=== PATIENT | male | born 1975 | race Caucasian/White ===

== ENCOUNTER 2023-03-08 09:47 | Outpatient (CLI) | payer OTHER, SELFPAY | END 2023-03-08 09:48 | disposition home or self-care (01) | LOC: ANHAUDIO 09:50 | PROVIDERS: PCP Family Medicine Adolescent Medicine; Visit Provider Otolaryngology | DX: H90.3 Sensorineural hearing loss, bilateral (principal); H60.92 Unspecified otitis externa, left ear; J31.0 Chronic rhinitis | CPT/HCPCS: 92552; 92556; 92567 ==

== ENCOUNTER 2023-04-05 00:07 | Day surgery (SDC) | payer OTHER, SELFPAY ==
[2023-03-22 14:25] VITALS: BMI 40.9
--- NOTE | 2023-04-04 09:58 | WPDANESEPPF ---
Anes - Initial Pre Proc Eval Procedure: Operation Date: 04/05/23 08:00 Proposed Procedures p Screening Colonoscopy - Cristi Mars MD Date/Time: 04/04/23 09:58 Surgeon: Cristi Mars MD Pre Op Diagnosis: neoplasm screening Patient Data Age: 47 Gender: M Height: 1.78 m Weight: 129.5 kg Allergies Allergy/AdvReac Type Severity Reaction Status Date / Time tolnaftate [From Lamisil AF] AdvReac Intermediate Rash Verified 04/05/23 06:37 (topical) Home Medications Medication Instructions Recorded Confirmed Type flaxseed oil 1,000 mg capsule 1,000 mg PO BID 10/27/21 03/22/23 History propranolol 80 mg tablet 80 mg PO Q12H #60 tabs 10/03/22 04/05/23 Rx sumatriptan succinate 100 mg tablet See Rx Instructions PO .COMPLEX #9 12/13/22 03/22/23 Rx tabs cyclobenzaprine 10 mg tablet 10 mg PO TID PRN muscle spasm #30 03/01/23 03/22/23 Rx tabs gabapentin 300 mg capsule 300 mg PO BID 03/22/23 03/22/23 History omeprazole 40 mg capsule,delayed 40 mg PO DAILY 03/22/23 03/22/23 History release sulindac 200 mg tablet 200 mg PO BID 03/22/23 03/22/23 History topiramate 100 mg tablet 100 mg PO BID 03/22/23 03/22/23 History levetiracetam 500 mg tablet 1,000 mg PO Q12H #120 tabs 03/29/23 Rx Patient hx anesthesia problems: none Family hx anesthesia problems: none Results Review: All pre-operative results and documents have been reviewed as part of the pre-operative evaluation. [facility] Past Medical History Medical History (Updated 04/05/23 @ 08:00 by Cristi Mars MD) Family history of colon cancer in mother Hyperlipidemia Surgical History Surgical History History of cholecystectomy 2017 History of right inguinal hernia repair 2017 Family History Family History Father Migraines Mother Carcinoma of colon Sibling Migraines Other Cerebrovascular accident Family history of malignant neoplasm Hypertension Social History Social History Smoking status: Never smoker Second hand tobacco smoke exposure: No Alcohol intake: never Substance use: never Substance use type: does not use Lack of Transportation: No Lack of Food: Never True Current Housing: I Have Housing Concerned About Future Housing: Decline to Answer Difficulty Paying Gas/Electric Bills: Decline to Answer Difficulty Paying for Meds: Decline to Answer Currently Unemployed: Decline to Answer Education: High School Diploma/GED Difficulty w/ Childcare or Family Care: YES Living arrangements: with family Occupation/Education: unemployed Gender identity (if verbalized by the patient): Male Spiritual care concerns: No Agree to blood products: Yes Anes - Eval Final PreProcedure Day of Procedure 04/04/23 09:58 Patient weight: morbidly obese Heart: regular rate and rhythm Lungs: clear to auscultation Airway: Mallampati scale class II Neurological: alert and oriented Last oral intake: >/= 8 hours ASA classification: III Emergent: no Anesthetic plan: proceed Anesthesia type and monitoring: general GIVS and standard monitoring Results Review: All pre-operative results and documents have been reviewed as part of the pre-operative evaluation. Informed Consent: The patient's anesthetic plan and its attendant risks and benefits were discussed with the patient/family/POA. Questions were solicited and answers provided to the satisfaction of the patient/family/POA.
[2023-04-05 06:39] VITALS: BP 135/92; PULSE 62; RESP 18; TEMP 36.6; O2SAT 97
[2023-04-05] MEDS: LACTATED RINGERS 1,000 ML 150 ML IV CONT (06:52)
--- NOTE | 2023-04-05 07:59 | PM.HPGS ---
History of Present Illness History of Present Illness Consent: Risks, benefits, and alternatives have been discussed and questions answered. Patient agrees to proceed with procedure. Chief complaint: neoplasm screening Narrative: Miguel A Carr Jr. is a 47 year old male here for first colonoscopy, mother had colon cancer Review of Systems Constitutional: Constitutional: Denies headache(s) and Denies weakness ENT: Reports Normal hearing present, Denies headache(s) and Denies neck pain Cardiovascular: Cardiovascular: Denies chest pain and Denies dyspnea Respiratory: Respiratory: Denies dyspnea Gastrointestinal: Gastrointestinal: Reports no additional gastrointestinal complaints Genitourinary: Genitourinary: Denies dysuria Musculoskeletal: Musculoskeletal: Denies neck pain Integumentary/Breasts: Skin/Breast: Denies dry skin Neurologic: Reports Normal hearing present, Denies headache(s) and Denies weakness Psychiatric: Psychiatric: Denies anxiety Endocrine: Endocrine: Denies change in body appearance Hematologic/Lymphatic: Hematologic/Lymphatic: Denies easy bleeding Allergic/Immunologic: Allergic/Immunologic: Denies urticaria PMF Past Medical History Medical History (Updated 04/05/23 @ 08:00 by Cristi Mars MD) Family history of colon cancer in mother Hyperlipidemia Surgical History Surgical History History of cholecystectomy 2017 History of right inguinal hernia repair 2017 Family History Family History Father Migraines Mother Carcinoma of colon Sibling Migraines Other Cerebrovascular accident Family history of malignant neoplasm Hypertension Social History Social History Smoking status: Never smoker Second hand tobacco smoke exposure: No Alcohol intake: never Substance use: never Substance use type: does not use Lack of Transportation: No Lack of Food: Never True Current Housing: I Have Housing Concerned About Future Housing: Decline to Answer Difficulty Paying Gas/Electric Bills: Decline to Answer Difficulty Paying for Meds: Decline to Answer Currently Unemployed: Decline to Answer Education: High School Diploma/GED Difficulty w/ Childcare or Family Care: YES Living arrangements: with family Occupation/Education: unemployed Gender identity (if verbalized by the patient): Male Spiritual care concerns: No Agree to blood products: Yes Meds Home Medications and Allergies Home Medications Medication Instructions Recorded Confirmed Type flaxseed oil 1,000 mg capsule 1,000 mg PO BID 10/27/21 03/22/23 History propranolol 80 mg tablet 80 mg PO Q12H #60 tabs 10/03/22 04/05/23 Rx sumatriptan succinate 100 mg tablet See Rx Instructions PO .COMPLEX #9 12/13/22 03/22/23 Rx tabs cyclobenzaprine 10 mg tablet 10 mg PO TID PRN muscle spasm #30 03/01/23 03/22/23 Rx tabs gabapentin 300 mg capsule 300 mg PO BID 03/22/23 03/22/23 History omeprazole 40 mg capsule,delayed 40 mg PO DAILY 03/22/23 03/22/23 History release sulindac 200 mg tablet 200 mg PO BID 03/22/23 03/22/23 History topiramate 100 mg tablet 100 mg PO BID 03/22/23 03/22/23 History levetiracetam 500 mg tablet 1,000 mg PO Q12H #120 tabs 03/29/23 Rx Allergies Allergy/AdvReac Type Severity Reaction Status Date / Time tolnaftate [From Lamisil AF] AdvReac Intermediate Rash Verified 04/05/23 06:37 (topical) Vital Signs Vital Signs - 24 hr 04/05/23 06:39 Temperature 97.8 F Pulse Rate 62 Respiratory Rate 18 Blood Pressure 135/92 H Pulse Oximetry 97 Oxygen Delivery Room Air Exam Const: General: comfortable and no acute distress HENMT: Face/Nose/Sinus: Normal nares present Eyes: Other: wearing sunglasses Neck: Neck: no JVD Resp: Auscultation: clear to aus
[2023-04-05 08:21] VITALS: BP 113/78; PULSE 74; RESP 20; O2SAT 100
[2023-04-05 08:31] VITALS: BP 120/79; PULSE 68; RESP 17; O2SAT 100
[2023-04-05 08:41] VITALS: BP 133/88; PULSE 62; RESP 20; O2SAT 97
== END 2023-04-05 08:46 | disposition home or self-care (01) ==
PROVIDERS: PCP Family Medicine Adolescent Medicine; Visit Provider Internal Medicine Gastroenterology
PROC: 0DJD8ZZ Inspection of Lower Intestinal Tract, Via Natural or Artificial Opening Endoscopic (ICD-10-PCS; CPT 45378; principal; 2023-04-05 08:00)
DX: Z12.11 Encounter for screening for malignant neoplasm of colon (principal); K57.30 Diverticulosis of large intestine without perforation or abscess without bleeding; K64.8 Other hemorrhoids; Z80.0 Family history of malignant neoplasm of digestive organs; E78.5 Hyperlipidemia, unspecified; E66.01 Morbid (severe) obesity due to excess calories; Z68.41 Body mass index [BMI] 40.0-44.9, adult
CPT/HCPCS: 45378; J2704; J7120

== ENCOUNTER 2023-07-01 10:07 | Outpatient (CLI) | payer OTHER, SELFPAY ==
--- NOTE | ~2023-07-01 | US_ITS ---
EXAMINATION:US venous doppler LE LT INDICATION:Left lower extremity pain TECHNIQUE: Multiple grayscale, color flow and Doppler images of the left lower extremity deep venous systems were obtained and reviewed. COMPARISON:No prior studies for comparison. FINDINGS: The common femoral, superficial femoral and popliteal veins demonstrate normal respiratory variation, augmentation and compressibility. Color flow is also seen within the posterior tibial, pe roneal, greater saphenous and profunda veins. IMPRESSION: 1: No lower extremity deep venous thrombosis. Reviewed, dictated and finalized at location B. ER OPERATOR
[2023-07-01 11:31] LABS: Basophils Absolute Auto 0.1 K/mm3 (0.0-0.1); Basophils Percent Auto 0.8 % (0.2-1.2); Eosinophils Absolute Auto 0.4 K/mm3 (0-0.3); Eosinophils Percent Auto 3.5 % (0-4.4); Hematocrit 44.4 % (42.0-52.0); Hemoglobin 14.5 g/dL (14.0-18.0); Immature Granulocyte Absolute 0.06 K/mm3 (0.00-0.031); Immature Granulocyte Percent A 0.6 % (0-0.5); Lymphocytes Absolute Auto 2.84 K/mm3 (0.9-3.2); Lymphocytes Percent Auto 28.1 % (18.3-44.2); Mean Corpuscular HGB Conc 32.7 g/dl (32-36); Mean Corpuscular Hemoglobin 29.9 pg (26-34); Mean Corpuscular Volume 91.5 fl (80-100); Mean Platelet Volume 10.3 fl (7.4-10.4); Monocytes Absolute Auto 1.1 K/mm3 (0.1-0.6); Monocytes Percent Auto 10.6 % (2.6-8.5); Neutrophils Absolute Auto 5.7 K/mm3 (1.3-6.7); Neutrophils Percent Auto 56.4 % (45.5-73.1); Platelet Count Result 196 k/mm3 (150-375); Red Blood Count 4.85 M/mm3 (4.6-6.20); Red Cell Distribution Width 13.4 % (11.5-14.5); White Blood Count 10.1 K/mm3 (4.5-10.0)
[2023-07-01 11:44] LABS: Alanine Aminotransferase 41 U/L (6-50); Albumin Level 4.5 g/dL (3.5-5.1); Alkaline Phosphatase 93 U/L (38-126); Anion Gap 8 mmol/L (8-16); Aspartate Amino Transferase 32 U/L (17-59); Bilirubin,Total 0.9 mg/dL (0.2-1.3); Blood Urea Nitrogen 13 mg/dL (9-20); Calcium 9.4 mg/dL (8.4-10.2); Carbon Dioxide 28 mmol/L (22-30); Chloride 106 mmol/L (98-107); Cholesterol 222 mg/dL (0-200); Estimated Glomerular Filt Rate > 60; Glucose 87 mg/dL (65-110); HDL Direct 31 mg/dL; Potassium 4.3 mmol/L (3.4-5.0); Sodium 142 mmol/L (137-145); Triglycerides 142 mg/dL (<150)
[2023-07-01 11:55] LABS: LDL Cholesterol Direct 147 mg/dL
== END 2023-07-01 10:08 | disposition home or self-care (01) ==
PROVIDERS: PCP Family Medicine Adolescent Medicine; Visit Provider Nurse Practitioner Family
DX: M79.662 Pain in left lower leg (principal); I10 Essential (primary) hypertension
CPT/HCPCS: 36415; 80053; 80061; 84443; 85025; 93971

== ENCOUNTER 2024-01-27 10:14 | Outpatient (CLI) | payer OTHER, SELFPAY ==
--- NOTE | ~2024-01-27 | US_ITS ---
EXAMINATION: US soft tissue groin RT DATE: 01/27/2024 10:56 INDICATION: Strain of the abductor muscles, fascia tendon TECHNIQUE: Multiple grayscale and Doppler ultrasound images of the right inguinal region of concern w ere obtained. COMPARISON: CT dated 01/18/2017 FINDINGS: There is a small fat-containing inguinal hernia at the right groin. This was present at the time of t he prior CT with large and medial to the hypogastric vessels consistent with an indirect hernia. IMPRESSION: 1. Small fat-containing indirect right inguinal hernia. Reviewed, dictated and finalized at location B.
== END 2024-01-27 10:15 | disposition home or self-care (01) ==
PROVIDERS: PCP Family Medicine Adolescent Medicine; Visit Provider Nurse Practitioner Family
DX: S76.211A Strain of adductor muscle, fascia and tendon of right thigh, initial encounter (principal); X58.XXXA Exposure to other specified factors, initial encounter; N50.89 Other specified disorders of the male genital organs; K40.90 Unilateral inguinal hernia, without obstruction or gangrene, not specified as recurrent
CPT/HCPCS: 76882

== ENCOUNTER 2024-02-09 12:22 | Outpatient (CLI) | payer OTHER, SELFPAY ==
--- NOTE | ~2024-02-09 | XR_ITS ---
Lumbosacral Spine: AP and lateral views Clinical History: Pain Findings: The normal lordotic curve is maintained. The vertebral bodies and posterior elements are i ntact. The intervertebral disc spaces are preserved. There is moderate facet arthropathy, especially from L4 through S1. The sacroiliac joints are normally outlined. Impression: Facet arthropathy, as above. Reviewed, dictated and finalized at location . Impression: Facet arthropathy, as above.
== END 2024-02-09 12:23 | disposition home or self-care (01) ==
LOC: ANHIMG 12:23
PROVIDERS: PCP Family Medicine Adolescent Medicine; Visit Provider Nurse Practitioner Family
DX: M54.9 Dorsalgia, unspecified (principal); M12.88 Other specific arthropathies, not elsewhere classified, other specified site
CPT/HCPCS: 72100

== ENCOUNTER 2024-04-10 10:00 | Outpatient (RCR) | payer OTHER, SELFPAY ==
--- NOTE | 2024-03-08 10:52 | PTOPEVAL1 ---
Assessment and note entered by Adali Montejo, PT Evaluation Information Assessment Status Evaluation Diagnosis M54.9 ICD-10 Condition Codes (PT) Pain in low back M54.50,M54.16,Pain in right hip M25.551,R26.9,Weakness R53.1 Onset February 03, 2024 Subjective Information Pt reports experiencing sudden sharp pain to the lower back pain which goes to the R side of buttocks going around to the R groin area last February 02 which gradually got worse over time. Standing longer, bending over and walking for long distances increase pain as well as driving, but sitting with lumbar support helps with pain intensity; however, a lot of times, he needs to extend R leg to relieve pressure in the groin area . Sparingly used prescribed hydrocodone and muscle relaxants, only when the pain and or spasms are really bad . Laying in bed on his side or stomach generally feels better. He has 14 steps to basement where the laundry is and another 14 steps to bedroom in the 2nd floor; increased challenge with going up/down steps, leans on the wall going down the stairs due to increased stiffness especially in the mornings, feels better as he moves around throughout the day , or when he is in the cold shower. ADLs such as dressing and putting socks on has been difficult due to feeling unstable with standing on L leg and occasionally feeling a jolt of pain to R groin area. He is staying at home and performs more household tasks and is the primary caregiver for his mom and sister. Reports that he had a fall in the living room late January, he felt that everything below the waist just buckled on him and he lost his balance. Able to get back up to his feet after resting for a period of time. Patient's personal goal for therapy is to be able to perform functional mobility without increased pain. Reported Pain Level Pain Score 6,6: Self Report Additional Pain Score Comments Pain in varying intensity goes around from low back to the R hip and R groin area and along
--- NOTE | 2024-04-12 10:07 | PTOPDC ---
Assessment and note entered by Adali Montejo, PT DISCHARGE Information Assessment Status Discharge Diagnosis M54.9 ICD-10 Condition Codes (PT) Pain in low back M54.50,M54.16,Pain in right hip M25.551,R26.9,Weakness R53.1 Onset February 03, 2024 Subjective Information Pt reports continue to feel the groin pain with movements and even when doing some of the stretching exercises. It is usually painful initially and then subsides with the next reps, modified some of the exercises as instructed. States therapy has helped relieve some of the back pain but the groin area pain persists. Assessment PT Clinical Summary Pt participated in 9 sessions of Physical Therapy and showed gains in strength and balance, reports reduction in pain to lower back area. However, he continue to c/o persisting pain to L groin area which increases with movement. No significant change in pain levels to the groin and adductor muscles from eval to this date. PT recommendation for patient to continue with HEPs for lower back and to return to MD for a referral to a pelvic casino floor walker due to h/o hernia and persisting groin pain. Plan of Care PT Services Indicated No
== END 2024-04-13 08:43 | disposition home or self-care (01) ==
LOC: ANHHIPT 10:00
PROVIDERS: PCP Family Medicine Adolescent Medicine; Visit Provider Nurse Practitioner Family
DX: M54.9 Dorsalgia, unspecified (principal)
CPT/HCPCS: 97014; 97035; 97110; 97112; 97140; 97161; 97530; 97750; G0283

== ENCOUNTER 2024-06-18 13:58 | Outpatient (CLI) | payer OTHER, SELFPAY ==
--- NOTE | ~2024-06-18 | XR_ITS ---
EXAMINATION: XR hip BI 2V w AP pelvis DATE: 06/18/2024 14:20 INDICATION: Right hip pain. TECHNIQUE: An anteroposterior view of the pelvis on 2 radiographs and 2 views of each hip were obtain ed. COMPARISON: None. FINDINGS: There is lumbar levoscoliosis. No fracture. There is moderate osteoarthritis of the hips. IMPRESSION: 1. Moderate osteoarthritis of the hips. Reviewed, dictated and finalized at location A. EL PILE HAMMER OPERATOR
== END 2024-06-18 13:59 | disposition home or self-care (01) ==
PROVIDERS: PCP Family Medicine Adolescent Medicine; Visit Provider Anesthesiology Pain Medicine
DX: M16.0 Bilateral primary osteoarthritis of hip (principal); G89.29 Other chronic pain; M25.551 Pain in right hip
CPT/HCPCS: 73521

== ENCOUNTER 2024-06-22 10:25 | Outpatient (CLI) | payer OTHER, SELFPAY ==
--- NOTE | ~2024-06-22 | XR_ITS ---
EXAMINATION: XR ankle RT min 3V, [id number] DATE: 06/22/2024 10:58 INDICATION: TECHNIQUE: 1. Anteroposterior, mortise, additional oblique and lateral view of the right ankle were obtained. 2. Standing dorsal plantar, two oblique and lateral views of the right foot were obtained. COMPARISON: None. FINDINGS: Normal alignment at the right ankle. There is mild pes planus and hindfoot valgus. No fracture. Minim al to mild polyarticular osteoarthritis at both the multiple joints throughout the right foot. Modera te-sized Achilles and plantar calcaneal spurs with small amount of dystrophic ossification at the dis cezar Achilles tendon. Bone islands at the lateral malleolus and anterior talus. No ankle joint effusio n. Diffuse soft tissue swelling about the ankle and visualized distal lower leg. IMPRESSION: 1. Mild pes planus and hindfoot valgus minimal to mild polyarticular osteoarthritis throughout the ri ght foot. 2. Moderate Achilles and plantar calcaneal spurs with additional mild enthesopathic ossification at t he distal Achilles tendon. Reviewed, dictated and finalized at location A. R DIGGER IMPRESSION: 1. Mild pes planus and hindfoot valgus minimal to mild polyarticular osteoarthr itis throughout the right foot. 2. Moderate Achilles and plantar calcaneal spurs with additional mild enthesopa thic ossification at the distal Achilles tendon.
== END 2024-06-22 10:26 | disposition home or self-care (01) ==
PROVIDERS: PCP Family Medicine Adolescent Medicine; Visit Provider Family Medicine
DX: M21.41 Flat foot [pes planus] (acquired), right foot (principal); M21.071 Valgus deformity, not elsewhere classified, right ankle; M77.31 Calcaneal spur, right foot; M19.071 Primary osteoarthritis, right ankle and foot
CPT/HCPCS: 73610; 73630

== ENCOUNTER 2024-07-03 13:13 | Outpatient (CLI) | payer OTHER, SELFPAY ==
--- NOTE | ~2024-07-03 | CT_ITS ---
CT abdomen pelvis wo con Ordering provider: Yumiko Moreau History: 48 years Male with . R10.9 - Unspecified abdominal pain . Comparison: None. Technique: CT abdomen and pelvis without IV and without oral contrast. Automated exposure control and iterative reconstruction technique were employed. The dose-length product was 1177.47 mGy-cm. Findings: VISUALIZED LOWER CHEST: Normal. UPPER ABDOMINAL ORGANS: Liver: Hepatomegaly. Gallbladder: Status post cholecystectomy. Spleen: Normal. Stomach/duodenum: Normal. Pancreas: Normal. Adrenals: Normal. Kidneys: Right kidney lower pole stones. Stone in the right upper ureter is also noted with mild hydr onephrotic changes. Multiple tiny stones are seen in the left kidney. PELVIC ORGANS: The bladder is underfilled. BOWEL AND MESENTERY: Colon: No evidence of diverticulitis. No evidence of appendicitis. Small Bowel: Normal. No obstruction. Peritoneum/mesentery: No free air or free fluid. No mesenteric lymphadenopathy. RETROPERITONEUM: Normal aorta. No retroperitoneal lymphadenopathy. MUSCULOSKELETAL: Superficial soft tissues: The superficial soft tissues are normal. Bones: Age appropriate degenerative changes of the spine. IMPRESSION: 1. Stone in the right upper ureter measuring 6 mm with mild hydronephrosis. 2. Bilateral kidney stones. 3. No evidence of appendicitis, diverticulitis or obstruction. 4. Hepatomegaly. Reviewed, dictated and finalized at location A. LE FINANCIALS DEVELOPER
== END 2024-07-03 13:14 | disposition home or self-care (01) ==
PROVIDERS: PCP Family Medicine Adolescent Medicine; Referring Provider Nurse Practitioner Family; Visit Provider Anesthesiology Pain Medicine
DX: N13.2 Hydronephrosis with renal and ureteral calculous obstruction (principal); R16.0 Hepatomegaly, not elsewhere classified
CPT/HCPCS: 74176

== ENCOUNTER 2024-09-05 13:08 | Outpatient (CLI) | payer OTHER, SELFPAY ==
--- NOTE | ~2024-09-05 | MR_ITS ---
EXAMINATION: MR lumbar spine wo con DATE: 09/05/2024 13:45 INDICATION: Radiculopathy, lumbar region. TECHNIQUE: Magnetic resonance imaging (MRI) of the lumbar spine was performed without intravenous con trast. Sequences included sagittal T2-weighted FSE, sagittal T2-weighted FS FSE, sagittal T1-weighted FSE, and axial T2-weighted FSE. COMPARISON: Lumbar spine MRI 04/11/2006 FINDINGS: There is 5 degrees levocurvature of lumbar spine. Vertebral body heights are normal. There is mildly decreased disc height at L4-L5 and L5-S1. The distal spinal cord signal intensity is normal . The conus medullaris is at T12-L1. The following disc levels are specifically discussed: L1-L2: The disc does not extend beyond the endplate margin. There is mild bilateral facet joint osteo arthritis. There is no neural foraminal stenosis. There is no central canal stenosis. L2-L3: The disc does not extend beyond the endplate margin. There is mild bilateral facet joint osteo arthritis. There is no neural foraminal stenosis. There is no central canal stenosis. L3-L4: The disc does not extend beyond the endplate margin. There is moderate bilateral facet joint o steoarthritis. There is no neural foraminal stenosis. There is no central canal stenosis. L4-L5: The disc is bulging and has an annular fissure. There is moderate bilateral facet joint osteoa rthritis. There is mild bilateral neural foraminal stenosis. There is mild central canal stenosis. L5-S1: The disc is bulging and has an annular fissure. There is moderate bilateral facet joint osteoa rthritis. There is no neural foraminal stenosis. There is mild central canal stenosis. IMPRESSION: 1. Mild lumbar spondylosis, worsened from 04/11/2006. Reviewed, dictated and finalized at location A. SCHOOL ENGLISH TEACHER
--- NOTE | ~2024-09-05 | CT_ITS ---
Non-contrast CT scan of the Abdomen and Pelvis Clinical indication: Right lower quadrant pain Technique: 2.5 mm axial scans were obtained through the abdomen and pelvis without intravenous or or al contrast. Dose reduction technique was used on this scan by utilizing automated exposure control a nd iterative reconstruction technique. The dose-length product (DLP) was 1044.76 mGy-cm. COMPARISON: 07/03/2024 Findings: Images through the lung bases reveal no abnormalities. There is a 6 mm stone at the distal right ureter, with mild to moderate right hydroureteronephrosis t o this level. Additional 3 mm nonobstructing right renal stone present at the lower pole. There sever al nonobstructing left renal stones, largest measuring 7 mm. No left ureteral stone or left hydroneph rosis. The liver, spleen, pancreas, and adrenals appear normal. Cholecystectomy clips are present. There is no aortic aneurysm. There is no evidence of bowel obstruction. Images through the pelvis were performed. There is no evidence of ascites or lymphadenopathy. Urinary bladder unremarkable. No pelvic mass seen. Impression: 6 mm distal right ureteral stone with mild to moderate right hydroureteronephrosis to this level. Additional bilateral nonobstructing renal stones, as detailed above. Reviewed, dictated and finalized at location . SFORCE SPECIALIST Impression: 6 mm distal right ureteral stone with mild to moderate right hydroureteronephro sis to this level. Additional bilateral nonobstructing renal stones, as detailed above.
--- OUTSIDE RECORDS SUMMARY | 2024-09-05 13:17 | XMS_ITS | Clinical Summary ---
Author Organization [facility] Address [address] [place] [address] Care Team Providers Care Radiation Oncology Manager Name Role Phone Dm Mcmahon MD Primary Care Provider [phone] Allergies Active Allergy Reactions Criticality Noted Date Comments Terbinafine Unknown 05/26/2017 Medications naratriptan (AMERGE) 2.5 MG tablet Active Flaxseed, Linseed, (RA FLAXSEED OIL) 1030 MG Cap Take 1 capsule by mouth 2 (two) times daily. Active gabapentin 600 MG tablet 600 mg 2 (two) times daily. 07/10/2018 Active omeprazole (PRILOSEC) 20 MG capsule Take 1 capsule by mouth daily. Active propranolol 80 MG tablet Take 1 tablet by mouth 2 (two) times daily. Active sulindac 200 MG tablet Take 1 tablet by mouth 2 (two) times daily. Active topiramate (TOPAMAX) 100 MG tablet Take 1 tablet by mouth 2 (two) times daily. Active Active Problems Problem Noted Date Diagnosed Date Low back pain 03/13/2019 Family History Medical History Relation Comments Heart Father Hypertension Father Cancer Mother Colon Hypertension Mother Diabetes Sister Pulmonary embolism Sister Seizures Sister Relation Status Comments Father Mother Sister Social History Tobacco Use Types Packs/Day Years Used Date Smoking Tobacco: Never Smokeless Tobacco: Never Tobacco Cessation:Counseling Given: Not Answered Alcohol Use Standard Drinks/Week Comments Not Currently 0 (1 standard drink = 0.6 oz pur e alcohol) Sex and Gender Information Value Date Recorded Sex Assigned at Not on file Legal Sex Male 4:27 PM CDT Gender Identity Not on file Sexual Orientation Not on file Last Filed Vital Signs Vital Sign Reading Time Taken Comments Blood Pressure 150/95 06/29/2023 5:45 PM CLEANING TEAM MEMBER Pulse 60 06/29/2023 5:45 PM CLEANING TEAM MEMBER Temperature 36 C (96.8 F) 06/29/2023 3:15 PM CLEANING TEAM MEMBER Respiratory Rate 18 06/29/2023 3:15 PM CLEANING TEAM MEMBER Oxygen Saturation 92% 06/29/2023 5:45 PM CLEANING TEAM MEMBER Inhaled Oxygen Concentration - - Weight 115.7 kg (255 lb) 06/29/2023 3:15 PM CLEANING TEAM MEMBER Height 177.8 cm (5' 10 ) 06/29/2023 3:15 PM CLEANING TEAM MEMBER Body Mass Index 36.59 06/29/2023 3:15 PM CLEANING TEAM MEMBER Plan of Treatment Health Maintenance Due Date Last Done Comments Colorectal Cancer Screening Colonoscopy (10 Years) 1977 Annual Physical 1980 Hepatitis C 11/27/1995 DTaP, Tdap and Td Vaccines (1 - Tdap) 1996 Hepatitis B Vaccines (1 of 3 - 19+ 3-dose series) 1996 COVID-19 Vaccine ( season) 2024 06/29/2021, 12/03/2020, 11/05/2020 Influenza Adult (#1) 2024 05/07/2020, 03/28/2020, 05/23/2019, Additional history exists Meningococcal B Vaccine Aged Out No l onger eligible based on patient's age to complete this topic Meningococcal Vaccine Aged Out No malka kota eligible based on patient's age to complete this topic Pneumococcal Vaccine: Pediatrics (0 to 5 Years) and At-Risk Patients (6 to 64 Years) Aged Out No longer eligible based on patient's age to complete this topic RSV Immunizations Under 20 Months Aged Out No longer eligible based on patient's age to complete this topic Insurance [employer] Care Teams Radiation Oncology Manager Relationship Specialty Start Date End Date Dm Mcmahon MD [address] [address] PCP - General FAMILY PRACTICE 07/10/18
--- OUTSIDE RECORDS SUMMARY | 2024-09-05 13:17 | XMS_ITS | Continuity of Care Document ---
Author Organization [facility] Address [address] [place] [address] [facility] [address] [place] [address] Phone Care Team Providers Care Topographical Surveyor Name Role Phone Daniel Avilez Unavailable Unavailable Procedures Procedure Date Eye Exam, New Patient Advance Directives Directive Yes / No Effective Date File Name No Information Encounters Encounter Description Practice Location Reason(s) For Visit Diagnoses Date Provider Providers Copied on Encounter [facility], [address], [place], [place], [id number], [place] tel:[phone] [facility] No Information 4-200 9 Fatmata Daniel. [address] [facility] [address], [address], [place]. tel:[phone] Family History Family Member Type Diagnosis Age At Onset No Information Payers Payer name Insurance type Covered green party ID Authoriza tion(s) No Information Social [...]
--- OUTSIDE RECORDS SUMMARY | 2024-09-05 13:17 | XMS_ITS | Encounter Summary ---
Author Organization [facility] Address [facility] [place] [address] Care Team Providers Care Field Tech Name Role Phone Dm Mcmahon MD Primary Care Provider [phone] Encounter Details Date Type Department Care Team (Late st Contact Info) Description 02/21/2018 Abstract [facility] CONVERSION [address] [place] [address] , Generic MD Nadira Social History Tobacco Use Types Packs/Day Years Used Date Smoking Tobacco: Never Assessed Sex and Gender Information Value Date Recorded Sex Assigned at Not on file Legal Sex Male 4:27 PM CDT Gender Identity Not on file Sexual Orientation Not on file documented as of this encounter Plan of Treatment Not on file documented as of this encounter Visit Diagnoses Not on filedocumented in this encounter Care Teams Field Tech Relationship Specialty Start Date End Date Dm Mcmahon MD [address] [place] [id number] PCP - General FAMILY PRACTICE 07/10/18 documented as of this encounter
== END 2024-09-05 13:09 | disposition home or self-care (01) ==
PROVIDERS: PCP Family Medicine Adolescent Medicine; Visit Provider Anesthesiology Pain Medicine
DX: N13.2 Hydronephrosis with renal and ureteral calculous obstruction (principal); M47.816 Spondylosis without myelopathy or radiculopathy, lumbar region; N50.89 Other specified disorders of the male genital organs; K40.91 Unilateral inguinal hernia, without obstruction or gangrene, recurrent
CPT/HCPCS: 72148; 74176

== ENCOUNTER 2024-11-13 09:56 | Inpatient (IN) | payer OTHER, SELFPAY ==
[2024-11-13] VITALS (7 sets, daily range): BP systolic 131–163; BP diastolic 84–97; PULSE 61–75; RESP 18–20; TEMP 36.5–36.6; O2SAT 96–100; BMI 39.2
--- NOTE | ~2024-11-13 | CT_ITS ---
CT abdomen pelvis wo con Ordering provider: Mona Thompson PA-C History: 48 years Male with . abd pain, blood in stool . Comparison: September 05, 2024 Technique: CT abdomen and pelvis without oral IV and without oral contrast. Automated exposure contro l and iterative reconstruction technique were employed. The dose-length product was 1474.47 mGy-cm. Findings: VISUALIZED LOWER CHEST: Normal. UPPER ABDOMINAL ORGANS: Liver: Hepatomegaly. Gallbladder: Status post cholecystectomy. Spleen: Normal. Stomach/duodenum: Normal. Pancreas: Normal. Adrenals: Normal. Kidneys: Multiple stones in the left kidney with the largest measures 3 mm. Left hydronephrotic changes seen with a stone seen at the left ureterovesical junction measuring 5 mm . Smaller stone also seen in the distal left ureter. In the right kidney is unremarkable PELVIC ORGANS: The bladder is underfilled with thickened wall. BOWEL AND MESENTERY: Colon: No evidence of diverticulitis.. The appendix is not demonstrated.. Small Bowel: Normal. No obstruction. Peritoneum/mesentery: No free air or free fluid. No mesenteric lymphadenopathy. RETROPERITONEUM: Normal aorta. No retroperitoneal lymphadenopathy. MUSCULOSKELETAL: Superficial soft tissues: The superficial soft tissues are normal. Bones: Age appropriate normal spine. IMPRESSION: 1. No evidence of appendicitis, diverticulitis or intestinal obstruction. 2. stone at the left ureterovesical junction with left hydronephrotic changes. Smaller stones seen i n the left distal ureter. Multiple left kidney stones. 3. Hepatomegaly. Reviewed, dictated and finalized at location A. IMPRESSION: 1. No evidence of appendicitis, diverticulitis or intestinal obstruction. 2. stone at the left ureterovesical junction with left hydronephrotic changes. Smaller stones seen in the left distal ureter. Multiple left kidney stones. 3. Hepatomegaly.
--- NOTE | ~2024-11-13 | XR_ITS ---
INTRAOPERATIVE FLUOROSCOPY: CLINICAL HISTORY: 48 years old Male; CYSTO LEFT SPECIAL PROCEDURE COMMENTS: Limited intraoperative fluoroscopy of the left flank was performed. CUMULATIVE DOSE: 11.8 mGy FLUOROSCOPY TIME: 15.6 seconds FINDINGS/IMPRESSION: Please refer to operative note for further details. Reviewed, dictated and finalized at location A.
--- NOTE | ~2024-11-13 | NM_ITS ---
EXAMINATION: NM renal flow and function DATE: 11/19/2024 13:06 INDICATION: Acute renal injury TECHNIQUE: 8.1 mCi Tc-99m MAG3 was administered IV. The patient was scanned in the supine position. A posterior abdominal radionuclide angiogram was obtained. A subsequent time course of static images of the kidneys, ureters, and bladder was obtained. COMPARISON: None FINDINGS: The posterior abdominal radionuclide angiogram and sequential static images show normal size, positio n, and morphology of the left kidney. The right kidney is in normal position but appears atrophic. Pe ak renal parenchymal uptake was 3.4 min in left kidney and 4 min in right kidney (normal peak 3-5 min utes). The relative early renal uptake was 72% on the left and 28% on the right (<40% is abnormal). No photopenic defect with delayed accumulation of activity in the region of the renal gilmar to suggest hydronephrosis. There is however increased prominence of the left ureter which could be due to hydro ureter or the presence of and reported recent placed internal ureteral stent. T1/2 for clearance of activity from the left kidney and proximal collecting system was 16 minutes. T1/2 for clearance of activity from the right kidney and proximal collecting system was 31 minutes. IMPRESSION: 1. Atrophic right kidney which contributes only 28% to total renal function. 2. Increased activity in the left ureter without definitive hydronephrosis kidney which could be due to residual hydroureter or the presence of a recently placed internal ureteral stent post extraction of an impacted ureteral stone. There is no significantly delayed activity clearance from the left ki dney to suggest a significant obstruction. Reviewed, dictated and finalized at location B. IMPRESSION: 1. Atrophic right kidney which contributes only 28% to total renal function. 2. Increased activity in the left ureter without definitive hydronephrosis kid emily which could be due to residual hydroureter or the presence of a recently pl aced internal ureteral stent post extraction of an impacted ureteral stone. The re is no significantly delayed activity clearance from the left kidney to sugge st a significant obstruction.
--- NOTE | ~2024-11-13 | XR_ITS ---
XR abdomen/kub 1V Ordering provider: Mona Thompson PA-C History: . kidney stone, pain on left side . Comparison: None. FINDINGS: BOWEL: Nonobstructive bowel gas pattern. ORGANOMEGALY: None. SIGNIFICANT PATHOLOGIC CALCIFICATIONS: Lower ureteric stone is seen in the area of the left side of t he pelvis. Another smaller one is seen in the left parasacral area most likely a stone Tiny stones se en in the left kidney lower pole. OTHER: No free air is seen under the diaphragm. IMPRESSION: Stone in the left lower ureter measuring 6.5 mm.. Left kidney stones. Reviewed, dictated and finalized at location A.
--- OUTSIDE RECORDS SUMMARY | 2024-11-13 11:12 | XMS_ITS | Encounter Summary ---
Author Organization [facility] Address [facility] [place] [address] Care Team Providers Care Speed Runner Name Role Phone Dm Mcmahon MD Primary Care Provider [phone] Encounter Details Date Type Department Care Team (Late st Contact Info) Description 02/21/2018 Abstract [facility] CONVERSION [address] [place] [address] , Generic ConversionMD Social History Tobacco Use Types Packs/Day Years [...] on filedocumented in this encounter Care Teams Speed Runner Relationship Specialty Start Date End Date Dm Mcmahon MD [address] [place] [id number] PCP - General FAMILY PRACTICE 07/10/18 documented as of this encounter
--- OUTSIDE RECORDS SUMMARY | 2024-11-13 11:12 | XMS_ITS | Continuity of Care Document ---
Author Organization [facility] Address [address] [place] [address] [facility] [address] [place] [address] Phone Care Team Providers Care Tracer Bullet Charging Machine Operator Name Role Phone Daniel Avilez Unavailable Unavailable Procedures Procedure Date Eye Exam, New Patient Advance Directives Directive Yes / No Effective Date File Name No Information Encounters Encounter Description Practice Location Reason(s) For Visit Diagnoses Date Provider Providers Copied on Encounter [facility], [address] [place], [place], [id number], [place] tel:[phone] [facility] No Information [phone] Fatmata Daniel. [address] [facility] [address], [place], [address], [place]. tel:[phone] Family History Family Member Type Diagnosis Age [...]
--- OUTSIDE RECORDS SUMMARY | 2024-11-13 11:12 | XMS_ITS | Encounter Summary ---
Author Organization [facility] Address [address] [facility] [address] [place] [address] Phone Care Team Providers Care Construction Engineering Manager Name Role Phone Dm Mcmahon MD Primary Care Prov ider Encounter Details Date Type Department Care Team (Late st Contact Info) Description 10/30/2024 Results Follow-Up [facility] Surgery [address] [facility] [address] [place] [address] Ugo Ye MD [address] [facility] [place] [address] Social History Tobacco Use Types Packs/Day Years Used Date Smoking Tobacco: Never AUDIT-C Answer Date Recorded Q1: How often do you have a drink containing alc ohol? Never 10/12/2024 Q2: How many drinks containi ng alcohol do you have on a typical day when you are drinking? 1 or 2 10/12/2024 Q3: How often do you have six or more drinks on one occasion? Never 10/12/2024 Personal Safety Answer Date Recorded Have you ever been in or are you currently in a harmful physical or emotional relationship or is someone making you feel afraid or unsafe? 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 [address] [place] [address] documented as of this encounter Visit Diagnoses Not on filedocumented in this encounter Care Teams Construction Engineering Manager Relationship Specialty Start Date End Date Dm Mcmahon MD [address] [place] [address] PCP - General Family Medicine 10/08/24 documented as of this encounter
--- OUTSIDE RECORDS SUMMARY | 2024-11-13 11:12 | XMS_ITS | Encounter Summary ---
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
--- OUTSIDE RECORDS SUMMARY | 2024-11-13 11:12 | XMS_ITS | Referral Summary ---
Author Organization [facility] [address] Address [address] [place] [address] Care Team Providers Care Tube Drawer Name Role Phone Dm Mcmahon MD Primary Care Prov ider Encounters Date Type Department Care Team Description 11/05/2024 Orders Only [facility] Surgery [address] [place] [address] Ugo Ye MD Kidney stone on left side (Primary Dx) 11/05/2024 Telephone [facility] Surgery [address] [place] [address] Estela Beaver 10/30/2024 Orders Only [facility] Surgery [address] [place] [address] Ugo Ye MD Nephrolithiasis (Primary Dx) 10/30/2024 Results Follow-Up [facility] Surgery [address] [place] [address] Ugo Ye MD 10/26/2024 Telephone [facility] Surgery [address] [place] [address] Alyx Baker 10/25/2024 Results Follow-Up [facility] Surgeon [address] [place] [address] Ugo Ye MD 10/15/2024 Telephone [facility] Surgery [address] [place] [address] Alyx Baker 10/15/2024 Orders Only [facility] Surgery [address] [place] [address] Dm Mcmahon MD Nephrolithiasis (Primary Dx) 10/15/2024 Telephone [facility] Surgery [address] [place] [address] Estela Beaver 10/15/2024 Orders Only [facility] Surgery [address] [facility] [address] [place] [address] Ugo Ye MD Kidney stone (Primary Dx) 10/15/2024 Orders Only [facility] Surgery [address] [place] [address] [address] [place] [address] Ugo Ye MD Kidney stone (Primary Dx) 10/12/2024 12:27 PM CDT - 10/12/2024 1:57 PM CDT Surgery [facility] OR [address] [place] [address] Ugo Ye MD RIGHT URETEROSCOPY WITH HOLMIUM LASER LITHOTRIPSY, STONE BASKETING, CYSTOSCOPY,BILATERAL RETROGRADE PYELOGRAM,RIGHT STENT PLACEMENT 10/12/2024 12:56 PM CDT Anesthesia Event [facility] OR [address] [place] [address] Marine Cunningham MD Scott, Tracy, MD 10/12/2024 11:44 AM CDT - 10/12/2024 5:10 PM CDT Hospital Encounter [facility] OR [address] [place] [address] Ugo Ye MD Nephrolithiasis (Primary Dx) Discharge Disposition: Discharge to home or self care 10/05/2024 Results Follow-Up [facility] [address] [facility] [address] [place] [phone] Ugo Ye MD 10/03/2024 12:30 PM CDT Lab [facility] Office Building [address] [place] [address] Urinary tract infection without hematuria, site unspecified 10/03/2024 Orders Only [facility] Surgery [address] [place] [phone] Ugo Ye MD Urinary tract infection without hematuria, site unspecified (Primary Dx) 09/25/2024 9:49 AM WARNING COORDINATION METEOROLOGIST - 09/25/2024 11:59 PM WARNING COORDINATION METEOROLOGIST Hospital Encounter [facility] Rad[facility] ([facility]) [address] [place] [address] Diagnosis unknown Discharge Disposition: Discharge to home or self care 09/14/2024 3:03 PM WARNING COORDINATION METEOROLOGIST - 09/14/2024 11:59 PM WARNING COORDINATION METEOROLOGIST Hospital Encounter [facility] Lab [address] [place] [address] Right kidney stone Discharge Disposition: Discharge to home or self care 09/14/2024 1:51 PM WARNING COORDINATION METEOROLOGIST - 09/14/2024 11:59 PM WARNING COORDINATION METEOROLOGIST Hospital Encounter [facility] MOB 1 DIAG IMG [address] [place] [address] Right kidney stone Discharge Disposition: Discharge to home or self care 09/14/2024 1:00 PM WARNING COORDINATION METEOROLOGIST Office Visit [facility] Surgery [address] [place] [phone] Edgardo Hernandez NP Right kidney stone (Primary Dx) from Last 3 Months Allergies Active Allergy Reactions Criticality Noted Date Comments Pollen Extracts Other (See comments) Reaction: OTHER REACTION, Miconazole Qsmtjch-Tnenqz-Myqq Rash Medium 10/08/2024 Venom-Wasp Swelling Medium 10/08/2024 Medications tamsulosin (FLOMAX) 0.4 mg extended release capsule Take 1 capsule (0.4 mg total) by mouth daily 90 capsule 5 12/14/19 25 Active topiramate (TOPAMAX) 100 mg tablet Take 1 tablet (100 mg total) by mouth 2 (two) times a day Active rimegepant sulfate (NURTEC ODT ORAL) Take 75 mg by mouth every other day Active propranoloL (INDERAL) 80 mg tabletIndicatio ns:Migraine Prevention Take 1 tablet (80 mg total) by mouth 2 (two) times a day Active lisinopriL (PRINIVIL,ZESTR IL) 10 mg tabletIndicatio ns:hypertension Take 1 tablet (10 mg total) by mouth daily Active DULoxetine DR (CYMBALTA) 60 mg capsule Take 1 capsule (60 mg total) by mouth every evening Active flaxseed oiL 1,000 mg capsule Take 1 capsule (1,000 mg total) by mouth 2 (two) times a day Active gabapentin (NEURONTIN) 300 mg capsuleIndicati ons:Neuropathic Pain Take 1 capsule (300 mg total) by mouth 2 (two) times a day Active acetaminophen (TYLENOL) 500 mg tabletIndicatio ns:Pain Take 2 tablets (1,000 mg total) by mouth daily before breakfast And prn Active sulindac (CLINORIL) 200 mg tabletIndicatio ns:cartilage problems Take 1 tablet (200 mg total) by mouth 2 (two) times a day Pt instructed to stop starting now Active omeprazole (PriLOSEC) 40 mg capsule Take 1 capsule (40 mg total) by mouth 2 (two) times a day Active SUMAtriptan (IMITREX) 100 mg tabletIndicatio ns:Migraine Take 1 tablet (100 mg total) by mouth once as needed for migraine Active clotrimazole 1 % cream Apply 1 Application topically 2 (two) times a day To feet Active fluoride, sodium, 1.1 % paste Apply 1 inch to teeth daily Active oxyBUTYnin (DITROPAN) 5 mg tablet Take 1 tablet (5 mg total) by mouth 3 (three) times a day for 3 days 9 tablet 5 Active HYDROcodone-vikas taminophen (NORCO) 5-325 mg per tabletIndicatio ns:Pain Take 1 tablet by mouth every 8 (eight) hours as needed for pain 10 tablet 5 Active phenazopyridine (PYRIDIUM) 200 mg tablet Take 1 tablet (200 mg total) by mouth 3 (three) times a day for 3 days 9 tablet 5 10/16/19 25 cephalexin (KEFLEX) 500 mg capsule Take 1 capsule (500 mg total) by mouth 2 (two) times a day for 3 days 6 capsule 5 10/16/19 25 Active Problems Problem Noted Date Diagnosed Date Nephrolithiasis 10/03/2024 Migraine with aura 07/20/2010 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 Social History Tobacco Use Types Packs/Day Years [...] on file Legal Sex Male 3:19 AM WARNING COORDINATION METEOROLOGIST Gender Identity Not on file Sexual Orientation Not on file Last Filed Vital Signs Vital Sign Reading Time Taken Comments Blood Pressure 133/82 10/12/2024 4:20 PM CDT Pulse 64 10/12/2024 4:20 PM CDT Temperature 36.7 C (98 F) 10/12/2024 2:45 PM CDT Respiratory Rate 18 10/12/2024 4:20 PM CDT Oxygen Saturation 97% 10/12/2024 4:20 PM CDT Inhaled Oxygen Concentration - - Weight 126.4 kg (278 lb 11.2 oz) 2024 12:18 PM CDT Height 177.8 cm (5' 10 ) 10/08/2024 10: 36 AM CDT Body Mass Index 39.99 10/08/2024 10:36 AM CDT Plan of Treatment Upcoming Encounters Date Type Department Care Team (Late st Contact Info) Description 11/14/2024 6:15 AM CDT Hospital Encounter [facility] [address] [place] [address] Medical Devices Implanted Type Area Stock Worker Device Identifier Shelf Expiration Date Model / Serial / Lot Sta-Peg Bilateral Ankle Bilateral: Ankle [employer] Stent Ureteral Set Double Pigtail Radiopaque Tip [employer] [id number] Polyurethane Hydrophilic Coated [id number] - [id number] Implanted:Qty: 1 on 10/12/2024 by Ugo Ye MD at [facility] Right: Ureter [employer] [id number] 05/25/2027 [id number] / / [id number] Procedures Procedure Name Priority Date/Time Associated Diagnosis Comments LITHOLINK 24HR URINE PANEL Routine 10/24/2024 6:51 AM CDT Kidney stone FL RETRO PYELO (IN OR) IP Routine 10/12/2024 2:03 PM CDT STONE ANALYSIS Routine 10/12/2024 1:39 PM CDT NE AN PROCEDURE PLACEHOLDER Routine 10/12/2024 1:07 PM CDT NE AN ELECTIVE SUPRAGLOTTIC AIRWAY Routine 10/12/2024 1:07 PM CDT URETEROSCOPY STONE MANIPULATION WITH ABLATION LASER 10/12/2024 12:56 PM CDT Kidney stone URINE CULTURE Routine 10/03/2024 1:48 PM CDT Urinary tract infection without hematuria, site unspecified CT BODY OUTSIDE CONSULT Routine 09/25/2024 9:49 AM WARNING COORDINATION METEOROLOGIST Diagnosis unknown XR KUB Schedule Routine, Read Routine (OP Routine) 09/14/2024 1:59 PM WARNING COORDINATION METEOROLOGIST Right kidney stone POCT URINALYSIS DIPSTICK Routine 09/14/2024 1:09 PM WARNING COORDINATION METEOROLOGIST Right kidney stone URINALYSIS, MICROSCOPIC ONLY Routine 09/14/2024 1:09 PM WARNING COORDINATION METEOROLOGIST Right kidney stone URINALYSIS AND REFLEX TO MICROSCOPIC AND CULTURE Routine 09/14/2024 1:09 PM WARNING COORDINATION METEOROLOGIST Right kidney stone from Last 3 Months Results * (ABNORMAL) Litholink 24Hr Urine Panel (10/24/2024 6:51 AM CDT) Cystine, Urine, Qualitative Neg Negative [facility] - 01 Urine Volume (Preserved) 1,830 500 - 4,000 mL/24 hr [facility] - 01 Calcium Oxalate Saturation 3.53(L) 6.00 - 10.00 [facility] - 01 Calcium, Urine 144 <250 mg/24 hr [facility] - 01 Oxalate, Urine 25 20 - 40 mg/24 hr [facility] - 01 Citrate, Urine 121(L) >450 mg/24 hr [facility] - 01 Calcium Phosphate Saturation 1.71 0.50 - 2.00 [facility] - 01 pH, 24 hr, Urine 6.921(H) 5.800 - 6.200 [facility] - 01 Uric Acid Saturation 0.11 <1.00 [facility] - 01 Uric Acid, Urine 711 <800 mg/24 hr [facility] - 01 Sodium, Urine 216(H) 50 - 150 mmol/24 hr [facility] - 01 Potassium, Urine 62 20 - 100 mmol/24 hr [facility] - 01 Magnesium, Urine 71 30 - 120 mg/24 hr [facility] - 01 Phosphorus, Urine 785 600 - 1,200 mg/24 hr [facility] - 01 Ammonium, Urine 26 15 - 60 mmol/24 hr [facility] - 01 Chloride, Urine 215 70 - 250 mmol/24 hr [facility] - 01 Sulfate, Urine 18(L) 20 - 80 meq/24 hr [facility] - 01 Urea Nitrogen, Urine 7.47 6.00 - 14.00 g/24 hr [facility] - 01 Protein Catabolic Rate 0.6(L) 0.8 - 1.4 g/kg/24 hr [facility] - 01 Creatinine, Urine 1,867 Not Applic. mg/24 hr [facility] - 01 Creatinine/Kg Body Weight 14.7 11.9 - 24.4 mg/24 hr/kg [facility] - 01 Calcium/Kg Body Weight 1.1 <4.0 mg/24 hr/kg [facility] - 01 Calcium/Creatin ine Ratio 77 34 - 196 mg/g creat [facility] - 01 Comment Note [facility] - 01 Urine 10/24/2024 6:51 AM CDT 10/29/2024 Narrative [facility] - 10/30/2024 3:07 AM CDT Performed at: - [facility] [id number] Lead Technical Writer: Jose Fontana PhD, Phone: [phone] us Pietrosef Ralf Ye MD LAB URINE ORDERABLES Final Result Performing Organization Address [facility] Co de Phone Number [facility] - 01 * FL Retro Pyelo (In Or) (10/12/2024 2:03 PM CDT) Narrative [email or web address] - 10/12/2024 2:04 PM CDT The images from this study are not interpreted by Radiology. Please refer to the physician's procedure / OR operative note. us Ugo Ye MD IMG FLUOROSCOPY PROC EDURES Final Result Performing Organization Address [facility] Co de Phone Number [email or web address] * Stone analysis (10/12/2024 1:39 PM CDT) Pathologist [facility] Stone analysis Not Reported Panacea ref Lab Source, Kid Stone Right Kidney CON Interp, Kid stone analysis See Footnote CON LANDRY Comment: 90% Calcium phosphate (apatite). 10% Calcium oxalate dihydrate. COMMENT See Footnote CON [facility] Comment: For stones containing calcium oxalate, calcium phosphate, and/or uric acid, a 24 hr urinary supersaturation test may help detect underlying risk factors for this type of stone formation and provide guidance for a stone prevention strategy. ADDITIONAL INFORMATION This test was developed and its performance characteristics determined by [facility] in a manner consistent with CLIA requirements. This test has not been cleared or approved by the U.S. Food and Drug Administration. Test Performed by: [facility] - [facility] [address] [id number] Lead Technical Writer: Joe Sky Ph.D.; CLIA# [id number] Stone (Urine, Clean Catch) 10/12/2024 1:39 PM CDT 10/12/2024 1:59 PM CDT Joanne CON - 10/25/2024 12:09 PM CDT Right Kidney Stone for chemical analysis us Ugo Ye MD LAB URINE ORDERABLES Final Result CON [address] Department [place] [address] [facility] Lab * NE AN ELECTIVE SUPRAGLOTTIC AIRWAY, NE AN PROCEDURE PLACEHOLDER (10/12/2024 1:07 PM CDT) Narrative Jas Vieira CRNA - 10/12/2024 1:07 PM CDT Jas Vieira CRNA 10/12/2024 2:01 PM Airway Patient location: OR Urgency: elective Indications for airway management: anesthesia Difficult airway: no Staff: Placed by: QUALITY ASSURANCE NURSE: Jas Vieira CRNA Emergent airway documentation: Risks and benefits discussed: yes Consent obtained: yes Consent given by: patient Airway prep: Preoxygenated: yes Patient position: sniffing Mask difficulty assessment: 0 - not attempted Spontaneous ventilation during airway: absent Sedation level during airway: deep Final airway details: Final airway type: supraglottic airway Final supraglottic airway: classic SGA size: 5 Number of attempts: 1 Marine Cunningham MD ANESTHESIA ORDERABLES Edited Result - Final * Urine culture Urine, clean voided (10/03/2024 1:48 PM CDT) Report Final Report: Less than 100,000 colonies/mL (clinically insignificant growth based on current clinical standards) Comment:Testing performed by : [facility], [address] [facility], [place]., [address] Organism (CLINICALLY INSIGNIFICANT GROWTH CON [facility]Y Urine, clean voided 10/03/2024 1:48 PM CDT 10/03/2024 8:08 PM CDT Narrative CON [facility]Y - 10/05/2024 3:08 AM CDT Testing performed by [facility] Microbiology Laboratory ([phone]) us Yousef Ralf Ye MD LAB MICROBIOLOGY - G ENERAL ORDERABLES Final Result CON [facility] [address] [facility] Department [place] [address] * CT Body Outside Consult (09/25/2024 9:49 AM WARNING COORDINATION METEOROLOGIST) Anatomical Region Laterality Modality Body N/A Computed Tomogra phy 09/25/2024 10:0 3 AM WARNING COORDINATION METEOROLOGIST Impressions 09/25/2024 10:03 AM WARNING COORDINATION METEOROLOGIST 1. A 6 mm obstructive calculus in the distal right ureter causing mild right hydroureteronephrosis and mild perinephric inflammatory changes. 2. Additional bilateral nonobstructive renal calculi are seen. The findings, conclusions and recommendations within this report do not replace the initial findings, conclusions and recommendations made at the facility where the study was performed based upon the imaging and clinical condition at that time. Comparison with the prior report and clinical history is necessary. The provided images may or may not represent the eagle source data set and thus may contain changes that may lower the accuracy of this second-opinion interpretation. Electronically signed by: Dana Dasilva M.D. Narrative 09/25/2024 10:03 AM WARNING COORDINATION METEOROLOGIST EXAMINATION: RADIOLOGY CONSULTATION ON OUTSIDE IMAGING STUDY STUDY INITIALLY PERFORMED: 09/05/2024 at [facility]. TYPE OF STUDY: Multiple CT images of the abdomen and pelvis without contrast are provided at the time of this interpretation. CONTRAST ROUTE: No contrast was administered. The protocol was adequate to address the clinical question. The outside final report was not available at the time of this second opinion interpretation. TYPE OF CONSULTATION: Consult on outside imaging study with images submitted through Outside Image Sharing Service DATE OF CONSULTATION: 09/25/2024 9:56 AM HISTORY: Concern for kidney stone COMPARISON: None available. FINDINGS: Lung bases are clear. A small area of left peripheral nodularities likely represent atelectatic changes. Heart size is normal without pericardial effusion. The liver is normal within limitation of noncontrast CT. The gallbladder is absent. There is no intra or extrahepatic bile dilatation. Pancreas, spleen and both adrenal glands are normal. There is a 6 mm calculus in the distal ureter causing mild right hydroureteronephrosis. There is mild inflammatory changes surrounding the right kidney. Additional renal calculus is seen in the lower pole of the right kidney measuring up to 5 mm. Multiple nonobstructive renal calculi are also seen in the left kidney measuring up to 8 mm. The bladder is normal. No calculus is seen in the bladder. The prostate is unremarkable. The stomach is normal. There is no evidence of bowel obstruction. There is no abdominal or pelvis enlarged lymph nodes. No free fluid or free air is seen. There is a small fat-containing left inguinal hernia. Abdominal aorta is normal in caliber. There is no suspicious osseous lesion. Procedure Note Dana Puckett MD - 09/25/2024 EXAMINATION: RADIOLOGY CONSULTATION ON OUTSIDE IMAGING STUDY STUDY INITIALLY PERFORMED: 09/05/2024 at [facility]. TYPE OF STUDY: Multiple CT images of the abdomen and pelvis without contrast are provided at the time of this interpretation. CONTRAST ROUTE: No contrast was administered. The protocol was adequate to address the clinical question. The outside final report was not available at the time of this second opinion interpretation. TYPE OF CONSULTATION: Consult on outside imaging study with images submitted through Outside Image Sharing Service DATE OF CONSULTATION: 09/25/2024 9:56 AM HISTORY: Concern for kidney stone COMPARISON: None available. FINDINGS: Lung bases are clear. A small area of left peripheral nodularities likely represent atelectatic changes. Heart size is normal without pericardial effusion. The liver is normal within limitation of noncontrast CT. The gallbladder is absent. There is no intra or extrahepatic bile dilatation. Pancreas, spleen and both adrenal glands are normal. There is a 6 mm calculus in the distal ureter causing mild right hydroureteronephrosis. There is mild inflammatory changes surrounding the right kidney. Additional renal calculus is seen in the lower pole of the right kidney measuring up to 5 mm. Multiple nonobstructive renal calculi are also seen in the left kidney measuring up to 8 mm. The bladder is normal. No calculus is seen in the bladder. The prostate is unremarkable. The stomach is normal. There is no evidence of bowel obstruction. There is no abdominal or pelvis enlarged lymph nodes. No free fluid or free air is seen. There is a small fat-containing left inguinal hernia. Abdominal aorta is normal in caliber. There is no suspicious osseous lesion. IMPRESSION: 1. A 6 mm obstructive calculus in the distal right ureter causing mild right hydroureteronephrosis and mild perinephric inflammatory changes. 2. Additional bilateral nonobstructive renal calculi are seen. The findings, conclusions and recommendations within this report do not replace the initial findings, conclusions and recommendations made at the facility where the study was performed based upon the imaging and clinical condition at that time. Comparison with the prior report and clinical history is necessary. The provided images may or may not represent the eagle source data set and thus may contain changes that may lower the accuracy of this second-opinion interpretation. Electronically signed by: Dana Dasilva M.D. Edgardo Hernandez NP IMG CT PROCEDURES Final Resul t * XR KUB (09/14/2024 1:59 PM WARNING COORDINATION METEOROLOGIST) Anatomical Region Laterality Modality Body, Abdomen N/A Computed Radiogr aphy 09/19/2024 2:39 PM WARNING COORDINATION METEOROLOGIST Narrative 09/19/2024 2:41 PM WARNING COORDINATION METEOROLOGIST EXAM DESCRIPTION: XR KUB REASON FOR STUDY: kidney stone Abdominal pain when walking. Kidney stone f/u from June TECHNIQUE: A total of 2 frontal radiographic view of the abdomen. COMPARISON: None available. FINDINGS: Please note the extreme lateral margin of the right and left hemiabdomen is not imaged on this study due to patient's body habitus. Elsewhere there are gas-filled loops of large and small bowel. A gas containing loop of bowel overlies the pelvis. Moderate amount of stool projects over the imaged abdomen and pelvis. Radiopaque foci projecting over the left renal silhouette measuring up 2 3-4 mm could be renal calculi, bowel debris or other summation artifact. Surgical clips project over the right upper abdomen. There are pelvic phleboliths. Levoconvex lumbar curvature. IMPRESSION: 1. Radiopaque foci projecting over the left renal silhouette could be renal calculi, bowel debris and/or other summation artifact. A CT can be obtained to further evaluate as clinically indicated. 2. Previous imaging studies are not available for comparison. THIS IS AN ELECTRONICALLY VERIFIED FINAL REPORT 09/19/2024 2:41 PM - Electronically signed by Kilo Cervantes D.O. AP: AP Report ID: [id number] Reading Location: [place] [address] Procedure Note Kilo Cervantes, DO - 09/19/2024 EXAM DESCRIPTION: XR KUB REASON FOR STUDY: kidney stone Abdominal pain when walking. Kidney stone f/u from June TECHNIQUE: A total of 2 frontal radiographic view of the abdomen. COMPARISON: None available. FINDINGS: Please note the extreme lateral margin of the right and left hemiabdomen is not imaged on this study due to patient's body habitus. Elsewhere there are gas-filled loops of large and small bowel. A gas containing loop of bowel overlies the pelvis. Moderate amount of stool projects over the imaged abdomen and pelvis. Radiopaque foci projectingover the left renal silhouette measuring up 2 3-4 mm could be renal calculi,bowel debris or other summation artifact. Surgical clips project over the right upper abdomen. There are pelvic phleboliths. Levoconvex lumbarcurvature. IMPRESSION: 1. Radiopaque foci projecting over the left renal silhouette could berenal calculi, bowel debris and/or other summation artifact. A CT can beobtained to further evaluate as clinically indicated. 2. Previous imaging studies are not available for comparison. THIS IS AN ELECTRONICALLY VERIFIED FINAL REPORT 09/19/2024 2:41 PM - Electronically signed by Kilo Cervantes D.O. AP: AP Report ID: [id number] Reading Location: [place] [address] us Edgardo Hernandez NOTE TELLER IMG XR PROCEDURES Final Resul t * (ABNORMAL) Urinalysis reflex to microscopic and culture Urine (09/14/2024 1:09 PM WARNING COORDINATION METEOROLOGIST) Color, ur Yellow Yellow Comment:Testing performed by : [address] [address] Clarity, ur Clear Clear CON Comment:Testing performed by : [address] [address] Specific gravity, ur 1.018 1.003 - 1.030 CON Comment:Testing performed by : [address] [address] pH, urine 6.0 OCN Comment: Interpretive Data U rine pH is affected by diet, medications, systemic acid-base disturbances, and renal tubular function. pH may affect urinary stone formation. For example, urine pH below 6.0 may help reduce the tendency for calcium phosphate stones and pH greater than 6.0 may reduce the tendency for uric acid stone formation. Source: [employer] Current Interpretive Data was last revised on 2017 Testing performed by: [address] [address] Protein, ur ql Negative Negative CON Comment:Testing performed by : [address] [address] Glucose, ur ql Negative Negative CON Comment:Testing performed by : [address] [address] Ketones, ur Negative Negative CON Comment:Testing performed by : [address] [address] Bilirubin, ur Negative Negative CON Comment:Testing performed by : [address] [address] Blood, ur 2+(A) Negative CON Comment:Testing performed by : [address] [address] Urobilinogen, ur 2.0(A) <2.0 mg/dL CON LANDRY Comment:Testing performed by : [facility] [address] [place] [address]., [address] Nitrite, ur Negative Negative CON LANDRY Comment:Testing performed by : [address], [place]., [address] Leukocyte esterase, ur Negative Negative CON LANDRY Comment:Testing performed by : [address], [place]., [address] UA reflex comment Reflex to microscopic UA will be performed. CON Comment:Testing performed by : [address], [place]., [address] Urine 09/14/2024 1:09 PM WARNING COORDINATION METEOROLOGIST 09/14/2024 5:02 PM WARNING COORDINATION METEOROLOGIST us Edgardo Hernandez NOTE TELLER LAB MICROBIOLOGY - GENERAL OR DERABLES Final Result CON [facility] Department [place] [address] * (ABNORMAL) Urinalysis, microscopic only (09/14/2024 1:09 PM WARNING COORDINATION METEOROLOGIST) WBC, ur 0-5 0 - 5 /HPF Comment:Testing performed by : [address] [address] RBC, ur >50(A) 0 - 2 /HPF CON LANDRY Comment:Testing performed by : [address] [address] Epithelial cells, squamous, ur 11-20(A) 0 - 5 /HPF CON Comment:Testing performed by : [address], [place]., [address] Mucous, ur Present(A) CON Comment:Testing performed by : [address] [address] Culture Reflex Comment Reflex conditions for urine culture (WBC >10) not met. CON LANDRY Comment:Testing performed by : [address], [place]., [address] Urine 09/14/2024 1:09 PM WARNING COORDINATION METEOROLOGIST 09/14/2024 5:02 PM WARNING COORDINATION METEOROLOGIST Edgardo Hernandez NOTE TELLER LAB URINE ORDERABLES Final Re sult CON [address] [facility] Department [place] [address] * (ABNORMAL) POCT urinalysis dipstick (09/14/2024 1:09 PM WARNING COORDINATION METEOROLOGIST) Color, Urine, POC Yellow Clarity, ur, POC Clear Clear Glucose, ur, POC Negative Negative MG/DL Bilirubin, ur, POC 1+(A) Negative, Small, Moderate, Large Ketones, ur, POC Negative Negative Specific Jonancy, POC 1.020 1.003 - 1.030 Blood, ur, POC 3+(A) Negative pH, ur, POC 6.0 5.0 - 8.0 Protein, ur, POC Negative Negative Urobilinogen, urine, POC 0.2 0.2 - 1.0 mg/dL Nitrite, ur, POC Negative Negative Leukocytes, ur, POC Negative Negative Lot Number 0 Urine 09/14/2024 1:09 PM WARNING COORDINATION METEOROLOGIST Edgardo Hernandez NOTE TELLER POINT OF CARE TEST ORDERABLES Final Result from Last 3 Months Insurance [facility] Care Teams Tube Drawer Relationship Specialty Start Date End Date Dm Mcmahon MD [address] [place] [address] PCP - General Family Medicine 10/08/24
--- OUTSIDE RECORDS SUMMARY | 2024-11-13 11:12 | XMS_ITS | Clinical Summary ---
Author Organization [facility] Address [address] [place] [address] Care Team Providers Care Glass Pulverizer Equipment Operator Name Role Phone Dm Mcmahon MD Primary Care Provider [phone] Allergies Active Allergy Reactions Criticality Noted Date [...] Comments Blood Pressure 150/95 06/29/2023 5:45 PM HEAD BOOKKEEPER Pulse 60 06/29/2023 5:45 PM HEAD BOOKKEEPER Temperature 36 C (96.8 F) 06/29/2023 3:15 PM HEAD BOOKKEEPER Respiratory Rate 18 06/29/2023 3:15 PM HEAD BOOKKEEPER Oxygen Saturation 92% 06/29/2023 5:45 PM HEAD BOOKKEEPER Inhaled Oxygen Concentration - - Weight 115.7 kg (255 lb) 06/29/2023 3:15 PM HEAD BOOKKEEPER Height 177.8 cm (5' 10 ) 06/29/2023 3:15 PM HEAD BOOKKEEPER Body Mass Index 36.59 06/29/2023 3:15 PM HEAD BOOKKEEPER Plan of Treatment Health Maintenance Due Date Last Done Comments Colorectal Cancer Screening Colonoscopy (10 Years) 1977 Annual Physical 1980 Hepatitis C 11/27/1995 DTaP, Tdap and Td Vaccines ( 1 - Tdap) 1996 Hepatitis B Vaccines (1 of 3 - 19+ 3-dose series) 1996 COVID-19 Vaccine (4 - 2023-2 5 season) 2024 06/29/2021, 12/03/2020, 11/05/2020 Meningococcal B Vaccine Aged Out No l onger eligible based on patient's age to complete this topic Meningococcal Vaccine Aged Out No malka kota eligible based on patient's age to complete this topic Pneumococcal Vaccine: Pediatrics (0 to 5 Years) and At-Risk Patients (6 to 49 Years) Aged Out No longer eligible b ased on patient's age to complete this topic RSV Immunizations Under 20 Months Aged Out No longer eligible b ased on patient's age to complete this topic Insurance [facility] [phone] Care Teams Glass Pulverizer Equipment Operator Relationship Specialty Start Date End Date Dm Mcmahon MD [address] [address] PCP - General FAMILY PRACTICE 07/10/18
--- OUTSIDE RECORDS SUMMARY | 2024-11-13 11:12 | XMS_ITS | Encounter Summary ---
Author Organization [facility] Healthcare Address [address] [place] [address] Care Team Providers Care Material Handling Technician Name Role Phone No, Physician Primary Care Provider [phone] Dm Mcmahon MD Primary Care Prov ider Encounter Details Date Type Department Care Team (Late st Contact Info) Description 10/05/2024 Results Follow-Up [facility] Medical Group Neurology Hospitalists [facility] [address] [place] [phone] Ugo Ye MD [address] [facility] [place] [address] Social History Tobacco Use Types Packs/Day Years Used Date Smoking Tobacco: Never AUDIT-C Answer Date Recorded Q1: How often do you have a drink containing alc ohol? Never 10/08/2024 Q2: How many drinks containi ng alcohol do you have on a typical day when you are drinking? 1 or 2 10/08/2024 Q3: How often do you have six or more drinks on one occasion? Never 10/08/2024 Personal Safety Answer Date Recorded Have you ever been in or are you currently in a harmful physical or emotional relationship or is someone making you feel afraid or unsafe? Denies 10/08/2024 Sex and Gender Information Value Date Recorded Sex Assigned at Not on file Legal Sex Male 3:19 AM WELD ENGINEER Gender Identity Not on file Sexual Orientation Not on file documented as of this encounter Functional Status * Audit-C Score Answer Date of Assessment Author 0 10/08/2024 9:49 AM CDT Sp Noriega RN * Question Answer Date of Assessment Author Q1: How often do you have a drink containing alcohol? Never 10/08/2024 9:49 AM CDT Chrissy Noriega RN Q2: How many drinks containi ng alcohol do you have on a typical day when you are drinking? 1 or 2 10/08/2024 9:49 AM CDT Do prisca Noriega RN Q3: How often do you have si x or more drinks on one occasion? Never 10/08/2024 9:49 AM LARRYT Chrissy Noriega RN documented as of this encounter Plan of Treatment Upcoming Encounters Date Type Department Care Team (Late st Contact Info) Description 11/14/2024 6:15 AM CDT Hospital Encounter [address] [address] documented as of this encounter Visit Diagnoses Not on filedocumented in this encounter Care Teams Material Handling Technician Relationship Specialty Start Date End Date No, Physician PCP - General 09/11/24 10/07/24 Dm Mcmahon MD [address] [place] [address] PCP - General Family Medicine 10/08/24 documented as of this encounter
--- OUTSIDE RECORDS SUMMARY | 2024-11-13 11:12 | XMS_ITS | Clinical Summary ---
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 Encounters Date Type Department Care Team Description 11/05/2024 Orders Only [facility] Surgery [address] [place] [phone] Ugo Ye MD Kidney stone on left side (Primary Dx) 11/05/2024 Telephone [facility] Surgery [address] [place] [address] Estela Beaver 10/30/2024 Orders Only [facility] Surgery [address] [place] [phone] Ugo Ye MD Nephrolithiasis (Primary Dx) 10/30/2024 Results Follow-Up [facility] Surgery [address] [place] [address] Ugo Ye MD 10/26/2024 Telephone [facility] Surgery [address] [place] [phone] Alyx Baker 10/25/2024 Results Follow-Up [facility] Surgeon [address] [place] [address] Ugo Ye MD 10/15/2024 Telephone [facility] Surgery [address] [place] [phone] Alyx Baker 10/15/2024 Orders Only [facility] Surgery [address] [place] [address] Dm Mcmahon MD Nephrolithiasis (Primary Dx) 10/15/2024 Telephone [facility] Surgery [address] [place] [address] Estela Beaver 10/15/2024 Orders Only [facility] Surgery [address] [place] [phone] Ugo Ye MD Kidney stone (Primary Dx) 10/15/2024 Orders Only [facility] Surgery [address] [place] [phone] Ugo Ye MD Kidney stone (Primary Dx) 10/12/2024 12:56 PM CDT Anesthesia Event [facility] OR [address] [place] [address] Marine Cunningham MD Scott, Tracy, MD 10/12/2024 12:27 PM CDT - 10/12/2024 1:57 PM CDT Surgery [facility] OR [address] [place] [address] Ugo Ye MD RIGHT URETEROSCOPY WITH HOLMIUM LASER LITHOTRIPSY, STONE BASKETING, CYSTOSCOPY,BILATERAL RETROGRADE PYELOGRAM,RIGHT STENT PLACEMENT 10/12/2024 11:44 AM CDT - 10/12/2024 5:10 PM CDT Hospital Encounter [facility] OR [address] [place] [address] Ugo Ye MD Nephrolithiasis (Primary Dx) Discharge Disposition: Discharge to home or self care 10/05/2024 Results Follow-Up [facility] Medical Group Neurology Hospitalists [address] [facility] [address] [place] [address] Ugo Ye MD 10/03/2024 12:30 PM CDT Lab [facility] Office Building 1 Lab [facility] [place] [address] Urinary tract infection without hematuria, site unspecified 10/03/2024 Orders Only [facility] Surgery [address] [facility] [address] [place] [address] Ugo Ye MD Urinary tract infection without hematuria, site unspecified (Primary Dx) 09/25/2024 9:49 AM SIX SIGMA BLACK BELT ENGINEER - 09/25/2024 11:59 PM SIX SIGMA BLACK BELT ENGINEER Hospital Encounter [facility] ([facility] [address] [place] [address] Diagnosis unknown Discharge Disposition: Discharge to home or self care 09/14/2024 3:03 PM SIX SIGMA BLACK BELT ENGINEER - 09/14/2024 11:59 PM SIX SIGMA BLACK BELT ENGINEER Hospital Encounter [facility] Lab [address] [place] [address] Right kidney stone Discharge Disposition: Discharge to home or self care 09/14/2024 1:51 PM SIX SIGMA BLACK BELT ENGINEER - 09/14/2024 11:59 PM SIX SIGMA BLACK BELT ENGINEER Hospital Encounter [facility] MOB 1 DIAG IMG [address] [place] [address] Right kidney stone Discharge Disposition: Discharge to home or self care 09/14/2024 1:00 PM SIX SIGMA BLACK BELT ENGINEER Office Visit [facility] Surgery [address] [facility] [address] [place] [phone] Edgardo Hernandez NP Right kidney stone (Primary Dx) from Last 3 Months Surgical History Surgery Date Site/Laterality Comments CHOLECYSTECTOMY 07/25/2016 - 07/24/2017 after herb developed pancreatitis, in hospital 9 days after surgery HERNIA REPAIR 2012 and 2015, laparoscopic and open FOOT SURGERY 07/25/1988 - 07/24/1989 pegs in ankles for flat foot COLONOSCOPY 07/25/2022 - 07/24/2023 Medical History Medical History Date Comments Motion sickness reading in car Hypertension GERD (gastroesophageal reflux disease) Chronic kidney disease stones Headache chronic migranes Chronic pain disorder cartilage disorder Obesity Family History Medical History Relation Name Comments Migraines Other Classic Migrain e (With Aura) - (Added by TW Conv) Relation Name Status Comments Other Social History Tobacco Use Types Packs/Day Years [...] on file Legal Sex Male 3:19 AM SIX SIGMA BLACK BELT ENGINEER Gender Identity Not on file Sexual Orientation Not on file Obstetrics History Last Filed Vital Signs Vital Sign Reading [...] Description 11/14/2024 6:15 AM CDT Hospital Encounter [address] [address] Health Maintenance Due Date Last Done Comments Colon Cancer Screening-Colonoscopy 1977 Depression Screening 1977 Hepatitis C Screening 1977 Hepatitis B Screening 11/27/1995 Regular Well Visit/Exam 18-64 11/27/1995 DTaP/Tdap/Td Vaccine (2 - Td or Tdap) 04/03/2034 04/03/2024 Covid-19 Vaccine Completed 04/03/2024, 12/2020, 12/03/2020, Additional history exists Influenza Vaccine Completed 04/03/2024, , 03/28/2020, Additional history exists HPV Vaccines Aged Out No longer eligi ble based on patient's age to complete this topic Pneumococcal vaccine <65 Aged Out No longer eligible based on patient's age to complete this topic Medical Devices Implanted Type Area Blueberry Grower Device Identifier Shelf Expiration Date Model / Serial / Lot Sta-Peg Bilateral Ankle Bilateral: Ankle [employer] Stent Ureteral Set Double Pigtail Radiopaque Tip Universa [id number] Polyurethane Hydrophilic Coated [id number] - [id number] Implanted:Qty: 1 on 10/12/2024 by Ugo Ye MD at [facility] Right: Ureter [employer] [id number] 05/25/2027 [id number] / / [id number] Procedures Procedure Name Priority Date/Time Associated Diagnosis Comments LITHOLINK 24HR URINE PANEL Routine 10/24/2024 6:51 AM CDT Kidney stone FL RETRO PYELO (IN OR) IP Routine 10/12/2024 2:03 PM CDT STONE ANALYSIS Routine 10/12/2024 1:39 PM CDT [place] AN PROCEDURE PLACEHOLDER Routine 10/12/2024 1:07 PM CDT [place] AN ELECTIVE SUPRAGLOTTIC AIRWAY Routine 10/12/2024 1:07 PM CDT URETEROSCOPY STONE MANIPULATION WITH ABLATION LASER 10/12/2024 12:56 PM CDT Kidney stone URINE CULTURE Routine 10/03/2024 1:48 PM CDT Urinary tract infection without hematuria, site unspecified CT BODY OUTSIDE CONSULT Routine 09/25/2024 9:49 AM SIX SIGMA BLACK BELT ENGINEER Diagnosis unknown XR KUB Schedule Routine, Read Routine (OP Routine) 09/14/2024 1:59 PM SIX SIGMA BLACK BELT ENGINEER Right kidney stone POCT URINALYSIS DIPSTICK Routine 09/14/2024 1:09 PM SIX SIGMA BLACK BELT ENGINEER Right kidney stone URINALYSIS, MICROSCOPIC ONLY Routine 09/14/2024 1:09 PM SIX SIGMA BLACK BELT ENGINEER Right kidney stone URINALYSIS AND REFLEX TO MICROSCOPIC AND CULTURE Routine 09/14/2024 1:09 PM SIX SIGMA BLACK BELT ENGINEER Right kidney stone from Last 3 Months [...] 10/30/2024 3:07 AM CDT Performed at: - [facility] [address] [id number] Wire Bender Hand: Jose Fontana PhD, Phone: [phone] us Yousef Ralf Ye MD LAB URINE ORDERABLES Final Result [facility] 01 * FL Retro Pyelo (In Or) (10/12/2024 2:03 PM CDT) Narrative [id number] - 10/12/2024 2:04 PM CDT The images from this study are not interpreted by Radiology. Please refer to the physician's procedure / OR operative note. us Yousef Ralf Ye MD IMG FLUOROSCOPY PROC EDURES Final Result Performing Organization Address [facility]/ZIP Co de Phone Number [email or web address] * Stone analysis (10/12/2024 1:39 PM CDT) Pathologist [facility] Stone analysis Not Reported [facility] Source, Kid Stone Right Kidney CON [...] developed and its performance characteristics determined by [facility] in a manner consistent with CLIA requirements. This test has not been cleared or approved by the U.S. Food and Drug Administration. Test Performed by: [facility] [place] [address] Wire Bender Hand: Joe Sky Ph.D.; CLIA# [id number] Stone (Urine, Clean Catch) 10/12/2024 1:39 PM CDT 10/12/2024 1:59 PM CDT Narrative CON LANDRY - 10/25/2024 12:09 PM CDT Right Kidney Stone for chemical analysis us Ugo Ye MD LAB URINE ORDERABLES Final Result Performing Organization Address City/[facility]/ZIP Co de Phone Number SEANMICHEAL [address] [employer] [place] [address] [facility] [facility] * [place] AN ELECTIVE SUPRAGLOTTIC AIRWAY, [place] AN PROCEDURE PLACEHOLDER (10/12/2024 1:07 PM CDT) Narrative Jas Vieira CRNA - 10/12/2024 1:07 PM CDT Jas Vieira CRNA 10/12/2024 2:01 PM Airway Patient location: OR Urgency: elective Indications for airway management: anesthesia Difficult airway: no Staff: Placed by: MEMORIAL ADVISER: Jas Vieira CRNA Emergent airway documentation: Risks and benefits discussed: yes Consent obtained: yes Consent given by: patient Airway prep: Preoxygenated: yes Patient position: sniffing Mask difficulty assessment: 0 - not attempted Spontaneous ventilation during airway: absent Sedation level during airway: deep Final airway details: Final airway type: supraglottic airway Final supraglottic airway: classic SGA size: 5 Number of attempts: 1 us Marine Cunningham MD ANESTHESIA ORDERABLES Edited Result - Final * Urine culture Urine, clean voided (10/03/2024 1:48 PM CDT) Report Final Report: Less than 100,000 colonies/mL (clinically insignificant growth based on current clinical standards) Comment:Testing performed by : [facility], [address] [place] [address] Organism (CLINICALLY INSIGNIFICANT GROWTH CON LANDRY Urine, clean voided 10/03/2024 1:48 PM CDT 10/03/2024 8:08 PM CDT Narrative CON LANDRY - 10/05/2024 3:08 AM CDT Testing performed by [facility] Microbiology Laboratory ([phone]) Ugo Ye MD LAB MICROBIOLOGY - G ENERAL ORDERABLES Final Result Performing Organization Address City/[facility]/ZIP Co de Phone Number SEANMICHEAL [address] [place] [address] [place] [address] * CT Body Outside Consult (09/25/2024 9:49 AM SIX SIGMA BLACK BELT ENGINEER) Anatomical Region Laterality Modality Body N/A Computed Tomogra phy 09/25/2024 10:0 3 AM SIX SIGMA BLACK BELT ENGINEER Impressions 09/25/2024 10:03 AM SIX SIGMA BLACK BELT ENGINEER 1. A 6 mm obstructive calculus in [...] images may or may not represent the wainwright source data set and thus may contain changes that may lower the accuracy of this second-opinion interpretation. Electronically signed by: Dana Dasilva M.D. Narrative 09/25/2024 10:03 AM SIX SIGMA BLACK BELT ENGINEER EXAMINATION: RADIOLOGY CONSULTATION ON OUTSIDE IMAGING STUDY STUDY INITIALLY PERFORMED: 09/05/2024 at [facility]. TYPE OF STUDY: Multiple CT images [...] IMAGING STUDY STUDY INITIALLY PERFORMED: 09/05/2024 at [facility]. TYPE OF STUDY: Multiple CT images [...] images may or may not represent the wainwright source data set and thus may contain changes that may lower the accuracy of this second-opinion interpretation. Electronically signed by: Dana Dasilva M.D. us Edgardo Hernandez NP IMG CT PROCEDURES Final Resul t * XR KUB (09/14/2024 1:59 PM SIX SIGMA BLACK BELT ENGINEER) Anatomical Region Laterality Modality Body, Abdomen N/A Computed Radiogr aphy 09/19/2024 2:39 PM SIX SIGMA BLACK BELT ENGINEER Narrative 09/19/2024 2:41 PM SIX SIGMA BLACK BELT ENGINEER EXAM DESCRIPTION: XR KUB REASON FOR STUDY: [...] Kilo Cervantes D.O. AP: AP Report ID: [id number] Reading Location: [id number] Procedure Note CervantesAyo yenpitDO - 09/19/2024 EXAM DESCRIPTION: XR KUB REASON [...] Kilo Cervantes D.O. AP: AP Report ID: [id number] Reading Location: [place] [address] us Edgardo Hernandez FIELD AUTOMOBILE ADJUSTER IMG XR PROCEDURES Final Resul t * (ABNORMAL) Urinalysis reflex to microscopic and culture Urine (09/14/2024 1:09 PM SIX SIGMA BLACK BELT ENGINEER) Color, ur Yellow Yellow Comment:Testing performed by : [address] [address] Clarity, ur Clear Clear CON LANDRY Comment:Testing performed by : [address] [address] Specific gravity, ur 1.018 1.003 - 1.030 CON Comment:Testing performed by : [address] [address] pH, urine 6.0 CON Comment: Interpretive Data U rine pH is affected by diet, medications, systemic acid-base disturbances, and renal tubular function. pH may affect urinary stone formation. For example, urine pH below 6.0 may help reduce the tendency for calcium phosphate stones and pH greater than 6.0 may reduce the tendency for uric acid stone formation. Source: [facility] [employer] Current Interpretive Data was last revised on 2017 Testing performed by: [facility], [address] [place] [address], [place]., [address] Protein, ur ql Negative Negative CON Comment:Testing performed by : [address] [address] Glucose, ur ql Negative Negative CON Comment:Testing performed by : [address], [place]., [address] Ketones, ur Negative Negative CON Comment:Testing performed by : [address], [place]., [address] Bilirubin, ur Negative Negative CON Comment:Testing performed by : [address], [place]., [address] Blood, ur 2+(A) Negative CON Comment:Testing performed by : [address] [address] Urobilinogen, ur 2.0(A) <2.0 mg/dL CON Comment:Testing performed by : [address] [address] Nitrite, ur Negative Negative CON Comment:Testing performed by : [address] [address] Leukocyte esterase, ur Negative Negative CON Comment:Testing performed by : [address] [address] UA reflex comment Reflex to microscopic UA will be performed. CON Comment:Testing performed by : [address], [place]., [address] Urine 09/14/2024 1:09 PM SIX SIGMA BLACK BELT ENGINEER 09/14/2024 5:02 PM SIX SIGMA BLACK BELT ENGINEER Edgardo Hernandez FIELD AUTOMOBILE ADJUSTER LAB MICROBIOLOGY - GENERAL OR DERABLES Final Result Performing Organization Address [facility] de Phone Number SE[address] [address] * (ABNORMAL) Urinalysis, microscopic only (09/14/2024 1:09 PM SIX SIGMA BLACK BELT ENGINEER) WBC, ur 0-5 0 - 5 /HPF Comment:Testing performed by : [address] [address] RBC, ur >50(A) 0 - 2 /HPF CON Comment:Testing performed by : [address] [address] Epithelial cells, squamous, ur 11-20(A) 0 - 5 /HPF CON Comment:Testing performed by : [address] [address] Mucous, ur Present(A) CON Comment:Testing performed by : [address], [address] Culture Reflex Comment Reflex conditions for urine culture (WBC >10) not met. CON Comment:Testing performed by : [address] [address] Urine 09/14/2024 1:09 PM SIX SIGMA BLACK BELT ENGINEER 09/14/2024 5:02 PM SIX SIGMA BLACK BELT ENGINEER Edgardo Hernandez FIELD AUTOMOBILE ADJUSTER LAB URINE ORDERABLES Final Re sult Performing Organization Address [facility] Co de Phone Number SEAN[address] [place] [address] * (ABNORMAL) POCT urinalysis dipstick (09/14/2024 1:09 PM SIX SIGMA BLACK BELT ENGINEER) Color, Urine, POC Yellow Clarity, ur, POC Clear Clear Glucose, ur, POC Negative Negative MG/DL Bilirubin, ur, POC 1+(A) Negative, Small, Moderate, Large Ketones, ur, POC Negative Negative Specific [place], POC 1.020 1.003 - 1.030 Blood, ur, POC 3+(A) Negative pH, ur, POC 6.0 5.0 - 8.0 Protein, ur, POC Negative Negative Urobilinogen, urine, POC 0.2 0.2 - 1.0 mg/dL Nitrite, ur, POC Negative Negative Leukocytes, ur, POC Negative Negative Lot Number 0 Urine 09/14/2024 1:09 PM SIX SIGMA BLACK BELT ENGINEER Edgardo Hernandez FIELD AUTOMOBILE ADJUSTER POINT OF CARE TEST ORDERABLES Final Result from Last 3 Months Insurance [facility] Care Teams Wilderness Guide Relationship Specialty Start Date End Date Dm Mcmahon MD [address] [place] [address] PCP - General Family Medicine 10/08/24
[2024-11-13 11:16] LABS: Basophils Absolute Auto 0.1 K/mm3 (0.0-0.1); Basophils Percent Auto 1.3 % (0.2-1.2); Eosinophils Absolute Auto 0.6 K/mm3 (0-0.3); Eosinophils Percent Auto 5.4 % (0-4.4); Hematocrit 38.9 % (42.0-52.0); Hemoglobin 12.2 g/dL (14.0-18.0); Immature Granulocyte Absolute 0.07 K/mm3 (0.00-0.031); Immature Granulocyte Percent A 0.7 % (0-0.5); Lymphocytes Absolute Auto 2.92 K/mm3 (0.9-3.2); Lymphocytes Percent Auto 28.6 % (18.3-44.2); Mean Corpuscular HGB Conc 31.4 g/dl (32-36); Mean Corpuscular Hemoglobin 29.5 pg (26-34); Mean Platelet Volume 9.5 fl (7.4-10.4); Monocytes Percent Auto 9.7 % (2.6-8.5); Neutrophils Absolute Auto 5.6 K/mm3 (1.3-6.7); Neutrophils Percent Auto 54.3 % (45.5-73.1); Platelet Count Result 245 k/mm3 (150-375); Red Blood Count 4.14 M/mm3 (4.6-6.20); Red Cell Distribution Width 13.5 % (11.5-14.5); White Blood Count 10.2 K/mm3 (4.5-10.0)
[2024-11-13 11:29] LABS: Prothrombin Time 14.1 Seconds (11.1-14.7)
[2024-11-13 11:30] LABS: Partial Thromboplastin Time 27.4 Seconds (22.3-36.8)
[2024-11-13 11:50] LABS: Alanine Aminotransferase 17 U/L (6-50); Albumin Level 4.3 g/dL (3.5-5.1); Alkaline Phosphatase 103 U/L (38-126); Anion Gap 12 mmol/L (4-12); Aspartate Amino Transferase 21 U/L (17-59); Bilirubin,Total 0.9 mg/dL (0.2-1.3); Blood Urea Nitrogen 42 mg/dL (9-20); Carbon Dioxide 18 mmol/L (22-30); Chloride 112 mmol/L (98-107); Estimated CRCL calculation 23 ml/min; Estimated Glomerular Filt Rate 13; Glucose 57 mg/dL (65-110); Potassium 4.8 mmol/L (3.4-5.0); Sodium 142 mmol/L (137-145)
[2024-11-13] MEDS: SODIUM CHLORIDE 0.9% IV 1,000 ML 999 ML IV CONT (12:26)
[2024-11-13 12:29] LABS: Glucose Point of Care 94 mg/dl (65-105)
--- NOTE | 2024-11-13 12:32 | ED.ABDPAIN ---
HPI - Abdominal Pain General Chief Complaint: GI Bleed Stated Complaint: blood in stool Time Seen by Provider: 11/13/24 11:50 Source: patient Mode of arrival: ambulatory Limitations: no limitations History of Present Illness HPI narrative: This is a 48 year old male that presents to the ER for bright red blood per rectum. Reports he sat down to have a bowel movement today and had bright red blood per rectum. Reports he is also passing a kidney stone. His urologist is at [facility]. Reports left flank pain with radiation into the left lower quadrant. Denies fever, vomiting. Related Data Home Medications ?Medication ?Instructions ?Recorded ?Confirmed ?Last Taken ?Type flaxseed oil 1,000 mg capsule 1,000 mg PO BID 10/27/21 10/01/24 Unknown History acetaminophen 325 mg capsule 325 mg PO BID PRN 11/14/23 10/01/24 Unknown History duloxetine 60 mg capsule,delayed 60 mg PO QHS 10/01/24 10/01/24 Unknown History release tamsulosin 0.4 mg capsule 0.4 mg PO DAILY 10/01/24 10/01/24 Unknown History Allergies Allergy/AdvReac Type Severity Reaction Status Date / Time clotrimazole (From Lotrimin) Allergy Rash Verified 11/13/24 10:05 baclofen AdvReac Severe Unknown Verified 11/13/24 10:05 tolnaftate (From Lamisil AF) AdvReac Intermediate Rash Verified 11/13/24 10:05 (topical) Review of Systems Review of Systems: CONSTITUTIONAL: Denies fever GASTROINTESTINAL: Reports abdominal pain. Denies nausea, vomiting, or diarrhea. GENITOURINARY: Reports dysuria. Denies hematuria. All systems reviewed & are unremarkable except as noted in HPI and below PMFSH Past Medical History Medical History Hypertension Family history of colon cancer in mother Hyperlipidemia Gastro-esophageal reflux disease without esophagitis Surgical History Surgical History History of eye surgery History of foot surgery History of cholecystectomy 2017 History of right inguinal hernia repair 2013, 2016 Family History Family History Father Migraines Myocardial infarction x3 with stents placed Mother Carcinoma of colon Sibling Migraines Pulmonary embolism age 29 Other Cerebrovascular accident Family history of malignant neoplasm Hypertension Social History Social History Smoking status: Never smoker Second hand tobacco smoke exposure: No Alcohol intake: never Substance use: never Substance use type: does not use Do You Feel Safe in your Home?: Yes Lack of Transportation: No Lack of Food: Never True Current Housing: I Have Housing Concerned About Future Housing: Decline to Answer Difficulty Paying Gas/Electric Bills: Decline to Answer Difficulty Paying for Meds: Decline to Answer Currently Unemployed: Decline to Answer Education: Decline to Answer Difficulty w/ Childcare or Family Care: Decline to Answer Living arrangements: with family Occupation/Education: unemployed Gender identity (if verbalized by the patient): Male Spiritual care concerns: No Agree to blood products: Yes Exam Narrative: GENERAL: Well-appearing, well-nourished, and in no acute distress. HEAD: Normocephalic, atraumatic. EYES: EOMI. CHEST: Clear to auscultation. No respiratory distress. No wheezes rales or rhonchi HEART: Regular rate and rhythm. No murmur heard. Normal peripheral pulses. ABDOMEN: Soft, nontender, nondistended, normal active bowel sounds. EXTREMITIES: Normal range of motion. No edema. SKIN: Warm, dry, no rash. NEURO: No focal deficits. Alert and oriented x3. PSYCH: Normal mood and affect RECTAL: Hemoccult negative Course Course Emergency Course: Patient updated on his workup and need for admission Consultations Consultation #1: Spoke with Urology who will consult. Will strain patient's urine, start patient on Flomax, NPO midnight Date: 11/13/24 Consultation #2: Spoke with hospitalist about patient and workup accepts admission. Will put in consult for Nephrology Date: 11/13/24 Vital Signs Vital signs: Vital Signs Temperature 97.9 F 11/13/24 10:02 Pulse Rate 68 11/13/24 10:02 Respiratory Rate 20 11/13/24 10:02 Blood Pressure 163/97 H 11/13/24 10:02 Pulse Oximetry 100 11/13/24 10:02 Oxygen Delivery Room Air 11/13/24 10:02 Temperature 97.9 F 11/13/24 10:02 Pulse Rate 62 11/13/24 13:00 Respiratory Rate 18 11/13/24 13:00 Blood Pressure 138/94 H 11/13/24 13:00 Pulse Oximetry 97 11/13/24 13:00 Oxygen Delivery Room Air 11/13/24 10:02 MDM - Abdominal Pain MDM Narrative Medical decision making narrative: Patient presents the emergency department for bright red blood per rectum. He is afebrile and nontoxic appearing. His vitals are stable. No active bleeding at this time. He is Hemoccult negative. He is not on any anticoagulation. Patient is mildly anemic with hemoglobin of 12.2. Metabolic panel significant for acute kidney failure. Urine with 21-50 white blood cells, 1+ leuk esterase. Patient started on IV antibiotics. CT abdomen and pelvis shows a left UVJ stone. KUB positively identifies this stone. Patient updated on his workup and need for admission. Spoke with Urology who will consult. Will strain patient's urine, start patient on Flomax, NPO midnight. Spoke with hospitalist about patient and workup accepts admission. Will put in consult for Nephrology Differential Diagnosis Differential diagnosis: Likely calculus of kidney, constipation and diverticulitis Lab Data Attestation: I reviewed the patient's lab results. 11/13/24 11:09 11/13/24 13:14 Labs: Lab Results 11/13/24 11/13/24 11/13/24 Range/Units 11:09 12:26 12:52 WBC 10.2 H (4.5-10.0) K/mm3 RBC 4.14 L (4.6-6.20) M/mm3 Hgb 12.2 L (14.0-18.0) g/dL Hct 38.9 L (42.0-52.0) % MCV 94.0 (80-100) fl MCH 29.5 (26-34) pg MCHC 31.4 L (32-36) g/dl RDW 13.5 (11.5-14.5) % Plt Count 245 (150-375) k/mm3 MPV 9.5 (7.4-10.4) fl Immature Gran % (Auto) 0.7 H (0-0.5) % Neut % (Auto) 54.3 (45.5-73.1) % Lymph % (Auto) 28.6 (18.3-44.2) % [place] % (Auto) 9.7 H (2.6-8.5) % Eos % (Auto) 5.4 H (0-4.4) % Baso % (Auto) 1.3 H (0.2-1.2) % Lymph # (Auto) 2.92 (0.9-3.2) K/mm3 [place] # (Auto) 1.0 H (0.1-0.6) K/mm3 Eos # (Auto) 0.6 H (0-0.3) K/mm3 Baso # (Auto) 0.1 (0.0-0.1) K/mm3 Abs Immat Gran (auto) 0.07 H (0.00-0.031) K/mm3 Absolute Neuts (auto) 5.6 (1.3-6.7) K/mm3 Absolute Nucleated RBC 0.000 (0.0-0.012) K/mm3 Nucleated RBC % 0.0 (0.0-0.2) % PT 14.1 (11.1-14.7) Seconds INR 1.0 APTT 27.4 (22.3-36.8) Seconds Sodium 142 (137-145) mmol/L Potassium 4.8 (3.4-5.0) mmol/L Chloride 112 H (98-107) mmol/L Carbon Dioxide 18 L (22-30) mmol/L Anion Gap 12 (4-12) mmol/L BUN 42 H D (9-20) mg/dL Creatinine 4.96 H (0.7-1.3) mg/dL Estim Creat Clear Calc 23 ml/min Estimated GFR 13 L (59 - ) Glucose 57 L* (65-110) mg/dL POC Capillary Glucose 94 (65-105) mg/dl Calcium 9.0 (8.4-10.2) mg/dL Total Bilirubin 0.9 (0.2-1.3) mg/dL AST 21 (17-59) U/L ALT 17 (6-50) U/L Alkaline Phosphatase 103 (38-126) U/L Total Protein 7.0 (6.3-8.2) g/dL Albumin 4.3 (3.5-5.1) g/dL Urine Color Yellow (Yellow) Urine Appearance Clear (Clear) Urine pH 6.5 (5.0-9.0) Ur Specific [place] 1.014 (1.001-1.035) Urine Protein Trace (Negative) mg/dL Urine Glucose (UA) Negative (Negative) mg/dL Urine Ketones Negative (Negative) mg/dL Ur Blood (Man) Negative (Negative) Urine Nitrate Negative (Negative) Urine Bilirubin Negative (Negative) Urine Urobilinogen 0.2 (<2.0) mg/dL Leukocyte Esterase Rfl 1+ H (Negative) MIMI/UL Urine RBC 0-2 (0-2) /hpf Urine WBC 21-50 H (0-3) /hpf Ur Squamous Epith Cells None seen (Few) /hpf Urine Bacteria None seen /hpf Urine Casts 0-2 Blood Type O Positive Antibody Screen Negative 11/13/24 Range/Units 13:14 WBC (4.5-10.0) K/mm3 RBC (4.6-6.20) M/mm3 Hgb (14.0-18.0) g/dL Hct (42.0-52.0) % MCV (80-100) fl MCH (26-34) pg MCHC (32-36) g/dl RDW (11.5-14.5) % Plt Count (150-375) k/mm3 MPV (7.4-10.4) fl Immature Gran % (Auto) (0-0.5) % Neut % (Auto) (45.5-73.1) % Lymph % (Auto) (18.3-44.2) % [place] % (Auto) (2.6-8.5) % Eos % (Auto) (0-4.4) % Baso % (Auto) (0.2-1.2) % Lymph # (Auto) (0.9-3.2) K/mm3 [place] # (Auto) (0.1-0.6) K/mm3 Eos # (Auto) (0-0.3) K/mm3 Baso # (Auto) (0.0-0.1) K/mm3 Abs Immat Gran (auto) (0.00-0.031) K/mm3 Absolute Neuts (auto) (1.3-6.7) K/mm3 Absolute Nucleated RBC (0.0-0.012) K/mm3 Nucleated RBC % (0.0-0.2) % PT (11.1-14.7) Seconds INR APTT (22.3-36.8) Seconds Sodium 141 (137-145) mmol/L Potassium 5.0 (3.4-5.0) mmol/L Chloride 113 H (98-107) mmol/L Carbon Dioxide 16 L (22-30) mmol/L Anion Gap 12 (4-12) mmol/L BUN 42 H (9-20) mg/dL Creatinine 4.59 H (0.7-1.3) mg/dL Estim Creat Clear Calc 25 ml/min Estimated GFR 14 L (59 - ) Glucose 80 (65-110) mg/dL POC Capillary Glucose (65-105) mg/dl Calcium 8.7 (8.4-10.2) mg/dL Total Bilirubin (0.2-1.3) mg/dL AST (17-59) U/L ALT (6-50) U/L Alkaline Phosphatase (38-126) U/L Total Protein (6.3-8.2) g/dL Albumin (3.5-5.1) g/dL Urine Color (Yellow) Urine Appearance (Clear) Urine pH (5.0-9.0) Ur Specific [place] (1.001-1.035) Urine Protein (Negative) mg/dL Urine Glucose (UA) (Negative) mg/dL Urine Ketones (Negative) mg/dL Ur Blood (Man) (Negative) Urine Nitrate (Negative) Urine Bilirubin (Negative) Urine Urobilinogen (<2.0) mg/dL Leukocyte Esterase Rfl (Negative) MIMI/UL Urine RBC (0-2) /hpf Urine WBC (0-3) /hpf Ur Squamous Epith Cells (Few) /hpf Urine Bacteria /hpf Urine Casts Blood Type Antibody Screen Imaging Data Radiologist's impression: ITS Impressions Abdomen/Pelvis CT 11/13/24 12:32 IMPRESSION: 1. No evidence of appendicitis, diverticulitis or intestinal obstruction. 2. stone at the left ureterovesical junction with left hydronephrotic changes. Smaller stones seen in the left distal ureter. Multiple left kidney stones. 3. Hepatomegaly. Abdomen X-Ray 11/13/24 13:27 IMPRESSION: Stone in the left lower ureter measuring 6.5 mm.. Left kidney stones. Critical Care Time Critical Care Time Critical Care Time: Yes Total Critical Care Time: 35 Discharge Plan Discharge Clinical Impression: Pyuria, Ureterolithiasis Acute kidney failure Qualifiers: Acute renal failure type: unspecified Qualified Code(s): N17.9 - Acute kidney failure, unspecified Patient Disposition: Still a Patient Condition: Stable
[2024-11-13 13:17] LABS: Add Urine Microscopic? YES; Appearance Urine Clear (Clear); Bacteria Urine None Seen /hpf; Bilirubin Urine Negative (Negative); Blood Urine Negative (Negative); Color Urine Yellow (Yellow); Glucose Urine UA Negative (Negative); Ketones Urine Negative (Negative); Leukocyte Esterase Ur 1+ LEU/UL (Negative); Nitrate Urine Negative (Negative); Non Pathogenic Casts 0-2; Protein Urine Trace mg/dL (Negative); RBC Urine 0-2 /hpf (0-2); Specific Grav Ur 1.014 (1.001-1.035); Squamous Epithelial Cell Urine None Seen /hpf (Few); Urobilinogen Urine 0.2 mg/dL (<2.0); WBC Urine 21-50 /hpf (0-3); pH Urine 6.5 (5.0-9.0)
[2024-11-13 13:29] LABS: Anion Gap 12 mmol/L (4-12); Blood Urea Nitrogen 42 mg/dL (9-20); Calcium 8.7 mg/dL (8.4-10.2); Carbon Dioxide 16 mmol/L (22-30); Chloride 113 mmol/L (98-107); Estimated CRCL calculation 25 ml/min; Estimated Glomerular Filt Rate 14; Glucose 80 mg/dL (65-110); Sodium 141 mmol/L (137-145)
--- OUTSIDE RECORDS SUMMARY | 2024-11-13 13:54 | XMS_ITS | Encounter Summary ---
Author Organization [facility] Address [address] [facility] [address] [place] [address] Phone Care Team Providers Care Line Mover Name Role Phone Dm Mcmahon MD Primary Care Prov ider Encounter Details Date Type Department Care Team (Late st Contact Info) Description 10/30/2024 Results Follow-Up [facility] Surgery [address] [facility] [facility] [address] [place] [address] Ugo Ye MD [address] [facility] [place] [address] Social History Tobacco Use Types Packs/Day Years [...] on file 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
--- OUTSIDE RECORDS SUMMARY | 2024-11-13 13:54 | XMS_ITS | Clinical Summary ---
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 Pulse 60 06/29/2023 5:45 PM GAS GOLF CART REPAIRER Temperature 36 C (96.8 F) 06/29/2023 3:15 PM GAS GOLF CART REPAIRER Respiratory Rate 18 06/29/2023 3:15 PM GAS GOLF CART REPAIRER Oxygen Saturation 92% 06/29/2023 5:45 PM GAS GOLF CART REPAIRER Inhaled Oxygen Concentration - - Weight 115.7 kg (255 lb) 06/29/2023 3:15 PM GAS GOLF CART REPAIRER Height 177.8 cm (5' 10 ) 06/29/2023 3:15 PM GAS GOLF CART REPAIRER Body Mass Index 36.59 06/29/2023 3:15 PM GAS GOLF CART REPAIRER Plan of Treatment Health Maintenance Due Date [...] patient's age to complete this topic Insurance [facility] [phone] Care Teams Residential Treatment Counselor Relationship Specialty Start Date End Date Dm Mcmahon MD [address] [address] PCP - General FAMILY PRACTICE 07/10/18
--- OUTSIDE RECORDS SUMMARY | 2024-11-13 13:54 | XMS_ITS | Encounter Summary ---
Author Organization [facility] Healthcare Address [address] [place] [address] Care Team Providers Care Sewer Digger Name Role Phone No, Physician Primary Care Provider [phone] Dm Mcmahon MD Primary Care Prov ider Encounter Details Date Type Department Care Team (Late st Contact Info) Description 10/05/2024 Results Follow-Up [facility] Medical Group Neurology Hospitalists [facility] [address] [place] [id number] Ugo Ye MD [address] [facility] [place] [address] Social History Tobacco Use Types Packs/Day Years [...] on file 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
--- OUTSIDE RECORDS SUMMARY | 2024-11-13 13:54 | XMS_ITS | Encounter Summary ---
Author Organization [facility] Address [facility] [place] [address] Care Team Providers Care Mine Shifter Name Role Phone Dm Mcmahon MD Primary Care Provider [phone] Encounter Details Date Type Department Care Team (Late st Contact Info) Description 02/21/2018 Abstract [facility] CONVERSION [address] [place] [address] , Generic ConversionMD Social History Tobacco Use [...] on filedocumented in this encounter Care Teams Mine Shifter Relationship Specialty Start Date End Date Dm Mcmahon MD [address] [place] [address] PCP - General FAMILY PRACTICE 07/10/18 documented as of this encounter
--- OUTSIDE RECORDS SUMMARY | 2024-11-13 13:54 | XMS_ITS | Encounter Summary ---
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
--- OUTSIDE RECORDS SUMMARY | 2024-11-13 13:54 | XMS_ITS | Referral Summary ---
Author Organization [facility] [address] Address [address] [place] [address] Care Team Providers Care Podiatric Technician Name Role Phone Dm Mcmahon MD Primary Care Prov ider Encounters Date Type Department Care Team Description 11/05/2024 Orders Only [facility] [address] [place] [address] Ugo Ye MD Kidney stone on left side (Primary Dx) 11/05/2024 Telephone [facility] Surgery [address] [place] [address] Estela Beaver 10/30/2024 Orders Only [facility] [address] [place] [address] Ugo Ye MD Nephrolithiasis (Primary Dx) 10/30/2024 Results Follow-Up [facility] [address] [place] [address] Ugo Ye MD 10/26/2024 Telephone [facility] [address] [place] [address] Alyx Baker 10/25/2024 Results Follow-Up [facility] Surgeon [address] [place] [address] Ugo Ye MD 10/15/2024 Telephone [facility] [address] [place] [address] Alyx Baker 10/15/2024 Orders Only [facility] [address] [place] [address] Dm Mcmahon MD Nephrolithiasis (Primary Dx) 10/15/2024 Telephone [facility] Surgery [address] [place] [address] Estela Beaver 10/15/2024 Orders Only [facility] [address] [facility] [address] [place] [address] Ugo Ye MD Kidney stone (Primary Dx) 10/15/2024 Orders Only [facility] [address] [place] [address] [address] [place] [address] Ugo Ye MD Kidney stone (Primary Dx) 10/12/2024 12:27 PM CDT - 10/12/2024 1:57 PM CDT Surgery [facility] OR [address] [place] [address] Ugo Ye MD RIGHT URETEROSCOPY WITH HOLMIUM LASER LITHOTRIPSY, STONE BASKETING, CYSTOSCOPY,BILATERAL RETROGRADE PYELOGRAM,RIGHT STENT PLACEMENT 10/12/2024 12:56 PM CDT Anesthesia Event [facility] OR [address] [place] [address] Marine Cunningham MD Scott, Tracy, MD 10/12/2024 11:44 AM CDT - 10/12/2024 5:10 PM CDT Hospital Encounter [facility] OR [address] [place] [address] Ugo Ye MD Nephrolithiasis (Primary Dx) Discharge Disposition: Discharge to home or self care 10/05/2024 Results Follow-Up [facility] [address] [place] [address] Ugo Ye MD 10/03/2024 12:30 PM CDT Lab [facility] Office Building [address] [place] [address] Urinary tract infection without hematuria, site unspecified 10/03/2024 Orders Only [facility] [address] [place] [phone] Ugo Ye MD Urinary tract infection without hematuria, site unspecified (Primary Dx) 09/25/2024 9:49 AM SHOE TURNER - 09/25/2024 11:59 PM SHOE TURNER Hospital Encounter [facility] ([facility]) [address] [place] [address] Diagnosis unknown Discharge Disposition: Discharge to home or self care 09/14/2024 3:03 PM SHOE TURNER - 09/14/2024 11:59 PM SHOE TURNER Hospital Encounter [facility] [address] [place] [address] Right kidney stone Discharge Disposition: Discharge to home or self care 09/14/2024 1:51 PM SHOE TURNER - 09/14/2024 11:59 PM SHOE TURNER Hospital Encounter [facility] 1 DIAG IMG [address] [place] [address] Right kidney stone Discharge Disposition: Discharge to home or self care 09/14/2024 1:00 PM SHOE TURNER Office Visit [facility] [address] [place] [phone] Edgardo Hernandez NP Right kidney stone (Primary Dx) from Last 3 Months Allergies Active Allergy Reactions Criticality Noted Date Comments Pollen Extracts Other (See comments) Reaction: OTHER REACTION, Miconazole Fqmuags-Ifwuyf-Zwhx Rash Medium 10/08/2024 Venom-Wasp Swelling Medium 10/08/2024 [...] on file Legal Sex Male 3:19 AM SHOE TURNER Gender Identity Not on file Sexual Orientation [...] Description 11/14/2024 6:15 AM CDT Hospital Encounter [facility] [address] [place] [address] Medical Devices Implanted Type Area Agricultural Research Director Device Identifier Shelf Expiration Date Model / Serial / Lot Sta-Peg Bilateral Ankle Bilateral: Ankle [employer] Stent Ureteral Set Double Pigtail Radiopaque Tip [employer] [id number] Polyurethane Hydrophilic Coated [id number] - [id number] Implanted:Qty: 1 on 10/12/2024 by Ugo Ye MD at [facility] Right: Ureter [employer] [id number] 05/25/2027 [id number] / / [id number] Procedures Procedure Name Priority Date/Time Associated Diagnosis Comments LITHOLINK 24HR URINE PANEL Routine 10/24/2024 6:51 AM CDT Kidney stone FL RETRO PYELO (IN OR) IP Routine 10/12/2024 2:03 PM CDT STONE ANALYSIS Routine 10/12/2024 1:39 PM CDT RI AN PROCEDURE PLACEHOLDER Routine 10/12/2024 1:07 PM CDT RI AN ELECTIVE SUPRAGLOTTIC AIRWAY Routine 10/12/2024 1:07 PM CDT URETEROSCOPY STONE MANIPULATION WITH ABLATION LASER 10/12/2024 12:56 PM CDT Kidney stone URINE CULTURE Routine 10/03/2024 1:48 PM CDT Urinary tract infection without hematuria, site unspecified CT BODY OUTSIDE CONSULT Routine 09/25/2024 9:49 AM SHOE TURNER Diagnosis unknown XR KUB Schedule Routine, Read Routine (OP Routine) 09/14/2024 1:59 PM SHOE TURNER Right kidney stone POCT URINALYSIS DIPSTICK Routine 09/14/2024 1:09 PM SHOE TURNER Right kidney stone URINALYSIS, MICROSCOPIC ONLY Routine 09/14/2024 1:09 PM SHOE TURNER Right kidney stone URINALYSIS AND REFLEX TO MICROSCOPIC AND CULTURE Routine 09/14/2024 1:09 PM SHOE TURNER Right kidney stone from Last 3 Months [...] 10/30/2024 3:07 AM CDT Performed at: - [facility] [id number] County Extension Agent: Jose Fontana PhD, Phone: [phone] us Pietrosef Ralf Ye MD LAB URINE ORDERABLES Final Result Performing Organization Address [facility] Co de Phone Number [facility] - 01 * FL Retro Pyelo (In Or) (10/12/2024 2:03 PM CDT) Narrative [id number] - 10/12/2024 2:04 PM CDT The images from this study are not interpreted by Radiology. Please refer to the physician's procedure / OR operative note. us Ugo Ye MD IMG FLUOROSCOPY PROC EDURES Final Result Performing Organization Address [facility] Co de Phone Number [id number] * Stone analysis (10/12/2024 1:39 PM CDT) Pathologist [facility] Stone analysis Not Reported Lewis ref Lab Source, Kid Stone Right Kidney [...] developed and its performance characteristics determined by [facility] in a manner consistent with CLIA requirements. This test has not been cleared or approved by the U.S. Food and Drug Administration. Test Performed by: [facility] [address] [id number] County Extension Agent: Joe Sky Ph.D.; CLIA# [id number] Stone (Urine, Clean Catch) 10/12/2024 1:39 PM CDT 10/12/2024 1:59 PM CDT Joanne CON - 10/25/2024 12:09 PM CDT Right Kidney Stone for chemical analysis us Ugo Ye MD LAB URINE ORDERABLES Final Result CON [address] Department [place] [address] [facility] Lab * RI AN ELECTIVE SUPRAGLOTTIC AIRWAY, RI AN PROCEDURE PLACEHOLDER (10/12/2024 1:07 PM CDT) Narrative Jas Vieira CRNA - 10/12/2024 1:07 PM CDT Jas Vieira CRNA 10/12/2024 2:01 PM Airway Patient location: OR Urgency: elective Indications for airway management: anesthesia Difficult airway: no Staff: Placed by: RETAIL COVERAGE MERCHANDISER LEAD: Jas Vieira CRNA Emergent airway documentation: Risks [...] current clinical standards) Comment:Testing performed by : [facility], [address] [facility], [place]., [address] Organism (CLINICALLY INSIGNIFICANT GROWTH CON [facility] Urine, clean voided 10/03/2024 1:48 PM CDT 10/03/2024 8:08 PM CDT Narrative CON [facility] - 10/05/2024 3:08 AM CDT Testing performed by [facility] ([phone]) us Yousef Ralf Ye MD LAB MICROBIOLOGY - G ENERAL ORDERABLES Final Result CON [facility] [address] Department [place] [address] * CT Body Outside Consult (09/25/2024 9:49 AM SHOE TURNER) Anatomical Region Laterality Modality Body N/A Computed Tomogra phy 09/25/2024 10:0 3 AM SHOE TURNER Impressions 09/25/2024 10:03 AM SHOE TURNER 1. A 6 mm obstructive calculus in [...] images may or may not represent the [place] source data set and thus may contain changes that may lower the accuracy of this second-opinion interpretation. Electronically signed by: Dana Dasilva M.D. Narrative 09/25/2024 10:03 AM SHOE TURNER EXAMINATION: RADIOLOGY CONSULTATION ON OUTSIDE IMAGING STUDY STUDY INITIALLY PERFORMED: 09/05/2024 at [facility]. TYPE OF STUDY: Multiple CT images of [...] 09/05/2024 at [facility]. TYPE OF STUDY: Multiple CT images of [...] images may or may not represent the [place] source data set and thus may contain changes that may lower the accuracy of this second-opinion interpretation. Electronically signed by: Dana Dasilva M.D. Edgardo Hernandez NP IMG CT PROCEDURES Final Resul t * XR KUB (09/14/2024 1:59 PM SHOE TURNER) Anatomical Region Laterality Modality Body, Abdomen N/A Computed Radiogr aphy 09/19/2024 2:39 PM SHOE TURNER Narrative 09/19/2024 2:41 PM SHOE TURNER EXAM DESCRIPTION: XR KUB REASON FOR STUDY: [...] Kilo Cervantes D.O. AP: AP Report ID: [id number] Reading Location: [place] [address] Procedure Note Kilo Cervantes, DO - 09/19/2024 [...] Kilo Cervantes D.O. AP: AP Report ID: [id number] Reading Location: [place] [address] us Edgardo Hernandez PATTERNMAKER APPRENTICE METAL IMG XR PROCEDURES Final Resul t * (ABNORMAL) Urinalysis reflex to microscopic and culture Urine (09/14/2024 1:09 PM SHOE TURNER) Color, ur Yellow Yellow Comment:Testing performed by : [address] [address] Clarity, ur Clear Clear CON Comment:Testing performed by : [address] [address] Specific gravity, ur 1.018 1.003 - 1.030 CON Comment:Testing performed by : [address] [address] pH, urine 6.0 CON Comment: Interpretive Data U rine pH is affected by diet, medications, systemic acid-base disturbances, and renal tubular function. pH may affect urinary stone formation. For example, urine pH below 6.0 may help reduce the tendency for calcium phosphate stones and pH greater than 6.0 may reduce the tendency for uric acid stone formation. Source: [employer] Current Interpretive Data was last revised on 2017 Testing performed by: [address] [address] Protein, ur ql Negative Negative CON Comment:Testing performed by : [address] [address] Glucose, ur ql Negative Negative CON Comment:Testing performed by : [address] [address] Ketones, ur Negative Negative CON Comment:Testing performed by : [address] [address] Bilirubin, ur Negative Negative CON Comment:Testing performed by : [address] [address] Blood, ur 2+(A) Negative CON Comment:Testing performed by : [address] [address] Urobilinogen, ur 2.0(A) <2.0 mg/dL CON LANDRY Comment:Testing performed by : [facility] [address] [place] [address]., [address] Nitrite, ur Negative Negative CON LANDRY Comment:Testing performed by : [address], [place]., [address] Leukocyte esterase, ur Negative Negative CON LANDRY Comment:Testing performed by : [address], [place]., [address] UA reflex comment Reflex to microscopic UA will be performed. CON Comment:Testing performed by : [address], [place]., [address] Urine 09/14/2024 1:09 PM SHOE TURNER 09/14/2024 5:02 PM SHOE TURNER us Edgardo Hernandez PATTERNMAKER APPRENTICE METAL LAB MICROBIOLOGY - GENERAL OR DERABLES Final Result CON [facility] Department [place] [address] * (ABNORMAL) Urinalysis, microscopic only (09/14/2024 1:09 PM SHOE TURNER) WBC, ur 0-5 0 - 5 /HPF Comment:Testing performed by : [address] [address] RBC, ur >50(A) 0 - 2 /HPF CON LANDRY Comment:Testing performed by : [address] [address] Epithelial cells, squamous, ur 11-20(A) 0 - 5 /HPF CON Comment:Testing performed by : [address], [place]., [address] Mucous, ur Present(A) CON Comment:Testing performed by : [address] [address] Culture Reflex Comment Reflex conditions for urine culture (WBC >10) not met. CON LANDRY Comment:Testing performed by : [address], [place]., [address] Urine 09/14/2024 1:09 PM SHOE TURNER 09/14/2024 5:02 PM SHOE TURNER Edgardo Hernandez PATTERNMAKER APPRENTICE METAL LAB URINE ORDERABLES Final Re sult CON [address] Department [place] [address] * (ABNORMAL) POCT urinalysis dipstick (09/14/2024 1:09 PM SHOE TURNER) Color, Urine, POC Yellow Clarity, ur, POC Clear Clear Glucose, ur, POC Negative Negative MG/DL Bilirubin, ur, POC 1+(A) Negative, Small, Moderate, Large Ketones, ur, POC Negative Negative Specific [place], POC 1.020 1.003 - 1.030 Blood, ur, POC 3+(A) Negative pH, ur, POC 6.0 5.0 - 8.0 Protein, ur, POC Negative Negative Urobilinogen, urine, POC 0.2 0.2 - 1.0 mg/dL Nitrite, ur, POC Negative Negative Leukocytes, ur, POC Negative Negative Lot Number 0 Urine 09/14/2024 1:09 PM SHOE TURNER Edgardo Hernandez PATTERNMAKER APPRENTICE METAL POINT OF CARE TEST ORDERABLES Final Result from Last 3 Months Insurance [facility] Care Teams Podiatric Technician Relationship Specialty Start Date End Date Dm Mcmahon MD [address] [place] [address] PCP - General Family Medicine 10/08/24
--- OUTSIDE RECORDS SUMMARY | 2024-11-13 13:54 | XMS_ITS | Continuity of Care Document ---
Author Organization [facility] Address [address] [place] [address] [facility] [address] [place] [address] Phone Care Team Providers Care Mail Carriers Supervisor Name Role Phone Daniel Avilez Unavailable Unavailable Procedures Procedure Date Eye Exam, New Patient Advance Directives Directive Yes / No Effective Date File Name No Information Encounters Encounter Description Practice Location Reason(s) For Visit Diagnoses Date Provider Providers Copied on Encounter [facility], [address], [place], [place], [id number], [place] tel:[phone] [facility] No Information 4-200 9 Fatmata Daniel. [address] [facility] [address], [place], [address], [place]. tel:[phone] Family History Family Member Type Diagnosis Age At Onset No Information Payers Payer name Insurance type Covered democrat ID Authoriza tion(s) No Information Social History [...]
--- OUTSIDE RECORDS SUMMARY | 2024-11-13 13:54 | XMS_ITS | Clinical Summary ---
Author Organization [facility] [address] Address [address] [place] [address] Care Team Providers Care Toll Service Observer Name Role Phone Dm Mcmahon MD Primary Care Prov ider Allergies Active Allergy Reactions Criticality Noted Date Comments Pollen Extracts Other (See comments) Reaction: OTHER REACTION, Miconazole Erujurx-Hsepkm-Hhna Rash Medium 10/08/2024 Venom-Wasp Swelling Medium 10/08/2024 [...] Department Care Team Description 11/05/2024 Orders Only [facility] Surgery [address] [place] [phone] Ugo Ye MD Kidney stone on left side (Primary Dx) 11/05/2024 Telephone [facility] Surgery [address] [place] [address] Estela Beaver 10/30/2024 Orders Only [facility] Surgery [address] [place] [phone] Ugo Ye MD Nephrolithiasis (Primary Dx) 10/30/2024 Results Follow-Up [facility] Surgery [address] [place] [phone] Ugo Ye MD 10/26/2024 Telephone [facility] Surgery [address] [place] [phone] Alyx Baker 10/25/2024 Results Follow-Up [facility] Surgeon [address] [place] [address] Ugo Ye MD 10/15/2024 Telephone [facility] Surgery [address] [place] [phone] Alyx Baker 10/15/2024 Orders Only [facility] Surgery [address] [place] [address] Dm Mcmahon MD Nephrolithiasis (Primary Dx) 10/15/2024 Telephone [facility] Surgery [address] [place] [address] Estela Beaver 10/15/2024 Orders Only [facility] Surgery [address] [place] [phone] Ugo Ye MD Kidney stone (Primary Dx) 10/15/2024 Orders Only [facility] Surgery [address] [place] [phone] Ugo Ye MD Kidney stone (Primary Dx) 10/12/2024 12:56 PM CDT Anesthesia Event [facility] OR [address] [place] [address] Marine Cunningham MD Scott, Tracy, MD 10/12/2024 12:27 PM CDT - 10/12/2024 1:57 PM CDT Surgery [facility] OR [address] [place] [address] Ugo Ye MD RIGHT URETEROSCOPY WITH HOLMIUM LASER LITHOTRIPSY, STONE BASKETING, CYSTOSCOPY,BILATERAL RETROGRADE PYELOGRAM,RIGHT STENT PLACEMENT 10/12/2024 11:44 AM CDT - 10/12/2024 5:10 PM CDT Hospital Encounter [facility] OR [address] [place] [address] Ugo Ye MD Nephrolithiasis (Primary Dx) Discharge Disposition: Discharge to home or self care 10/05/2024 Results Follow-Up [facility] [address] [place] [address] Ugo Ye MD 10/03/2024 12:30 PM CDT Lab [facility] Office Building 1 Lab [facility] [place] [address] Urinary tract infection without hematuria, site unspecified 10/03/2024 Orders Only [facility] Physicians [facility] Surgery [address] [facility] [address] [place] [address] Ugo Ye MD Urinary tract infection without hematuria, site unspecified (Primary Dx) 09/25/2024 9:49 AM TONGUE CARRIER - 09/25/2024 11:59 PM TONGUE CARRIER Hospital Encounter [facility] ([facility]) [address] [place] [address] Diagnosis unknown Discharge Disposition: Discharge to home or self care 09/14/2024 3:03 PM TONGUE CARRIER - 09/14/2024 11:59 PM TONGUE CARRIER Hospital Encounter [facility] Lab [address] [place] [address] Right kidney stone Discharge Disposition: Discharge to home or self care 09/14/2024 1:51 PM TONGUE CARRIER - 09/14/2024 11:59 PM TONGUE CARRIER Hospital Encounter [facility] MOB 1 DIAG IMG [address] [place] [address] Right kidney stone Discharge Disposition: Discharge to home or self care 09/14/2024 1:00 PM TONGUE CARRIER Office Visit [facility] Surgery [address] [facility] [address] [place] [phone] Edgardo Hernandez NP Right kidney stone (Primary [...] on file Legal Sex Male 3:19 AM TONGUE CARRIER Gender Identity Not on file Sexual Orientation [...] Description 11/14/2024 6:15 AM CDT Hospital Encounter [address] [address] Health Maintenance Due Date Last Done Comments [...] this topic Medical Devices Implanted Type Area Eligibility Specialist Device Identifier Shelf Expiration Date Model / Serial / Lot Sta-Peg Bilateral Ankle Bilateral: Ankle [employer] Stent Ureteral Set Double Pigtail Radiopaque Tip [employer] [id number] Polyurethane Hydrophilic Coated [id number] - [id number] Implanted:Qty: 1 on 10/12/2024 by Ugo Ye MD at [facility] Right: Ureter [employer] [id number] 05/25/2027 [id number] / / [id number] Procedures Procedure Name Priority Date/Time Associated Diagnosis [...] BODY OUTSIDE CONSULT Routine 09/25/2024 9:49 AM TONGUE CARRIER Diagnosis unknown XR KUB Schedule Routine, Read Routine (OP Routine) 09/14/2024 1:59 PM TONGUE CARRIER Right kidney stone POCT URINALYSIS DIPSTICK Routine 09/14/2024 1:09 PM TONGUE CARRIER Right kidney stone URINALYSIS, MICROSCOPIC ONLY Routine 09/14/2024 1:09 PM TONGUE CARRIER Right kidney stone URINALYSIS AND REFLEX TO MICROSCOPIC AND CULTURE Routine 09/14/2024 1:09 PM TONGUE CARRIER Right kidney stone from Last 3 Months [...] 3:07 AM CDT Performed at: - [facility] [address] [id number] Hvac Field Service Technician: Jose Fontana PhD, Phone: [phone] us Yousef Ralf Ye MD LAB URINE [...] PROC EDURES Final Result Performing Organization Address [facility]/ZIP Co de Phone Number [id number] * Stone analysis (10/12/2024 1:39 PM CDT) Pathologist [facility] Stone analysis Not Reported [facility] Lab Source, Kid Stone Right Kidney CON [...] developed and its performance characteristics determined by [facility] in a manner consistent with CLIA requirements. This test has not been cleared or approved by the U.S. Food and Drug Administration. Test Performed by: [facility] [place] [address] Hvac Field Service Technician: Joe Sky Ph.D.; CLIA# [id number] Stone (Urine, Clean Catch) 10/12/2024 1:39 PM CDT 10/12/2024 1:59 PM CDT Narrative CON LANDRY - 10/25/2024 12:09 PM CDT Right Kidney Stone for chemical analysis us Ugo Ye MD LAB URINE ORDERABLES Final Result Performing Organization Address City/[facility]/ZIP Co de Phone Number SEANMICHEAL [address] [employer] [place] [address] [facility] * NE AN ELECTIVE SUPRAGLOTTIC AIRWAY, NE AN PROCEDURE PLACEHOLDER (10/12/2024 1:07 PM CDT) Narrative Jas Vieira CRNA - 10/12/2024 1:07 PM CDT Jas Vieira CRNA 10/12/2024 2:01 PM Airway Patient location: OR Urgency: elective Indications for airway management: anesthesia Difficult airway: no Staff: Placed by: DRAIN TECHNICIAN: Jas Vieira CRNA Emergent airway documentation: Risks [...] current clinical standards) Comment:Testing performed by : [facility], [address] [place]., [address] Organism (CLINICALLY INSIGNIFICANT GROWTH CON LANDRY Urine, clean voided 10/03/2024 1:48 PM CDT 10/03/2024 8:08 PM CDT Narrative CON LANDRY - 10/05/2024 3:08 AM CDT Testing performed by [facility] Microbiology Laboratory ([phone]) Ugo Ye MD LAB MICROBIOLOGY - G ENERAL ORDERABLES Final Result Performing Organization Address City/[facility]/ZIP Co de Phone Number SEANMICHEAL [address] [place] [address] [place] [address] * CT Body Outside Consult (09/25/2024 9:49 AM TONGUE CARRIER) Anatomical Region Laterality Modality Body N/A Computed Tomogra phy 09/25/2024 10:0 3 AM TONGUE CARRIER Impressions 09/25/2024 10:03 AM TONGUE CARRIER 1. A 6 mm obstructive calculus in [...] images may or may not represent the havasupai source data set and thus may contain changes that may lower the accuracy of this second-opinion interpretation. Electronically signed by: Dana Dasilva M.D. Narrative 09/25/2024 10:03 AM TONGUE CARRIER EXAMINATION: RADIOLOGY CONSULTATION ON OUTSIDE IMAGING STUDY STUDY INITIALLY PERFORMED: 09/05/[address] [facility]. TYPE OF STUDY: Multiple CT images of [...] IMAGING STUDY STUDY INITIALLY PERFORMED: 09/05/[address] [facility]. TYPE OF STUDY: Multiple CT images of [...] images may or may not represent the havasupai source data set and thus may contain changes that may lower the accuracy of this second-opinion interpretation. Electronically signed by: Dana Dasilva M.D. us Edgardo Hernandez NP IMG CT PROCEDURES Final Resul t * XR KUB (09/14/2024 1:59 PM TONGUE CARRIER) Anatomical Region Laterality Modality Body, Abdomen N/A Computed Radiogr aphy 09/19/2024 2:39 PM TONGUE CARRIER Narrative 09/19/2024 2:41 PM TONGUE CARRIER EXAM DESCRIPTION: XR KUB REASON FOR STUDY: [...] Kilo Cervantes D.O. AP: AP Report ID: [id number] Reading Location: [id number] Procedure Note CervantesAyo yenpitDO - 09/19/2024 EXAM [...] Kilo Cervantes D.O. AP: AP Report ID: [id number] Reading Location: [place] [address] us Edgardo Hernandez SUBSURFACE AUGMENTEE ELINT OPERATOR IMG XR PROCEDURES Final Resul t * (ABNORMAL) Urinalysis reflex to microscopic and culture Urine (09/14/2024 1:09 PM TONGUE CARRIER) Color, ur Yellow Yellow Comment:Testing performed by : [address] [address] Clarity, ur Clear Clear CON LANDRY Comment:Testing performed by : [address] [address] Specific gravity, ur 1.018 1.003 - 1.030 CON Comment:Testing performed by : [address] [address] pH, urine 6.0 CON Comment: Interpretive Data U rine pH is affected by diet, medications, systemic acid-base disturbances, and renal tubular function. pH may affect urinary stone formation. For example, urine pH below 6.0 may help reduce the tendency for calcium phosphate stones and pH greater than 6.0 may reduce the tendency for uric acid stone formation. Source: [facility] [employer] Current Interpretive Data was last revised on 2017 Testing performed by: [facility], [address] [place] [address], [place]., [address] Protein, ur ql Negative Negative CON Comment:Testing performed by : [address] [address] Glucose, ur ql Negative Negative CON Comment:Testing performed by : [address], [place]., [address] Ketones, ur Negative Negative CON Comment:Testing performed by : [address], [place]., [address] Bilirubin, ur Negative Negative CON Comment:Testing performed by : [address], [place]., [address] Blood, ur 2+(A) Negative CON Comment:Testing performed by : [address] [address] Urobilinogen, ur 2.0(A) <2.0 mg/dL CON Comment:Testing performed by : [address] [address] Nitrite, ur Negative Negative CON Comment:Testing performed by : [address] [address] Leukocyte esterase, ur Negative Negative CON Comment:Testing performed by : [address] [address] UA reflex comment Reflex to microscopic UA will be performed. CON Comment:Testing performed by : [address], [place]., [address] Urine 09/14/2024 1:09 PM TONGUE CARRIER 09/14/2024 5:02 PM TONGUE CARRIER Edgardo Hernandez SUBSURFACE AUGMENTEE ELINT OPERATOR LAB MICROBIOLOGY - GENERAL OR DERABLES Final Result Performing Organization Address [facility] de Phone Number SEAN[address] [address] * (ABNORMAL) Urinalysis, microscopic only (09/14/2024 1:09 PM TONGUE CARRIER) WBC, ur 0-5 0 - 5 /HPF Comment:Testing performed by : [address] [address] RBC, ur >50(A) 0 - 2 /HPF CON Comment:Testing performed by : [address] [address] Epithelial cells, squamous, ur 11-20(A) 0 - 5 /HPF CON Comment:Testing performed by : [address] [address] Mucous, ur Present(A) CON Comment:Testing performed by : [address], [address] Culture Reflex Comment Reflex conditions for urine culture (WBC >10) not met. CON Comment:Testing performed by : [address] [address] Urine 09/14/2024 1:09 PM TONGUE CARRIER 09/14/2024 5:02 PM TONGUE CARRIER Edgardo Hernandez SUBSURFACE AUGMENTEE ELINT OPERATOR LAB URINE ORDERABLES Final Re sult Performing Organization Address [facility] Co de Phone Number SEAN[address] [place] [employer] [address] * (ABNORMAL) POCT urinalysis dipstick (09/14/2024 1:09 PM TONGUE CARRIER) Color, Urine, POC Yellow Clarity, ur, POC Clear Clear Glucose, ur, POC Negative Negative MG/DL Bilirubin, ur, POC 1+(A) Negative, Small, Moderate, Large Ketones, ur, POC Negative Negative Specific [place], POC 1.020 1.003 - 1.030 Blood, ur, POC 3+(A) Negative pH, ur, POC 6.0 5.0 - 8.0 Protein, ur, POC Negative Negative Urobilinogen, urine, POC 0.2 0.2 - 1.0 mg/dL Nitrite, ur, POC Negative Negative Leukocytes, ur, POC Negative Negative Lot Number 0 Urine 09/14/2024 1:09 PM TONGUE CARRIER Edgardo Hernandez SUBSURFACE AUGMENTEE ELINT OPERATOR POINT OF CARE TEST ORDERABLES Final Result from Last [address] [facility] Care Teams Toll Service Observer Relationship Specialty Start Date End Date Dm Mcmahon MD [address] [place] [address] PCP - General Family Medicine 10/08/24
--- NOTE | 2024-11-13 14:46 | PM.IMHP ---
H&P: HPI History of Present Illness Date/Time: 11/13/24 14:46 Chief Complaint: BRB per Rectum, Flank Pain Narrative: 48 y/o M with PMH of hypertension, hyperlipidemia, kidney stones, and GERD presents here with bright red blood per rectum and flank pain. The patient presents here from home for further evaluation of bright red blood per rectum and flank pain. He reports he passed a bowel movement this morning, he reports he did not pass much stool and the water was turned red. Moderate amount of BRB on tissue post-wiping. Accompanied by mild dizziness, abdominal pain, and fatigue. Denies syncope or dark/tarry stools. He is not currently on anticoagulation. Last colonoscopy in 2022 which showed diverticula and internal hemorrhoids. He has a family history of colon cancer -> mother. The patient additionally reports that he is passing a kidney stone since 10/24. He reports this is accompanied by left flank pain with radiation into the left lower quadrant abdominal pain. Pain has been intermittent, alleviated if the patient rests/holds still, and aggravating by certain movements. He currently follows with Urology at [facility]. Flank/abdominal pain is not accompanied by chills, nausea, or vomiting. Reports fever of 100F overnight approximately 1 week ago, resovled without intervention. Of note, the patient had a complicated right kidney stone from Jun - September. Per recent PCP visit on 10/01/2024, patient has known right kidney stone measuring 6 mm that he is awaiting surgical management as he has not been able to pass this on his own. He reports this resolved on October 12 via lithotripsy/stent placement. Stent has since been removed. He denies any history of CKD or renal insufficiency, no recent renal function lab work at another facility. Patient is on Sulindac daily, has been on this medication since 2013. No other NSAID use. Started on Flomax and duloxetine within the last year, no other new medications. Initial VS at presentation: 97.9? F, HR 60, R 20, 163/97, and 100% on RA. ED workup showed: WBC 10.2, hemoglobin 12.2 (14.5 on 07/01/2023), normal coags, creatinine 4.96 and GFR 13 (previously 0.8 and GFR >60 in 2022), initial glucose 57 on BMP (repeat post interventions 94), and UA showed 1+ leuks and 21-50 WBC with no epithelial cells or bacteria. CT abdomen/pelvis showed no evidence of appendicitis/diverticulitis/intestinal obstruction, stone at the left ureterovesical junction with left hydronephrotic changes, smaller stones seen in the left distal ureter, multiple left kidney stones, and hepatomegaly. Review of Systems Review of Systems: All systems reviewed & are unremarkable except as noted in HPI and below PMFSH Past Medical History Medical History Family history of colon cancer in mother Migraine, unspecified, not intractable, without status migrainosus Hypertension Hyperlipidemia Gastro-esophageal reflux disease without esophagitis Surgical History Surgical History History of bilateral inguinal hernia repair History of eye surgery Left cornea History of foot surgery Bilateral History of cholecystectomy 2017 Family History Family History Father Migraines Myocardial infarction x3 with stents placed Mother Carcinoma of colon Sibling Migraines Pulmonary embolism age 29 Other Cerebrovascular accident Family history of malignant neoplasm Hypertension Social History Social History Smoking status: Never smoker Second hand tobacco smoke exposure: No Alcohol intake: never Substance use: never Substance use type: does not use Do You Feel Safe in your Home?: Yes Lack of Transportation: No Lack of Food: Never True Current Housing: I Have Housing Concerned About Future Housing: No Difficulty Paying Gas/Electric Bills: No Difficulty Paying for Meds: No Currently Unemployed: No Education: Decline to Answer Difficulty w/ Childcare or Family Care: No Living arrangements: with family Occupation/Education: unemployed Gender identity (if verbalized by the patient): Male Spiritual care concerns: No Agree to blood products: Yes Meds Home Medications and Allergies Home Medications ?Medication ?Instructions ?Recorded ?Confirmed ?Type flaxseed oil 1,000 mg capsule 1,000 mg PO BID 10/27/21 11/13/24 History acetaminophen 325 mg capsule 1,000 mg PO BID PRN pain 11/14/23 11/13/24 History propranolol 80 mg tablet 80 mg PO Q12H #60 tabs 02/27/24 11/13/24 Rx omeprazole 40 mg capsule,delayed 40 mg PO BID #60 caps 05/07/24 11/13/24 Rx release sumatriptan succinate 100 mg tablet See Rx Instructions PO .COMPLEX #9 06/19/24 11/13/24 Rx tabs gabapentin 300 mg capsule See Rx Instructions .Route 07/18/24 11/13/24 Rx .COMPLEX #60 caps lisinopril 10 mg tablet See Rx Instructions .Route 08/21/24 11/13/24 Rx .COMPLEX #90 tabs rimegepant 75 mg disintegrating 75 mg PO .every other day migraine 09/29/24 11/13/24 Rx tablet (Nurtec ODT) headache #15 tabs azelastine 205.5 mcg (0.15 %) 2 spray intranasal DAILY #30 mL 10/01/24 11/13/24 Rx nasal spray (Astepro Allergy) duloxetine 60 mg capsule,delayed 60 mg PO QHS 10/01/24 11/13/24 History release tamsulosin 0.4 mg capsule 0.4 mg PO DAILY 10/01/24 11/13/24 History sulindac 200 mg tablet 200 mg PO BID #60 tabs 10/15/24 11/13/24 Rx topiramate 100 mg tablet 100 mg PO BID #60 tabs 10/15/24 11/13/24 Rx hydrocodone 10 mg-acetaminophen 2 tablet PO Q6H PRN pain #20 tabs 10/26/24 11/13/24 Rx 325 mg tablet Allergies Allergy/AdvReac Type Severity Reaction Status Date / Time clotrimazole (From Lotrimin) Allergy Rash Verified 11/13/24 10:05 baclofen AdvReac Severe Unknown Verified 11/13/24 10:05 tolnaftate (From Lamisil AF) AdvReac Intermediate Rash Verified 11/13/24 10:05 (topical) Vital Signs Vital Signs - 24 hr 11/13/24 10:02 11/13/24 11:26 11/13/24 11:29 Temperature 97.9 F Pulse Rate 68 66 70 Respiratory Rate 20 Blood Pressure 163/97 H 131/94 H 138/95 H Pulse Oximetry 100 Oxygen Delivery Room Air 11/13/24 11:30 Temperature Pulse Rate 61 Respiratory Rate Blood Pressure 138/84 Pulse Oximetry Oxygen Delivery Exam Const: General: comfortable and no acute distress Other: , male, nontoxic appearance HENMT: Face/Nose/Sinus: Normal nares present Mouth: Yes moist mucous membranes Eyes: General: appearance normal, both eyes and all related structures Sclera: sclerae normal Pupils: Equal, round and reactive pupils present EOM: EOMs intact bilaterally Resp: Effort & Inspection: normal respiratory effort Auscultation: clear to auscultation bilaterally Cardio: Rate: regular rate Rhythm: regular rhythm Other: S1-S2 present without murmur, rub, ectopy GI: Other: Abdomen soft, nondistended, nontender. Normoactive bowel sounds in all quadrants. : Other: Mild suprapubic tenderness. Bilateral low back pain, right flank worse than left. Skin: General skin exam: normal color and no rashes or lesions noted Wounds: no wounds Neuro: Speech: normal speech Motor exam (neuro): 5/5 motor strength present throughout Sensory Exam: normal sensation Other: A&O x4 Extrem: General: normal to inspection Psych: Mental Status: mental status grossly normal Affect: normal affect Other: Good insight and judgment, pleasant H&P: Results Labs Labs: Short CBC 11/13/24 Range/Units 11:09 WBC 10.2 H (4.5-10.0) K/mm3 Hgb 12.2 L (14.0-18.0) g/dL Hct 38.9 L (42.0-52.0) % Plt Count 245 (150-375) k/mm3 BMP 11/13/24 11/13/24 11:09 13:14 Sodium 142 141 Potassium 4.8 5.0 Chloride 112 H 113 H Carbon Dioxide 18 L 16 L BUN 42 H D 42 H Creatinine 4.96 H 4.59 H Glucose 57 L* 80 Calcium 9.0 8.7 Liver Function 11/13/24 Range/Units 11:09 Total Bilirubin 0.9 (0.2-1.3) mg/dL AST 21 (17-59) U/L ALT 17 (6-50) U/L Alkaline Phosphatase 103 (38-126) U/L Albumin 4.3 (3.5-5.1) g/dL Urine 11/13/24 Range/Units 12:52 Urine Color Yellow (Yellow) Urine Appearance Clear (Clear) Urine pH 6.5 (5.0-9.0) Ur Specific [place] 1.014 (1.001-1.035) Urine Protein Trace (Negative) mg/dL Urine Glucose (UA) Negative (Negative) mg/dL Assessment and Plan Assessment and plan (1) Acute kidney failure: Qualifiers: Acute renal failure type: unspecified Qualified Code(s): N17.9 - Acute kidney failure, unspecified Code(s): N17.9 - Acute kidney failure, unspecified Status: Acute Assessment and Plan: Labs: 07/01/23: 0.8, BUN 13, GFR >60 11/13/24: 4.96, BUN 42, GFR 13 CT abdomen/pelvis: 1. No evidence of appendicitis, diverticulitis or intestinal obstruction. 2. stone at the left ureterovesical junction with left hydronephrotic changes. Smaller stones seen in the left distal ureter. Multiple left kidney stones. 3. Hepatomegaly. Denied nausea, vomiting, diarrhea. Low suspicion for hypovolemia. BP 163/97 on arrival, reviewed most recent PCP visit on 10/01/2024 and BP was 150/110 (repeat once rested 132/98) check CK, urine sodium, total protein/creatinine, urea Monitor I&Os. bladder scan for postvoid residual Reviewed home medications. Hold Sulindac and sumatriptan. IV fluids: 1L bolus -> 125 mL/hour nephrology consultation, awaiting recs (2) Ureterolithiasis: Code(s): N20.1 - Calculus of ureter Status: Acute Assessment and Plan: CT showed a stone at the left ureterovesical junction with left hydronephrotic changes. Smaller stones seen in the left distal ureter. Multiple left kidney stones. XR abd showed a 6.5 mm left lower ureteral stone. Requesting records from most recent urology appointment at [facility]. Urology consulted. Continue Flomax. NPO at midnight in case of need for procedure. (3) UTI (urinary tract infection): Qualifiers: Hematuria presence: without hematuria Urinary tract infection type: acute cystitis Qualified Code(s): N30.00 - Acute cystitis without hematuria Code(s): N39.0 - Urinary tract infection, site not specified Status: Suspected Assessment and Plan: Did not meet SIRS criteria. However, blood cultures obtained on 11/13 during initial workup. Follow. UA showed 1+ leuks and 21-50 WBC with no epithelial cells or bacteria. Urine culture obtained on 11/13, follow. Started on ceftriaxone on 11/13. IV fluids. (4) Hypertension: Qualifiers: Hypertension type: primary hypertension Qualified Code(s): I10 - Essential (primary) hypertension Code(s): I10 - Essential (primary) hypertension Status: Chronic Assessment and Plan: Chronic, currently 138/94. Continue home medication: Lisinopril 10 mg daily Monitor. Plan Diet: Regular, NPO midnight GI Prophylaxis: Not currently indicated DVT Prophylaxis: SCDs IV fluids: NS at 125 mL/hour Lines/Tubes: Peripheral IV Code Status: Full code Quality VTE Prophylaxis VTE prophylaxis: mechanical ordered Hospitalist MIPS Advance Care Plan I have confirmed that the patient's Advanced Care Plan is present, code status is documented, or surrogate decision maker is listed in patient medical record.: Yes Medication Reconciliation I have utilized all available resources to obtain, update and review the patients current medications (includes all prescriptions, OTC, herbals, cannabis, and nutritional supplements).: Yes
--- NOTE | 2024-11-13 15:05 | ADMGEN ---
This patient, Miguel A Carr Jr., was admitted to [facility] Surg Room 314-01. Patient/family oriented to hospital policies and general routines including ID bracelet, bed and alarms, visiting hours, pain management, procedures, bathroom and other care routines, personal items, smoking policy, room service/diet, and visiting hours. Information on how to activate the Rapid Response Team has been discussed. Patient/Family are encouraged to report perceived risks to care and to ask questions if they do not understand what they are told or what they should do.
[2024-11-13] MEDS: SODIUM CHLORIDE 0.9% IV 1,000 ML 125 ML IV CONT ×2 (15:36→23:44)
[2024-11-13 16:17] LABS: Creatine Kinase 53 U/L (55-170)
[2024-11-13 16:47] LABS: Creatinine Urine 70.9 mg/dL; Total Protein Urine Random 19 mg/dL; Ur Ttl Prot Creatinine Ratio 0.27 mg/mg (0-0.20)
--- NOTE | 2024-11-13 16:49 | P.CONUR_ITS ---
Assessment and Plan Assessment and plan (1) Ureterolithiasis: Code(s): N20.1 - Calculus of ureter Status: Acute (2) Acute kidney failure: Qualifiers: Acute renal failure type: unspecified Qualified Code(s): N17.9 - Acute kidney failure, unspecified Code(s): N17.9 - Acute kidney failure, unspecified Status: Acute (3) UTI (urinary tract infection): Qualifiers: Hematuria presence: without hematuria Urinary tract infection type: a cute cystitis Qualified Code(s): N30.00 - Acute cystitis without hematuria Code(s): N39.0 - Urinary tract infection, site not specified Status: Suspected Plan - Left ureteral stones with obstruction causing WALLACE and suspected UTI - Bladder wall thickening - History of recurrent nephrolithiasis Plan: - Strain all urine - Continue home tamsulosin, IV fluids, PRN analgesics for trial of passage - NPO at midnight for possible cystoscopy with left ureteral stent placement tomorrow if no stone passage or renal function improvement - Empiric antibiotics for suspected infection - Monitor daily labs and cultures - Agree with nephrology consultation - Patient to follow-up with Dr. Ye at [facility] on discharge Urology Consult Note HPI Date Seen: 11/13/24 Requesting Physician: Be Rand MD Primary Care Provider: Dm Mcmahon MD Consult Narrative Reason for consult: Left ureteral stones, bladder wall thickening, renal failure Narrative: Mr. Carr is a 48-year-old male with a history of recurrent kidney stones, admitted on 11/13/2024 for left flank pain radiating to the left lower abdomen. He reports the pain started on 10/24/2024, with a severe episode on 10/26/2024 described as the worst day of my life. He is established with [facility] (Dr. Ye), where he underwent a right ureteroscopy with laser lithotripsy and stent placement for a 6 mm stone on 10/12/2024. A known 7 mm stone in the left kidney was previously observed. He currently denies nausea, vomiting, and fever. He has a history of hypertension, hernia repair, and obesity (BMI 39). He is a nonsmoker and does not take blood thinners or aspirin. Mr. Carr reports a family history of kidney stones. -PERTINENT LABS: 11/13/2024 - WBC 10.2, HGB 12.2, Cr 4.59, GFR 14; UA: 1+ LE, 21-50 WBC; Blood/urine cultures pending 06/2023 - Cr 0.8 -PERTINENT IMAGIN11/13/2024 CT AP WO CON - Left hydronephrotic changes with 5 mm stone at left ureterovesical junction. Smaller stone in distal left ureter. Multiple stones in left kidney (largest 3 mm). Underfilled bladder with thickened wall. 11/13/2024 KUB - 6.5 mm stone in left lower ureter. Left kidney stones. Review of Systems 2 Review of Systems: All systems reviewed & are unremarkable except as noted in HPI and below PMFSH Past Medical History Medical History Family history of colon cancer in mother Migraine, unspecified, not intractable, without status migrainosus Hypertension Hyperlipidemia Gastro-esophageal reflux disease without esophagitis Surgical History Surgical History History of bilateral inguinal hernia repair History of eye surgery Left cornea History of foot surgery Bilateral History of cholecystectomy 2017 Family History Family History Father Migraines Myocardial infarction x3 with stents placed Mother Carcinoma of colon Sibling Migraines Pulmonary embolism age 29 Other Cerebrovascular accident Family history of malignant neoplasm Hypertension Social History Social History Smoking status: Never smoker Second hand tobacco smoke exposure: No Alcohol intake: never Substance use: never Substance use type: does not use Do You Feel Safe in your Home?: Yes Lack of Transportation: No Lack of Food: Never True Current Housing: I Have Housing Concerned About Future Housing: No Difficulty Paying Gas/Electric Bills: No Difficulty Paying for Meds: No Currently Unemployed: No Education: Decline to Answer Difficulty w/ Childcare or Family Care: No Living arrangements: with family Occupation/Education: unemployed Gender identity (if verbalized by the patient): Male Spiritual care concerns: No Agree to blood products: Yes Comments Father - history renal stones Meds Home Medications and Allergies Home Medications ?Medication ?Instructions ?Recorded ?Confirmed ?Type flaxseed oil 1,000 mg capsule 1,000 mg PO BID 10/27/21 11/13/24 History acetaminophen 325 mg capsule 1,000 mg PO BID PRN pain 11/14/23 11/13/24 History propranolol 80 mg tablet 80 mg PO Q12H #60 tabs 02/27/24 11/13/24 Rx omeprazole 40 mg capsule,delayed 40 mg PO BID #60 caps 05/07/24 11/13/24 Rx release sumatriptan succinate 100 mg tablet See Rx Instructions PO .COMPLEX #9 06/19/24 11/13/24 Rx tabs gabapentin 300 mg capsule See Rx Instructions .Route 07/18/24 11/13/24 Rx .COMPLEX #60 caps lisinopril 10 mg tablet See Rx Instructions .Route 08/21/24 11/13/24 Rx .COMPLEX #90 tabs rimegepant 75 mg disintegrating 75 mg PO .every other day migraine 09/29/24 11/13/24 Rx tablet (Nurtec ODT) headache #15 tabs azelastine 205.5 mcg (0.15 %) 2 spray intranasal DAILY #30 mL 10/01/24 11/13/24 Rx nasal spray (Astepro Allergy) duloxetine 60 mg capsule,delayed 60 mg PO QHS 10/01/24 11/13/24 History release tamsulosin 0.4 mg capsule 0.4 mg PO DAILY 10/01/24 11/13/24 History sulindac 200 mg tablet 200 mg PO BID #60 tabs 10/15/24 11/13/24 Rx topiramate 100 mg tablet 100 mg PO BID #60 tabs 10/15/24 11/13/24 Rx hydrocodone 10 mg-acetaminophen 2 tablet PO Q6H PRN pain #20 tabs 10/26/24 11/13/24 Rx 325 mg tablet Allergies Allergy/AdvReac Type Severity Reaction Status Date / Time clotrimazole (From Lotrimin) Allergy Rash Verified 11/13/24 10:05 baclofen AdvReac Severe Unknown Verified 11/13/24 10:05 tolnaftate (From Lamisil AF) AdvReac Intermediate Rash Verified 11/13/24 10:05 (topical) Vital Signs Vital Signs - 24 hr 11/13/24 10:02 11/13/24 11:26 11/13/24 11:29 Temperature 97.9 F Pulse Rate 68 66 70 Respiratory Rate 20 Blood Pressure 163/97 H 131/94 H 138/95 H Pulse Oximetry 100 Oxygen Delivery Room Air 11/13/24 11:30 11/13/24 13:00 11/13/24 16:05 Temperature Pulse Rate 61 62 Respiratory Rate 18 Blood Pressure 138/84 138/94 H Pulse Oximetry 97 Oxygen Delivery Room Air Exam 2 Const: General: comfortable and no acute distress GI: Other: LLQ tender : Other: Left CVA tenderness Results Labs 11/13/24 11:09 11/13/24 13:14 Labs: Short CBC 11/13/24 Range/Units 11:09 WBC 10.2 H (4.5-10.0) K/mm3 Hgb 12.2 L (14.0-18.0) g/dL Hct 38.9 L (42.0-52.0) % Plt Count 245 (150-375) k/mm3 BMP 11/13/24 11/13/24 11:09 13:14 Sodium 142 141 Potassium 4.8 5.0 Chloride 112 H 113 H Carbon Dioxide 18 L 16 L BUN 42 H D 42 H Creatinine 4.96 H 4.59 H Glucose 57 L* 80 Calcium 9.0 8.7 Cardiac Enzymes 11/13/24 Range/Units 13:14 Total Creatine Kinase 53 L (55-170) U/L Liver Function 11/13/24 Range/Units 11:09 Total Bilirubin 0.9 (0.2-1.3) mg/dL AST 21 (17-59) U/L ALT 17 (6-50) U/L Alkaline Phosphatase 103 (38-126) U/L Albumin 4.3 (3.5-5.1) g/dL Urine 11/13/24 Range/Units 12:52 Urine Color Yellow (Yellow) Urine Appearance Clear (Clear) Urine pH 6.5 (5.0-9.0) Ur Specific [place] 1.014 (1.001-1.035) Urine Protein Trace (Negative) mg/dL Urine Glucose (UA) Negative (Negative) mg/dL
[2024-11-13 16:50] LABS: Creatinine Urine 70.5 mg/dL; Urea Random Urine 353 MG/DL
[2024-11-13 16:52] LABS: Sodium Urine Random 88 meq/L
[2024-11-13 17:04] LABS: Glucose Point of Care 98 mg/dl (65-105)
[2024-11-13] MEDS: GABAPENTIN 300 MG CAPSULE PO (17:08)
[2024-11-13] MEDS: ACETAMINOPHEN 500 MG TABLET 1000 MG PO (17:08)
[2024-11-13] MEDS: DULoxetine HCL 60 MG CAPSULE.DR PO (20:49)
[2024-11-13] MEDS: PANTOPRAZOLE 40 MG TABLET PO (20:49)
[2024-11-13] MEDS: PROPRANOLOL HCL 40 MG TABLET 80 MG PO (20:49)
[2024-11-13 21:15] LABS: Glucose Point of Care 127 mg/dl (65-105)
[2024-11-14] VITALS (15 sets, daily range): BP systolic 100–159; BP diastolic 72–101; PULSE 57–82; RESP 14–25; TEMP 36.3–36.9; O2SAT 92–99; BMI 39.2
[2024-11-14 00:21] LABS: Glucose Point of Care 102 mg/dl (65-105)
[2024-11-14] MEDS: ACETAMINOPHEN 500 MG TABLET 1000 MG PO ×2 (04:45→20:59)
[2024-11-14 06:13] LABS: Glucose Point of Care 75 mg/dl (65-105)
[2024-11-14 06:38] LABS: Basophils Absolute Auto 0.1 K/mm3 (0.0-0.1); Eosinophils Absolute Auto 0.4 K/mm3 (0-0.3); Eosinophils Percent Auto 3.6 % (0-4.4); Hematocrit 38.4 % (42.0-52.0); Immature Granulocyte Absolute 0.04 K/mm3 (0.00-0.031); Immature Granulocyte Percent A 0.4 % (0-0.5); Lymphocytes Absolute Auto 2.31 K/mm3 (0.9-3.2); Lymphocytes Percent Auto 21.4 % (18.3-44.2); Mean Corpuscular HGB Conc 31.3 g/dl (32-36); Mean Corpuscular Hemoglobin 29.2 pg (26-34); Mean Corpuscular Volume 93.4 fl (80-100); Mean Platelet Volume 9.6 fl (7.4-10.4); Monocytes Absolute Auto 0.8 K/mm3 (0.1-0.6); Monocytes Percent Auto 7.4 % (2.6-8.5); Neutrophils Absolute Auto 7.2 K/mm3 (1.3-6.7); Neutrophils Percent Auto 66.2 % (45.5-73.1); Platelet Count Result 242 k/mm3 (150-375); Red Blood Count 4.11 M/mm3 (4.6-6.20); Red Cell Distribution Width 13.4 % (11.5-14.5); White Blood Count 10.8 K/mm3 (4.5-10.0)
[2024-11-14 06:49] LABS: Alanine Aminotransferase 16 U/L (6-50); Albumin Level 4.1 g/dL (3.5-5.1); Alkaline Phosphatase 107 U/L (38-126); Anion Gap 12 mmol/L (4-12); Aspartate Amino Transferase 18 U/L (17-59); Bilirubin,Total 0.5 mg/dL (0.2-1.3); Blood Urea Nitrogen 35 mg/dL (9-20); Calcium 8.9 mg/dL (8.4-10.2); Carbon Dioxide 15 mmol/L (22-30); Chloride 117 mmol/L (98-107); Estimated CRCL calculation 28 ml/min; Estimated Glomerular Filt Rate 16; Glucose 88 mg/dL (65-110); Potassium 5.7 mmol/L (3.4-5.0); Sodium 144 mmol/L (137-145)
--- NOTE | 2024-11-14 07:47 | WPDUROPN2 ---
Progress Note: A&P Assessment and Plan (1) Acute kidney failure: Qualifiers: Acute renal failure type: unspecified Qualified Code(s): N17.9 - Acute kidney failure, unspecified Code(s): N17.9 - Acute kidney failure, unspecified Status: Acute Assessment and Plan: Etiology is unclear. Unusual that his creatinine is that elevated with this stone which is causing mild hydronephrosis and no pain. On the last will see how he responds once he has a stent in and the stone is removed (2) Left ureteral calculus: Code(s): N20.1 - Calculus of ureter Status: Acute Assessment and Plan: Plan for cystoscopy, left retrograde, left ureteroscopy with possible laser, stent placement this afternoon. Discussed in detail with Miguel A today Subjective Subjective Date/Time Seen: 11/14/24 07:47 Principal diagnosis: 6 mm left UVJ calculus with renal insufficiency Interval history: Miguel A continues to do well overall clinically. Denies any significant left flank pain. His renal function however has not improved adequately and his creatinine level is 4. Review of Systems Review of Systems: All systems reviewed & are unremarkable except as noted in HPI and below Exam Const: General: cooperative and comfortable Resp: Effort & Inspection: normal respiratory effort Cardio: Rate: regular rate Rhythm: regular rhythm Objective Data Vital Signs Vital Signs: Vital Signs - 24 hr 11/13/24 10:02 11/13/24 11:26 11/13/24 11:29 Temperature 36.6 C Pulse Rate 68 66 70 Respiratory Rate 20 Blood Pressure 163/97 H 131/94 H 138/95 H Pulse Oximetry 100 Oxygen Delivery Room Air 11/13/24 11:30 11/13/24 13:00 11/13/24 16:05 Temperature Pulse Rate 61 62 Respiratory Rate 18 Blood Pressure 138/84 138/94 H Pulse Oximetry 97 Oxygen Delivery Room Air 11/13/24 20:49 11/13/24 20:49 11/13/24 22:00 Temperature 36.5 C Pulse Rate 75 74 Respiratory Rate 18 Blood Pressure 159/96 H Pulse Oximetry 96 Oxygen Delivery Room Air 11/14/24 06:00 Temperature 36.8 C Pulse Rate 76 Respiratory Rate 18 Blood Pressure 158/85 H Pulse Oximetry 97 Oxygen Delivery Intake/Output Intake/Output: Intake & Output 11/11/24 11/12/24 11/13/24 11/14/24 23:59 23:59 23:59 23:59 Intake Total 3337 550 Output Total 9492 800 Balance 1986 - Meds/Results Medications: Active Medications Generic Name Dose Route Start Last Admin Trade Name Freq PRN Reason Stop Dose Admin Acetaminophen 1,000 mg 11/13/24 16:20 11/14/24 04:45 Acetaminophen 500 Mg Tablet PO 1,000 mg BID PRN Administration pain 1-3 Hydrocodone Bitart/Acetaminophen 2 tab 11/13/24 16:20 Hydrocodone/Acetaminophen (*Crx) 10-325 Mg Tablet PO Q6H PRN pain 4-6 Dextrose 12.5 gm 11/13/24 11:55 Dextrose 50% 25 Gm/50 Ml Syringe IV PUSH PRN PRN Hypoglycemia Protocol Duloxetine HCl 60 mg 11/13/24 21:00 11/13/24 20:49 Duloxetine Hcl 60 Mg Capsule.Dr PO 60 mg QHS BERNA Administration Gabapentin 300 mg 11/13/24 17:00 11/13/24 17:08 Gabapentin 300 Mg Capsule PO 300 mg BID BERNA Administration Glucagon 1 mg 11/13/24 11:55 Glucagon For Inj 1 Mg Vial IM PRN PRN Hypoglycemia Protocol Glucose 15 gm 11/13/24 11:55 Glucose Oral Gel 15 Gm Of Glucse In 37.5 Gm Tube PO PRN PRN Hypoglycemia Protocol Dextrose 1,000 mls @ 100 mls/hr 11/13/24 11:55 Dextrose 5% 1,000 Ml IVPB PRN PRN Hypoglycemia Protocol Sodium Chloride 1,000 mls @ 125 mls/hr 11/13/24 13:35 11/13/24 23:44 Normal Saline Iv IV CONT 125 mls/hr .Q8H BERNA Administration Ceftriaxone Sodium 1 gm in 50 mls @ 100 mls/hr 11/14/24 14:00 Rocephin 1 Gm/Ns 50 Ml IVPB Q24H BERNA Lisinopril 10 mg 11/14/24 09:00 Lisinopril 10 Mg Tablet PO DAILY BERNA Miscellaneous Information 0 each 11/13/24 00:01 Rimegepant Nonform Can Pt Bring From Home? XX 12/13/24 00:00 CLARIFY BERNA Non-Formulary Medication 75 mg 11/13/24 16:30 Rimegepant [Nurtec Odt] PO 12/13/24 16:29 .every other day BERNA Nonformulary Drug ( 1 each 11/13/24 16:38 Flaxseed Oil 1,000 XX 11/14/24 16:37 Mg Capsule) PRN PRN PROTOCOL Pantoprazole Sodium 40 mg 11/13/24 21:00 11/13/24 20:49 Pantoprazole 40 Mg Tablet PO 40 mg Q12HR BERNA Administration Propranolol HCl 80 mg 11/13/24 21:00 11/13/24 20:49 Propranolol Hcl 40 Mg Tablet PO 80 mg Q12HR BERNA Administration Tamsulosin HCl 0.4 mg 11/14/24 09:00 Tamsulosin Hcl 0.4 Mg Capsule PO DAILY [facility] Topiramate 100 mg 11/14/24 09:00 Topiramate 100 Mg Tablet PO Q12HR [facility] Radiology Results: ITS Impressions Abdomen/Pelvis CT 11/13/24 12:32 IMPRESSION: 1. No evidence of appendicitis, diverticulitis or intestinal obstruction. 2. stone at the left ureterovesical junction with left hydronephrotic changes. Smaller stones seen in the left distal ureter. Multiple left kidney stones. 3. Hepatomegaly. Abdomen X-Ray 11/13/24 13:27 IMPRESSION: Stone in the left lower ureter measuring 6.5 mm.. Left kidney stones. Labs Labs: Laboratory Results - last 24 hr 11/13/24 11/13/24 11/13/24 11:09 12:26 12:52 WBC 10.2 H RBC 4.14 L Hgb 12.2 L Hct 38.9 L MCV 94.0 MCH 29.5 MCHC 31.4 L RDW 13.5 Plt Count 245 MPV 9.5 Immature Gran % (Auto) 0.7 H Neut % (Auto) 54.3 Lymph % (Auto) 28.6 [place] % (Auto) 9.7 H Eos % (Auto) 5.4 H Baso % (Auto) 1.3 H Lymph # (Auto) 2.92 [place] # (Auto) 1.0 H Eos # (Auto) 0.6 H Baso # (Auto) 0.1 Abs Immat Gran (auto) 0.07 H Absolute Neuts (auto) 5.6 Absolute Nucleated RBC 0.000 Nucleated RBC % 0.0 PT 14.1 INR 1.0 APTT 27.4 Sodium 142 Potassium 4.8 Chloride 112 H Carbon Dioxide 18 L Anion Gap 12 BUN 42 H D Creatinine 4.96 H Estim Creat Clear Calc 23 Estimated GFR 13 L Glucose 57 L* POC Capillary Glucose 94 Calcium 9.0 Total Bilirubin 0.9 AST 21 ALT 17 Alkaline Phosphatase 103 Total Creatine Kinase Total Protein 7.0 Albumin 4.3 Urine Color Yellow Urine Appearance Clear Urine pH 6.5 Ur Specific [place] 1.014 Urine Protein Trace Urine Glucose (UA) Negative Urine Ketones Negative Ur Blood (Man) Negative Urine Nitrate Negative Urine Bilirubin Negative Urine Urobilinogen 0.2 Leukocyte Esterase Rfl 1+ H Urine RBC 0-2 Urine WBC 21-50 H Ur Squamous Epith Cells None seen Urine Bacteria None seen Urine Casts 0-2 U Random Total Protein Ur Random Sodium Ur Random Urea Urine Creatinine Protein/Creat Ratio 2 Blood Type O Positive Antibody Screen Negative 11/13/24 11/13/24 11/13/24 13:14 16:27 16:27 WBC RBC Hgb Hct MCV MCH MCHC RDW Plt Count MPV Immature Gran % (Auto) Neut % (Auto) Lymph % (Auto) [place] % (Auto) Eos % (Auto) Baso % (Auto) Lymph # (Auto) [place] # (Auto) Eos # (Auto) Baso # (Auto) Abs Immat Gran (auto) Absolute Neuts (auto) Absolute Nucleated RBC Nucleated RBC % PT INR APTT Sodium 141 Potassium 5.0 Chloride 113 H Carbon Dioxide 16 L Anion Gap 12 BUN 42 H Creatinine 4.59 H Estim Creat Clear Calc 25 Estimated GFR 14 L Glucose 80 POC Capillary Glucose Calcium 8.7 Total Bilirubin AST ALT Alkaline Phosphatase Total Creatine Kinase 53 L Total Protein Albumin Urine Color Urine Appearance Urine pH Ur Specific [place] Urine Protein Urine Glucose (UA) Urine Ketones Ur Blood (Man) Urine Nitrate Urine Bilirubin Urine Urobilinogen Leukocyte Esterase Rfl Urine RBC Urine WBC Ur Squamous Epith Cells Urine Bacteria Urine Casts U Random Total Protein 19 Ur Random Sodium 88 Ur Random Urea 353 Urine Creatinine 70.9 70.5 Protein/Creat Ratio 2 0.27 H Blood Type Antibody Screen 11/13/24 11/13/24 11/14/24 16:50 20:57 00:18 WBC RBC Hgb Hct MCV MCH MCHC RDW Plt Count MPV Immature Gran % (Auto) Neut % (Auto) Lymph % (Auto) [place] % (Auto) Eos % (Auto) Baso % (Auto) Lymph # (Auto) [place] # (Auto) Eos # (Auto) Baso # (Auto) Abs Immat Gran (auto) Absolute Neuts (auto) Absolute Nucleated RBC Nucleated RBC % PT INR APTT Sodium Potassium Chloride Carbon Dioxide Anion Gap BUN Creatinine Estim Creat Clear Calc Estimated GFR Glucose POC Capillary Glucose 98 127 H 102 Calcium Total Bilirubin AST ALT Alkaline Phosphatase Total Creatine Kinase Total Protein Albumin Urine Color Urine Appearance Urine pH Ur Specific [place] Urine Protein Urine Glucose (UA) Urine Ketones Ur Blood (Man) Urine Nitrate Urine Bilirubin Urine Urobilinogen Leukocyte Esterase Rfl Urine RBC Urine WBC Ur Squamous Epith Cells Urine Bacteria Urine Casts U Random Total Protein Ur Random Sodium Ur Random Urea Urine Creatinine Protein/Creat Ratio 2 Blood Type Antibody Screen 11/14/24 11/14/24 04:33 06:22 WBC 10.8 H RBC 4.11 L Hgb 12.0 L Hct 38.4 L MCV 93.4 MCH 29.2 MCHC 31.3 L RDW 13.4 Plt Count 242 MPV 9.6 Immature Gran % (Auto) 0.4 Neut % (Auto) 66.2 Lymph % (Auto) 21.4 [place] % (Auto) 7.4 Eos % (Auto) 3.6 Baso % (Auto) 1.0 Lymph # (Auto) 2.31 [place] # (Auto) 0.8 H Eos # (Auto) 0.4 H Baso # (Auto) 0.1 Abs Immat Gran (auto) 0.04 H Absolute Neuts (auto) 7.2 H Absolute Nucleated RBC 0.000 Nucleated RBC % 0.0 PT INR APTT Sodium 144 Potassium 5.7 H Chloride 117 H Carbon Dioxide 15 L Anion Gap 12 BUN 35 H Creatinine 4.02 H Estim Creat Clear Calc 28 Estimated GFR 16 L Glucose 88 POC Capillary Glucose 75 Calcium 8.9 Total Bilirubin 0.5 AST 18 ALT 16 Alkaline Phosphatase 107 Total Creatine Kinase Total Protein 7.0 Albumin 4.1 Urine Color Urine Appearance Urine pH Ur Specific [place] Urine Protein Urine Glucose (UA) Urine Ketones Ur Blood (Man) Urine Nitrate Urine Bilirubin Urine Urobilinogen Leukocyte Esterase Rfl Urine RBC Urine WBC Ur Squamous Epith Cells Urine Bacteria Urine Casts U Random Total Protein Ur Random Sodium Ur Random Urea Urine Creatinine Protein/Creat Ratio 2 Blood Type Antibody Screen
[2024-11-14 07:56] LABS: Glucose Point of Care 77 mg/dl (65-105)
[2024-11-14] MEDS: SODIUM CHLORIDE 0.9% IV 1,000 ML 125 ML IV CONT ×2 (08:14→21:55)
[2024-11-14] MEDS: GABAPENTIN 300 MG CAPSULE PO ×2 (08:37→16:29)
[2024-11-14] MEDS: TOPIRAMATE 100 MG TABLET PO ×2 (08:37→20:54)
[2024-11-14] MEDS: PROPRANOLOL HCL 40 MG TABLET 80 MG PO ×2 (08:37→20:53)
[2024-11-14] MEDS: MORPHINE SULFATE (*CRX) 2 MG/ML INJ 1 MG IV PUSH (11:20)
--- NOTE | 2024-11-14 11:51 | P.PNIM_ITS ---
Progress Note: A&P Assessment and Plan (1) Acute kidney failure: Qualifiers: Acute renal failure type: unspecified Qualified Code(s): N17.9 - Acute kidney failure, unspecified Code(s): N17.9 - Acute kidney failure, unspecified Status: Acute Assessment and Plan: * Labs: 07/01/23: 0.8, BUN 13, GFR >60 11/13/24: Creatinine 4.96, BUN 42, GFR 13 11/14/24: Creatinine 4.02, BUN 35, GFR 16 * CT abdomen/pelvis: 1. No evidence of appendicitis, diverticulitis or intestinal obstruction. 2. stone at the left ureterovesical junction with left hydronephrotic changes. Smaller stones seen in the left distal ureter. Multiple left kidney stones. 3. Hepatomegaly. * Denied nausea, vomiting, diarrhea. Low suspicion for hypovolemia. * check CK 53, urine sodium 88, total protein/creatinine 0.27, urea 353 * Monitor I&Os. * bladder scan for postvoid residual * Reviewed home medications. Hold Sulindac. * IV fluids: 1L bolus -> 125 mL/hour * Nephrology consultation, awaiting recs (2) Ureterolithiasis: Code(s): N20.1 - Calculus of ureter Status: Acute Assessment and Plan: * CT showed a stone at the left ureterovesical junction with left hydronephrotic changes. Smaller stones seen in the left distal ureter. Multiple left kidney stones. * XR abd showed a 6.5 mm left lower ureteral stone. * Requesting records from most recent urology appointment at [facility]. * Urology consulted, appreciate recommendations. * Continue Flomax. * NPO for Cystoscopy, left retrograde, left ureteroscopy with holmium laser, stone extraction, left ureteral stent placement 4.8 [place] contour. (3) UTI (urinary tract infection): Qualifiers: Hematuria presence: without hematuria Urinary tract infection type: acute cystitis Qualified Code(s): N30.00 - Acute cystitis without hematuria Code(s): N39.0 - Urinary tract infection, site not specified Status: Suspected Assessment and Plan: * Did not meet SIRS criteria. However, blood cultures obtained on 11/13 during initial workup. Follow. * UA showed 1+ leuks and 21-50 WBC with no epithelial cells or bacteria. * Urine culture obtained on 11/13, follow. * Started on ceftriaxone on 11/13. * IV fluids. (4) Hyperkalemia: Code(s): E87.5 - Hyperkalemia Status: Acute Assessment and Plan: * Potassium 5.9. * Lokelma 10 mg PO x1. * Follow potassium level. * Nephrology consult. (5) Hypertension: Qualifiers: Hypertension type: primary hypertension Qualified Code(s): I10 - Essential (primary) hypertension Code(s): I10 - Essential (primary) hypertension Status: Chronic Assessment and Plan: * Chronic, currently 138/89. * Continue home medication: Lisinopril 10 mg daily * Monitor. Plan Code Status: Full code Subjective Date/time seen: 11/14/24 11:51 Interval history: Patient report pain in left side is a 5 , frequent, aching, and cramping. Patient reports headache is a 2 , frequent, and aching. Patient denies chest pain, palpitations, shortness of breath, dizziness, nausea, or vomiting. Review of Systems Review of Systems: All systems reviewed & are unremarkable except as noted in HPI and below Exam Const: General: no acute distress and uncomfortable Resp: Effort & Inspection: normal respiratory effort Auscultation: clear to auscultation bilaterally Cardio: Rate: regular rate Rhythm: regular rhythm GI: GI Palp: Yes Soft to palpation Auscultation: normal bowel sounds Neuro: General: gait normal Speech: normal speech Extrem: General: no pedal edema Psych: Mental Status: mental status grossly normal Affect: normal affect Objective Data Vital Signs Vital Signs: Vital Signs - 24 hr 11/13/24 13:00 11/13/24 16:05 11/13/24 20:49 Temperature Pulse Rate 62 75 Respiratory Rate 18 Blood Pressure 138/94 H Pulse Oximetry 97 Oxygen Delivery Room Air 11/13/24 20:49 11/13/24 22:00 11/14/24 06:00 Temperature 97.7 F 98.3 F Pulse Rate 74 76 Respiratory Rate 18 18 Blood Pressure 159/96 H 158/85 H Pulse Oximetry 96 97 Oxygen Delivery Room Air 11/14/24 08:35 11/14/24 08:37 Temperature Pulse Rate 70 Respiratory Rate Blood Pressure Pulse Oximetry Oxygen Delivery Room Air Intake/Output Intake/Output: Intake & Output 04/20/25 04/21/25 04/22/25 04/23/25 23:59 23:59 23:59 23:59 Intake Total 3337 1550 Output Total 1350 1200 Balance 1987 350 Meds/Results Medications: Active Medications Generic Name Dose Route Start Last Admin Trade Name Freq PRN Reason Stop Dose Admin Acetaminophen 1,000 mg 11/13/24 16:20 11/14/24 04:45 Acetaminophen 500 Mg Tablet PO 1,000 mg BID PRN Administration pain 1-3 Hydrocodone Bitart/Acetaminophen 2 tab 11/13/24 16:20 Hydrocodone/Acetaminophen (*Crx) 10-325 Mg Tablet PO Q6H PRN pain 4-6 Dextrose 12.5 gm 11/13/24 11:55 Dextrose 50% 25 Gm/50 Ml Syringe IV PUSH PRN PRN Hypoglycemia Protocol Duloxetine HCl 60 mg 11/13/24 21:00 11/13/24 20:49 Duloxetine Hcl 60 Mg Capsule.Dr PO 60 mg QHS BERNA Administration Gabapentin 300 mg 11/13/24 17:00 11/14/24 08:37 Gabapentin 300 Mg Capsule PO 300 mg BID BERNA Administration Glucagon 1 mg 11/13/24 11:55 Glucagon For Inj 1 Mg Vial IM PRN PRN Hypoglycemia Protocol Glucose 15 gm 11/13/24 11:55 Glucose Oral Gel 15 Gm Of Glucse In 37.5 Gm Tube PO PRN PRN Hypoglycemia Protocol Dextrose 1,000 mls @ 100 mls/hr 11/13/24 11:55 Dextrose 5% 1,000 Ml IVPB PRN PRN Hypoglycemia Protocol Sodium Chloride 1,000 mls @ 125 mls/hr 11/13/24 13:35 11/14/24 08:14 Normal Saline Iv IV CONT 125 mls/hr .Q8H BERNA Administration Ceftriaxone Sodium 1 gm in 50 mls @ 100 mls/hr 11/14/24 14:00 Rocephin 1 Gm/Ns 50 Ml IVPB Q24H BERNA Lisinopril 10 mg 11/14/24 09:00 11/14/24 08:38 Lisinopril 10 Mg Tablet PO Not Given DAILY BERNA Miscellaneous Information 0 each 11/13/24 00:01 Rimegepant Nonform Can Pt Bring From Home? XX 12/13/24 00:00 CLARIFY BERNA Non-Formulary Medication 75 mg 11/13/24 16:30 Rimegepant [Nurtec Odt] PO 12/13/24 16:29 .every other day BERNA Nonformulary Drug ( 1 each 11/13/24 16:38 Flaxseed Oil 1,000 XX 11/14/24 16:37 Mg Capsule) PRN PRN PROTOCOL Pantoprazole Sodium 40 mg 11/13/24 21:00 11/14/24 08:38 Pantoprazole 40 Mg Tablet PO Not Given Q12HR BERNA Propranolol HCl 80 mg 11/13/24 21:00 11/14/24 08:37 Propranolol Hcl 40 Mg Tablet PO 80 mg Q12HR BERNA Administration Tamsulosin HCl 0.4 mg 11/14/24 09:00 11/14/24 08:38 Tamsulosin Hcl 0.4 Mg Capsule PO Not Given DAILY BERNA Topiramate 100 mg 11/14/24 09:00 11/14/24 08:37 Topiramate 100 Mg Tablet PO 100 mg Q12HR BERNA Administration Radiology Results: ITS Impressions Abdomen/Pelvis CT 11/13/24 12:32 IMPRESSION: 1. No evidence of appendicitis, diverticulitis or intestinal obstruction. 2. stone at the left ureterovesical junction with left hydronephrotic changes. Smaller stones seen in the left distal ureter. Multiple left kidney stones. 3. Hepatomegaly. Abdomen X-Ray 11/13/24 13:27 IMPRESSION: Stone in the left lower ureter measuring 6.5 mm.. Left kidney stones. Labs Labs: Laboratory Results - last 24 hr 11/13/24 11/13/24 11/13/24 11:09 12:26 12:52 WBC RBC Hgb Hct MCV MCH MCHC RDW Plt Count MPV Immature Gran % (Auto) Neut % (Auto) Lymph % (Auto) [place] % (Auto) Eos % (Auto) Baso % (Auto) Lymph # (Auto) [place] # (Auto) Eos # (Auto) Baso # (Auto) Abs Immat Gran (auto) Absolute Neuts (auto) Absolute Nucleated RBC Nucleated RBC % Sodium Potassium Chloride Carbon Dioxide Anion Gap BUN Creatinine Estim Creat Clear Calc Estimated GFR Glucose POC Capillary Glucose 94 Calcium Total Bilirubin AST ALT Alkaline Phosphatase Total Creatine Kinase Total Protein Albumin Urine Color Yellow Urine Appearance Clear Urine pH 6.5 Ur Specific [place] 1.014 Urine Protein Trace Urine Glucose (UA) Negative Urine Ketones Negative Ur Blood (Man) Negative Urine Nitrate Negative Urine Bilirubin Negative Urine Urobilinogen 0.2 Leukocyte Esterase Rfl 1+ H Urine RBC 0-2 Urine WBC 21-50 H Ur Squamous Epith Cells None seen Urine Bacteria None seen Urine Casts 0-2 U Random Total Protein Ur Random Sodium Ur Random Urea Urine Creatinine Protein/Creat Ratio 2 Blood Type O Positive Antibody Screen Negative 11/13/24 11/13/24 11/13/24 13:14 16:27 16:27 WBC RBC Hgb Hct MCV MCH MCHC RDW Plt Count MPV Immature Gran % (Auto) Neut % (Auto) Lymph % (Auto) [place] % (Auto) Eos % (Auto) Baso % (Auto) Lymph # (Auto) [place] # (Auto) Eos # (Auto) Baso # (Auto) Abs Immat Gran (auto) Absolute Neuts (auto) Absolute Nucleated RBC Nucleated RBC % Sodium 141 Potassium 5.0 Chloride 113 H Carbon Dioxide 16 L Anion Gap 12 BUN 42 H Creatinine 4.59 H Estim Creat Clear Calc 25 Estimated GFR 14 L Glucose 80 POC Capillary Glucose Calcium 8.7 Total Bilirubin AST ALT Alkaline Phosphatase Total Creatine Kinase 53 L Total Protein Albumin Urine Color Urine Appearance Urine pH Ur Specific [place] Urine Protein Urine Glucose (UA) Urine Ketones Ur Blood (Man) Urine Nitrate Urine Bilirubin Urine Urobilinogen Leukocyte Esterase Rfl Urine RBC Urine WBC Ur Squamous Epith Cells Urine Bacteria Urine Casts U Random Total Protein 19 Ur Random Sodium 88 Ur Random Urea 353 Urine Creatinine 70.9 70.5 Protein/Creat Ratio 2 0.27 H Blood Type Antibody Screen 11/13/24 11/13/24 11/14/24 16:50 20:57 00:18 WBC RBC Hgb Hct MCV MCH MCHC RDW Plt Count MPV Immature Gran % (Auto) Neut % (Auto) Lymph % (Auto) [place] % (Auto) Eos % (Auto) Baso % (Auto) Lymph # (Auto) [place] # (Auto) Eos # (Auto) Baso # (Auto) Abs Immat Gran (auto) Absolute Neuts (auto) Absolute Nucleated RBC Nucleated RBC % Sodium Potassium Chloride Carbon Dioxide Anion Gap BUN Creatinine Estim Creat Clear Calc Estimated GFR Glucose POC Capillary Glucose 98 127 H 102 Calcium Total Bilirubin AST ALT Alkaline Phosphatase Total Creatine Kinase Total Protein Albumin Urine Color Urine Appearance Urine pH Ur Specific [place] Urine Protein Urine Glucose (UA) Urine Ketones Ur Blood (Man) Urine Nitrate Urine Bilirubin Urine Urobilinogen Leukocyte Esterase Rfl Urine RBC Urine WBC Ur Squamous Epith Cells Urine Bacteria Urine Casts U Random Total Protein Ur Random Sodium Ur Random Urea Urine Creatinine Protein/Creat Ratio 2 Blood Type Antibody Screen 11/14/24 11/14/24 11/14/24 04:33 06:22 07:48 WBC 10.8 H RBC 4.11 L Hgb 12.0 L Hct 38.4 L MCV 93.4 MCH 29.2 MCHC 31.3 L RDW 13.4 Plt Count 242 MPV 9.6 Immature Gran % (Auto) 0.4 Neut % (Auto) 66.2 Lymph % (Auto) 21.4 [place] % (Auto) 7.4 Eos % (Auto) 3.6 Baso % (Auto) 1.0 Lymph # (Auto) 2.31 [place] # (Auto) 0.8 H Eos # (Auto) 0.4 H Baso # (Auto) 0.1 Abs Immat Gran (auto) 0.04 H Absolute Neuts (auto) 7.2 H Absolute Nucleated RBC 0.000 Nucleated RBC % 0.0 Sodium 144 Potassium 5.7 H Chloride 117 H Carbon Dioxide 15 L Anion Gap 12 BUN 35 H Creatinine 4.02 H Estim Creat Clear Calc 28 Estimated GFR 16 L Glucose 88 POC Capillary Glucose 75 77 Calcium 8.9 Total Bilirubin 0.5 AST 18 ALT 16 Alkaline Phosphatase 107 Total Creatine Kinase Total Protein 7.0 Albumin 4.1 Urine Color Urine Appearance Urine pH Ur Specific [place] Urine Protein Urine Glucose (UA) Urine Ketones Ur Blood (Man) Urine Nitrate Urine Bilirubin Urine Urobilinogen Leukocyte Esterase Rfl Urine RBC Urine WBC Ur Squamous Epith Cells Urine Bacteria Urine Casts U Random Total Protein Ur Random Sodium Ur Random Urea Urine Creatinine Protein/Creat Ratio 2 Blood Type Antibody Screen Quality VTE Prophylaxis VTE prophylaxis: mechanical ordered
--- NOTE | 2024-11-14 12:04 | PHAR ---
Home med verified: Nurtec 75mg ODT dissolve 1 tablet PO every other day for migraine #15. Intact, sealed medication box
[2024-11-14] MEDS: LACTATED RINGERS 1,000 ML 30 ML IV CONT (12:10)
--- NOTE | 2024-11-14 12:10 | PC.NURSE ---
Patietn off floor to OR via wheelchair. Report given to Cat RN.
[2024-11-14 12:39] LABS: Glucose Point of Care 90 mg/dl (65-105)
--- NOTE | 2024-11-14 12:43 | WPDANESEPPF ---
Anes - Initial Pre Proc Eval Procedure: Operation Date: 11/14/24 13:30 Proposed Procedures p Cystoscopy, Left Ureteroscopy, Possible Left Retrograde Pyelogram, Possible Left Stone Extraction, Possible Left Stent Placement, Possible Holmium Laser Procedure - Navneet Mishra MD Date/Time: 11/14/24 12:43 Surgeon: Be Rand MD Pre Op Diagnosis: Acute Kidney Failure/Kidney Stone Patient Data Age: 48 Gender: M Height: 1.78 m Weight: 124.2 kg Last Vital Signs Temp 36.8 C 11/14/24 06:00 Pulse 70 11/14/24 08:37 Resp 18 11/14/24 06:00 BP 158/85 H 11/14/24 06:00 Pulse Ox 97 11/14/24 06:00 O2 Del Method Room Air 11/14/24 08:35 Allergies Allergy/AdvReac Type Severity Reaction Status Date / Time clotrimazole (From Lotrimin) Allergy Rash Verified 11/13/24 10:05 baclofen AdvReac Severe Unknown Verified 11/13/24 10:05 tolnaftate (From Lamisil AF) AdvReac Intermediate Rash Verified 11/13/24 10:05 (topical) Home Medications ?Medication ?Instructions ?Recorded ?Confirmed ?Type flaxseed oil 1,000 mg capsule 1,000 mg PO BID 10/27/21 11/13/24 History acetaminophen 325 mg capsule 1,000 mg PO BID PRN pain 11/14/23 11/13/24 History propranolol 80 mg tablet 80 mg PO Q12H #60 tabs 02/27/24 11/13/24 Rx omeprazole 40 mg capsule,delayed 40 mg PO BID #60 caps 05/07/24 11/13/24 Rx release sumatriptan succinate 100 mg tablet See Rx Instructions PO .COMPLEX #9 06/19/24 11/13/24 Rx tabs gabapentin 300 mg capsule See Rx Instructions .Route 07/18/24 11/13/24 Rx .COMPLEX #60 caps lisinopril 10 mg tablet See Rx Instructions .Route 08/21/24 11/13/24 Rx .COMPLEX #90 tabs rimegepant 75 mg disintegrating 75 mg PO .every other day migraine 09/29/24 11/13/24 Rx tablet (Nurtec ODT) headache #15 tabs azelastine 205.5 mcg (0.15 %) 2 spray intranasal DAILY #30 mL 10/01/24 11/13/24 Rx nasal spray (Astepro Allergy) duloxetine 60 mg capsule,delayed 60 mg PO QHS 10/01/24 11/13/24 History release tamsulosin 0.4 mg capsule 0.4 mg PO DAILY 10/01/24 11/13/24 History sulindac 200 mg tablet 200 mg PO BID #60 tabs 10/15/24 11/13/24 Rx topiramate 100 mg tablet 100 mg PO BID #60 tabs 10/15/24 11/13/24 Rx hydrocodone 10 mg-acetaminophen 2 tablet PO Q6H PRN pain #20 tabs 10/26/24 11/13/24 Rx 325 mg tablet Laboratory Tests 11/13/24 11/13/24 11/13/24 12:52 13:14 16:27 WBC RBC Hgb Hct MCV MCH MCHC RDW Plt Count MPV Immature Gran % (Auto) Neut % (Auto) Lymph % (Auto) [place] % (Auto) Eos % (Auto) Baso % (Auto) Lymph # (Auto) [place] # (Auto) Eos # (Auto) Baso # (Auto) Abs Immat Gran (auto) Absolute Neuts (auto) Absolute Nucleated RBC Nucleated RBC % Sodium 141 mmol/L (137-145) Potassium 5.0 mmol/L (3.4-5.0) Chloride 113 H mmol/L (98-107) Carbon Dioxide 16 L mmol/L (22-30) Anion Gap 12 mmol/L (4-12) BUN 42 H mg/dL (9-20) Creatinine 4.59 H mg/dL (0.7-1.3) Estim Creat Clear Calc 25 ml/min Estimated GFR 14 L (59 - ) Glucose 80 mg/dL (65-110) POC Capillary Glucose Calcium 8.7 mg/dL (8.4-10.2) Magnesium Total Bilirubin AST ALT Alkaline Phosphatase Total Creatine Kinase 53 L U/L (55-170) Total Protein Albumin Urine Color Yellow (Yellow) Urine Appearance Clear (Clear) Urine pH 6.5 (5.0-9.0) Ur Specific [place] 1.014 (1.001-1.035) Urine Protein Trace mg/dL (Negative) Urine Glucose (UA) Negative mg/dL (Negative) Urine Ketones Negative mg/dL (Negative) Ur Blood (Man) Negative (Negative) Urine Nitrate Negative (Negative) Urine Bilirubin Negative (Negative) Urine Urobilinogen 0.2 mg/dL (<2.0) Leukocyte Esterase Rfl 1+ H MIMI/UL (Negative) Urine RBC 0-2 /hpf (0-2) Urine WBC 21-50 H /hpf (0-3) Ur Squamous Epith Cells None seen /hpf (Few) Urine Bacteria None seen /hpf Urine Casts 0-2 U Random Total Protein 19 mg/dL Ur Random Sodium 88 meq/L Ur Random Urea 353 MG/DL Urine Creatinine 70.9 mg/dL Protein/Creat Ratio 2 11/13/24 11/13/24 11/13/24 16:27 16:50 20:57 WBC RBC Hgb Hct MCV MCH MCHC RDW Plt Count MPV Immature Gran % (Auto) Neut % (Auto) Lymph % (Auto) [place] % (Auto) Eos % (Auto) Baso % (Auto) Lymph # (Auto) [place] # (Auto) Eos # (Auto) Baso # (Auto) Abs Immat Gran (auto) Absolute Neuts (auto) Absolute Nucleated RBC Nucleated RBC % Sodium Potassium Chloride Carbon Dioxide Anion Gap BUN Creatinine Estim Creat Clear Calc Estimated GFR Glucose POC Capillary Glucose 98 mg/dl 127 H mg/dl (65-105) (65-105) Calcium Magnesium Total Bilirubin AST ALT Alkaline Phosphatase Total Creatine Kinase Total Protein Albumin Urine Color Urine Appearance Urine pH Ur Specific [place] Urine Protein Urine Glucose (UA) Urine Ketones Ur Blood (Man) Urine Nitrate Urine Bilirubin Urine Urobilinogen Leukocyte Esterase Rfl Urine RBC Urine WBC Ur Squamous Epith Cells Urine Bacteria Urine Casts U Random Total Protein Ur Random Sodium Ur Random Urea Urine Creatinine 70.5 mg/dL Protein/Creat Ratio 2 0.27 H mg/mg (0-0.20) 11/14/24 11/14/24 11/14/24 00:18 04:33 06:22 WBC 10.8 H K/mm3 (4.5-10.0) RBC 4.11 L M/mm3 (4.6-6.20) Hgb 12.0 L g/dL (14.0-18.0) Hct 38.4 L % (42.0-52.0) MCV 93.4 fl (80-100) MCH 29.2 pg (26-34) MCHC 31.3 L g/dl (32-36) RDW 13.4 % (11.5-14.5) Plt Count 242 k/mm3 (150-375) MPV 9.6 fl (7.4-10.4) Immature Gran % (Auto) 0.4 % (0-0.5) Neut % (Auto) 66.2 % (45.5-73.1) Lymph % (Auto) 21.4 % (18.3-44.2) [place] % (Auto) 7.4 % (2.6-8.5) Eos % (Auto) 3.6 % (0-4.4) Baso % (Auto) 1.0 % (0.2-1.2) Lymph # (Auto) 2.31 K/mm3 (0.9-3.2) [place] # (Auto) 0.8 H K/mm3 (0.1-0.6) Eos # (Auto) 0.4 H K/mm3 (0-0.3) Baso # (Auto) 0.1 K/mm3 (0.0-0.1) Abs Immat Gran (auto) 0.04 H K/mm3 (0.00-0.031) Absolute Neuts (auto) 7.2 H K/mm3 (1.3-6.7) Absolute Nucleated RBC 0.000 K/mm3 (0.0-0.012) Nucleated RBC % 0.0 % (0.0-0.2) Sodium 144 mmol/L (137-145) Potassium 5.7 H mmol/L (3.4-5.0) Chloride 117 H mmol/L (98-107) Carbon Dioxide 15 L mmol/L (22-30) Anion Gap 12 mmol/L (4-12) BUN 35 H mg/dL (9-20) Creatinine 4.02 H mg/dL (0.7-1.3) Estim Creat Clear Calc 28 ml/min Estimated GFR 16 L (59 - ) Glucose 88 mg/dL (65-110) POC Capillary Glucose 102 mg/dl 75 mg/dl (65-105) (65-105) Calcium 8.9 mg/dL (8.4-10.2) Magnesium Pending Total Bilirubin 0.5 mg/dL (0.2-1.3) AST 18 U/L (17-59) ALT 16 U/L (6-50) Alkaline Phosphatase 107 U/L (38-126) Total Creatine Kinase Total Protein 7.0 g/dL (6.3-8.2) Albumin 4.1 g/dL (3.5-5.1) Urine Color Urine Appearance Urine pH Ur Specific [place] Urine Protein Urine Glucose (UA) Urine Ketones Ur Blood (Man) Urine Nitrate Urine Bilirubin Urine Urobilinogen Leukocyte Esterase Rfl Urine RBC Urine WBC Ur Squamous Epith Cells Urine Bacteria Urine Casts U Random Total Protein Ur Random Sodium Ur Random Urea Urine Creatinine Protein/Creat Ratio 2 11/14/24 11/14/24 07:48 12:35 WBC RBC Hgb Hct MCV MCH MCHC RDW Plt Count MPV Immature Gran % (Auto) Neut % (Auto) Lymph % (Auto) [place] % (Auto) Eos % (Auto) Baso % (Auto) Lymph # (Auto) [place] # (Auto) Eos # (Auto) Baso # (Auto) Abs Immat Gran (auto) Absolute Neuts (auto) Absolute Nucleated RBC Nucleated RBC % Sodium Potassium Chloride Carbon Dioxide Anion Gap BUN Creatinine Estim Creat Clear Calc Estimated GFR Glucose POC Capillary Glucose 77 mg/dl 90 mg/dl (65-105) (65-105) Calcium Magnesium Total Bilirubin AST ALT Alkaline Phosphatase Total Creatine Kinase Total Protein Albumin Urine Color Urine Appearance Urine pH Ur Specific [place] Urine Protein Urine Glucose (UA) Urine Ketones Ur Blood (Man) Urine Nitrate Urine Bilirubin Urine Urobilinogen Leukocyte Esterase Rfl Urine RBC Urine WBC Ur Squamous Epith Cells Urine Bacteria Urine Casts U Random Total Protein Ur Random Sodium Ur Random Urea Urine Creatinine Protein/Creat Ratio 2 Patient hx anesthesia problems: none Family hx anesthesia problems: none Results Review: All pre-operative results and documents have been reviewed as part of the pre-operative evaluation. [facility] Past Medical History Medical History Family history of colon cancer in mother Migraine, unspecified, not intractable, without status migrainosus Hypertension Hyperlipidemia Gastro-esophageal reflux disease without esophagitis Surgical History Surgical History History of bilateral inguinal hernia repair History of eye surgery Left cornea History of foot surgery Bilateral History of cholecystectomy 2017 Family History Family History Father Migraines Myocardial infarction x3 with stents placed Mother Carcinoma of colon Sibling Migraines Pulmonary embolism age 29 Other Cerebrovascular accident Family history of malignant neoplasm Hypertension Social History Social History Smoking status: Never smoker Second hand tobacco smoke exposure: No Alcohol intake: never Substance use: never Substance use type: does not use Do You Feel Safe in your Home?: Yes Lack of Transportation: No Lack of Food: Never True Current Housing: I Have Housing Concerned About Future Housing: No Difficulty Paying Gas/Electric Bills: No Difficulty Paying for Meds: No Currently Unemployed: No Education: Decline to Answer Difficulty w/ Childcare or Family Care: No Living arrangements: with family Occupation/Education: unemployed Gender identity (if verbalized by the patient): Male Spiritual care concerns: No Agree to blood products: Yes Anes - Eval Final PreProcedure Day of Procedure 11/14/24 12:43 Patient weight: obese Heart: regular rate and rhythm Lungs: clear to auscultation Airway: Mallampati scale class II Neurological: alert and oriented Last oral intake: >/= 8 hours ASA classification: III Emergent: no Anesthetic plan: proceed Anesthesia type and monitoring: general LMA and standard monitoring Results Review: All pre-operative results and documents have been reviewed as part of the pre-operative evaluation. Informed Consent: The patient's anesthetic plan and its attendant risks and benefits were discussed with the patient/family/POA. Questions were solicited and answers provided to the satisfaction of the patient/family/POA.
--- NOTE | 2024-11-14 12:46 | WPDHPUPDATE1 ---
History and Physical Update Update Date/Time: 11/14/24 12:46 History and Physical has been reviewed, including an updated exam of the patient. There are NO changes in the patient's condition. Risks, benefits, and alternatives have been discussed and questions answered. Patient agrees to proceed with procedure.
[2024-11-14] MEDS: LIDOCAINE 2% GEL UROJET 10 ML PKG MUCOUS MEM (13:40)
--- NOTE | 2024-11-14 14:01 | P.OP_ITS ---
Procedure Note - Detailed Date of Procedure 11/14/24 Pre-op Diagnosis LEFT URETERAL CALCULUS Post-op Diagnosis Same Procedure Performed Cystoscopy, left retrograde, left ureteroscopy with holmium laser, stone extraction, left ureteral stent placement 4.8 [place] contour Surgeon Navneet Mishra MD Anesthesia General Description of Procedure Patient was taken to the operative suite correctly identified. Once anesthesia was obtained was placed in dorsal lithotomy position and prepped and draped usual sterile fashion. Twenty-two [place] scope was inserted in the bladder. There were no tumors. The stone was visualized impacted at the left ureteral orifice. I could not grasp it with a 3 prong grasper nor could I get a wire past it. Using a 200 micron fiber I lasered the stone. The pieces were then retrieved and sent for analysis. Reinspection revealed no residual stones in the ureter. Pyelogram was then performed to confirm placement of the stent. 4.8 [place] contour stent was then placed with the proximal end coiled in the renal pelvis and the distal end in the bladder. Bladder was drained. 2% viscous lidocaine was inserted. He has taken recovery stable condition. From my standpoint stent continue removed in about a week's time. He can call for that appointment or have his other urologist remove it to if he wishes. This completes dictation. Please send a copy of op note to my office Estimated Blood Loss 0 Urine Output 400 Drains Yes Packing No Pathology Yes Complications No immediate complications Condition Stable Disposition PACU
[2024-11-14 15:06] LABS: Glucose Point of Care 80 mg/dl (65-105)
--- NOTE | 2024-11-14 16:09 | PC.NURSE ---
Patient returned to floor from PACU via stretcher. No complaints at this time.
[2024-11-14] MEDS: [UNRECOGNIZED DRUG - OTHER] PO (16:30)
[2024-11-14] MEDS: RIMEGEPANT 75 MG PO (16:30)
[2024-11-14 16:59] LABS: Glucose Point of Care 103 mg/dl (65-105)
--- NOTE | 2024-11-14 17:02 | P.CONNP_ITS ---
Assessment and Plan Assessment and plan (1) Acute kidney injury: Code(s): N17.9 - Acute kidney failure, unspecified Status: Acute Assessment and Plan: * as noted on admission * labs available labs on June 2023 -- creatinine 0.8mg/dl * slow improvement noted... * presumably secondary to obstructive uropathy from nephrolithiasis * follow-up on urine studies and CPK * hold CLARITZA-I and NSAIDs * follow trend of repeat labs and UOP (2) Left ureteral calculus: Code(s): N20.1 - Calculus of ureter Status: Acute Assessment and Plan: * as noted by admission imaging: * CT of A/P with a stone at the left ureterovesical junction with left hydronephrotic changes; smaller stones seen in the left distal ureter.; multiple left kidney stones * KUB showed a 6.5 mm left lower ureteral stone * Urology following: * s/p cystoscopy, left retrograde pyelography, left ureteroscopy with holmium laser, stone extraction, left ureteral stent placement * remains on flomax. * normally follows with [facility] * continue supportive therapy (3) Hyperkalemia: Code(s): E87.5 - Hyperkalemia Status: Acute Assessment and Plan: * due to #1 and #2 along with CLARITZA-I use * slow improvement with interventions to date * follow repeat K+ levels (4) Metabolic acidosis: Code(s): E87.20 - Acidosis, unspecified Status: Acute Assessment and Plan: * due to #1 and #2 * improvement noted * should continue to improve as WALLACE does * compensating with a few doses of oral sodium bicarbonate * follow CO2 levels (5) UTI (urinary tract infection): Qualifiers: Urinary tract infection type: acute cystitis Hematuria presence: w ithout hematuria Qualified Code(s): N30.00 - Acute cystitis without hematuria Code(s): N39.0 - Urinary tract infection, site not specified Status: Suspected Assessment and Plan: * admission UA highly suggestive * 1+ leukocyte esterase and 21-50 WBC with no epithelial cells or bacteria * follow blood and urine cultures * on antibiotics (6) Hypertension: Qualifiers: Hypertension type: primary hypertension Qualified Code(s): I10 - Essential (primary) hypertension Code(s): I10 - Essential (primary) hypertension Status: Chronic Assessment and Plan: * reasonable control * holding CLARITZA-I due to #1 and #3 * may need to use another agent (amlodipine or hydralazine) if BP starts to rise * follow trend of hemodynamis Will continue to follow. L History of Present Illness Reason for Consult Consult date: 11/14/24 Reason for consult: acute renal failure Chief Complaint Chief complaint: Acute Kidney Failure/Kidney Stone History of Present Illness Narrative: The patient is a 48-year-old male with a past medical history as outlined below who presented to [facility] Emergency Room with complaints of bright red blood per rectum and flank pain. The patient states that on the day of admission, he had a bowel movement in the morning but did not actually passed much stool but he noted the water in the toilet bowl was bright red and when he wiped his rectum he noticed bright red blood as well. He does not recall of this had occurred previously but when it did happen, he was accompanied by mild dizziness, abdominal pain, and generalized weakness. He denies any issues with syncope or hematochezia or melena previously. He also states that he passed a kidney stone a few weeks ago with symptoms of left flank pain with radiation into his left lower quadrant of his abdomen. He has a known history of kidney stones and follows with [facility] for management of this issue. He denies any overt fevers, chills, nausea, vomiting but does report a low-grade temperature of a 100? about a week ago which resolved without a specific intervention. In any case, given the constellation of symptoms as mentioned, he presented to the ER for further assessment. Workup and evaluation emergency room demonstrated the patient to be hemodynamically stable and afebrile. Routine blood work demonstrated white blood cell count of 10.2, hemoglobin 12.2 normal platelet count, normal coagulation studies, but his chemistry was significant for a creatinine of 4.96 mg/dL. His urinalysis showed 1+ leukocyte esterase and 21-50 white blood cells without any epithelial cells or bacteria. A subsequent CT scan of his abdomen pelvis demonstrated no evidence of appendicitis, diverticulitis, or intestinal obstruction but did mention a stone at the left ureteral vesicular junction with left hydronephrotic changes with smaller stone seen in the left distal ureter and multiple left kidney stones in association with hepatomegaly. Given these findings, Urology was consulted and after appropriate cultures were obtained, was initiated on IV antibiotics. He was subsequently admitted to the hospital for further evaluation therapy. Since his admission, he has been seen by Urology and given the fact that his renal function has not significantly improved since admission, he was taken to the OR earlier today for cystoscopy, left retrograde pyelography, left ureteroscopy and stone extraction, and left ureteral stent placement. He tolerated this procedure reasonably well. Renal consultation was requested due to his acute kidney injury/ acute renal failure. I have no previous labs to compare to other than from June of 2023 did demonstrate his creatinine be well within normal limits at a value of 0.8 mg/dL. From for further discussion with the patient, he does not recall ever being told that he had any issues or problems with renal insufficiency aside from when he has issues and problems with nephrolithiasis as demonstrated on this hospitalization. As already mentioned above, he is status post urological intervention in the OR earlier today so hopefully there will be further improvement in his renal function/creatinine in the next 24-48 hours. He appears to making reasonable urine output at this time although now he is having issues and problems with mild hyperkalemia requiring medical management. Currently, at the time my evaluation, he appears to be in no acute distress. Review of Systems 2 Review of Systems: As per HPI. [facility] Past Medical History Medical History Family history of colon cancer in mother Migraine, unspecified, not intractable, without status migrainosus Hypertension Hyperlipidemia Gastro-esophageal reflux disease without esophagitis Surgical History Surgical History History of bilateral inguinal hernia repair History of eye surgery Left cornea History of foot surgery Bilateral History of cholecystectomy 2016 Family History Family History Father Migraines Myocardial infarction x3 with stents placed Mother Carcinoma of colon Sibling Migraines Pulmonary embolism age 29 Other Cerebrovascular accident Family history of malignant neoplasm Hypertension Social History Social History Smoking status: Never smoker Second hand tobacco smoke exposure: No Alcohol intake: never Substance use: never Substance use type: does not use Do You Feel Safe in your Home?: Yes Lack of Transportation: No Lack of Food: Never True Current Housing: I Have Housing Concerned About Future Housing: No Difficulty Paying Gas/Electric Bills: No Difficulty Paying for Meds: No Currently Unemployed: No Education: Decline to Answer Difficulty w/ Childcare or Family Care: No Living arrangements: with family Occupation/Education: unemployed Gender identity (if verbalized by the patient): Male Spiritual care concerns: No Agree to blood products: Yes Meds Home Medications and Allergies Home Medications ?Medication ?Instructions ?Recorded ?Confirmed ?Type flaxseed oil 1,000 mg capsule 1,000 mg PO BID 10/27/21 11/13/24 History acetaminophen 325 mg capsule 1,000 mg PO BID PRN pain 11/14/23 11/13/24 History propranolol 80 mg tablet 80 mg PO Q12H #60 tabs 02/27/24 11/13/24 Rx omeprazole 40 mg capsule,delayed 40 mg PO BID #60 caps 05/07/24 11/13/24 Rx release sumatriptan succinate 100 mg tablet See Rx Instructions PO .COMPLEX #9 06/19/24 11/13/24 Rx tabs gabapentin 300 mg capsule See Rx Instructions .Route 07/18/24 11/13/24 Rx .COMPLEX #60 caps lisinopril 10 mg tablet See Rx Instructions .Route 08/21/24 11/13/24 Rx .COMPLEX #90 tabs rimegepant 75 mg disintegrating 75 mg PO .every other day migraine 09/29/24 11/13/24 Rx tablet (Nurtec ODT) headache #15 tabs azelastine 205.5 mcg (0.15 %) 2 spray intranasal DAILY #30 mL 10/01/24 11/13/24 Rx nasal spray (Astepro Allergy) duloxetine 60 mg capsule,delayed 60 mg PO QHS 10/01/24 11/13/24 History release tamsulosin 0.4 mg capsule 0.4 mg PO DAILY 10/01/24 11/13/24 History sulindac 200 mg tablet 200 mg PO BID #60 tabs 10/15/24 11/13/24 Rx topiramate 100 mg tablet 100 mg PO BID #60 tabs 10/15/24 11/13/24 Rx hydrocodone 10 mg-acetaminophen 2 tablet PO Q6H PRN pain #20 tabs 10/26/24 11/13/24 Rx 325 mg tablet Allergies Allergy/AdvReac Type Severity Reaction Status Date / Time clotrimazole (From Lotrimin) Allergy Rash Verified 11/13/24 10:05 baclofen AdvReac Severe Unknown Verified 11/13/24 10:05 tolnaftate (From Lamisil AF) AdvReac Intermediate Rash Verified 11/13/24 10:05 (topical) Vital Signs Vital Signs Temp Pulse Resp BP Pulse Ox O2 Del Method O2 Flow Rate 11/14/24 15:43 70 21 H 138/89 93 Room Air 11/14/24 15:30 65 24 H 137/88 92 Room Air 11/14/24 15:15 65 20 134/89 93 Room Air 11/14/24 15:00 74 24 H 130/85 99 Room Air 11/14/24 14:45 69 18 130/85 99 Simple Face Mask 8 11/14/24 14:36 71 25 H 116/80 97 Simple Face Mask 8 11/14/24 14:21 73 24 H 119/75 95 Simple Face Mask 8 11/14/24 14:06 97.5 F L 71 18 100/72 92 Simple Face Mask 8 11/14/24 12:10 98.4 F 66 18 159/99 H 95 Room Air 11/14/24 08:37 70 11/14/24 08:35 Room Air 11/14/24 06:00 98.3 F 76 18 158/85 H 97 11/13/24 22:00 97.7 F 74 18 159/96 H 96 11/13/24 20:49 Room Air 11/13/24 20:49 75 Exam 2 Narrative: GENERAL APPEARANCE: well developed well nourished male in no acute distress HEENT: normocephalic, atraumatic, normal conjunctiva and sclera, nares patient NECK: no lymphadenopathy, thyromegaly, or JVD MOUTH: normal lips, teeth, and gums CARDIOVASCULAR: RRR, normal S1 and S2, no rub RESPIRATORY: clear to auscultation bilaterally ABDOMEN: soft, nontender, nondistended, positive bowel sounds present EXTREMITIES: no evidence of cyanosis, clubbing, or edema NEUROLOGICAL: alert and oriented x 3; CN II - XII intact bilaterally; no focal deficits noted Results Lab Results 11/16/24 05:36 11/16/24 05:36 Lab results: Most recent lab results Calcium 9.0 mg/dL (8.4-10.2) 11/14/24 16:50 Magnesium 2.0 mg/dL (1.6-2.3) 11/14/24 06:22 Urine Creatinine 70.5 mg/dL 11/13/24 16:27 Urine Creatinine 70.9 mg/dL 11/13/24 16:27
[2024-11-14 17:17] LABS: Anion Gap 10 mmol/L (4-12); Blood Urea Nitrogen 33 mg/dL (9-20); Carbon Dioxide 17 mmol/L (22-30); Chloride 118 mmol/L (98-107); Estimated CRCL calculation 32 ml/min; Estimated Glomerular Filt Rate 19; Glucose 98 mg/dL (65-110); Sodium 145 mmol/L (137-145)
[2024-11-14 17:19] LABS: Potassium 5.9 mmol/L (3.4-5.0)
[2024-11-14] MEDS: SODIUM ZIRCONIUM CYCLOSILICATE 10 GM POWD.PACK PO (17:50)
[2024-11-14 20:31] LABS: Eosinophil Urine None Seen % (None Seen); Urine Eos QC 2nd Tech Confirmed
[2024-11-14] MEDS: PANTOPRAZOLE 40 MG TABLET PO (20:53)
[2024-11-14] MEDS: DULoxetine HCL 60 MG CAPSULE.DR PO (20:53)
[2024-11-14 21:59] LABS: Glucose Point of Care 119 mg/dl (65-105)
[2024-11-15 02:40] LABS: Glucose Point of Care 99 mg/dl (65-105)
[2024-11-15 05:55] LABS: Glucose Point of Care 100 mg/dl (65-105)
[2024-11-15] MEDS: SODIUM CHLORIDE 0.9% IV 1,000 ML 125 ML IV CONT ×2 (06:04→13:48)
[2024-11-15 06:32] VITALS: BP 146/102; PULSE 71; RESP 16; TEMP 37.2; O2SAT 100
[2024-11-15 06:45] LABS: Basophils Absolute Auto 0.1 K/mm3 (0.0-0.1); Basophils Percent Auto 0.6 % (0.2-1.2); Eosinophils Percent Auto 0.4 % (0-4.4); Hematocrit 38.2 % (42.0-52.0); Hemoglobin 12.1 g/dL (14.0-18.0); Immature Granulocyte Absolute 0.03 K/mm3 (0.00-0.031); Immature Granulocyte Percent A 0.3 % (0-0.5); Lymphocytes Absolute Auto 2.05 K/mm3 (0.9-3.2); Lymphocytes Percent Auto 18.7 % (18.3-44.2); Mean Corpuscular HGB Conc 31.7 g/dl (32-36); Mean Corpuscular Hemoglobin 29.2 pg (26-34); Mean Corpuscular Volume 92.3 fl (80-100); Mean Platelet Volume 9.5 fl (7.4-10.4); Monocytes Absolute Auto 0.7 K/mm3 (0.1-0.6); Neutrophils Absolute Auto 8.1 K/mm3 (1.3-6.7); Platelet Count Result 268 k/mm3 (150-375); Red Blood Count 4.14 M/mm3 (4.6-6.20); Red Cell Distribution Width 13.4 % (11.5-14.5)
[2024-11-15 06:53] LABS: Alanine Aminotransferase 16 U/L (6-50); Albumin Level 4.3 g/dL (3.5-5.1); Alkaline Phosphatase 100 U/L (38-126); Anion Gap 11 mmol/L (4-12); Aspartate Amino Transferase 17 U/L (17-59); Bilirubin,Total 0.5 mg/dL (0.2-1.3); Blood Urea Nitrogen 27 mg/dL (9-20); Calcium 8.9 mg/dL (8.4-10.2); Carbon Dioxide 16 mmol/L (22-30); Chloride 116 mmol/L (98-107); Estimated CRCL calculation 37 ml/min; Estimated Glomerular Filt Rate 22; Glucose 96 mg/dL (65-110); Magnesium 1.7 mg/dL (1.6-2.3); Potassium 5.1 mmol/L (3.4-5.0); Sodium 143 mmol/L (137-145)
[2024-11-15 07:51] LABS: Glucose Point of Care 83 mg/dl (65-105)
[2024-11-15] MEDS: TAMSULOSIN HCL 0.4 MG CAPSULE PO (08:42)
[2024-11-15] MEDS: GABAPENTIN 300 MG CAPSULE PO ×2 (08:42→16:37)
[2024-11-15 08:43] VITALS: PULSE 78
[2024-11-15] MEDS: lisinopriL 10 MG TABLET PO (08:43)
[2024-11-15] MEDS: TOPIRAMATE 100 MG TABLET PO ×2 (08:43→20:35)
[2024-11-15] MEDS: PROPRANOLOL HCL 40 MG TABLET 80 MG PO ×2 (08:43→20:35)
[2024-11-15] MEDS: PANTOPRAZOLE 40 MG TABLET PO ×2 (08:43→20:35)
[2024-11-15] MEDS: SUMAtriptan SUCCINATE 25 MG TABLET PO ×2 (09:01→20:40)
--- NOTE | 2024-11-15 11:20 | P.PNIM_ITS ---
Progress Note: A&P Assessment and Plan (1) Acute kidney failure: Qualifiers: Acute renal failure type: unspecified Qualified Code(s): N17.9 - Acute kidney failure, unspecified Code(s): N17.9 - Acute kidney failure, unspecified Status: Acute Assessment and Plan: * Labs: 07/01/23: 0.8, BUN 13, GFR >60 11/13/24: Creatinine 4.96, BUN 42, GFR 13 11/14/24: Creatinine 4.02, BUN 35, GFR 16 11/15/24: Creatinine 3.07, BUN 27, GFR 22. * CT abdomen/pelvis: 1. No evidence of appendicitis, diverticulitis or intestinal obstruction. 2. stone at the left ureterovesical junction with left hydronephrotic changes. Smaller stones seen in the left distal ureter. Multiple left kidney stones. 3. Hepatomegaly. * Denied nausea, vomiting, diarrhea. Low suspicion for hypovolemia. * check CK 53, urine sodium 88, total protein/creatinine 0.27, urea 353 * Monitor I&Os. * bladder scan for postvoid residual * Reviewed home medications. Hold Sulindac. * IV fluids: 1L bolus -> 125 mL/hour * Nephrology consultation, awaiting recs. (2) Ureterolithiasis: Code(s): N20.1 - Calculus of ureter Status: Acute Assessment and Plan: * CT showed a stone at the left ureterovesical junction with left hydronephrotic changes. Smaller stones seen in the left distal ureter. Multiple left kidney stones. * XR abd showed a 6.5 mm left lower ureteral stone. * Requesting records from most recent urology appointment at [facility]. * Urology consulted, appreciate recommendations. * Continue Flomax. * 11/14 Cystoscopy, left retrograde, left ureteroscopy with holmium laser, stone extraction, left ureteral stent placement 4.8 [place] contour. (3) UTI (urinary tract infection): Qualifiers: Urinary tract infection type: acute cystitis Hematuria presence: without hematuria Qualified Code(s): N30.00 - Acute cystitis without hematuria Code(s): N39.0 - Urinary tract infection, site not specified Status: Suspected Assessment and Plan: * Did not meet SIRS criteria. However, blood cultures obtained on 11/13 during initial workup. Follow. * UA showed 1+ leuks and 21-50 WBC with no epithelial cells or bacteria. * Urine culture obtained on 11/13, follow. * Started on ceftriaxone on 11/13. * NS@ 125 ml/hr. (4) Hyperkalemia: Code(s): E87.5 - Hyperkalemia Status: Acute Assessment and Plan: * Potassium 5.1. * Follow potassium level. * Nephrology consult. (5) Hypertension: Qualifiers: Hypertension type: primary hypertension Qualified Code(s): I10 - Essential (primary) hypertension Code(s): I10 - Essential (primary) hypertension Status: Chronic Assessment and Plan: * Chronic, currently 125/91. * Continue home medication: Lisinopril 10 mg daily * Monitor. Plan Code Status: Full code Subjective Date/time seen: 11/15/24 11:20 Interval history: Patient reports headache is a 4 , frequent, and aching. Patient denies chest pain, palpitations, shortness of breath, nausea, or vomiting. Patient reports left flank hurts when touched. Review of Systems Review of Systems: All systems reviewed & are unremarkable except as noted in HPI and below Exam Const: General: no acute distress and uncomfortable Resp: Effort & Inspection: normal respiratory effort Auscultation: clear to auscultation bilaterally Cardio: Rate: regular rate Rhythm: regular rhythm GI: GI Palp: Yes Soft to palpation Auscultation: normal bowel sounds : Male General Exam: Yes tenderness (left flank CVA tenderness) Neuro: General: gait normal Speech: normal speech Extrem: General: no pedal edema Psych: Mental Status: mental status grossly normal Affect: normal affect Objective Data Vital Signs Vital Signs: Vital Signs - 24 hr 11/14/24 12:10 11/14/24 14:06 11/14/24 14:21 Temperature 98.4 F 97.5 F L Pulse Rate 66 71 73 Respiratory Rate 18 18 24 H Blood Pressure 159/99 H 100/72 119/75 Pulse Oximetry 95 92 95 Oxygen Delivery Room Air Simple Face Mask Simple Face Mask Oxygen Flow Rate 8 8 11/14/24 14:36 11/14/24 14:45 11/14/24 15:00 Temperature Pulse Rate 71 69 74 Respiratory Rate 25 H 18 24 H Blood Pressure 116/80 130/85 130/85 Pulse Oximetry 97 99 99 Oxygen Delivery Simple Face Mask Simple Face Mask Room Air Oxygen Flow Rate 8 8 11/14/24 15:15 11/14/24 15:30 11/14/24 15:43 Temperature Pulse Rate 65 65 70 Respiratory Rate 20 24 H 21 H Blood Pressure 134/89 137/88 138/89 Pulse Oximetry 93 92 93 Oxygen Delivery Room Air Room Air Room Air Oxygen Flow Rate 11/14/24 16:55 11/14/24 17:10 11/14/24 17:40 Temperature 97.5 F L 97.4 F L 97.7 F Pulse Rate 57 L 58 L 69 Respiratory Rate 14 16 16 Blood Pressure 146/101 H 143/98 H 145/96 H Pulse Oximetry 92 97 97 Oxygen Delivery Oxygen Flow Rate 11/14/24 18:40 11/14/24 20:00 11/15/24 06:32 Temperature 97.7 F 98.9 F Pulse Rate 82 71 Respiratory Rate 16 16 Blood Pressure 127/81 146/102 H Pulse Oximetry 97 100 Oxygen Delivery Room Air Oxygen Flow Rate 11/15/24 08:43 11/15/24 08:45 Temperature Pulse Rate 78 Respiratory Rate Blood Pressure Pulse Oximetry Oxygen Delivery Room Air Oxygen Flow Rate Intake/Output Intake/Output: Intake & Output 11/12/24 11/13/24 11/14/24 11/15/24 23:59 23:59 23:59 23:59 Intake Total 3337 4240.0 1887 Output Total 1350 2750 3100 Balance 1987 1490.0 -1213 Meds/Results Medications: Active Medications Generic Name Dose Route Start Last Admin Trade Name Freq PRN Reason Stop Dose Admin Acetaminophen 1,000 mg 11/13/24 16:20 11/14/24 20:59 Acetaminophen 500 Mg Tablet PO 1,000 mg BID PRN Administration pain 1-3 Hydrocodone Bitart/Acetaminophen 2 tab 11/13/24 16:20 Hydrocodone/Acetaminophen (*Crx) 10-325 Mg Tablet PO Q6H PRN pain 4-6 Dextrose 12.5 gm 11/13/24 11:55 Dextrose 50% 25 Gm/50 Ml Syringe IV PUSH PRN PRN Hypoglycemia Protocol Duloxetine HCl 60 mg 11/13/24 21:00 11/14/24 20:53 Duloxetine Hcl 60 Mg Capsule.Dr PO 60 mg QHS BERNA Administration Fentanyl Citrate 25 mcg 11/14/24 13:03 Fentanyl Citrate Inj (*Crx) 100 Mcg/2 Ml Vial IV PUSH Q2M PRN Pain Gabapentin 300 mg 11/13/24 17:00 11/15/24 08:42 Gabapentin 300 Mg Capsule PO 300 mg BID BERNA Administration Glucagon 1 mg 11/13/24 11:55 Glucagon For Inj 1 Mg Vial IM PRN PRN Hypoglycemia Protocol Glucose 15 gm 11/13/24 11:55 Glucose Oral Gel 15 Gm Of Glucse In 37.5 Gm Tube PO PRN PRN Hypoglycemia Protocol Dextrose 1,000 mls @ 100 mls/hr 11/13/24 11:55 Dextrose 5% 1,000 Ml IVPB PRN PRN Hypoglycemia Protocol Sodium Chloride 1,000 mls @ 125 mls/hr 11/13/24 13:35 11/15/24 06:04 Normal Saline Iv IV CONT 125 mls/hr .Q8H BERNA Administration Ceftriaxone Sodium 1 gm in 50 mls @ 100 mls/hr 11/14/24 14:00 11/14/24 13:53 Rocephin 1 Gm/Ns 50 Ml IVPB Infused Q24H BERNA Infusion Lisinopril 10 mg 11/14/24 09:00 11/15/24 08:43 Lisinopril 10 Mg Tablet PO 10 mg DAILY BERNA Administration Rimegepant [Nurtec 75 mg 11/14/24 09:00 11/14/24 16:30 Odt] 75 Mg Tablet, PO 12/14/24 08:59 75 mg Disintegrating Q48H BERNA Administration Dissolve 1 Tablet Po Every Other Day Ondansetron HCl 4 mg 11/14/24 13:03 Ondansetron Inj 4 Mg/2 Ml Vial IV PUSH ONCE PRN Nausea Oxycodone HCl 5 mg 11/14/24 13:03 Oxycodone Hcl (*Crx) 5 Mg Tab Ir PO ONCE PRN Pain Pantoprazole Sodium 40 mg 11/13/24 21:00 11/15/24 08:43 Pantoprazole 40 Mg Tablet PO 40 mg Q12HR BERNA Administration Propranolol HCl 80 mg 11/13/24 21:00 11/15/24 08:43 Propranolol Hcl 40 Mg Tablet PO 80 mg Q12HR BERNA Administration Sumatriptan Succinate 25 mg 11/14/24 17:10 11/15/24 09:01 Sumatriptan Succinate 25 Mg Tablet PO 25 mg Q2H PRN Administration migraine Tamsulosin HCl 0.4 mg 11/14/24 09:00 11/15/24 08:42 Tamsulosin Hcl 0.4 Mg Capsule PO 0.4 mg DAILY BERNA Administration Topiramate 100 mg 11/14/24 09:00 11/15/24 08:43 Topiramate 100 Mg Tablet PO 100 mg Q12HR BERNA Administration Radiology Results: ITS Impressions Abdomen/Pelvis CT 11/13/24 12:32 IMPRESSION: 1. No evidence of appendicitis, diverticulitis or intestinal obstruction. 2. stone at the left ureterovesical junction with left hydronephrotic changes. Smaller stones seen in the left distal ureter. Multiple left kidney stones. 3. Hepatomegaly. Abdomen X-Ray 11/13/24 13:27 IMPRESSION: Stone in the left lower ureter measuring 6.5 mm.. Left kidney stones. Labs Labs: Laboratory Results - last 24 hr 11/14/24 11/14/24 11/14/24 06:22 12:35 15:04 WBC RBC Hgb Hct MCV MCH MCHC RDW Plt Count MPV Immature Gran % (Auto) Neut % (Auto) Lymph % (Auto) [place] % (Auto) Eos % (Auto) Baso % (Auto) Lymph # (Auto) [place] # (Auto) Eos # (Auto) Baso # (Auto) Abs Immat Gran (auto) Absolute Neuts (auto) Absolute Nucleated RBC Nucleated RBC % Sodium Potassium Chloride Carbon Dioxide Anion Gap BUN Creatinine Estim Creat Clear Calc Estimated GFR Glucose POC Capillary Glucose 90 80 Calcium Magnesium 2.0 Total Bilirubin AST ALT Alkaline Phosphatase Total Protein Albumin Urine Eosinophils 11/14/24 11/14/24 11/14/24 16:50 16:51 20:09 WBC RBC Hgb Hct MCV MCH MCHC RDW Plt Count MPV Immature Gran % (Auto) Neut % (Auto) Lymph % (Auto) [place] % (Auto) Eos % (Auto) Baso % (Auto) Lymph # (Auto) [place] # (Auto) Eos # (Auto) Baso # (Auto) Abs Immat Gran (auto) Absolute Neuts (auto) Absolute Nucleated RBC Nucleated RBC % Sodium 145 Potassium 5.9 H Chloride 118 H Carbon Dioxide 17 L Anion Gap 10 BUN 33 H Creatinine 3.53 H Estim Creat Clear Calc 32 Estimated GFR 19 L Glucose 98 POC Capillary Glucose 103 Calcium 9.0 Magnesium Total Bilirubin AST ALT Alkaline Phosphatase Total Protein Albumin Urine Eosinophils None seen 11/14/24 11/15/24 11/15/24 21:57 02:36 05:51 WBC RBC Hgb Hct MCV MCH MCHC RDW Plt Count MPV Immature Gran % (Auto) Neut % (Auto) Lymph % (Auto) [place] % (Auto) Eos % (Auto) Baso % (Auto) Lymph # (Auto) [place] # (Auto) Eos # (Auto) Baso # (Auto) Abs Immat Gran (auto) Absolute Neuts (auto) Absolute Nucleated RBC Nucleated RBC % Sodium Potassium Chloride Carbon Dioxide Anion Gap BUN Creatinine Estim Creat Clear Calc Estimated GFR Glucose POC Capillary Glucose 119 H 99 100 Calcium Magnesium Total Bilirubin AST ALT Alkaline Phosphatase Total Protein Albumin Urine Eosinophils 11/15/24 11/15/24 06:24 07:41 WBC 11.0 H RBC 4.14 L Hgb 12.1 L Hct 38.2 L MCV 92.3 MCH 29.2 MCHC 31.7 L RDW 13.4 Plt Count 268 MPV 9.5 Immature Gran % (Auto) 0.3 Neut % (Auto) 74.0 H Lymph % (Auto) 18.7 [place] % (Auto) 6.0 Eos % (Auto) 0.4 Baso % (Auto) 0.6 Lymph # (Auto) 2.05 [place] # (Auto) 0.7 H Eos # (Auto) 0.0 Baso # (Auto) 0.1 Abs Immat Gran (auto) 0.03 Absolute Neuts (auto) 8.1 H Absolute Nucleated RBC 0.000 Nucleated RBC % 0.0 Sodium 143 Potassium 5.1 H Chloride 116 H Carbon Dioxide 16 L Anion Gap 11 BUN 27 H Creatinine 3.07 H Estim Creat Clear Calc 37 Estimated GFR 22 L Glucose 96 POC Capillary Glucose 83 Calcium 8.9 Magnesium 1.7 Total Bilirubin 0.5 AST 17 ALT 16 Alkaline Phosphatase 100 Total Protein 8.0 Albumin 4.3 Urine Eosinophils Quality VTE Prophylaxis VTE prophylaxis: mechanical ordered
--- NOTE | 2024-11-15 13:18 | P.PNNP_ITS ---
Progress Note: A&P Assessment and Plan (1) Acute kidney injury: Code(s): N17.9 - Acute kidney failure, unspecified Status: Acute Assessment and Plan: * as noted on admission * labs available labs on June 2023 -- creatinine 0.8mg/dl * slow improvement noted... * presumably secondary to obstructive uropathy from nephrolithiasis * evaluation to date noted: * CT of A/P noted * CPK normal * urine eosinophils negative * mild proteinuria * UA suggest infection * hold CLARITZA-I and NSAIDs * follow trend of repeat labs and UOP (2) Left ureteral calculus: Code(s): N20.1 - Calculus of ureter Status: Acute Assessment and Plan: * as noted by admission imaging: * CT of A/P with a stone at the left ureterovesical junction with left hydronephrotic changes; smaller stones seen in the left distal ureter.; multiple left kidney stones * KUB showed a 6.5 mm left lower ureteral stone * Urology following: * s/p cystoscopy, left retrograde pyelography, left ureteroscopy with holmium laser, stone extraction, left ureteral stent placement * remains on flomax. * normally follows with [facility] * continue supportive therapy (3) Hyperkalemia: Code(s): E87.5 - Hyperkalemia Status: Acute Assessment and Plan: * due to #1 and #2 * slow improvement with interventions to date * follow repeat K+ levels (4) Metabolic acidosis: Code(s): E87.20 - Acidosis, unspecified Status: Acute Assessment and Plan: * due to #1 and #2 * improvement noted * should continue to improve as WALLACE does * compensating with a few doses of oral sodium bicarbonate * follow CO2 levels (5) UTI (urinary tract infection): Qualifiers: Hematuria presence: without hematuria Urinary tract infection type: a cute cystitis Qualified Code(s): N30.00 - Acute cystitis without hematuria Code(s): N39.0 - Urinary tract infection, site not specified Status: Suspected Assessment and Plan: * admission UA highly suggestive * 1+ leukocyte esterase and 21-50 WBC with no epithelial cells or bacteria * follow blood and urine cultures * all cultures negative so far * on antibiotics (6) Hypertension: Qualifiers: Hypertension type: primary hypertension Qualified Code(s): I10 - Essential (primary) hypertension Code(s): I10 - Essential (primary) hypertension Status: Chronic Assessment and Plan: * reasonable control * holding CLARITZA-I due to #1 and #3 * may need to use another agent (amlodipine or hydralazine) if BP starts to rise * follow trend of hemodynamis Will continue to follow. L Subjective Date/time seen: 11/15/24 13:18 Interval history: Follow-up for acute kidney injury/acute renal failure. Good urine output noted in the last 24 hours in association with slow improvement in creatinine; no apparent distress noted at th time of my visit; s/p cystoscopy, left ureteroscopy with holmium laser, stone extraction, and left ureteral stent placement by Urology and tolerated procedure reasonably well; no acute events overnight or earlier this morning. Exam 2 Narrative: General: WD/WN male in NAD Heart: normal S1 and S2; no rub Lungs: clear to auscultation Abdomen: soft, nontender, nondistended, positive bowel sounds Extremities: no cyanosis or clubbing; no edema Skin: warm and dry Objective Data Vital Signs Vital Signs: Vital Signs Temp Pulse Resp BP Pulse Ox O2 Del Method 11/15/24 08:45 Room Air 11/15/24 08:43 78 11/15/24 06:32 98.9 F 71 16 146/102 H 100 11/14/24 20:00 Room Air 11/14/24 18:40 97.7 F 82 16 127/81 97 11/14/24 17:40 97.7 F 69 16 145/96 H 97 11/14/24 17:10 97.4 F L 58 L 16 143/98 H 97 11/14/24 16:55 97.5 F L 57 L 14 146/101 H 92 Intake/Output Intake/Output: Intake & Output 11/12/24 11/13/24 11/14/24 11/15/24 23:59 23:59 23:59 23:59 Intake Total 3337 4240.0 3127 Output Total 1350 2750 3900 Balance 1987 1490.0 -773 Meds/Results Medications: Active Medications Generic Name Dose Route Start Last Admin Trade Name Freq PRN Reason Stop Dose Admin Acetaminophen 1,000 mg 11/13/24 16:20 11/14/24 20:59 Acetaminophen 500 Mg Tablet PO 1,000 mg BID PRN Administration pain 1-3 Hydrocodone Bitart/Acetaminophen 2 tab 11/13/24 16:20 Hydrocodone/Acetaminophen (*Crx) 10-325 Mg Tablet PO Q6H PRN pain 4-6 Dextrose 12.5 gm 11/13/24 11:55 Dextrose 50% 25 Gm/50 Ml Syringe IV PUSH PRN PRN Hypoglycemia Protocol Duloxetine HCl 60 mg 11/13/24 21:00 11/14/24 20:53 Duloxetine Hcl 60 Mg Capsule. PO 60 mg QHS BERNA Administration Fentanyl Citrate 25 mcg 11/14/24 13:03 Fentanyl Citrate Inj (*Crx) 100 Mcg/2 Ml Vial IV PUSH Q2M PRN Pain Gabapentin 300 mg 11/13/24 17:00 11/15/24 08:42 Gabapentin 300 Mg Capsule PO 300 mg BID BERNA Administration Glucagon 1 mg 11/13/24 11:55 Glucagon For Inj 1 Mg Vial IM PRN PRN Hypoglycemia Protocol Glucose 15 gm 11/13/24 11:55 Glucose Oral Gel 15 Gm Of Glucse In 37.5 Gm Tube PO PRN PRN Hypoglycemia Protocol Dextrose 1,000 mls @ 100 mls/hr 11/13/24 11:55 Dextrose 5% 1,000 Ml IVPB PRN PRN Hypoglycemia Protocol Sodium Chloride 1,000 mls @ 125 mls/hr 11/13/24 13:35 11/15/24 13:48 Normal Saline Iv IV CONT 125 mls/hr .Q8H BERNA Administration Ceftriaxone Sodium 1 gm in 50 mls @ 100 mls/hr 11/14/24 14:00 11/15/24 13:48 Rocephin 1 Gm/Ns 50 Ml IVPB 100 mls/hr Q24H BERNA Administration Lisinopril 10 mg 11/14/24 09:00 11/15/24 08:43 Lisinopril 10 Mg Tablet PO 10 mg DAILY BERNA Administration Rimegepant [Nurtec 75 mg 11/14/24 09:00 11/14/24 16:30 Odt] 75 Mg Tablet, PO 12/14/24 08:59 75 mg Disintegrating Q48H BERNA Administration Dissolve 1 Tablet Po Every Other Day Ondansetron HCl 4 mg 11/14/24 13:03 Ondansetron Inj 4 Mg/2 Ml Vial IV PUSH ONCE PRN Nausea Oxycodone HCl 5 mg 11/14/24 13:03 Oxycodone Hcl (*Crx) 5 Mg Tab Ir PO ONCE PRN Pain Pantoprazole Sodium 40 mg 11/13/24 21:00 11/15/24 08:43 Pantoprazole 40 Mg Tablet PO 40 mg Q12HR BERNA Administration Propranolol HCl 80 mg 11/13/24 21:00 11/15/24 08:43 Propranolol Hcl 40 Mg Tablet PO 80 mg Q12HR BERNA Administration Sumatriptan Succinate 25 mg 11/14/24 17:10 11/15/24 09:01 Sumatriptan Succinate 25 Mg Tablet PO 25 mg Q2H PRN Administration migraine Tamsulosin HCl 0.4 mg 11/14/24 09:00 11/15/24 08:42 Tamsulosin Hcl 0.4 Mg Capsule PO 0.4 mg DAILY BERNA Administration Topiramate 100 mg 11/14/24 09:00 11/15/24 08:43 Topiramate 100 Mg Tablet PO 100 mg Q12HR BERNA Administration Radiology Results: ITS Impressions Abdomen/Pelvis CT 11/13/24 12:32 IMPRESSION: 1. No evidence of appendicitis, diverticulitis or intestinal obstruction. 2. stone at the left ureterovesical junction with left hydronephrotic changes. Smaller stones seen in the left distal ureter. Multiple left kidney stones. 3. Hepatomegaly. Abdomen X-Ray 11/13/24 13:27 IMPRESSION: Stone in the left lower ureter measuring 6.5 mm.. Left kidney stones. Labs Labs: Laboratory Tests 11/15/24 06:24 11/15/24 06:24 Calcium 8.9 Magnesium 1.7 Total Bilirubin 0.5 AST 17 ALT 16 Alkaline Phosphatase 100 Total Protein 8.0 Albumin 4.3 Microbiology 11/13/24 12:52 Urine Clean Catch Urine Culture - Final 11/13/24 14:07 Blood Blood Culture - Preliminary 11/13/24 14:09 Blood Blood Culture - Preliminary
[2024-11-15 15:33] VITALS: BP 125/91; PULSE 71; RESP 16; TEMP 36.9; O2SAT 98
[2024-11-15] MEDS: SODIUM BICARBONATE TAB 650 MG TABLET 1300 MG PO (16:38)
[2024-11-15 20:35] VITALS: PULSE 82
[2024-11-15] MEDS: DULoxetine HCL 60 MG CAPSULE.DR PO (20:35)
[2024-11-15 22:20] VITALS: BP 157/99; PULSE 70; RESP 20; TEMP 36.8; O2SAT 99
[2024-11-16] VITALS (7 sets, daily range): BP systolic 126–180; BP diastolic 70–110; PULSE 59–70; RESP 14–20; TEMP 36.4–36.8; O2SAT 99–100
[2024-11-16] MEDS: SODIUM CHLORIDE 0.9% IV 1,000 ML 75 ML IV CONT ×2 (00:17→13:32)
[2024-11-16 06:23] LABS: Basophils Absolute Auto 0.1 K/mm3 (0.0-0.1); Basophils Percent Auto 1.4 % (0.2-1.2); Eosinophils Absolute Auto 0.3 K/mm3 (0-0.3); Eosinophils Percent Auto 3.1 % (0-4.4); Hematocrit 37.7 % (42.0-52.0); Immature Granulocyte Absolute 0.03 K/mm3 (0.00-0.031); Immature Granulocyte Percent A 0.3 % (0-0.5); Lymphocytes Absolute Auto 2.76 K/mm3 (0.9-3.2); Lymphocytes Percent Auto 26.8 % (18.3-44.2); Mean Corpuscular HGB Conc 31.8 g/dl (32-36); Mean Corpuscular Hemoglobin 29.3 pg (26-34); Mean Platelet Volume 9.7 fl (7.4-10.4); Monocytes Absolute Auto 0.7 K/mm3 (0.1-0.6); Monocytes Percent Auto 6.5 % (2.6-8.5); Neutrophils Absolute Auto 6.4 K/mm3 (1.3-6.7); Neutrophils Percent Auto 61.9 % (45.5-73.1); Platelet Count Result 274 k/mm3 (150-375); Red Cell Distribution Width 13.5 % (11.5-14.5); White Blood Count 10.3 K/mm3 (4.5-10.0)
[2024-11-16 06:37] LABS: Alanine Aminotransferase 18 U/L (6-50); Albumin Level 4.4 g/dL (3.5-5.1); Alkaline Phosphatase 92 U/L (38-126); Anion Gap 13 mmol/L (4-12); Aspartate Amino Transferase 21 U/L (17-59); Bilirubin,Total 0.4 mg/dL (0.2-1.3); Blood Urea Nitrogen 25 mg/dL (9-20); Calcium 9.1 mg/dL (8.4-10.2); Carbon Dioxide 18 mmol/L (22-30); Chloride 113 mmol/L (98-107); Estimated CRCL calculation 44 ml/min; Estimated Glomerular Filt Rate 27; Glucose 85 mg/dL (65-110); Magnesium 1.4 mg/dL (1.6-2.3); Sodium 144 mmol/L (137-145)
[2024-11-16] MEDS: PROPRANOLOL HCL 40 MG TABLET 80 MG PO ×2 (09:18→21:11)
[2024-11-16] MEDS: MAGNESIUM SULFATE 3GM/D5W100ML 3 GM/100 ML BAG IVPB (09:18)
[2024-11-16] MEDS: TAMSULOSIN HCL 0.4 MG CAPSULE PO (09:18)
[2024-11-16] MEDS: TOPIRAMATE 100 MG TABLET PO ×2 (09:19→21:10)
[2024-11-16] MEDS: SODIUM BICARBONATE TAB 650 MG TABLET 1300 MG PO ×2 (09:19→17:16)
[2024-11-16] MEDS: PANTOPRAZOLE 40 MG TABLET PO ×2 (09:19→21:10)
[2024-11-16] MEDS: GABAPENTIN 300 MG CAPSULE PO ×2 (09:20→17:16)
[2024-11-16] MEDS: RIMEGEPANT 75 MG PO (09:21)
[2024-11-16] MEDS: [UNRECOGNIZED DRUG - OTHER] PO (09:21)
[2024-11-16] MEDS: ACETAMINOPHEN 500 MG TABLET 1000 MG PO ×2 (09:37→23:43)
--- NOTE | 2024-11-16 09:46 | P.PNNP_ITS ---
Progress Note: A&P Assessment and Plan (1) Acute kidney injury: Code(s): N17.9 - Acute kidney failure, unspecified Status: Acute Assessment and Plan: * as noted on admission * labs available labs on June 2023 -- creatinine 0.8mg/dl * slow improvement noted... * presumably secondary to obstructive uropathy from nephrolithiasis * evaluation to date noted: * CT of A/P noted * CPK normal * urine eosinophils negative * mild proteinuria * UA suggest infection (but culture negative) * holding CLARITZA-I and NSAIDs (sulindac) * follow trend of repeat labs and UOP (2) Left ureteral calculus: Code(s): N20.1 - Calculus of ureter Status: Acute Assessment and Plan: * as noted by admission imaging: * CT of A/P with a stone at the left ureterovesical junction with left hydronephrotic changes; smaller stones seen in the left distal ureter.; multiple left kidney stones * KUB showed a 6.5 mm left lower ureteral stone * Urology following: * s/p cystoscopy, left retrograde pyelography, left ureteroscopy with holmium laser, stone extraction, left ureteral stent placement * remains on flomax * normally follows with [facility] * continue supportive therapy (3) Hyperkalemia: Code(s): E87.5 - Hyperkalemia Status: Acute Assessment and Plan: * due to #1 and #2 * slow improvement with interventions to date * follow repeat K+ levels (4) Metabolic acidosis: Code(s): E87.20 - Acidosis, unspecified Status: Acute Assessment and Plan: * due to #1 and #2 * improvement noted * should continue to improve as WALLACE does * compensating with a few doses of oral sodium bicarbonate * follow CO2 levels (5) UTI (urinary tract infection): Qualifiers: Urinary tract infection type: acute cystitis Hematuria presence: w ithout hematuria Qualified Code(s): N30.00 - Acute cystitis without hematuria Code(s): N39.0 - Urinary tract infection, site not specified Status: Suspected Assessment and Plan: * admission UA highly suggestive * 1+ leukocyte esterase and 21-50 WBC with no epithelial cells or bacteria * follow blood and urine cultures * all cultures negative so far * on antibiotics (6) Hypertension: Qualifiers: Hypertension type: primary hypertension Qualified Code(s): I10 - Essential (primary) hypertension Code(s): I10 - Essential (primary) hypertension Status: Chronic Assessment and Plan: * reasonable control * holding CLARITZA-I due to #1 and #3 * may need to use another agent (amlodipine or hydralazine) if BP starts to rise * follow trend of hemodynamis Will continue to follow. L Subjective Date/time seen: 11/16/24 09:46 Interval history: Follow-up for acute kidney injury/acute renal failure. Creatinine continues to slowly improve with good urine output noted (suspect post-obstructive diuresis); otherwise, feels reasonably well at the time of my visit; no apparent distress noted; no issues/events overnight or earlier this morning. Exam 2 Narrative: General: WD/WN male in NAD Heart: normal S1 and S2; no rub Lungs: clear to auscultation Abdomen: soft, nontender, nondistended, positive bowel sounds Extremities: no cyanosis or clubbing; no edema Skin: warm and intact Objective Data Vital Signs Vital Signs: Vital Signs Temp Pulse Resp BP Pulse Ox O2 Del Method 11/16/24 09:18 70 11/16/24 06:00 98.3 F 70 20 126/70 100 11/15/24 22:20 98.2 F 70 20 157/99 H 99 11/15/24 20:35 82 11/15/24 20:00 Room Air 11/15/24 15:33 98.4 F 71 16 125/91 H 98 Intake/Output Intake/Output: Intake & Output 11/13/24 11/14/24 11/15/24 11/16/24 23:59 23:59 23:59 23:59 Intake Total 3337 4240.0 4893.7 1266.3 Output Total 1350 2750 5900 900 Balance 1987 1490.0 -1006.3 366.3 Meds/Results Medications: Active Medications Generic Name Dose Route Start Last Admin Trade Name Freq PRN Reason Stop Dose Admin Acetaminophen 1,000 mg 11/13/24 16:20 11/16/24 09:37 Acetaminophen 500 Mg Tablet PO 1,000 mg BID PRN Administration pain 1-3 Hydrocodone Bitart/Acetaminophen 2 tab 11/13/24 16:20 Hydrocodone/Acetaminophen (*Crx) 10-325 Mg Tablet PO Q6H PRN pain 4-6 Dextrose 12.5 gm 11/13/24 11:55 Dextrose 50% 25 Gm/50 Ml Syringe IV PUSH PRN PRN Hypoglycemia Protocol Duloxetine HCl 60 mg 11/13/24 21:00 11/15/24 20:35 Duloxetine Hcl 60 Mg Capsule.Dr PO 60 mg QHS BERNA Administration Fentanyl Citrate 25 mcg 11/14/24 13:03 Fentanyl Citrate Inj (*Crx) 100 Mcg/2 Ml Vial IV PUSH Q2M PRN Pain Gabapentin 300 mg 11/13/24 17:00 11/16/24 09:20 Gabapentin 300 Mg Capsule PO 300 mg BID BERNA Administration Glucagon 1 mg 11/13/24 11:55 Glucagon For Inj 1 Mg Vial IM PRN PRN Hypoglycemia Protocol Glucose 15 gm 11/13/24 11:55 Glucose Oral Gel 15 Gm Of Glucse In 37.5 Gm Tube PO PRN PRN Hypoglycemia Protocol Dextrose 1,000 mls @ 100 mls/hr 11/13/24 11:55 Dextrose 5% 1,000 Ml IVPB PRN PRN Hypoglycemia Protocol Sodium Chloride 1,000 mls @ 75 mls/hr 11/13/24 13:35 11/16/24 00:17 Normal Saline Iv IV CONT 75 mls/hr .[id number] BERNA Administration Ceftriaxone Sodium 1 gm in 50 mls @ 100 mls/hr 11/14/24 14:00 11/15/24 14:18 Rocephin 1 Gm/Ns 50 Ml IVPB Infused Q24H BERNA Infusion Lisinopril 10 mg 11/14/24 09:00 11/15/24 08:43 Lisinopril 10 Mg Tablet PO 10 mg DAILY BERNA Administration Rimegepant [Nurtec 75 mg 11/14/24 09:00 11/16/24 09:21 Odt] 75 Mg Tablet, PO 12/14/24 08:59 75 mg Disintegrating Q48H BERNA Administration Dissolve 1 Tablet Po Every Other Day Ondansetron HCl 4 mg 11/14/24 13:03 Ondansetron Inj 4 Mg/2 Ml Vial IV PUSH ONCE PRN Nausea Oxycodone HCl 5 mg 11/14/24 13:03 Oxycodone Hcl (*Crx) 5 Mg Tab Ir PO ONCE PRN Pain Pantoprazole Sodium 40 mg 11/13/24 21:00 11/16/24 09:19 Pantoprazole 40 Mg Tablet PO 40 mg Q12HR BERNA Administration Propranolol HCl 80 mg 11/13/24 21:00 11/16/24 09:18 Propranolol Hcl 40 Mg Tablet PO 80 mg Q12HR BERNA Administration Sodium Bicarbonate 1,300 mg 11/15/24 17:00 11/16/24 09:19 Sodium Bicarbonate Tab 650 Mg Tablet PO 11/17/24 09:01 1,300 mg BID BERNA Administration Sumatriptan Succinate 25 mg 11/14/24 17:10 11/15/24 20:40 Sumatriptan Succinate 25 Mg Tablet PO 25 mg Q2H PRN Administration migraine Tamsulosin HCl 0.4 mg 11/14/24 09:00 11/16/24 09:18 Tamsulosin Hcl 0.4 Mg Capsule PO 0.4 mg DAILY BERNA Administration Topiramate 100 mg 11/14/24 09:00 11/16/24 09:19 Topiramate 100 Mg Tablet PO 100 mg Q12HR BERNA Administration Radiology Results: ITS Impressions Abdomen/Pelvis CT 11/13/24 12:32 IMPRESSION: 1. No evidence of appendicitis, diverticulitis or intestinal obstruction. 2. stone at the left ureterovesical junction with left hydronephrotic changes. Smaller stones seen in the left distal ureter. Multiple left kidney stones. 3. Hepatomegaly. Abdomen X-Ray 11/13/24 13:27 IMPRESSION: Stone in the left lower ureter measuring 6.5 mm.. Left kidney stones. Labs Labs: Laboratory Tests 11/16/24 05:36 11/16/24 05:36 Calcium 9.1 Magnesium 1.4 L Total Bilirubin 0.4 AST 21 ALT 18 Alkaline Phosphatase 92 Total Protein 8.0 Albumin 4.4
--- NOTE | 2024-11-16 10:26 | PCNFU ---
Nutrition Follow-Up Complete: 1. Inadequate oral intake related to NPO status as evidenced by diet orde - resolved 2. Unintentional weight loss related to chronic kidney stone, loss of appetite as evidenced 6% weight loss/4 months Diet orders - Goal is met Improve PO intake >50% when diet is advanced - Goal is being met with intakes 80-100% Goal: Pt current nutrition is Regular diet . Nutrition recommendation: No new recommendations, continue current nutrition care plan and orders. Agree with orders Last recorded weight is 124.2 kg. Bowel Motility: +1 BM 11/15/24 Labs Reviewed: Hgb 12, Hct 37.7, BUN 25, Cre 2.56 Meds Noted: Protonix Skin: No skin issues Additional Notes: Diet advanced, eating 80-100%. No nutrition needs. Continue current orders
--- NOTE | 2024-11-16 12:04 | P.PNIM_ITS ---
Progress Note: A&P Assessment and Plan (1) Acute kidney failure: Qualifiers: Acute renal failure type: unspecified Qualified Code(s): N17.9 - Acute kidney failure, unspecified Code(s): N17.9 - Acute kidney failure, unspecified Status: Acute Assessment and Plan: * Labs: 07/01/23: 0.8, BUN 13, GFR >60 11/13/24: Creatinine 4.96, BUN 42, GFR 13. 11/14/24: Creatinine 4.02, BUN 35, GFR 16. 11/15/24: Creatinine 3.07, BUN 27, GFR 22. 11/16/24: Creatinine 2.56, BUN 25, GFR 27. * CT abdomen/pelvis: 1. No evidence of appendicitis, diverticulitis or intestinal obstruction. 2. stone at the left ureterovesical junction with left hydronephrotic changes. Smaller stones seen in the left distal ureter. Multiple left kidney stones. 3. Hepatomegaly. * Denied nausea, vomiting, diarrhea. Low suspicion for hypovolemia. * check CK 53, urine sodium 88, total protein/creatinine 0.27, urea 353 * Monitor I&Os. * bladder scan for postvoid residual * Reviewed home medications. Hold Sulindac. * IV fluids: NS @ 75 mL/hour * Nephrology consultation, awaiting recs. (2) Ureterolithiasis: Code(s): N20.1 - Calculus of ureter Status: Acute Assessment and Plan: * CT showed a stone at the left ureterovesical junction with left hydronephrotic changes. Smaller stones seen in the left distal ureter. Multiple left kidney stones. * XR abd showed a 6.5 mm left lower ureteral stone. * Requesting records from most recent urology appointment at [facility]. * Urology consulted, appreciate recommendations. * Continue Flomax. * 11/14 Cystoscopy, left retrograde, left ureteroscopy with holmium laser, stone extraction, left ureteral stent placement 4.8 Sami contour. (3) UTI (urinary tract infection): Qualifiers: Hematuria presence: without hematuria Urinary tract infection type: acute cystitis Qualified Code(s): N30.00 - Acute cystitis without hematuria Code(s): N39.0 - Urinary tract infection, site not specified Status: Suspected Assessment and Plan: * Did not meet SIRS criteria. However, blood cultures obtained on 11/13 during initial workup, no growth to date. Follow. * UA showed 1+ leuks and 21-50 WBC with no epithelial cells or bacteria. * Urine culture obtained on 11/13 negative. * Started on ceftriaxone on 11/13. * NS@ 75 ml/hr. (4) Hyperkalemia: Code(s): E87.5 - Hyperkalemia Status: Acute Assessment and Plan: * Potassium 5.0, improved. * Follow potassium level. * Nephrology consult. (5) Hypertension: Qualifiers: Hypertension type: primary hypertension Qualified Code(s): I10 - Essential (primary) hypertension Code(s): I10 - Essential (primary) hypertension Status: Chronic Assessment and Plan: * Chronic, currently 126/70. * Continue home medication: Lisinopril 10 mg daily * Monitor. (6) Neck pain on right side: Code(s): M54.2 - Cervicalgia Status: Acute Assessment and Plan: * Reports pulled neck in shower this morning. * Acetaminophen 1,000 mg PO BID PRN. * May apply ice for 15 minutes an hour. (7) Hypomagnesemia: Code(s): E83.42 - Hypomagnesemia Status: Acute Assessment and Plan: * Magnesium 1.4. * Magnesium Sulfate 3 gram IVPB x1. * Trend level. Plan Code Status: Full code Subjective Date/time seen: 11/16/24 12:04 Interval history: Patient reports pulling the right side of his neck when in the shower this morning. Pain in right neck is a 4 , frequent, and sharp. Patient denies chest pain, palpitations, headache, dizziness, nausea, or vomiting. Review of Systems Review of Systems: All systems reviewed & are unremarkable except as noted in HPI and below Exam Const: General: no acute distress and uncomfortable Resp: Effort & Inspection: normal respiratory effort Auscultation: clear to auscultation bilaterally Cardio: Rate: regular rate Rhythm: regular rhythm GI: GI Palp: Yes Soft to palpation Auscultation: normal bowel sounds Neuro: Speech: normal speech Extrem: General: no pedal edema Psych: Mental Status: mental status grossly normal Affect: normal affect Objective Data Vital Signs Vital Signs: Vital Signs - 24 hr 11/15/24 15:33 11/15/24 20:00 11/15/24 20:35 Temperature 98.4 F Pulse Rate 71 82 Respiratory Rate 16 Blood Pressure 125/91 H Pulse Oximetry 98 Oxygen Delivery Room Air 11/15/24 22:20 11/16/24 06:00 11/16/24 09:18 Temperature 98.2 F 98.3 F Pulse Rate 70 70 70 Respiratory Rate 20 20 Blood Pressure 157/99 H 126/70 Pulse Oximetry 99 100 Oxygen Delivery Intake/Output Intake/Output: Intake & Output 11/13/24 11/14/24 11/15/24 11/16/24 23:59 23:59 23:59 23:59 Intake Total 3337 4240.0 4893.7 1266.3 Output Total 1350 2750 5900 900 Balance 1987 1490.0 -1006.3 366.3 Meds/Results Medications: Active Medications Generic Name Dose Route Start Last Admin Trade Name Freq PRN Reason Stop Dose Admin Acetaminophen 1,000 mg 11/13/24 16:20 11/16/24 09:37 Acetaminophen 500 Mg Tablet PO 1,000 mg BID PRN Administration pain 1-3 Hydrocodone Bitart/Acetaminophen 2 tab 11/13/24 16:20 Hydrocodone/Acetaminophen (*Crx) 10-325 Mg Tablet PO Q6H PRN pain 4-6 Dextrose 12.5 gm 11/13/24 11:55 Dextrose 50% 25 Gm/50 Ml Syringe IV PUSH PRN PRN Hypoglycemia Protocol Duloxetine HCl 60 mg 11/13/24 21:00 11/15/24 20:35 Duloxetine Hcl 60 Mg Capsule.Dr PO 60 mg QHS BERNA Administration Fentanyl Citrate 25 mcg 11/14/24 13:03 Fentanyl Citrate Inj (*Crx) 100 Mcg/2 Ml Vial IV PUSH Q2M PRN Pain Gabapentin 300 mg 11/13/24 17:00 11/16/24 09:20 Gabapentin 300 Mg Capsule PO 300 mg BID BERNA Administration Glucagon 1 mg 11/13/24 11:55 Glucagon For Inj 1 Mg Vial IM PRN PRN Hypoglycemia Protocol Glucose 15 gm 11/13/24 11:55 Glucose Oral Gel 15 Gm Of Glucse In 37.5 Gm Tube PO PRN PRN Hypoglycemia Protocol Dextrose 1,000 mls @ 100 mls/hr 11/13/24 11:55 Dextrose 5% 1,000 Ml IVPB PRN PRN Hypoglycemia Protocol Sodium Chloride 1,000 mls @ 75 mls/hr 11/13/24 13:35 11/16/24 00:17 Normal Saline Iv IV CONT 75 mls/hr .[id number] BERNA Administration Ceftriaxone Sodium 1 gm in 50 mls @ 100 mls/hr 11/14/24 14:00 11/15/24 14:18 Rocephin 1 Gm/Ns 50 Ml IVPB Infused Q24H BERNA Infusion Lisinopril 10 mg 11/14/24 09:00 11/15/24 08:43 Lisinopril 10 Mg Tablet PO 10 mg DAILY BERNA Administration Rimegepant [Nurtec 75 mg 11/14/24 09:00 11/16/24 09:21 Odt] 75 Mg Tablet, PO 12/14/24 08:59 75 mg Disintegrating Q48H BERNA Administration Dissolve 1 Tablet Po Every Other Day Ondansetron HCl 4 mg 11/14/24 13:03 Ondansetron Inj 4 Mg/2 Ml Vial IV PUSH ONCE PRN Nausea Oxycodone HCl 5 mg 11/14/24 13:03 Oxycodone Hcl (*Crx) 5 Mg Tab Ir PO ONCE PRN Pain Pantoprazole Sodium 40 mg 11/13/24 21:00 11/16/24 09:19 Pantoprazole 40 Mg Tablet PO 40 mg Q12HR BERNA Administration Propranolol HCl 80 mg 11/13/24 21:00 11/16/24 09:18 Propranolol Hcl 40 Mg Tablet PO 80 mg Q12HR BERNA Administration Sodium Bicarbonate 1,300 mg 11/15/24 17:00 11/16/24 09:19 Sodium Bicarbonate Tab 650 Mg Tablet PO 11/17/24 09:01 1,300 mg BID BERNA Administration Sumatriptan Succinate 25 mg 11/14/24 17:10 11/15/24 20:40 Sumatriptan Succinate 25 Mg Tablet PO 25 mg Q2H PRN Administration migraine Tamsulosin HCl 0.4 mg 11/14/24 09:00 11/16/24 09:18 Tamsulosin Hcl 0.4 Mg Capsule PO 0.4 mg DAILY BERNA Administration Topiramate 100 mg 11/14/24 09:00 11/16/24 09:19 Topiramate 100 Mg Tablet PO 100 mg Q12HR BERNA Administration Radiology Results: ITS Impressions Abdomen/Pelvis CT 11/13/24 12:32 IMPRESSION: 1. No evidence of appendicitis, diverticulitis or intestinal obstruction. 2. stone at the left ureterovesical junction with left hydronephrotic changes. Smaller stones seen in the left distal ureter. Multiple left kidney stones. 3. Hepatomegaly. Abdomen X-Ray 11/13/24 13:27 IMPRESSION: Stone in the left lower ureter measuring 6.5 mm.. Left kidney stones. Labs Labs: Laboratory Results - last 24 hr 11/16/24 05:36 WBC 10.3 H RBC 4.10 L Hgb 12.0 L Hct 37.7 L MCV 92.0 MCH 29.3 MCHC 31.8 L RDW 13.5 Plt Count 274 MPV 9.7 Immature Gran % (Auto) 0.3 Neut % (Auto) 61.9 Lymph % (Auto) 26.8 [place] % (Auto) 6.5 Eos % (Auto) 3.1 Baso % (Auto) 1.4 H Lymph # (Auto) 2.76 [place] # (Auto) 0.7 H Eos # (Auto) 0.3 Baso # (Auto) 0.1 Abs Immat Gran (auto) 0.03 Absolute Neuts (auto) 6.4 Absolute Nucleated RBC 0.000 Nucleated RBC % 0.0 Sodium 144 Potassium 5.0 Chloride 113 H Carbon Dioxide 18 L Anion Gap 13 H BUN 25 H Creatinine 2.56 H Estim Creat Clear Calc 44 Estimated GFR 27 L Glucose 85 Calcium 9.1 Magnesium 1.4 L Total Bilirubin 0.4 AST 21 ALT 18 Alkaline Phosphatase 92 Total Protein 8.0 Albumin 4.4 Quality VTE Prophylaxis VTE prophylaxis: mechanical ordered
[2024-11-16] MEDS: DULoxetine HCL 60 MG CAPSULE.DR PO (21:10)
[2024-11-16] MEDS: hydrALAZINE HCL 20 MG/ML VIAL 10 MG IV PUSH (21:28)
[2024-11-17] MEDS: HYDROcodone/acetaminophen (*CRX) 10-325 MG TABLET 2 TAB PO (03:14)
[2024-11-17] MEDS: SODIUM CHLORIDE 0.9% IV 1,000 ML 75 ML IV CONT ×2 (03:17→17:33)
[2024-11-17] MEDS: ONDANSETRON INJ 4 MG/2 ML VIAL IV PUSH ×2 (04:55→08:15)
[2024-11-17] MEDS: SUMAtriptan SUCCINATE 25 MG TABLET PO ×2 (04:58→14:37)
[2024-11-17 05:03] LABS: Basophils Absolute Auto 0.1 K/mm3 (0.0-0.1); Basophils Percent Auto 0.8 % (0.2-1.2); Eosinophils Absolute Auto 0.3 K/mm3 (0-0.3); Eosinophils Percent Auto 3.2 % (0-4.4); Hematocrit 40.1 % (42.0-52.0); Hemoglobin 13.3 g/dL (14.0-18.0); Immature Granulocyte Absolute 0.04 K/mm3 (0.00-0.031); Immature Granulocyte Percent A 0.4 % (0-0.5); Lymphocytes Absolute Auto 1.72 K/mm3 (0.9-3.2); Lymphocytes Percent Auto 17.5 % (18.3-44.2); Mean Corpuscular HGB Conc 33.2 g/dl (32-36); Mean Corpuscular Hemoglobin 29.8 pg (26-34); Mean Corpuscular Volume 89.7 fl (80-100); Mean Platelet Volume 9.4 fl (7.4-10.4); Monocytes Absolute Auto 0.6 K/mm3 (0.1-0.6); Monocytes Percent Auto 6.2 % (2.6-8.5); Neutrophils Absolute Auto 7.1 K/mm3 (1.3-6.7); Neutrophils Percent Auto 71.9 % (45.5-73.1); Platelet Count Result 291 k/mm3 (150-375); Red Blood Count 4.47 M/mm3 (4.6-6.20); Red Cell Distribution Width 13.2 % (11.5-14.5); White Blood Count 9.9 K/mm3 (4.5-10.0)
[2024-11-17 05:14] LABS: Alanine Aminotransferase 23 U/L (6-50); Albumin Level 4.8 g/dL (3.5-5.1); Alkaline Phosphatase 106 U/L (38-126); Anion Gap 13 mmol/L (4-12); Aspartate Amino Transferase 23 U/L (17-59); Bilirubin,Total 0.8 mg/dL (0.2-1.3); Blood Urea Nitrogen 22 mg/dL (9-20); Calcium 9.6 mg/dL (8.4-10.2); Carbon Dioxide 18 mmol/L (22-30); Chloride 112 mmol/L (98-107); Estimated CRCL calculation 56 ml/min; Estimated Glomerular Filt Rate 36; Glucose 111 mg/dL (65-110); Magnesium 1.7 mg/dL (1.6-2.3); Potassium 4.7 mmol/L (3.4-5.0); Sodium 143 mmol/L (137-145)
[2024-11-17 05:31] VITALS: BP 142/98; PULSE 72; RESP 16; TEMP 36.4; O2SAT 97
[2024-11-17 08:00] VITALS: PULSE 72; RESP 16; O2SAT 97
[2024-11-17] MEDS: GABAPENTIN 300 MG CAPSULE PO ×2 (08:15→17:33)
[2024-11-17] MEDS: TAMSULOSIN HCL 0.4 MG CAPSULE PO (08:15)
[2024-11-17] MEDS: PANTOPRAZOLE 40 MG TABLET PO ×2 (08:15→21:05)
[2024-11-17] MEDS: SODIUM BICARBONATE TAB 650 MG TABLET 1300 MG PO (08:15)
[2024-11-17] MEDS: TOPIRAMATE 100 MG TABLET PO ×2 (08:16→21:05)
[2024-11-17] MEDS: PROPRANOLOL HCL 40 MG TABLET 80 MG PO ×2 (08:16→21:05)
--- NOTE | 2024-11-17 11:10 | P.PNNP_ITS ---
Progress Note: A&P Assessment and Plan (1) Acute kidney injury: Code(s): N17.9 - Acute kidney failure, unspecified Status: Acute Assessment and Plan: * as noted on admission * labs available labs on June 2023 -- creatinine 0.8mg/dl * evaluation to date noted: * CT of A/P noted with presence of stone and hydronephrosis * CPK normal * urine eosinophils negative * mild proteinuria * UA suggest infection (but culture negative) * presumably secondary to obstructive uropathy from nephrolithiasis as well as sulindac and possibly dehydration and infection? * holding CLARITZA-I and NSAIDs (sulindac) * stone removed and stent placed on 11/14 * creatinine has been dropping slowly. Slower improvement likely due to length of obstruction, presence of NSAIDs, and possible infection? (2) Left ureteral calculus: Code(s): N20.1 - Calculus of ureter Status: Acute Assessment and Plan: * as noted by admission imaging: * CT of A/P with a stone at the left ureterovesical junction with left hydronephrotic changes; smaller stones seen in the left distal ureter.; multiple left kidney stones * KUB showed a 6.5 mm left lower ureteral stone * Urology following: * s/p cystoscopy, left retrograde pyelography, left ureteroscopy with holmium laser, stone extraction, left ureteral stent placement * remains on flomax * normally follows with [facility] * continue supportive therapy (3) Hyperkalemia: Code(s): E87.5 - Hyperkalemia Status: Acute Assessment and Plan: * due to #1 and #2 * Now normal * check a potassium in the morning (4) Metabolic acidosis: Code(s): E87.20 - Acidosis, unspecified Status: Acute Assessment and Plan: * due to #1 and #2 * improvement noted * should continue to improve as WALLACE does * compensating with a few doses of oral sodium bicarbonate * follow CO2 levels. If this persists after renal function improves, consider are RTA as a cause of his stone * the patient is on topiramate for his migraines. This can of course cause an RTA as well. * check a PTH as well (5) UTI (urinary tract infection): Qualifiers: Urinary tract infection type: acute cystitis Hematuria presence: without hematuria Qualified Code(s): N30.00 - Acute cystitis without hematuria Code(s): N39.0 - Urinary tract infection, site not specified Status: Suspected Assessment and Plan: * admission UA highly suggestive * 1+ leukocyte esterase and 21-50 WBC with no epithelial cells or bacteria * follow blood and urine cultures * all cultures negative so far * on ceftriaxone (6) Hypertension: Qualifiers: Hypertension type: primary hypertension Qualified Code(s): I10 - Essential (primary) hypertension Code(s): I10 - Essential (primary) hypertension Status: Chronic Assessment and Plan: * reasonable control * holding CLARITZA-I due to #1 and #3 * may need to use another agent (amlodipine or hydralazine) if BP starts to rise * The severity of his sudden hypertensive spell last night brings to mind pheochromocytoma. He is at about the right age. Will check metanephrines. Notably, the CT did not show an adrenal adenoma. Subjective Date/time seen: 11/17/24 11:10 Interval history: patient feels better this morning. Last night he had a spell of very high blood pressure and a severe headache. He said this happened 1 time before a few years ago when he had extremely high blood pressure out of the blue .at that time he went to the ER and his blood pressure improved a little and he was sent home on lisinopril which he has been on to this day. Last night, with the high blood pressure he got a dose of hydralazine and his blood pressure has come down some he denies pallor with either episode of high blood pressure. No family history of hypertension that he knows. Exam Narrative: General: WD/WN male in NAD Heart: normal S1 and S2; no rub or gallop Lungs: clear to auscultation Abdomen: soft, nontender, nondistended, positive bowel sounds Extremities: no edema Skin: No rash Objective Data Vital Signs Vital Signs: Vital Signs - 24 hr 11/16/24 13:56 11/16/24 19:55 11/16/24 21:10 Temperature 97.5 F L 97.7 F Pulse Rate 62 59 L Respiratory Rate 17 14 Blood Pressure 148/76 H 180/110 H Pulse Oximetry 99 99 Oxygen Delivery Room Air 11/16/24 21:11 11/16/24 21:51 11/16/24 23:34 Temperature Pulse Rate 59 L Respiratory Rate Blood Pressure 150/100 H 142/100 H Pulse Oximetry Oxygen Delivery 11/17/24 05:31 11/17/24 08:00 Temperature 97.6 F Pulse Rate 72 72 Respiratory Rate 16 16 Blood Pressure 142/98 H Pulse Oximetry 97 97 Oxygen Delivery Room Air Intake/Output Intake/Output: Intake & Output 11/14/24 11/15/24 11/16/24 11/17/24 23:59 23:59 23:59 23:59 Intake Total 4240.0 4893.7 3290.1 1500 Output Total 2750 5900 3710 600 Balance 1490.0 -1006.3 -419.9 900 Meds/Results Medications: Active Medications Generic Name Dose Route Start Last Admin Trade Name Freq PRN Reason Stop Dose Admin Acetaminophen 1,000 mg 11/13/24 16:20 11/16/24 23:43 Acetaminophen 500 Mg Tablet PO 1,000 mg BID PRN Administration pain 1-3 Hydrocodone Bitart/Acetaminophen 2 tab 11/13/24 16:20 11/17/24 03:14 Hydrocodone/Acetaminophen (*Crx) 10-325 Mg Tablet PO 2 tab Q6H PRN Administration pain 4-6 Dextrose 12.5 gm 11/13/24 11:55 Dextrose 50% 25 Gm/50 Ml Syringe IV PUSH PRN PRN Hypoglycemia Protocol Duloxetine HCl 60 mg 11/13/24 21:00 11/16/24 21:10 Duloxetine Hcl 60 Mg Capsule.Dr PO 60 mg QHS BERNA Administration Fentanyl Citrate 25 mcg 11/14/24 13:03 Fentanyl Citrate Inj (*Crx) 100 Mcg/2 Ml Vial IV PUSH Q2M PRN Pain Gabapentin 300 mg 11/13/24 17:00 11/17/24 08:15 Gabapentin 300 Mg Capsule PO 300 mg BID BERNA Administration Glucagon 1 mg 11/13/24 11:55 Glucagon For Inj 1 Mg Vial IM PRN PRN Hypoglycemia Protocol Glucose 15 gm 11/13/24 11:55 Glucose Oral Gel 15 Gm Of Glucse In 37.5 Gm Tube PO PRN PRN Hypoglycemia Protocol Dextrose 1,000 mls @ 100 mls/hr 11/13/24 11:55 Dextrose 5% 1,000 Ml IVPB PRN PRN Hypoglycemia Protocol Sodium Chloride 1,000 mls @ 75 mls/hr 11/13/24 13:35 11/17/24 03:17 Normal Saline Iv IV CONT 75 mls/hr .[id number] BERNA Administration Ceftriaxone Sodium 1 gm in 50 mls @ 100 mls/hr 11/14/24 14:00 11/16/24 13:31 Rocephin 1 Gm/Ns 50 Ml IVPB 100 mls/hr Q24H BERNA Administration Lisinopril 10 mg 11/14/24 09:00 11/15/24 08:43 Lisinopril 10 Mg Tablet PO 10 mg DAILY BERNA Administration Rimegepant [Nurtec 75 mg 11/14/24 09:00 11/16/24 09:21 Odt] 75 Mg Tablet, PO 12/14/24 08:59 75 mg Disintegrating Q48H BERNA Administration Dissolve 1 Tablet Po Every Other Day Ondansetron HCl 4 mg 11/14/24 13:03 11/17/24 04:55 Ondansetron Inj 4 Mg/2 Ml Vial IV PUSH 4 mg ONCE PRN Administration Nausea Ondansetron HCl 4 mg 11/17/24 07:45 11/17/24 08:15 Ondansetron Inj 4 Mg/2 Ml Vial IV PUSH 4 mg Q6H PRN Administration Nausea And Vomiting Oxycodone HCl 5 mg 11/14/24 13:03 Oxycodone Hcl (*Crx) 5 Mg Tab Ir PO ONCE PRN Pain Pantoprazole Sodium 40 mg 11/13/24 21:00 11/17/24 08:15 Pantoprazole 40 Mg Tablet PO 40 mg Q12HR BERNA Administration Propranolol HCl 80 mg 11/13/24 21:00 11/17/24 08:16 Propranolol Hcl 40 Mg Tablet PO 80 mg Q12HR BERNA Administration Sumatriptan Succinate 25 mg 11/14/24 17:10 11/17/24 04:58 Sumatriptan Succinate 25 Mg Tablet PO 25 mg Q2H PRN Administration migraine Tamsulosin HCl 0.4 mg 11/14/24 09:00 11/17/24 08:15 Tamsulosin Hcl 0.4 Mg Capsule PO 0.4 mg DAILY BERNA Administration Topiramate 100 mg 11/14/24 09:00 11/17/24 08:16 Topiramate 100 Mg Tablet PO 100 mg Q12HR BERNA Administration Radiology Results: ITS Impressions Abdomen/Pelvis CT 11/13/24 12:32 IMPRESSION: 1. No evidence of appendicitis, diverticulitis or intestinal obstruction. 2. stone at the left ureterovesical junction with left hydronephrotic changes. Smaller stones seen in the left distal ureter. Multiple left kidney stones. 3. Hepatomegaly. Abdomen X-Ray 11/13/24 13:27 IMPRESSION: Stone in the left lower ureter measuring 6.5 mm.. Left kidney stones. Labs Labs: Laboratory Results - last 24 hr 11/17/24 04:58 WBC 9.9 RBC 4.47 L Hgb 13.3 L Hct 40.1 L MCV 89.7 MCH 29.8 MCHC 33.2 RDW 13.2 Plt Count 291 MPV 9.4 Immature Gran % (Auto) 0.4 Neut % (Auto) 71.9 Lymph % (Auto) 17.5 L Dawes % (Auto) 6.2 Eos % (Auto) 3.2 Baso % (Auto) 0.8 Lymph # (Auto) 1.72 Dawes # (Auto) 0.6 Eos # (Auto) 0.3 Baso # (Auto) 0.1 Abs Immat Gran (auto) 0.04 H Absolute Neuts (auto) 7.1 H Absolute Nucleated RBC 0.000 Nucleated RBC % 0.0 Sodium 143 Potassium 4.7 Chloride 112 H Carbon Dioxide 18 L Anion Gap 13 H BUN 22 H Creatinine 1.99 H Estim Creat Clear Calc 56 Estimated GFR 36 L Glucose 111 H Calcium 9.6 Magnesium 1.7 Total Bilirubin 0.8 AST 23 ALT 23 Alkaline Phosphatase 106 Total Protein 8.0 Albumin 4.8
--- NOTE | 2024-11-17 11:36 | P.PNIM_ITS ---
Progress Note: A&P Assessment and Plan (1) Acute kidney failure: Qualifiers: Acute renal failure type: unspecified Qualified Code(s): N17.9 - Acute kidney failure, unspecified Code(s): N17.9 - Acute kidney failure, unspecified Status: Acute Assessment and Plan: * Labs: 07/01/23: 0.8, BUN 13, GFR >60 11/13/24: Creatinine 4.96, BUN 42, GFR 13. 11/14/24: Creatinine 4.02, BUN 35, GFR 16. 11/15/24: Creatinine 3.07, BUN 27, GFR 22. 11/16/24: Creatinine 2.56, BUN 25, GFR 27. 11/17/24: Creatinine 1.99, BUN 22, GFR 36. * CT abdomen/pelvis: 1. No evidence of appendicitis, diverticulitis or intestinal obstruction. 2. stone at the left ureterovesical junction with left hydronephrotic changes. Smaller stones seen in the left distal ureter. Multiple left kidney stones. 3. Hepatomegaly. * Denied nausea, vomiting, diarrhea. Low suspicion for hypovolemia. * check CK 53, urine sodium 88, total protein/creatinine 0.27, urea 353 * Monitor I&Os. * bladder scan for postvoid residual * Reviewed home medications. Hold Sulindac. * IV fluids: NS @ 75 mL/hour * Nephrology consultation, appreciate recs. (2) Ureterolithiasis: Code(s): N20.1 - Calculus of ureter Status: Acute Assessment and Plan: * CT showed a stone at the left ureterovesical junction with left hydronephrotic changes. Smaller stones seen in the left distal ureter. Multiple left kidney stones. * XR abd showed a 6.5 mm left lower ureteral stone. * Requesting records from most recent urology appointment at [facility]. * Urology consulted, appreciate recommendations. * Continue Flomax. * 11/14 Cystoscopy, left retrograde, left ureteroscopy with holmium laser, stone extraction, left ureteral stent placement 4.8 [place] contour. (3) UTI (urinary tract infection): Qualifiers: Hematuria presence: without hematuria Urinary tract infection type: acute cystitis Qualified Code(s): N30.00 - Acute cystitis without hematuria Code(s): N39.0 - Urinary tract infection, site not specified Status: Suspected Assessment and Plan: * Did not meet SIRS criteria. However, blood cultures obtained on 11/13 during initial workup, no growth to date. Follow. * UA showed 1+ leuks and 21-50 WBC with no epithelial cells or bacteria. * Urine culture obtained on 11/13 negative. * Started on ceftriaxone on 11/13. * NS@ 75 ml/hr. (4) Hyperkalemia: Code(s): E87.5 - Hyperkalemia Status: Acute Assessment and Plan: * Potassium 4.7, improved. * Follow potassium level. * Nephrology consult. (5) Hypertension: Qualifiers: Hypertension type: primary hypertension Qualified Code(s): I10 - Essential (primary) hypertension Code(s): I10 - Essential (primary) hypertension Status: Chronic Assessment and Plan: * Chronic, currently 142/98. * Continue home medication: Lisinopril 10 mg daily on hold. * Monitor. (6) Neck pain on right side: Code(s): M54.2 - Cervicalgia Status: Acute Assessment and Plan: * Reports pulled neck in shower this morning. * Acetaminophen 1,000 mg PO BID PRN. * May apply ice for 15 minutes an hour. (7) Hypomagnesemia: Code(s): E83.42 - Hypomagnesemia Status: Acute Assessment and Plan: * Magnesium 1.7, improved. * Trend level. Plan Code Status: Full code Subjective Date/time seen: 11/17/24 11:36 Interval history: Patient reports having a rough evening with nausea, vomiting, headache, and neck pain from pulling neck in shower. Patient did have a little nausea this morning that improved with ondansetron. Patient reports a left confucianist headache that is a 2 , frequent, and aching. Patient reports that he is having less pressure when urinating now. Patient denies chest pain, palpitations, or vomiting. Review of Systems Review of Systems: All systems reviewed & are unremarkable except as noted in HPI and below Exam Const: General: no acute distress and uncomfortable Resp: Effort & Inspection: normal respiratory effort Auscultation: clear to auscultation bilaterally Cardio: Rate: regular rate Rhythm: regular rhythm GI: GI Palp: Yes Soft to palpation Auscultation: normal bowel sounds Urinary Catheter: Urinary Catheter: other (jose colored urine) Neuro: Speech: normal speech Extrem: General: no pedal edema Psych: Mental Status: mental status grossly normal Affect: normal affect Objective Data Vital Signs Vital Signs: Vital Signs - 24 hr 11/16/24 13:56 11/16/24 19:55 11/16/24 21:10 Temperature 97.5 F L 97.7 F Pulse Rate 62 59 L Respiratory Rate 17 14 Blood Pressure 148/76 H 180/110 H Pulse Oximetry 99 99 Oxygen Delivery Room Air 11/16/24 21:11 11/16/24 21:51 11/16/24 23:34 Temperature Pulse Rate 59 L Respiratory Rate Blood Pressure 150/100 H 142/100 H Pulse Oximetry Oxygen Delivery 11/17/24 05:31 11/17/24 08:00 Temperature 97.6 F Pulse Rate 72 72 Respiratory Rate 16 16 Blood Pressure 142/98 H Pulse Oximetry 97 97 Oxygen Delivery Room Air Intake/Output Intake/Output: Intake & Output 11/14/24 11/15/24 11/16/24 11/17/24 23:59 23:59 23:59 23:59 Intake Total 4240.0 4893.7 3290.1 1500 Output Total 2750 5900 3710 600 Balance 1490.0 -1006.3 -419.9 900 Meds/Results Medications: Active Medications Generic Name Dose Route Start Last Admin Trade Name Freq PRN Reason Stop Dose Admin Acetaminophen 1,000 mg 11/13/24 16:20 11/16/24 23:43 Acetaminophen 500 Mg Tablet PO 1,000 mg BID PRN Administration pain 1-3 Hydrocodone Bitart/Acetaminophen 2 tab 11/13/24 16:20 11/17/24 03:14 Hydrocodone/Acetaminophen (*Crx) 10-325 Mg Tablet PO 2 tab Q6H PRN Administration pain 4-6 Dextrose 12.5 gm 11/13/24 11:55 Dextrose 50% 25 Gm/50 Ml Syringe IV PUSH PRN PRN Hypoglycemia Protocol Duloxetine HCl 60 mg 11/13/24 21:00 11/16/24 21:10 Duloxetine Hcl 60 Mg Capsule.Dr PO 60 mg QHS BERNA Administration Fentanyl Citrate 25 mcg 11/14/24 13:03 Fentanyl Citrate Inj (*Crx) 100 Mcg/2 Ml Vial IV PUSH Q2M PRN Pain Gabapentin 300 mg 11/13/24 17:00 11/17/24 08:15 Gabapentin 300 Mg Capsule PO 300 mg BID BERNA Administration Glucagon 1 mg 11/13/24 11:55 Glucagon For Inj 1 Mg Vial IM PRN PRN Hypoglycemia Protocol Glucose 15 gm 11/13/24 11:55 Glucose Oral Gel 15 Gm Of Glucse In 37.5 Gm Tube PO PRN PRN Hypoglycemia Protocol Dextrose 1,000 mls @ 100 mls/hr 11/13/24 11:55 Dextrose 5% 1,000 Ml IVPB PRN PRN Hypoglycemia Protocol Sodium Chloride 1,000 mls @ 75 mls/hr 11/13/24 13:35 11/17/24 03:17 Normal Saline Iv IV CONT 75 mls/hr .[id number] BERNA Administration Ceftriaxone Sodium 1 gm in 50 mls @ 100 mls/hr 11/14/24 14:00 11/16/24 13:31 Rocephin 1 Gm/Ns 50 Ml IVPB 100 mls/hr Q24H BERNA Administration Lisinopril 10 mg 11/14/24 09:00 11/15/24 08:43 Lisinopril 10 Mg Tablet PO 10 mg DAILY BERNA Administration Rimegepant [Nurtec 75 mg 11/14/24 09:00 11/16/24 09:21 Odt] 75 Mg Tablet, PO 12/14/24 08:59 75 mg Disintegrating Q48H BERNA Administration Dissolve 1 Tablet Po Every Other Day Ondansetron HCl 4 mg 11/14/24 13:03 11/17/24 04:55 Ondansetron Inj 4 Mg/2 Ml Vial IV PUSH 4 mg ONCE PRN Administration Nausea Ondansetron HCl 4 mg 11/17/24 07:45 11/17/24 08:15 Ondansetron Inj 4 Mg/2 Ml Vial IV PUSH 4 mg Q6H PRN Administration Nausea And Vomiting Oxycodone HCl 5 mg 11/14/24 13:03 Oxycodone Hcl (*Crx) 5 Mg Tab Ir PO ONCE PRN Pain Pantoprazole Sodium 40 mg 11/13/24 21:00 11/17/24 08:15 Pantoprazole 40 Mg Tablet PO 40 mg Q12HR BERNA Administration Propranolol HCl 80 mg 11/13/24 21:00 11/17/24 08:16 Propranolol Hcl 40 Mg Tablet PO 80 mg Q12HR BERNA Administration Sumatriptan Succinate 25 mg 11/14/24 17:10 11/17/24 04:58 Sumatriptan Succinate 25 Mg Tablet PO 25 mg Q2H PRN Administration migraine Tamsulosin HCl 0.4 mg 11/14/24 09:00 11/17/24 08:15 Tamsulosin Hcl 0.4 Mg Capsule PO 0.4 mg DAILY BERNA Administration Topiramate 100 mg 11/14/24 09:00 11/17/24 08:16 Topiramate 100 Mg Tablet PO 100 mg Q12HR BERNA Administration Radiology Results: ITS Impressions Abdomen/Pelvis CT 11/13/24 12:32 IMPRESSION: 1. No evidence of appendicitis, diverticulitis or intestinal obstruction. 2. stone at the left ureterovesical junction with left hydronephrotic changes. Smaller stones seen in the left distal ureter. Multiple left kidney stones. 3. Hepatomegaly. Abdomen X-Ray 11/13/24 13:27 IMPRESSION: Stone in the left lower ureter measuring 6.5 mm.. Left kidney stones. Labs Labs: Laboratory Results - last 24 hr 11/17/24 04:58 WBC 9.9 RBC 4.47 L Hgb 13.3 L Hct 40.1 L MCV 89.7 MCH 29.8 MCHC 33.2 RDW 13.2 Plt Count 291 MPV 9.4 Immature Gran % (Auto) 0.4 Neut % (Auto) 71.9 Lymph % (Auto) 17.5 L Wilkinson % (Auto) 6.2 Eos % (Auto) 3.2 Baso % (Auto) 0.8 Lymph # (Auto) 1.72 Wilkinson # (Auto) 0.6 Eos # (Auto) 0.3 Baso # (Auto) 0.1 Abs Immat Gran (auto) 0.04 H Absolute Neuts (auto) 7.1 H Absolute Nucleated RBC 0.000 Nucleated RBC % 0.0 Sodium 143 Potassium 4.7 Chloride 112 H Carbon Dioxide 18 L Anion Gap 13 H BUN 22 H Creatinine 1.99 H Estim Creat Clear Calc 56 Estimated GFR 36 L Glucose 111 H Calcium 9.6 Magnesium 1.7 Total Bilirubin 0.8 AST 23 ALT 23 Alkaline Phosphatase 106 Total Protein 8.0 Albumin 4.8
[2024-11-17 12:54] LABS: Uric Acid 5.8 mg/dL (3.5-8.5)
[2024-11-17 14:00] VITALS: BP 138/102; PULSE 76; RESP 14; TEMP 36.2; O2SAT 99
--- NOTE | 2024-11-17 14:42 | PC.NURSE ---
24 hour urine collection started 11/17/24 at 1430.
[2024-11-17 21:05] VITALS: PULSE 76
[2024-11-17] MEDS: DULoxetine HCL 60 MG CAPSULE.DR PO (21:05)
[2024-11-17 21:08] VITALS: BP 149/94; PULSE 71; RESP 14; TEMP 36.2; O2SAT 97
[2024-11-18] MEDS: SODIUM CHLORIDE 0.9% IV 1,000 ML 75 ML IV CONT (01:18)
[2024-11-18 05:00] LABS: Glucose Point of Care 95 mg/dl (65-105)
[2024-11-18] MEDS: SUMAtriptan SUCCINATE 25 MG TABLET PO (05:01)
[2024-11-18 05:30] VITALS: BP 160/96; PULSE 63; RESP 19; TEMP 36.1; O2SAT 100
[2024-11-18 05:36] LABS: Basophils Absolute Auto 0.1 K/mm3 (0.0-0.1); Basophils Percent Auto 1.2 % (0.2-1.2); Eosinophils Absolute Auto 0.4 K/mm3 (0-0.3); Eosinophils Percent Auto 3.7 % (0-4.4); Hematocrit 38.8 % (42.0-52.0); Hemoglobin 12.4 g/dL (14.0-18.0); Immature Granulocyte Absolute 0.03 K/mm3 (0.00-0.031); Immature Granulocyte Percent A 0.3 % (0-0.5); Lymphocytes Absolute Auto 2.72 K/mm3 (0.9-3.2); Lymphocytes Percent Auto 29.1 % (18.3-44.2); Mean Corpuscular Hemoglobin 29.2 pg (26-34); Mean Corpuscular Volume 91.3 fl (80-100); Mean Platelet Volume 9.5 fl (7.4-10.4); Monocytes Absolute Auto 0.9 K/mm3 (0.1-0.6); Monocytes Percent Auto 9.3 % (2.6-8.5); Neutrophils Absolute Auto 5.3 K/mm3 (1.3-6.7); Neutrophils Percent Auto 56.4 % (45.5-73.1); Platelet Count Result 259 k/mm3 (150-375); Red Blood Count 4.25 M/mm3 (4.6-6.20); Red Cell Distribution Width 13.3 % (11.5-14.5); White Blood Count 9.3 K/mm3 (4.5-10.0)
[2024-11-18 05:48] LABS: Alanine Aminotransferase 27 U/L (6-50); Albumin Level 4.4 g/dL (3.5-5.1); Alkaline Phosphatase 91 U/L (38-126); Anion Gap 11 mmol/L (4-12); Aspartate Amino Transferase 23 U/L (17-59); Bilirubin,Total 0.5 mg/dL (0.2-1.3); Blood Urea Nitrogen 21 mg/dL (9-20); Calcium 9.1 mg/dL (8.4-10.2); Carbon Dioxide 21 mmol/L (22-30); Chloride 111 mmol/L (98-107); Estimated CRCL calculation 58 ml/min; Estimated Glomerular Filt Rate 38; Glucose 86 mg/dL (65-110); Magnesium 1.6 mg/dL (1.6-2.3); Sodium 143 mmol/L (137-145)
[2024-11-18] MEDS: ACETAMINOPHEN 500 MG TABLET 1000 MG PO (06:51)
--- NOTE | 2024-11-18 08:21 | P.PNNP_ITS ---
Progress Note: A&P Assessment and Plan (1) Acute kidney injury: Code(s): N17.9 - Acute kidney failure, unspecified Status: Acute Assessment and Plan: * as noted on admission * labs available labs on June 2023 -- creatinine 0.8mg/dl * evaluation to date noted: * CT of A/P noted with presence of stone and hydronephrosis * CPK normal * urine eosinophils negative * mild proteinuria * UA suggest infection (but culture negative) * presumably secondary to obstructive uropathy from nephrolithiasis as well as sulindac and possibly dehydration and infection? * it is strange that blocking only one kidney would cause a creatinine of 5 unless he had significant bilateral issues (e.g. dehydration, sulindac, infection) * will check a renal scan. * holding CLARITZA-I and NSAIDs (sulindac) * stone removed and stent placed on 11/14 * creatinine has been dropping slowly. Slower improvement likely due to length of obstruction, presence of NSAIDs, and possible infection? (2) Left ureteral calculus: Code(s): N20.1 - Calculus of ureter Status: Acute Assessment and Plan: * as noted by admission imaging: * CT of A/P with a stone at the left ureterovesical junction with left hydronephrotic changes; smaller stones seen in the left distal ureter.; multiple left kidney stones * KUB showed a 6.5 mm left lower ureteral stone * Urology following: * s/p cystoscopy, left retrograde pyelography, left ureteroscopy with holmium laser, stone extraction, left ureteral stent placement * remains on flomax * normally follows with [facility] * he had a right kidney stone in june removed in september. imaging not available. * the patient had a 24 h urine showing low vol (1.75L), low citrate, high urine pH but otherwise good values. * topiramate could cause high urine pH in the face of acidosis. this may have to be stopped but best to have it done by his neurologist so he can replace it with something for his headaches. * Mg was low but is okay now. consider long term acute care registered nurse low dose mg to help with stones. * continue supportive therapy (3) Hyperkalemia: Code(s): E87.5 - Hyperkalemia Status: Acute Assessment and Plan: * due to #1 and #2 * Now normal * check a potassium in the morning (4) Metabolic acidosis: Code(s): E87.20 - Acidosis, unspecified Status: Acute Assessment and Plan: * due to #1 and #2 * improvement noted * should continue to improve as WALLACE does * compensating with a few doses of oral sodium bicarbonate * follow CO2 levels. If this persists after renal function improves, consider are RTA as a cause of his stone * the patient is on topiramate for his migraines. This can of course cause an RTA as well. * PTH is high. check a vit d level. notably the Ca level is 9.1 and 24h urine Ca on the sample from [facility] was only in the mid 100s. * if vit d is okay will need to reevaluate as an outpatient with FeCa. (5) UTI (urinary tract infection): Qualifiers: Urinary tract infection type: acute cystitis Hematuria presence: without hematuria Qualified Code(s): N30.00 - Acute cystitis without hematuria Code(s): N39.0 - Urinary tract infection, site not specified Status: Suspected Assessment and Plan: * admission UA highly suggestive * 1+ leukocyte esterase and 21-50 WBC with no epithelial cells or bacteria * follow blood and urine cultures * all cultures negative so far * on ceftriaxone (6) Hypertension: Qualifiers: Hypertension type: primary hypertension Qualified Code(s): I10 - Essential (primary) hypertension Code(s): I10 - Essential (primary) hypertension Status: Chronic Assessment and Plan: * reasonable control * holding CLARITZA-I due to #1 and #3 * may need to use another agent (amlodipine or hydralazine) if BP starts to rise * The severity of his sudden hypertensive spell last night brings to mind pheochromocytoma. He is at about the right age. Will check metanephrines. Notably, the CT did not show an adrenal adenoma. Subjective Date/time seen: 11/18/24 08:21 Interval history: pt feels okay. no pain, no sob. sad that his creatinine didn't come down more. Exam Narrative: General: WD/WN male in NAD Heart: normal S1 and S2; no rub or gallop Lungs: clear bilaterally Abdomen: soft, nontender, nondistended, positive bowel sounds Extremities: no edema Skin: No rash or sq nodules Objective Data Vital Signs Vital Signs: Vital Signs - 24 hr 11/17/24 14:00 11/17/24 21:05 11/17/24 21:05 Temperature 97.2 F L Pulse Rate 76 76 Respiratory Rate 14 Blood Pressure 138/102 H Pulse Oximetry 99 Oxygen Delivery Room Air 11/17/24 21:08 11/18/24 05:30 Temperature 97.1 F L 97.0 F L Pulse Rate 71 63 Respiratory Rate 14 19 Blood Pressure 149/94 H 160/96 H Pulse Oximetry 97 100 Oxygen Delivery Intake/Output Intake/Output: Intake & Output 11/15/24 11/16/24 11/17/24 11/18/24 23:59 23:59 23:59 23:59 Intake Total 4893.7 3290.1 3150 1377.5 Output Total 5900 3710 2900 1800 Balance -1006.3 -419.9 250 -422.5 Meds/Results Medications: Active Medications Generic Name Dose Route Start Last Admin Trade Name Freq PRN Reason Stop Dose Admin Acetaminophen 1,000 mg 11/13/24 16:20 11/18/24 06:51 Acetaminophen 500 Mg Tablet PO 1,000 mg BID PRN Administration pain 1-3 Hydrocodone Bitart/Acetaminophen 2 tab 11/13/24 16:20 11/17/24 03:14 Hydrocodone/Acetaminophen (*Crx) 10-325 Mg Tablet PO 2 tab Q6H PRN Administration pain 4-6 Dextrose 12.5 gm 11/13/24 11:55 Dextrose 50% 25 Gm/50 Ml Syringe IV PUSH PRN PRN Hypoglycemia Protocol Duloxetine HCl 60 mg 11/13/24 21:00 11/17/24 21:05 Duloxetine Hcl 60 Mg Capsule. PO 60 mg QHS BERNA Administration Fentanyl Citrate 25 mcg 11/14/24 13:03 Fentanyl Citrate Inj (*Crx) 100 Mcg/2 Ml Vial IV PUSH Q2M PRN Pain Gabapentin 300 mg 11/13/24 17:00 11/17/24 17:33 Gabapentin 300 Mg Capsule PO 300 mg BID BERNA Administration Glucagon 1 mg 11/13/24 11:55 Glucagon For Inj 1 Mg Vial IM PRN PRN Hypoglycemia Protocol Glucose 15 gm 11/13/24 11:55 Glucose Oral Gel 15 Gm Of Glucse In 37.5 Gm Tube PO PRN PRN Hypoglycemia Protocol Dextrose 1,000 mls @ 100 mls/hr 11/13/24 11:55 Dextrose 5% 1,000 Ml IVPB PRN PRN Hypoglycemia Protocol Sodium Chloride 1,000 mls @ 75 mls/hr 11/13/24 13:35 11/18/24 01:18 Normal Saline Iv IV CONT 75 mls/hr .[id number] BERNA Administration Ceftriaxone Sodium 1 gm in 50 mls @ 100 mls/hr 11/14/24 14:00 11/17/24 14:36 Rocephin 1 Gm/Ns 50 Ml IVPB 100 mls/hr Q24H BERNA Administration Lisinopril 10 mg 11/14/24 09:00 11/15/24 08:43 Lisinopril 10 Mg Tablet PO 10 mg DAILY BERNA Administration Rimegepant [Nurtec 75 mg 11/14/24 09:00 11/16/24 09:21 Odt] 75 Mg Tablet, PO 12/14/24 08:59 75 mg Disintegrating Q48H BERNA Administration Dissolve 1 Tablet Po Every Other Day Ondansetron HCl 4 mg 11/14/24 13:03 11/17/24 04:55 Ondansetron Inj 4 Mg/2 Ml Vial IV PUSH 4 mg ONCE PRN Administration Nausea Ondansetron HCl 4 mg 11/17/24 07:45 11/17/24 08:15 Ondansetron Inj 4 Mg/2 Ml Vial IV PUSH 4 mg Q6H PRN Administration Nausea And Vomiting Oxycodone HCl 5 mg 11/14/24 13:03 Oxycodone Hcl (*Crx) 5 Mg Tab Ir PO ONCE PRN Pain Pantoprazole Sodium 40 mg 11/13/24 21:00 11/17/24 21:05 Pantoprazole 40 Mg Tablet PO 40 mg Q12HR BERNA Administration Propranolol HCl 80 mg 11/13/24 21:00 11/17/24 21:05 Propranolol Hcl 40 Mg Tablet PO 80 mg Q12HR BERNA Administration Sumatriptan Succinate 25 mg 11/14/24 17:10 11/18/24 05:01 Sumatriptan Succinate 25 Mg Tablet PO 25 mg Q2H PRN Administration migraine Tamsulosin HCl 0.4 mg 11/14/24 09:00 11/17/24 08:15 Tamsulosin Hcl 0.4 Mg Capsule PO 0.4 mg DAILY BERNA Administration Topiramate 100 mg 11/14/24 09:00 11/17/24 21:05 Topiramate 100 Mg Tablet PO 100 mg Q12HR BERNA Administration Radiology Results: ITS Impressions Abdomen/Pelvis CT 11/13/24 12:32 IMPRESSION: 1. No evidence of appendicitis, diverticulitis or intestinal obstruction. 2. stone at the left ureterovesical junction with left hydronephrotic changes. Smaller stones seen in the left distal ureter. Multiple left kidney stones. 3. Hepatomegaly. Abdomen X-Ray 11/13/24 13:27 IMPRESSION: Stone in the left lower ureter measuring 6.5 mm.. Left kidney stones. Labs Labs: Laboratory Results - last 24 hr 11/17/24 11/18/24 11/18/24 04:55 04:56 05:16 WBC 9.3 RBC 4.25 L Hgb 12.4 L Hct 38.8 L MCV 91.3 MCH 29.2 MCHC 32.0 RDW 13.3 Plt Count 259 MPV 9.5 Immature Gran % (Auto) 0.3 Neut % (Auto) 56.4 Lymph % (Auto) 29.1 [place] % (Auto) 9.3 H Eos % (Auto) 3.7 Baso % (Auto) 1.2 Lymph # (Auto) 2.72 [place] # (Auto) 0.9 H Eos # (Auto) 0.4 H Baso # (Auto) 0.1 Abs Immat Gran (auto) 0.03 Absolute Neuts (auto) 5.3 Absolute Nucleated RBC 0.000 Nucleated RBC % 0.0 Sodium 143 Potassium 5.0 Chloride 111 H Carbon Dioxide 21 L Anion Gap 11 BUN 21 H Creatinine 1.91 H Estim Creat Clear Calc 58 Estimated GFR 38 L Glucose 86 POC Capillary Glucose 95 Uric Acid 5.8 Calcium 9.1 Phosphorus 3.0 Magnesium 1.6 Total Bilirubin 0.5 AST 23 ALT 27 Alkaline Phosphatase 91 Total Protein 7.0 Albumin 4.4 PTH Intact 94.0 H
[2024-11-18 08:57] VITALS: PULSE 68
[2024-11-18] MEDS: PROPRANOLOL HCL 40 MG TABLET 80 MG PO ×2 (08:57→21:18)
[2024-11-18] MEDS: MAGNESIUM SULF 2 GM/WATER 50ML 2 GM/50 ML BAG IVPB (08:57)
[2024-11-18] MEDS: TAMSULOSIN HCL 0.4 MG CAPSULE PO (08:57)
[2024-11-18] MEDS: amLODIPine BESYLATE 5 MG TABLET PO (08:57)
[2024-11-18] MEDS: GABAPENTIN 300 MG CAPSULE PO ×2 (08:58→17:41)
[2024-11-18] MEDS: PANTOPRAZOLE 40 MG TABLET PO ×2 (08:58→21:18)
[2024-11-18] MEDS: TOPIRAMATE 100 MG TABLET PO ×2 (08:58→21:18)
[2024-11-18] MEDS: [UNRECOGNIZED DRUG - OTHER] PO (08:58)
[2024-11-18] MEDS: RIMEGEPANT 75 MG PO (08:58)
--- NOTE | 2024-11-18 10:53 | P.PNIM_ITS ---
Progress Note: A&P Assessment and Plan (1) Acute kidney failure: Qualifiers: Acute renal failure type: unspecified Qualified Code(s): N17.9 - Acute kidney failure, unspecified Code(s): N17.9 - Acute kidney failure, unspecified Status: Acute Assessment and Plan: * Labs: 07/01/23: 0.8, BUN 13, GFR >60 11/13/24: Creatinine 4.96, BUN 42, GFR 13. 11/14/24: Creatinine 4.02, BUN 35, GFR 16. /: Creatinine 3.07, BUN 27, GFR 22. 11/16/24: Creatinine 2.56, BUN 25, GFR 27. /: Creatinine 1.99, BUN 22, GFR 36. 11/18/24: Creatinine 1.91, BUN 21, GFR 38. * CT abdomen/pelvis: 1. No evidence of appendicitis, diverticulitis or intestinal obstruction. 2. stone at the left ureterovesical junction with left hydronephrotic changes. Smaller stones seen in the left distal ureter. Multiple left kidney stones. 3. Hepatomegaly. * Denied nausea, vomiting, diarrhea. Low suspicion for hypovolemia. * check CK 53, urine sodium 88, total protein/creatinine 0.27, urea 353 * Monitor I&Os. * bladder scan for postvoid residual * Reviewed home medications. Hold Sulindac. * IV fluids: NS @ 50 mL/hour * Nephrology consultation, appreciate recs. (2) Ureterolithiasis: Code(s): N20.1 - Calculus of ureter Status: Acute Assessment and Plan: * CT showed a stone at the left ureterovesical junction with left hydronephrotic changes. Smaller stones seen in the left distal ureter. Multiple left kidney stones. * XR abd showed a 6.5 mm left lower ureteral stone. * Requesting records from most recent urology appointment at [facility]. * Urology consulted, appreciate recommendations. * Continue Flomax. * 11/14 Cystoscopy, left retrograde, left ureteroscopy with holmium laser, stone extraction, left ureteral stent placement 4.8 [place] contour. * Renal scan. (3) UTI (urinary tract infection): Qualifiers: Hematuria presence: without hematuria Urinary tract infection type: acute cystitis Qualified Code(s): N30.00 - Acute cystitis without hematuria Code(s): N39.0 - Urinary tract infection, site not specified Status: Suspected Assessment and Plan: * Did not meet SIRS criteria. However, blood cultures obtained on 11/13 during initial workup, no growth to date. Follow. * UA showed 1+ leuks and 21-50 WBC with no epithelial cells or bacteria. * Urine culture obtained on 11/13 negative. * Started on ceftriaxone on 11/13. * NS@ 50 ml/hr. (4) Hyperkalemia: Code(s): E87.5 - Hyperkalemia Status: Acute Assessment and Plan: * Potassium 5.0. * Follow potassium level. * Nephrology consult. (5) Hypertension: Qualifiers: Hypertension type: primary hypertension Qualified Code(s): I10 - Essential (primary) hypertension Code(s): I10 - Essential (primary) hypertension Status: Chronic Assessment and Plan: * Chronic, currently 131/98. * Continue home medication: Lisinopril 10 mg daily on hold. * Started Amlodipine 5 mg PO daily, blood pressure this morning was 160/96. * Monitor. (6) Neck pain on right side: Code(s): M54.2 - Cervicalgia Status: Acute Assessment and Plan: * Reports pulled neck in shower on 11/16. * Acetaminophen 1,000 mg PO BID PRN. * May apply ice for 15 minutes an hour. (7) Hypomagnesemia: Code(s): E83.42 - Hypomagnesemia Status: Acute Assessment and Plan: * Magnesium 1.6. * Magnesium Sulfate 2 gram ivpb x1 given. * Trend level. Plan Code Status: Full code Subjective Date/time seen: 11/18/24 10:53 Interval history: Patient reports feeling better this morning. Denies chest pain, palpitations, headache, dizziness, nausea, or vomiting. Review of Systems Review of Systems: All systems reviewed & are unremarkable except as noted in HPI and below Exam Const: General: comfortable and no acute distress Resp: Effort & Inspection: normal respiratory effort Auscultation: clear to auscultation bilaterally Cardio: Rate: regular rate Rhythm: regular rhythm GI: GI Palp: Yes Soft to palpation Auscultation: normal bowel sounds Neuro: Speech: normal speech Extrem: General: no pedal edema Psych: Mental Status: mental status grossly normal Affect: normal affect Objective Data Vital Signs Vital Signs: Vital Signs - 24 hr 11/17/24 14:00 11/17/24 21:05 11/17/24 21:05 Temperature 97.2 F L Pulse Rate 76 76 Respiratory Rate 14 Blood Pressure 138/102 H Pulse Oximetry 99 Oxygen Delivery Room Air 11/17/24 21:08 11/18/24 05:30 11/18/24 08:57 Temperature 97.1 F L 97.0 F L Pulse Rate 71 63 68 Respiratory Rate 14 19 Blood Pressure 149/94 H 160/96 H Pulse Oximetry 97 100 Oxygen Delivery Intake/Output Intake/Output: Intake & Output 11/15/24 11/16/24 11/17/24 11/18/24 23:59 23:59 23:59 23:59 Intake Total 4893.7 3390.1 3150 1617.5 Output Total 5900 3710 2900 1800 Balance -1006.3 -319.9 250 -182.5 Meds/Results Medications: Active Medications Generic Name Dose Route Start Last Admin Trade Name Freq PRN Reason Stop Dose Admin Acetaminophen 1,000 mg 11/13/24 16:20 11/18/24 06:51 Acetaminophen 500 Mg Tablet PO 1,000 mg BID PRN Administration pain 1-3 Hydrocodone Bitart/Acetaminophen 2 tab 11/13/24 16:20 11/17/24 03:14 Hydrocodone/Acetaminophen (*Crx) 10-325 Mg Tablet PO 2 tab Q6H PRN Administration pain 4-6 Amlodipine Besylate 5 mg 11/18/24 09:00 11/18/24 08:57 Amlodipine Besylate 5 Mg Tablet PO 5 mg DAILY BERNA Administration Dextrose 12.5 gm 11/13/24 11:55 Dextrose 50% 25 Gm/50 Ml Syringe IV PUSH PRN PRN Hypoglycemia Protocol Duloxetine HCl 60 mg 11/13/24 21:00 11/17/24 21:05 Duloxetine Hcl 60 Mg Capsule.Dr PO 60 mg QHS BERNA Administration Fentanyl Citrate 25 mcg 11/14/24 13:03 Fentanyl Citrate Inj (*Crx) 100 Mcg/2 Ml Vial IV PUSH Q2M PRN Pain Gabapentin 300 mg 11/13/24 17:00 11/18/24 08:58 Gabapentin 300 Mg Capsule PO 300 mg BID BERNA Administration Glucagon 1 mg 11/13/24 11:55 Glucagon For Inj 1 Mg Vial IM PRN PRN Hypoglycemia Protocol Glucose 15 gm 11/13/24 11:55 Glucose Oral Gel 15 Gm Of Glucse In 37.5 Gm Tube PO PRN PRN Hypoglycemia Protocol Dextrose 1,000 mls @ 100 mls/hr 11/13/24 11:55 Dextrose 5% 1,000 Ml IVPB PRN PRN Hypoglycemia Protocol Sodium Chloride 1,000 mls @ 50 mls/hr 11/13/24 13:35 11/18/24 01:18 Normal Saline Iv IV CONT 75 mls/hr .Q20H BERNA Administration Ceftriaxone Sodium 1 gm in 50 mls @ 100 mls/hr 11/14/24 14:00 11/17/24 14:36 Rocephin 1 Gm/Ns 50 Ml IVPB 100 mls/hr Q24H BERNA Administration Lisinopril 10 mg 11/14/24 09:00 11/15/24 08:43 Lisinopril 10 Mg Tablet PO 10 mg DAILY BERNA Administration Rimegepant [Nurtec 75 mg 11/14/24 09:00 11/18/24 08:58 Odt] 75 Mg Tablet, PO 12/14/24 08:59 75 mg Disintegrating Q48H BERNA Administration Dissolve 1 Tablet Po Every Other Day Ondansetron HCl 4 mg 11/14/24 13:03 11/17/24 04:55 Ondansetron Inj 4 Mg/2 Ml Vial IV PUSH 4 mg ONCE PRN Administration Nausea Ondansetron HCl 4 mg 11/17/24 07:45 11/17/24 08:15 Ondansetron Inj 4 Mg/2 Ml Vial IV PUSH 4 mg Q6H PRN Administration Nausea And Vomiting Oxycodone HCl 5 mg 11/14/24 13:03 Oxycodone Hcl (*Crx) 5 Mg Tab Ir PO ONCE PRN Pain Pantoprazole Sodium 40 mg 11/13/24 21:00 11/18/24 08:58 Pantoprazole 40 Mg Tablet PO 40 mg Q12HR BERNA Administration Propranolol HCl 80 mg 11/13/24 21:00 11/18/24 08:57 Propranolol Hcl 40 Mg Tablet PO 80 mg Q12HR BERNA Administration Sumatriptan Succinate 25 mg 11/14/24 17:10 11/18/24 05:01 Sumatriptan Succinate 25 Mg Tablet PO 25 mg Q2H PRN Administration migraine Tamsulosin HCl 0.4 mg 11/14/24 09:00 11/18/24 08:57 Tamsulosin Hcl 0.4 Mg Capsule PO 0.4 mg DAILY BERNA Administration Topiramate 100 mg 11/14/24 09:00 11/18/24 08:58 Topiramate 100 Mg Tablet PO 100 mg Q12HR BERNA Administration Radiology Results: ITS Impressions Abdomen/Pelvis CT 11/13/24 12:32 IMPRESSION: 1. No evidence of appendicitis, diverticulitis or intestinal obstruction. 2. stone at the left ureterovesical junction with left hydronephrotic changes. Smaller stones seen in the left distal ureter. Multiple left kidney stones. 3. Hepatomegaly. Abdomen X-Ray 11/13/24 13:27 IMPRESSION: Stone in the left lower ureter measuring 6.5 mm.. Left kidney stones. Labs Labs: Laboratory Results - last 24 hr 11/17/24 11/18/24 11/18/24 04:55 04:56 05:16 WBC 9.3 RBC 4.25 L Hgb 12.4 L Hct 38.8 L MCV 91.3 MCH 29.2 MCHC 32.0 RDW 13.3 Plt Count 259 MPV 9.5 Immature Gran % (Auto) 0.3 Neut % (Auto) 56.4 Lymph % (Auto) 29.1 [place] % (Auto) 9.3 H Eos % (Auto) 3.7 Baso % (Auto) 1.2 Lymph # (Auto) 2.72 [place] # (Auto) 0.9 H Eos # (Auto) 0.4 H Baso # (Auto) 0.1 Abs Immat Gran (auto) 0.03 Absolute Neuts (auto) 5.3 Absolute Nucleated RBC 0.000 Nucleated RBC % 0.0 Sodium 143 Potassium 5.0 Chloride 111 H Carbon Dioxide 21 L Anion Gap 11 BUN 21 H Creatinine 1.91 H Estim Creat Clear Calc 58 Estimated GFR 38 L Glucose 86 POC Capillary Glucose 95 Uric Acid 5.8 Calcium 9.1 Phosphorus 3.0 Magnesium 1.6 Total Bilirubin 0.5 AST 23 ALT 27 Alkaline Phosphatase 91 Total Protein 7.0 Albumin 4.4 PTH Intact 94.0 H Quality VTE Prophylaxis VTE prophylaxis: mechanical ordered
[2024-11-18 14:00] VITALS: BP 131/98; PULSE 66; RESP 20; TEMP 36.1; O2SAT 99
[2024-11-18] MEDS: SODIUM CHLORIDE 0.9% IV 1,000 ML 50 ML IV CONT (17:44)
[2024-11-18 21:17] VITALS: BP 122/77; PULSE 70; RESP 14; TEMP 36.2; O2SAT 96
[2024-11-18 21:18] VITALS: PULSE 75
[2024-11-18] MEDS: DULoxetine HCL 60 MG CAPSULE.DR PO (21:19)
[2024-11-19 05:33] VITALS: BP 132/90; PULSE 58; RESP 12; TEMP 36.1; O2SAT 100
[2024-11-19 06:26] LABS: Basophils Absolute Auto 0.1 K/mm3 (0.0-0.1); Basophils Percent Auto 1.4 % (0.2-1.2); Eosinophils Absolute Auto 0.4 K/mm3 (0-0.3); Eosinophils Percent Auto 4.8 % (0-4.4); Hematocrit 41.3 % (42.0-52.0); Hemoglobin 13.1 g/dL (14.0-18.0); Immature Granulocyte Absolute 0.02 K/mm3 (0.00-0.031); Immature Granulocyte Percent A 0.2 % (0-0.5); Lymphocytes Absolute Auto 2.28 K/mm3 (0.9-3.2); Lymphocytes Percent Auto 26.6 % (18.3-44.2); Mean Corpuscular HGB Conc 31.7 g/dl (32-36); Mean Corpuscular Hemoglobin 29.4 pg (26-34); Mean Corpuscular Volume 92.6 fl (80-100); Mean Platelet Volume 9.9 fl (7.4-10.4); Monocytes Absolute Auto 0.7 K/mm3 (0.1-0.6); Monocytes Percent Auto 8.6 % (2.6-8.5); Neutrophils Percent Auto 58.4 % (45.5-73.1); Platelet Count Result 282 k/mm3 (150-375); Red Blood Count 4.46 M/mm3 (4.6-6.20); Red Cell Distribution Width 13.3 % (11.5-14.5); White Blood Count 8.6 K/mm3 (4.5-10.0)
[2024-11-19 06:46] LABS: Alanine Aminotransferase 30 U/L (6-50); Albumin Level 4.6 g/dL (3.5-5.1); Alkaline Phosphatase 103 U/L (38-126); Anion Gap 9 mmol/L (4-12); Aspartate Amino Transferase 23 U/L (17-59); Bilirubin,Total 0.5 mg/dL (0.2-1.3); Blood Urea Nitrogen 19 mg/dL (9-20); Calcium 9.4 mg/dL (8.4-10.2); Carbon Dioxide 23 mmol/L (22-30); Chloride 110 mmol/L (98-107); Estimated CRCL calculation 60 ml/min; Estimated Glomerular Filt Rate 39; Glucose 94 mg/dL (65-110); Magnesium 1.9 mg/dL (1.6-2.3); Phosphorus 3.4 mg/dL (2.5-4.5); Sodium 142 mmol/L (137-145)
[2024-11-19 06:55] LABS: Vitamin D 25 Hydroxy 19.5 ng/mL
[2024-11-19] MEDS: TOPIRAMATE 100 MG TABLET PO ×2 (08:09→21:10)
[2024-11-19] MEDS: PANTOPRAZOLE 40 MG TABLET PO ×2 (08:09→21:10)
[2024-11-19] MEDS: PROPRANOLOL HCL 40 MG TABLET 80 MG PO ×2 (08:09→21:09)
[2024-11-19] MEDS: amLODIPine BESYLATE 5 MG TABLET PO (08:09)
[2024-11-19] MEDS: GABAPENTIN 300 MG CAPSULE PO ×2 (08:09→17:10)
[2024-11-19] MEDS: TAMSULOSIN HCL 0.4 MG CAPSULE PO (08:09)
--- NOTE | 2024-11-19 11:10 | P.PNNP_ITS ---
Progress Note: A&P Assessment and Plan (1) Acute kidney injury: Code(s): N17.9 - Acute kidney failure, unspecified Status: Acute Assessment and Plan: * improvement noted but has slowed down in the last few days... * as noted on admission * labs available labs on June 2023 -- creatinine 0.8mg/dl * evaluation to date noted: * CT of A/P noted with presence of stone and hydronephrosis * CPK normal * urine eosinophils negative * mild proteinuria * UA suggest infection (but culture negative) * presumably secondary to obstructive uropathy from nephrolithiasis as well as sulindac and possibly dehydration and infection? * strange the obstruction of just one kidney would cause such a rise in creatinine... * checking renal scan today for better assessment of kidney functionality * holding CLARITZA-I and NSAIDs (sulindac) * follow repeat labs and UOP (2) Left ureteral calculus: Code(s): N20.1 - Calculus of ureter Status: Acute Assessment and Plan: * as noted by admission imaging: * CT of A/P with a stone at the left ureterovesical junction with left hydronephrotic changes; smaller stones seen in the left distal ureter.; multiple left kidney stones * KUB showed a 6.5 mm left lower ureteral stone * Urology following: * s/p cystoscopy, left retrograde pyelography, left ureteroscopy with holmium laser, stone extraction, left ureteral stent placement * remains on flomax * normally follows with [facility] * outpatient 24 hr urine collection with low volume (1.75L), low citrate, and high urine pH but otherwise good values. * topiramate could cause high urine pH in the face of acidosis -- this may have to be stopped but best to have it done by his neurologist so he can replace it with something for his headaches... * continue supportive therapy (3) Hyperkalemia: Code(s): E87.5 - Hyperkalemia Status: Acute Assessment and Plan: * resolved * due to #1 and #2 * follow potassium levels (4) Metabolic acidosis: Code(s): E87.20 - Acidosis, unspecified Status: Acute Assessment and Plan: * due to #1 and #2 * improvement noted * should continue to improve as WALLACE does * compensated s/p a few doses of oral sodium bicarbonate * follow CO2 levels * use of topamax could be contributing as well (known to cause RTA) (5) UTI (urinary tract infection): Qualifiers: Hematuria presence: without hematuria Urinary tract infection type: a cute cystitis Qualified Code(s): N30.00 - Acute cystitis without hematuria Code(s): N39.0 - Urinary tract infection, site not specified Status: Suspected Assessment and Plan: * admission UA highly suggestive * 1+ leukocyte esterase and 21-50 WBC with no epithelial cells or bacteria * follow blood and urine cultures * all cultures negative so far * on ceftriaxone (6) Hypertension: Qualifiers: Hypertension type: primary hypertension Qualified Code(s): I10 - Essential (primary) hypertension Code(s): I10 - Essential (primary) hypertension Status: Chronic Assessment and Plan: * reasonable control * holding CLARITZA-I due to #1 and #3 * may need to use another agent (amlodipine or hydralazine) if BP starts to rise * follow-up on 24hr urine (to evaluation for pheochromocytoma) Will continue to follow. L Subjective Date/time seen: 11/19/24 11:10 Interval history: Follow-up for acute kidney injury/acute renal failure. Chart reviewed since last seen -- creatinine continues to mprove albeit extremely slowly with good urine output noted; no apparent distress noted at the time of my visit; no other issues/events overnight or earlier this morning; just about to leave for radiology for renal scan. Exam 2 Narrative: General: WD/WN male in NAD Heart: normal S1 and S2; no rub or gallop Lungs: clear bilaterally Abdomen: soft, nontender, nondistended, positive bowel sounds Extremities: no edema Skin: No rash or sq nodules Objective Data Vital Signs Vital Signs: Vital Signs Temp Pulse Resp BP Pulse Ox O2 Del Method 11/19/24 08:00 Room Air 11/19/24 05:33 97.0 F L 58 L 12 132/90 100 11/18/24 21:18 Room Air 11/18/24 21:18 75 11/18/24 21:17 97.1 F L 70 14 122/77 96 11/18/24 14:00 96.9 F L 66 20 131/98 H 99 Intake/Output Intake/Output: Intake & Output 11/16/24 11/17/24 11/18/24 11/19/24 23:59 23:59 23:59 23:59 Intake Total 3390.1 3200 3217.5 1054 Output Total 3710 2900 1800 3900 Balance -319.9 300 1417.5 -2846 Meds/Results Medications: Active Medications Generic Name Dose Route Start Last Admin Trade Name Freq PRN Reason Stop Dose Admin Acetaminophen 1,000 mg 11/13/24 16:20 11/18/24 06:51 Acetaminophen 500 Mg Tablet PO 1,000 mg BID PRN Administration pain 1-3 Hydrocodone Bitart/Acetaminophen 2 tab 11/13/24 16:20 11/17/24 03:14 Hydrocodone/Acetaminophen (*Crx) 10-325 Mg Tablet PO 2 tab Q6H PRN Administration pain 4-6 Amlodipine Besylate 5 mg 11/18/24 09:00 11/19/24 08:09 Amlodipine Besylate 5 Mg Tablet PO 5 mg DAILY BERNA Administration Dextrose 12.5 gm 11/13/24 11:55 Dextrose 50% 25 Gm/50 Ml Syringe IV PUSH PRN PRN Hypoglycemia Protocol Duloxetine HCl 60 mg 11/13/24 21:00 11/18/24 21:19 Duloxetine Hcl 60 Mg Capsule. PO 60 mg QHS BERNA Administration Fentanyl Citrate 25 mcg 11/14/24 13:03 Fentanyl Citrate Inj (*Crx) 100 Mcg/2 Ml Vial IV PUSH Q2M PRN Pain Gabapentin 300 mg 11/13/24 17:00 11/19/24 08:09 Gabapentin 300 Mg Capsule PO 300 mg BID BERNA Administration Glucagon 1 mg 11/13/24 11:55 Glucagon For Inj 1 Mg Vial IM PRN PRN Hypoglycemia Protocol Glucose 15 gm 11/13/24 11:55 Glucose Oral Gel 15 Gm Of Glucse In 37.5 Gm Tube PO PRN PRN Hypoglycemia Protocol Dextrose 1,000 mls @ 100 mls/hr 11/13/24 11:55 Dextrose 5% 1,000 Ml IVPB PRN PRN Hypoglycemia Protocol Sodium Chloride 1,000 mls @ 50 mls/hr 11/13/24 13:35 11/18/24 17:44 Normal Saline Iv IV CONT 50 mls/hr .Q20H BERNA Administration Levofloxacin 750 mg 11/19/24 14:00 Levofloxacin 750 Mg Tablet PO 11/22/24 14:01 DAILY@1400 BERNA Lisinopril 10 mg 11/14/24 09:00 11/15/24 08:43 Lisinopril 10 Mg Tablet PO 10 mg DAILY BERNA Administration Rimegepant [Nurtec 75 mg 11/14/24 09:00 11/18/24 08:58 Odt] 75 Mg Tablet, PO 12/14/24 08:59 75 mg Disintegrating Q48H BERNA Administration Dissolve 1 Tablet Po Every Other Day Ondansetron HCl 4 mg 11/14/24 13:03 11/17/24 04:55 Ondansetron Inj 4 Mg/2 Ml Vial IV PUSH 4 mg ONCE PRN Administration Nausea Ondansetron HCl 4 mg 11/17/24 07:45 11/17/24 08:15 Ondansetron Inj 4 Mg/2 Ml Vial IV PUSH 4 mg Q6H PRN Administration Nausea And Vomiting Oxycodone HCl 5 mg 11/14/24 13:03 Oxycodone Hcl (*Crx) 5 Mg Tab Ir PO ONCE PRN Pain Pantoprazole Sodium 40 mg 11/13/24 21:00 11/19/24 08:09 Pantoprazole 40 Mg Tablet PO 40 mg Q12HR BERNA Administration Propranolol HCl 80 mg 11/13/24 21:00 11/19/24 08:09 Propranolol Hcl 40 Mg Tablet PO 80 mg Q12HR BERNA Administration Sumatriptan Succinate 25 mg 11/14/24 17:10 11/18/24 05:01 Sumatriptan Succinate 25 Mg Tablet PO 25 mg Q2H PRN Administration migraine Tamsulosin HCl 0.4 mg 11/14/24 09:00 11/19/24 08:09 Tamsulosin Hcl 0.4 Mg Capsule PO 0.4 mg DAILY BERNA Administration Topiramate 100 mg 11/14/24 09:00 11/19/24 08:09 Topiramate 100 Mg Tablet PO 100 mg Q12HR BERNA Administration Radiology Results: ITS Impressions Abdomen/Pelvis CT 11/13/24 12:32 IMPRESSION: 1. No evidence of appendicitis, diverticulitis or intestinal obstruction. 2. stone at the left ureterovesical junction with left hydronephrotic changes. Smaller stones seen in the left distal ureter. Multiple left kidney stones. 3. Hepatomegaly. Abdomen X-Ray 11/13/24 13:27 IMPRESSION: Stone in the left lower ureter measuring 6.5 mm.. Left kidney stones. Labs Labs: Laboratory Tests 11/19/24 05:54 11/19/24 05:54 Calcium 9.4 Phosphorus 3.4 Magnesium 1.9 Total Bilirubin 0.5 AST 23 ALT 30 Alkaline Phosphatase 103 Total Protein 8.0 Albumin 4.6 Vitamin D 25-Hydroxy 19.5 Microbiology 11/13/24 14:09 Blood Blood Culture - Final 11/13/24 14:07 Blood Blood Culture - Final
--- NOTE | 2024-11-19 11:31 | P.PNIM_ITS ---
Progress Note: A&P Assessment and Plan (1) Acute kidney failure: Qualifiers: Acute renal failure type: unspecified Qualified Code(s): N17.9 - Acute kidney failure, unspecified Code(s): N17.9 - Acute kidney failure, unspecified Status: Acute Assessment and Plan: * Labs: 07/01/23: 0.8, BUN 13, GFR >60 11/13/24: Creatinine 4.96, BUN 42, GFR 13. /: Creatinine 4.02, BUN 35, GFR 16. /: Creatinine 3.07, BUN 27, GFR 22. 11/16/24: Creatinine 2.56, BUN 25, GFR 27. /: Creatinine 1.99, BUN 22, GFR 36. 11/18/24: Creatinine 1.91, BUN 21, GFR 38. /: Creatinine 1.86, BUN 19, GFR 39. * CT abdomen/pelvis: 1. No evidence of appendicitis, diverticulitis or intestinal obstruction. 2. stone at the left ureterovesical junction with left hydronephrotic changes. Smaller stones seen in the left distal ureter. Multiple left kidney stones. 3. Hepatomegaly. * Denied nausea, vomiting, diarrhea. Low suspicion for hypovolemia. * check CK 53, urine sodium 88, total protein/creatinine 0.27, urea 353 * Monitor I&Os. * bladder scan for postvoid residual * Reviewed home medications. Hold Sulindac. * IV fluids: NS @ 50 mL/hour * Nephrology consultation, appreciate recs. * Renal scan today showed: IMPRESSION: 1. Atrophic right kidney which contributes only 28% to total renal function. 2. Increased activity in the left ureter without definitive hydronephrosis kidney which could be due to residual hydroureter or the presence of a recently placed internal ureteral stent post extraction of an impacted ureteral stone. There is no significantly delayed activity clearance from the left kidney to suggest a significant obstruction. (2) Ureterolithiasis: Code(s): N20.1 - Calculus of ureter Status: Acute Assessment and Plan: * CT showed a stone at the left ureterovesical junction with left hydronephrotic changes. Smaller stones seen in the left distal ureter. Multiple left kidney stones. * XR abd showed a 6.5 mm left lower ureteral stone. * Requesting records from most recent urology appointment at [facility]. * Urology consulted, appreciate recommendations. * Continue Flomax. * 11/14 Cystoscopy, left retrograde, left ureteroscopy with holmium laser, stone extraction, left ureteral stent placement 4.8 Maltese contour. * Renal scan today showed: IMPRESSION: 1. Atrophic right kidney which contributes only 28% to total renal function. 2. Increased activity in the left ureter without definitive hydronephrosis kidney which could be due to residual hydroureter or the presence of a recently placed internal ureteral stent post extraction of an impacted ureteral stone. There is no significantly delayed activity clearance from the left kidney to suggest a significant obstruction. (3) UTI (urinary tract infection): Qualifiers: Urinary tract infection type: acute cystitis Hematuria presence: without hematuria Qualified Code(s): N30.00 - Acute cystitis without hematuria Code(s): N39.0 - Urinary tract infection, site not specified Status: Suspected Assessment and Plan: * Did not meet SIRS criteria. However, blood cultures obtained on 11/13 during initial workup, no growth to date. Follow. * UA showed 1+ leuks and 21-50 WBC with no epithelial cells or bacteria. * Urine culture obtained on 11/13 negative. * Started on ceftriaxone on 11/13. * NS@ 50 ml/hr. (4) Hyperkalemia: Code(s): E87.5 - Hyperkalemia Status: Acute Assessment and Plan: * Potassium 5.0. * Follow potassium level. * Nephrology consult. (5) Hypertension: Qualifiers: Hypertension type: primary hypertension Qualified Code(s): I10 - Essential (primary) hypertension Code(s): I10 - Essential (primary) hypertension Status: Chronic Assessment and Plan: * Chronic, currently 119/75 * Continue home medication: Lisinopril 10 mg daily on hold. * Amlodipine 5 mg PO daily. * Monitor. (6) Neck pain on right side: Code(s): M54.2 - Cervicalgia Status: Acute Assessment and Plan: * Reports pulled neck in shower on 11/16. No pain today. * Acetaminophen 1,000 mg PO BID PRN. * May apply ice for 15 minutes an hour. (7) Hypomagnesemia: Code(s): E83.42 - Hypomagnesemia Status: Acute Assessment and Plan: * Magnesium 1.9. * Trend level. (8) Vitamin D deficiency: Code(s): E55.9 - Vitamin D deficiency, unspecified Status: Acute Assessment and Plan: * Vitamin D level 19.5. * Start Ergocalciferol 50,000 units weekly. Plan Code Status: Full code Subjective Date/time seen: 11/19/24 11:31 Interval history: Patient denies chest pain, palpitations, headache, dizziness, nausea, or vomiting. Patient denies difficulty urinating. Patient to have renal scan today. Review of Systems Review of Systems: All systems reviewed & are unremarkable except as noted in HPI and below Exam Const: General: comfortable and no acute distress Resp: Effort & Inspection: normal respiratory effort Auscultation: clear to auscultation bilaterally Cardio: Rate: regular rate Rhythm: regular rhythm GI: GI Palp: Yes Soft to palpation Auscultation: normal bowel sounds Neuro: Speech: normal speech Extrem: General: no pedal edema Psych: Mental Status: mental status grossly normal Affect: normal affect Objective Data Vital Signs Vital Signs: Vital Signs - 24 hr 11/18/24 14:00 11/18/24 21:17 11/18/24 21:18 Temperature 96.9 F L 97.1 F L Pulse Rate 66 70 75 Respiratory Rate 20 14 Blood Pressure 131/98 H 122/77 Pulse Oximetry 99 96 Oxygen Delivery 11/18/24 21:18 11/19/24 05:33 11/19/24 08:00 Temperature 97.0 F L Pulse Rate 58 L Respiratory Rate 12 Blood Pressure 132/90 Pulse Oximetry 100 Oxygen Delivery Room Air Room Air Intake/Output Intake/Output: Intake & Output 11/16/24 11/17/24 11/18/24 11/19/24 23:59 23:59 23:59 23:59 Intake Total 3390.1 3200 3217.5 1054 Output Total 3710 2900 1800 3100 Balance -319.9 300 1417.5 -2046 Meds/Results Medications: Active Medications Generic Name Dose Route Start Last Admin Trade Name Freq PRN Reason Stop Dose Admin Acetaminophen 1,000 mg 11/13/24 16:20 11/18/24 06:51 Acetaminophen 500 Mg Tablet PO 1,000 mg BID PRN Administration pain 1-3 Hydrocodone Bitart/Acetaminophen 2 tab 11/13/24 16:20 11/17/24 03:14 Hydrocodone/Acetaminophen (*Crx) 10-325 Mg Tablet PO 2 tab Q6H PRN Administration pain 4-6 Amlodipine Besylate 5 mg 11/18/24 09:00 11/19/24 08:09 Amlodipine Besylate 5 Mg Tablet PO 5 mg DAILY BERNA Administration Dextrose 12.5 gm 11/13/24 11:55 Dextrose 50% 25 Gm/50 Ml Syringe IV PUSH PRN PRN Hypoglycemia Protocol Duloxetine HCl 60 mg 11/13/24 21:00 11/18/24 21:19 Duloxetine Hcl 60 Mg Capsule.Dr PO 60 mg QHS BERNA Administration Fentanyl Citrate 25 mcg 11/14/24 13:03 Fentanyl Citrate Inj (*Crx) 100 Mcg/2 Ml Vial IV PUSH Q2M PRN Pain Gabapentin 300 mg 11/13/24 17:00 11/19/24 08:09 Gabapentin 300 Mg Capsule PO 300 mg BID BERNA Administration Glucagon 1 mg 11/13/24 11:55 Glucagon For Inj 1 Mg Vial IM PRN PRN Hypoglycemia Protocol Glucose 15 gm 11/13/24 11:55 Glucose Oral Gel 15 Gm Of Glucse In 37.5 Gm Tube PO PRN PRN Hypoglycemia Protocol Dextrose 1,000 mls @ 100 mls/hr 11/13/24 11:55 Dextrose 5% 1,000 Ml IVPB PRN PRN Hypoglycemia Protocol Sodium Chloride 1,000 mls @ 50 mls/hr 11/13/24 13:35 11/18/24 17:44 Normal Saline Iv IV CONT 50 mls/hr .Q20H BERNA Administration Levofloxacin 750 mg 11/19/24 14:00 Levofloxacin 750 Mg Tablet PO 11/22/24 14:01 DAILY@1400 BERNA Lisinopril 10 mg 11/14/24 09:00 11/15/24 08:43 Lisinopril 10 Mg Tablet PO 10 mg DAILY BERNA Administration Rimegepant [Nurtec 75 mg 11/14/24 09:00 11/18/24 08:58 Odt] 75 Mg Tablet, PO 12/14/24 08:59 75 mg Disintegrating Q48H BERNA Administration Dissolve 1 Tablet Po Every Other Day Ondansetron HCl 4 mg 11/14/24 13:03 11/17/24 04:55 Ondansetron Inj 4 Mg/2 Ml Vial IV PUSH 4 mg ONCE PRN Administration Nausea Ondansetron HCl 4 mg 11/17/24 07:45 11/17/24 08:15 Ondansetron Inj 4 Mg/2 Ml Vial IV PUSH 4 mg Q6H PRN Administration Nausea And Vomiting Oxycodone HCl 5 mg 11/14/24 13:03 Oxycodone Hcl (*Crx) 5 Mg Tab Ir PO ONCE PRN Pain Pantoprazole Sodium 40 mg 11/13/24 21:00 11/19/24 08:09 Pantoprazole 40 Mg Tablet PO 40 mg Q12HR BERNA Administration Propranolol HCl 80 mg 11/13/24 21:00 11/19/24 08:09 Propranolol Hcl 40 Mg Tablet PO 80 mg Q12HR BERNA Administration Sumatriptan Succinate 25 mg 11/14/24 17:10 11/18/24 05:01 Sumatriptan Succinate 25 Mg Tablet PO 25 mg Q2H PRN Administration migraine Tamsulosin HCl 0.4 mg 11/14/24 09:00 11/19/24 08:09 Tamsulosin Hcl 0.4 Mg Capsule PO 0.4 mg DAILY BERNA Administration Topiramate 100 mg 11/14/24 09:00 11/19/24 08:09 Topiramate 100 Mg Tablet PO 100 mg Q12HR BERNA Administration Radiology Results: ITS Impressions Abdomen/Pelvis CT 11/13/24 12:32 IMPRESSION: 1. No evidence of appendicitis, diverticulitis or intestinal obstruction. 2. stone at the left ureterovesical junction with left hydronephrotic changes. Smaller stones seen in the left distal ureter. Multiple left kidney stones. 3. Hepatomegaly. Abdomen X-Ray 11/13/24 13:27 IMPRESSION: Stone in the left lower ureter measuring 6.5 mm.. Left kidney stones. Labs Labs: Laboratory Results - last 24 hr 11/19/24 05:54 WBC 8.6 RBC 4.46 L Hgb 13.1 L Hct 41.3 L MCV 92.6 MCH 29.4 MCHC 31.7 L RDW 13.3 Plt Count 282 MPV 9.9 Immature Gran % (Auto) 0.2 Neut % (Auto) 58.4 Lymph % (Auto) 26.6 Edgar % (Auto) 8.6 H Eos % (Auto) 4.8 H Baso % (Auto) 1.4 H Lymph # (Auto) 2.28 Edgar # (Auto) 0.7 H Eos # (Auto) 0.4 H Baso # (Auto) 0.1 Abs Immat Gran (auto) 0.02 Absolute Neuts (auto) 5.0 Absolute Nucleated RBC 0.000 Nucleated RBC % 0.0 Sodium 142 Potassium 5.0 Chloride 110 H Carbon Dioxide 23 Anion Gap 9 BUN 19 Creatinine 1.86 H Estim Creat Clear Calc 60 Estimated GFR 39 L Glucose 94 Calcium 9.4 Phosphorus 3.4 Magnesium 1.9 Total Bilirubin 0.5 AST 23 ALT 30 Alkaline Phosphatase 103 Total Protein 8.0 Albumin 4.6 Vitamin D 25-Hydroxy 19.5 Quality VTE Prophylaxis VTE prophylaxis: mechanical ordered
[2024-11-19] MEDS: levoFLOXacin 750 MG TABLET PO (13:05)
[2024-11-19 14:00] VITALS: BP 119/75; PULSE 75; RESP 18; TEMP 36.2; O2SAT 96
[2024-11-19] MEDS: SODIUM CHLORIDE 0.9% IV 1,000 ML 50 ML IV CONT (17:10)
[2024-11-19] MEDS: ERGOCALCIFEROL 50,000 UNITS CAPSULE 50000 UNITS PO (17:10)
[2024-11-19 21:09] VITALS: PULSE 78
[2024-11-19] MEDS: DULoxetine HCL 60 MG CAPSULE.DR PO (21:10)
[2024-11-19 21:15] VITALS: BP 119/81; PULSE 83; RESP 16; TEMP 36.6; O2SAT 96
[2024-11-20 05:28] VITALS: BP 116/93; PULSE 74; RESP 18; TEMP 36.6; O2SAT 100
[2024-11-20 05:59] LABS: Basophils Absolute Auto 0.1 K/mm3 (0.0-0.1); Basophils Percent Auto 1.1 % (0.2-1.2); Eosinophils Absolute Auto 0.5 K/mm3 (0-0.3); Eosinophils Percent Auto 5.2 % (0-4.4); Hematocrit 43.5 % (42.0-52.0); Hemoglobin 13.9 g/dL (14.0-18.0); Immature Granulocyte Absolute 0.02 K/mm3 (0.00-0.031); Immature Granulocyte Percent A 0.2 % (0-0.5); Lymphocytes Absolute Auto 2.36 K/mm3 (0.9-3.2); Lymphocytes Percent Auto 25.9 % (18.3-44.2); Mean Corpuscular Hemoglobin 28.9 pg (26-34); Mean Corpuscular Volume 90.4 fl (80-100); Mean Platelet Volume 9.5 fl (7.4-10.4); Monocytes Absolute Auto 0.9 K/mm3 (0.1-0.6); Monocytes Percent Auto 9.3 % (2.6-8.5); Neutrophils Absolute Auto 5.3 K/mm3 (1.3-6.7); Neutrophils Percent Auto 58.3 % (45.5-73.1); Platelet Count Result 281 k/mm3 (150-375); Red Blood Count 4.81 M/mm3 (4.6-6.20); Red Cell Distribution Width 13.1 % (11.5-14.5); White Blood Count 9.1 K/mm3 (4.5-10.0)
[2024-11-20 06:14] LABS: Alanine Aminotransferase 32 U/L (6-50); Albumin Level 4.8 g/dL (3.5-5.1); Alkaline Phosphatase 99 U/L (38-126); Anion Gap 11 mmol/L (4-12); Aspartate Amino Transferase 22 U/L (17-59); Bilirubin,Total 0.6 mg/dL (0.2-1.3); Blood Urea Nitrogen 23 mg/dL (9-20); Calcium 9.7 mg/dL (8.4-10.2); Carbon Dioxide 22 mmol/L (22-30); Chloride 107 mmol/L (98-107); Estimated CRCL calculation 62 ml/min; Estimated Glomerular Filt Rate 41; Glucose 91 mg/dL (65-110); Magnesium 1.8 mg/dL (1.6-2.3); Potassium 5.1 mmol/L (3.4-5.0); Sodium 140 mmol/L (137-145)
[2024-11-20] MEDS: amLODIPine BESYLATE 5 MG TABLET PO (08:48)
[2024-11-20] MEDS: GABAPENTIN 300 MG CAPSULE PO (08:48)
[2024-11-20 08:49] VITALS: PULSE 76
[2024-11-20] MEDS: PROPRANOLOL HCL 40 MG TABLET 80 MG PO (08:49)
[2024-11-20] MEDS: TOPIRAMATE 100 MG TABLET PO (08:49)
[2024-11-20] MEDS: PANTOPRAZOLE 40 MG TABLET PO (08:49)
[2024-11-20] MEDS: TAMSULOSIN HCL 0.4 MG CAPSULE PO (08:49)
[2024-11-20] MEDS: ACETAMINOPHEN 500 MG TABLET 1000 MG PO (08:53)
[2024-11-20] MEDS: SODIUM CHLORIDE 0.9% IV 1,000 ML 50 ML IV CONT (08:53)
--- NOTE | 2024-11-20 10:50 | P.PNNP_ITS ---
Progress Note: A&P Assessment and Plan (1) Acute kidney injury: Code(s): N17.9 - Acute kidney failure, unspecified Status: Acute Assessment and Plan: * improvement noted but has slowed down in the last few days... * as noted on admission * labs available labs on June 2023 -- creatinine 0.8mg/dl * evaluation to date noted: * CT of A/P noted with presence of stone and hydronephrosis * CPK normal * urine eosinophils negative * mild proteinuria * UA suggest infection (but culture negative) * presumably secondary to obstructive uropathy from nephrolithiasis as well as sulindac and possibly dehydration and infection? * strange the obstruction of just one kidney would cause such a rise in creatinine... * renal scan results noted -(which explain severity of WALLACE on admission with the possibility he may have a new baseline creatinine) * holding CLARITZA-I and NSAIDs (sulindac) * follow repeat labs and UOP (2) Left ureteral calculus: Code(s): N20.1 - Calculus of ureter Status: Acute Assessment and Plan: * as noted by admission imaging: * CT of A/P with a stone at the left ureterovesical junction with left hydronephrotic changes; smaller stones seen in the left distal ureter.; multiple left kidney stones * KUB showed a 6.5 mm left lower ureteral stone * Urology following: * s/p cystoscopy, left retrograde pyelography, left ureteroscopy with holmium laser, stone extraction, left ureteral stent placement * remains on flomax * normally follows with [facility] * outpatient 24 hr urine collection with low volume (1.75L), low citrate, and high urine pH but otherwise good values. * topiramate could cause high urine pH in the face of acidosis -- this may have to be stopped but best to have it done by his neurologist so he can replace it with something for his headaches... * continue supportive therapy (3) Hyperkalemia: Code(s): E87.5 - Hyperkalemia Status: Acute Assessment and Plan: * resolved * due to #1 and #2 * follow potassium levels (4) Metabolic acidosis: Code(s): E87.20 - Acidosis, unspecified Status: Acute Assessment and Plan: * due to #1 and #2 * improvement noted * should continue to improve as WALLACE does * compensated s/p a few doses of oral sodium bicarbonate * follow CO2 levels * use of topamax could be contributing as well (known to cause RTA) (5) UTI (urinary tract infection): Qualifiers: Urinary tract infection type: acute cystitis Hematuria presence: w ithout hematuria Qualified Code(s): N30.00 - Acute cystitis without hematuria Code(s): N39.0 - Urinary tract infection, site not specified Status: Suspected Assessment and Plan: * admission UA highly suggestive * 1+ leukocyte esterase and 21-50 WBC with no epithelial cells or bacteria * follow blood and urine cultures * all cultures negative so far * on ceftriaxone (6) Hypertension: Qualifiers: Hypertension type: primary hypertension Qualified Code(s): I10 - Essential (primary) hypertension Code(s): I10 - Essential (primary) hypertension Status: Chronic Assessment and Plan: * reasonable control * holding CLARITZA-I due to #1 and #3 * may need to use another agent (amlodipine or hydralazine) if BP starts to rise * follow-up on 24hr urine (to evaluation for pheochromocytoma) Not opposed to discharge from renal perspective if he is otherwise medically stable. Will continue to follow. L Subjective Date/time seen: 11/20/24 10:50 Interval history: Follow-up for acute kidney injury/acute renal failure. Renal function/creatinine continues to improve with reasonable urine output noted; no apparent distress voiced at this time; results of renal scan reviewed/discussed with patient; no other issues/events overnight or earlier this morning; feels reasonably well. Exam 2 Narrative: General: WD/WN male in NAD Heart: normal S1 and S2; no rub Lungs: clear bilaterally Abdomen: soft, nontender, nondistended, positive bowel sounds Extremities: no edema Skin: warm and dry Objective Data Vital Signs Vital Signs: Vital Signs Temp Pulse Resp BP Pulse Ox O2 Del Method 11/20/24 08:49 76 11/20/24 05:28 97.8 F 74 18 116/93 H 100 11/19/24 21:15 97.8 F 83 16 119/81 96 11/19/24 21:10 Room Air 11/19/24 21:09 78 11/19/24 14:00 97.2 F L 75 18 119/75 96 Intake/Output Intake/Output: Intake & Output 11/17/24 11/18/24 11/19/24 11/20/24 23:59 23:59 23:59 23:59 Intake Total 3200 3217.5 2654 2225.8 Output Total 2900 1800 6475 1700 Balance 300 1417.5 -3821 525.8 Meds/Results Medications: Active Medications Generic Name Dose Route Start Last Admin Trade Name Freq PRN Reason Stop Dose Admin Acetaminophen 1,000 mg 11/13/24 16:20 11/20/24 08:53 Acetaminophen 500 Mg Tablet PO 1,000 mg BID PRN Administration pain 1-3 Hydrocodone Bitart/Acetaminophen 2 tab 11/13/24 16:20 11/17/24 03:14 Hydrocodone/Acetaminophen (*Crx) 10-325 Mg Tablet PO 2 tab Q6H PRN Administration pain 4-6 Amlodipine Besylate 5 mg 11/18/24 09:00 11/20/24 08:48 Amlodipine Besylate 5 Mg Tablet PO 5 mg DAILY BERNA Administration Dextrose 12.5 gm 11/13/24 11:55 Dextrose 50% 25 Gm/50 Ml Syringe IV PUSH PRN PRN Hypoglycemia Protocol Duloxetine HCl 60 mg 11/13/24 21:00 11/19/24 21:10 Duloxetine Hcl 60 Mg Capsule.Dr PO 60 mg QHS BERNA Administration Ergocalciferol 50,000 units 11/19/24 15:40 11/19/24 17:10 Ergocalciferol 50,000 Units Capsule PO 50,000 units WEEKLY BERNA Administration Fentanyl Citrate 25 mcg 11/14/24 13:03 Fentanyl Citrate Inj (*Crx) 100 Mcg/2 Ml Vial IV PUSH Q2M PRN Pain Gabapentin 300 mg 11/13/24 17:00 11/20/24 08:48 Gabapentin 300 Mg Capsule PO 300 mg BID BERNA Administration Glucagon 1 mg 11/13/24 11:55 Glucagon For Inj 1 Mg Vial IM PRN PRN Hypoglycemia Protocol Glucose 15 gm 11/13/24 11:55 Glucose Oral Gel 15 Gm Of Glucse In 37.5 Gm Tube PO PRN PRN Hypoglycemia Protocol Dextrose 1,000 mls @ 100 mls/hr 11/13/24 11:55 Dextrose 5% 1,000 Ml IVPB PRN PRN Hypoglycemia Protocol Sodium Chloride 1,000 mls @ 50 mls/hr 11/13/24 13:35 11/20/24 08:53 Normal Saline Iv IV CONT 50 mls/hr .Q20H BERNA Administration Levofloxacin 750 mg 11/19/24 14:00 11/19/24 13:05 Levofloxacin 750 Mg Tablet PO 11/22/24 14:01 750 mg DAILY@1400 BERNA Administration Lisinopril 10 mg 11/14/24 09:00 11/15/24 08:43 Lisinopril 10 Mg Tablet PO 10 mg DAILY BERNA Administration Rimegepant [Nurtec 75 mg 11/14/24 09:00 11/18/24 08:58 Odt] 75 Mg Tablet, PO 12/14/24 08:59 75 mg Disintegrating Q48H BERNA Administration Dissolve 1 Tablet Po Every Other Day Ondansetron HCl 4 mg 11/14/24 13:03 11/17/24 04:55 Ondansetron Inj 4 Mg/2 Ml Vial IV PUSH 4 mg ONCE PRN Administration Nausea Ondansetron HCl 4 mg 11/17/24 07:45 11/17/24 08:15 Ondansetron Inj 4 Mg/2 Ml Vial IV PUSH 4 mg Q6H PRN Administration Nausea And Vomiting Oxycodone HCl 5 mg 11/14/24 13:03 Oxycodone Hcl (*Crx) 5 Mg Tab Ir PO ONCE PRN Pain Pantoprazole Sodium 40 mg 11/13/24 21:00 11/20/24 08:49 Pantoprazole 40 Mg Tablet PO 40 mg Q12HR BERNA Administration Propranolol HCl 80 mg 11/13/24 21:00 11/20/24 08:49 Propranolol Hcl 40 Mg Tablet PO 80 mg Q12HR BERNA Administration Sumatriptan Succinate 25 mg 11/14/24 17:10 11/18/24 05:01 Sumatriptan Succinate 25 Mg Tablet PO 25 mg Q2H PRN Administration migraine Tamsulosin HCl 0.4 mg 11/14/24 09:00 11/20/24 08:49 Tamsulosin Hcl 0.4 Mg Capsule PO 0.4 mg DAILY BERNA Administration Topiramate 100 mg 11/14/24 09:00 11/20/24 08:49 Topiramate 100 Mg Tablet PO 100 mg Q12HR BERNA Administration Radiology Results: ITS Impressions Abdomen/Pelvis CT 11/13/24 12:32 IMPRESSION: 1. No evidence of appendicitis, diverticulitis or intestinal obstruction. 2. stone at the left ureterovesical junction with left hydronephrotic changes. Smaller stones seen in the left distal ureter. Multiple left kidney stones. 3. Hepatomegaly. Abdomen X-Ray 11/13/24 13:27 IMPRESSION: Stone in the left lower ureter measuring 6.5 mm.. Left kidney stones. Renal Scan Nuclear Medicine 11/19/24 13:09 IMPRESSION: 1. Atrophic right kidney which contributes only 28% to total renal function. 2. Increased activity in the left ureter without definitive hydronephrosis kidney which could be due to residual hydroureter or the presence of a recently placed internal ureteral stent post extraction of an impacted ureteral stone. There is no significantly delayed activity clearance from the left kidney to suggest a significant obstruction. Labs Labs: Laboratory Tests 11/20/24 05:51 11/20/24 05:51 Calcium 9.7 Magnesium 1.8 Total Bilirubin 0.6 AST 22 ALT 32 Alkaline Phosphatase 99 Total Protein 8.0 Albumin 4.8
--- NOTE | 2024-11-20 12:27 | P.DS_ITS ---
DS: Admitting Diagnosis Discharge Date 11/20/24 Admitting Diagnosis BRB per Rectum, Flank Pain DS: Discharge Diagnosis Discharge Diagnosis (1) Acute kidney failure: Qualifiers: Acute renal failure type: unspecified Qualified Code(s): N17.9 - Acute kidney failure, unspecified Code(s): N17.9 - Acute kidney failure, unspecified Status: Acute (2) Ureterolithiasis: Code(s): N20.1 - Calculus of ureter Status: Acute (3) UTI (urinary tract infection): Qualifiers: Hematuria presence: without hematuria Urinary tract infection type: acute cystitis Qualified Code(s): N30.00 - Acute cystitis without hematuria Code(s): N39.0 - Urinary tract infection, site not specified Status: Suspected (4) Hyperkalemia: Code(s): E87.5 - Hyperkalemia Status: Acute (5) Hypertension: Qualifiers: Hypertension type: primary hypertension Qualified Code(s): I10 - Essential (primary) hypertension Code(s): I10 - Essential (primary) hypertension Status: Chronic (6) Neck pain on right side: Code(s): M54.2 - Cervicalgia Status: Acute (7) Hypomagnesemia: Code(s): E83.42 - Hypomagnesemia Status: Acute (8) Vitamin D deficiency: Code(s): E55.9 - Vitamin D deficiency, unspecified Status: Acute (9) Left ureteral calculus: Code(s): N20.1 - Calculus of ureter Status: Acute (10) Metabolic acidosis: Code(s): E87.20 - Acidosis, unspecified Status: Acute DS: Summary Hospital Course Hospital Course: Initial VS at presentation: 97.9? F, HR 60, R 20, 163/97, and 100% on RA. ED workup showed: WBC 10.2, hemoglobin 12.2 (14.5 on 07/01/2023), normal coags, creatinine 4.96 and GFR 13 (previously 0.8 and GFR >60 in 2022), initial glucose 57 on BMP (repeat post interventions 94), and UA showed 1+ leuks and 21-50 WBC with no epithelial cells or bacteria. CT abdomen/pelvis showed no evidence of appendicitis/diverticulitis/intestinal obstruction, stone at the left ureterovesical junction with left hydronephrotic changes, smaller stones seen in the left distal ureter, multiple left kidney stones, and hepatomegaly. Abdomen X-Ray 11/13/24 13:27 IMPRESSION: Stone in the left lower ureter measuring 6.5 mm.. Left kidney stones. Urology and Nephrology consulted. Stent placed in kidney on 11/14/24. Renal scan: IMPRESSION: 1. Atrophic right kidney which contributes only 28% to total renal function. 2. Increased activity in the left ureter without definitive hydronephrosis kidney which could be due to residual hydroureter or the presence of a recently placed internal ureteral stent post extraction of an impacted ureteral stone. There is no significantly delayed activity clearance from the left kidney to suggest a significant obstruction. The relative early renal uptake was 72% on the left and 28% on the right (<40% is abnormal). Creatinine improved to 1.79 at discharge. Blood cultures negative. Urine culture negative. Status at Discharge Functional status at discharge: independent ambulation Overall status at discharge: patient is progressing back to baseline Time Spent with Patient Time attestation: Total time spent providing and/or coordinating discharge services: Time spent: Greater than 30 minutes Exam Const: General: comfortable and no acute distress Resp: Effort & Inspection: normal respiratory effort Auscultation: clear to auscultation bilaterally Cardio: Rate: regular rate Rhythm: regular rhythm GI: GI Palp: Yes Soft to palpation Auscultation: normal bowel sounds Neuro: General: gait normal Extrem: General: no pedal edema Psych: Mental Status: mental status grossly normal Affect: normal affect DS: Data Data Completed and Pending Completed studies during hospitalization: Pending at discharge 11/14/24 13:46 Surgical [PTH] Routine Labs on day of discharge: Labs from last 24 hours 11/20/24 05:51 WBC 9.1 RBC 4.81 Hgb 13.9 L Hct 43.5 MCV 90.4 MCH 28.9 MCHC 32.0 RDW 13.1 Plt Count 281 MPV 9.5 Immature Gran % (Auto) 0.2 Neut % (Auto) 58.3 Lymph % (Auto) 25.9 [place] % (Auto) 9.3 H Eos % (Auto) 5.2 H Baso % (Auto) 1.1 Lymph # (Auto) 2.36 [place] # (Auto) 0.9 H Eos # (Auto) 0.5 H Baso # (Auto) 0.1 Abs Immat Gran (auto) 0.02 Absolute Neuts (auto) 5.3 Absolute Nucleated RBC 0.000 Nucleated RBC % 0.0 Sodium 140 Potassium 5.1 H Chloride 107 Carbon Dioxide 22 Anion Gap 11 BUN 23 H Creatinine 1.79 H Estim Creat Clear Calc 62 Estimated GFR 41 L Glucose 91 Calcium 9.7 Magnesium 1.8 Total Bilirubin 0.6 AST 22 ALT 32 Alkaline Phosphatase 99 Total Protein 8.0 Albumin 4.8 Discharge Plan Discharge Attending physician on discharge: Chelsey Mosquera Consulting providers: Navneet Mishra; Elham Santana Discharging Clinician: Ankita Villegas Anticipated Discharge Date/Time: 11/20/24 13:30 Patient Disposition: Home Activity: may shower and as tolerated Diet: regular Discharge Instructions: * Take all doses of antibiotics. * Report to provider if you develop difficulty urinating, pain while urinating, urine becomes dark, or you develop a fever >101. * Dr. Santana Courtroom Deputy Or Calendar Clerk would like you to follow up with him in 3-4 weeks. * Keep blood pressure under control. Goal is less than 140/90. * Keep salt intake no more than 2,000 mg day to help keep blood pressure under control. Thank you for entrusting [facility] with your healthcare! Patient Instructions: Antibiotic Form, Kidney Stones (DC), How to Strain Your Urine (ED), Hypertension (DC), Vitamin D Deficiency (GEN) Patient Language: Romansh Stand Alone Forms: General Discharge Information Follow-up/Referrals: Elham Santana MD [Physician] - 3 Weeks Navneet Mishra MD [Physician] - 1 Week Dm Mcmahon MD [Primary Care Provider] - 1 Week Discharge Medications: New amlodipine [Norvasc] 5 mg Tablet 5 mg PO DAILY Qty: 30 0RF ergocalciferol (vitamin D2) [Vitamin D2] 1,250 mcg (50,000 unit) Capsule 50,000 unit PO WEEKLY Qty: 4 0RF Rx Instructions: TAKE 1 CAPSULE ON MONDAYS. levofloxacin 750 mg tablet 750 mg PO DAILY Qty: 2 0RF Rx Instructions: Take in afternoon on 11/21 and 11/22. Continued flaxseed oil 1,000 mg capsule 1,000 mg PO BID Rx Instructions: administer with meals acetaminophen 325 mg capsule 1,000 mg PO BID PRN (Reason: pain) duloxetine 60 mg capsule,delayed release(DR/EC) 60 mg PO QHS Rx Instructions: take 1 capsule p.o. q.h.s. tamsulosin 0.4 mg capsule 0.4 mg PO DAILY azelastine [Astepro Allergy] 205.5 mcg (0.15 %) spray,non-aerosol 2 spray intranasal DAILY Qty: 30 1RF Rx Instructions: administer into each nostril propranolol 80 mg tablet 80 mg PO Q12H Qty: 60 9RF omeprazole 40 mg capsule,delayed release(DR/EC) 40 mg PO BID Qty: 60 6RF sumatriptan succinate 100 mg tablet See Rx Instructions PO .COMPLEX Qty: 9 5RF Rx Instructions: take 1 tab at onset of headache; if no relief, may repeat 1 tab after at least 2 hrs; max = 2 tabs/24 hrs PO gabapentin 300 mg capsule See Rx Instructions .ROUTE .COMPLEX Qty: 60 5RF Dose Instruction: Take 1 capsule by mouth twice daily Rx Instructions: Take 1 capsule by mouth twice daily Nurtec ODT 75 mg tablet,disintegrating 75 mg PO .every other day Qty: 15 5RF topiramate 100 mg tablet 100 mg PO BID Qty: 60 9RF hydrocodone-acetaminophen 10-325 mg tablet 2 tablet PO Q6H PRN (Reason: pain) Qty: 20 0RF Discontinued lisinopril 10 mg tablet See Rx Instructions .ROUTE .COMPLEX Qty: 90 1RF Dose Instruction: Take 1 tablet by mouth once daily Rx Instructions: Take 1 tablet by mouth once daily sulindac 200 mg tablet 200 mg PO BID Qty: 60 7RF Rx Instructions: Take 1 tablet by mouth twice daily Date of admission: 11/14/24 10:02 Primary Care Provider: Dm Mcmahon Admitting Provider: Be Rand Attending physician on admission: Be Rand Condition: Improved Hospitalist MIPS Heart Failure (Exclusion) Patient has history of Heart Transplant or Left Ventricular Assistive Device?: No IF YES, STOP HERE Heart Failure (Qualifier) Patient has current or prior documentation of LVEF less than or equal to 40%, or mod/servere depressed LVSF?: No IF NO, STOP HERE
[2024-11-20 13:58] VITALS: BP 128/89; PULSE 72; RESP 16; TEMP 36.1; O2SAT 95
[2024-11-20] MEDS: levoFLOXacin 750 MG TABLET PO (14:16)
--- NOTE | 2024-11-20 14:37 | P.PNUR_ITS ---
Progress Note: A&P Assessment and Plan (1) Left ureteral calculus: Code(s): N20.1 - Calculus of ureter Status: Acute Assessment and Plan: Okay for discharge from Urology standpoint. Follow up in 1 week for stent removal. Call for that appointment. Subjective Subjective Date/Time Seen: 11/20/24 14:37 Principal diagnosis: Left ureteral calculus status post extraction and stent placement Interval history: Doing well to present time. Creatinine continues to decrease. Can be discharged home from urology standpoint with follow-up in about 1 week for cysto with stent removal in the office. Review of Systems Review of Systems: All systems reviewed & are unremarkable except as noted in HPI and below Exam Const: General: cooperative and comfortable Resp: Effort & Inspection: normal respiratory effort Cardio: Rate: regular rate Rhythm: regular rhythm Objective Data Vital Signs Vital Signs: Vital Signs - 24 hr 11/19/24 21:09 11/19/24 21:10 11/19/24 21:15 Temperature 36.6 C Pulse Rate 78 83 Respiratory Rate 16 Blood Pressure 119/81 Pulse Oximetry 96 Oxygen Delivery Room Air 11/20/24 05:28 11/20/24 08:49 11/20/24 13:58 Temperature 36.6 C 36.1 C L Pulse Rate 74 76 72 Respiratory Rate 18 16 Blood Pressure 116/93 H 128/89 Pulse Oximetry 100 95 Oxygen Delivery Intake/Output Intake/Output: Intake & Output 11/17/24 11/18/24 11/19/24 11/20/24 23:59 23:59 23:59 23:59 Intake Total 3200 3217.5 2654 2465.8 Output Total 2900 1800 6475 2300 Balance 300 1417.5 -3821 165.8 Meds/Results Medications: Active Medications Generic Name Dose Route Start Last Admin Trade Name Freq PRN Reason Stop Dose Admin Acetaminophen 1,000 mg 11/13/24 16:20 11/20/24 08:53 Acetaminophen 500 Mg Tablet PO 1,000 mg BID PRN Administration pain 1-3 Hydrocodone Bitart/Acetaminophen 2 tab 11/13/24 16:20 11/17/24 03:14 Hydrocodone/Acetaminophen (*Crx) 10-325 Mg Tablet PO 2 tab Q6H PRN Administration pain 4-6 Amlodipine Besylate 5 mg 11/18/24 09:00 11/20/24 08:48 Amlodipine Besylate 5 Mg Tablet PO 5 mg DAILY BERNA Administration Dextrose 12.5 gm 11/13/24 11:55 Dextrose 50% 25 Gm/50 Ml Syringe IV PUSH PRN PRN Hypoglycemia Protocol Duloxetine HCl 60 mg 11/13/24 21:00 11/19/24 21:10 Duloxetine Hcl 60 Mg Capsule.Dr PO 60 mg QHS BERNA Administration Ergocalciferol 50,000 units 11/19/24 15:40 11/19/24 17:10 Ergocalciferol 50,000 Units Capsule PO 50,000 units WEEKLY BERNA Administration Fentanyl Citrate 25 mcg 11/14/24 13:03 Fentanyl Citrate Inj (*Crx) 100 Mcg/2 Ml Vial IV PUSH Q2M PRN Pain Gabapentin 300 mg 11/13/24 17:00 11/20/24 08:48 Gabapentin 300 Mg Capsule PO 300 mg BID BERNA Administration Glucagon 1 mg 11/13/24 11:55 Glucagon For Inj 1 Mg Vial IM PRN PRN Hypoglycemia Protocol Glucose 15 gm 11/13/24 11:55 Glucose Oral Gel 15 Gm Of Glucse In 37.5 Gm Tube PO PRN PRN Hypoglycemia Protocol Dextrose 1,000 mls @ 100 mls/hr 11/13/24 11:55 Dextrose 5% 1,000 Ml IVPB PRN PRN Hypoglycemia Protocol Sodium Chloride 1,000 mls @ 50 mls/hr 11/13/24 13:35 11/20/24 08:53 Normal Saline Iv IV CONT 50 mls/hr .Q20H BERNA Administration Levofloxacin 750 mg 11/19/24 14:00 11/20/24 14:16 Levofloxacin 750 Mg Tablet PO 11/22/24 14:01 750 mg DAILY@1400 BERNA Administration Lisinopril 10 mg 11/14/24 09:00 11/15/24 08:43 Lisinopril 10 Mg Tablet PO 10 mg DAILY BERNA Administration Rimegepant [Nurtec 75 mg 11/14/24 09:00 11/20/24 13:52 Odt] 75 Mg Tablet, PO 12/14/24 08:59 Not Given Disintegrating Q48H BERNA Dissolve 1 Tablet Po Every Other Day Ondansetron HCl 4 mg 11/14/24 13:03 11/17/24 04:55 Ondansetron Inj 4 Mg/2 Ml Vial IV PUSH 4 mg ONCE PRN Administration Nausea Ondansetron HCl 4 mg 11/17/24 07:45 11/17/24 08:15 Ondansetron Inj 4 Mg/2 Ml Vial IV PUSH 4 mg Q6H PRN Administration Nausea And Vomiting Oxycodone HCl 5 mg 11/14/24 13:03 Oxycodone Hcl (*Crx) 5 Mg Tab Ir PO ONCE PRN Pain Pantoprazole Sodium 40 mg 11/13/24 21:00 11/20/24 08:49 Pantoprazole 40 Mg Tablet PO 40 mg Q12HR BERNA Administration Propranolol HCl 80 mg 11/13/24 21:00 11/20/24 08:49 Propranolol Hcl 40 Mg Tablet PO 80 mg Q12HR BERNA Administration Sumatriptan Succinate 25 mg 11/14/24 17:10 11/18/24 05:01 Sumatriptan Succinate 25 Mg Tablet PO 25 mg Q2H PRN Administration migraine Tamsulosin HCl 0.4 mg 11/14/24 09:00 11/20/24 08:49 Tamsulosin Hcl 0.4 Mg Capsule PO 0.4 mg DAILY BERNA Administration Topiramate 100 mg 11/14/24 09:00 11/20/24 08:49 Topiramate 100 Mg Tablet PO 100 mg Q12HR BERNA Administration Radiology Results: ITS Impressions Abdomen/Pelvis CT 11/13/24 12:32 IMPRESSION: 1. No evidence of appendicitis, diverticulitis or intestinal obstruction. 2. stone at the left ureterovesical junction with left hydronephrotic changes. Smaller stones seen in the left distal ureter. Multiple left kidney stones. 3. Hepatomegaly. Abdomen X-Ray 11/13/24 13:27 IMPRESSION: Stone in the left lower ureter measuring 6.5 mm.. Left kidney stones. Renal Scan Nuclear Medicine 11/19/24 13:09 IMPRESSION: 1. Atrophic right kidney which contributes only 28% to total renal function. 2. Increased activity in the left ureter without definitive hydronephrosis kidney which could be due to residual hydroureter or the presence of a recently placed internal ureteral stent post extraction of an impacted ureteral stone. There is no significantly delayed activity clearance from the left kidney to suggest a significant obstruction. Labs Labs: Laboratory Results - last 24 hr 11/20/24 05:51 WBC 9.1 RBC 4.81 Hgb 13.9 L Hct 43.5 MCV 90.4 MCH 28.9 MCHC 32.0 RDW 13.1 Plt Count 281 MPV 9.5 Immature Gran % (Auto) 0.2 Neut % (Auto) 58.3 Lymph % (Auto) 25.9 [place] % (Auto) 9.3 H Eos % (Auto) 5.2 H Baso % (Auto) 1.1 Lymph # (Auto) 2.36 [place] # (Auto) 0.9 H Eos # (Auto) 0.5 H Baso # (Auto) 0.1 Abs Immat Gran (auto) 0.02 Absolute Neuts (auto) 5.3 Absolute Nucleated RBC 0.000 Nucleated RBC % 0.0 Sodium 140 Potassium 5.1 H Chloride 107 Carbon Dioxide 22 Anion Gap 11 BUN 23 H Creatinine 1.79 H Estim Creat Clear Calc 62 Estimated GFR 41 L Glucose 91 Calcium 9.7 Magnesium 1.8 Total Bilirubin 0.6 AST 22 ALT 32 Alkaline Phosphatase 99 Total Protein 8.0 Albumin 4.8
[2024-11-25 16:53] LABS: Metanephrine, Total Urine 405 mcg/24 h (182-739); Metanephrine, Urine 73 mcg/24 h (58-203); Normetanephrine, Urine 332 mcg/24 h (88-649)
== END 2024-11-20 15:00 | disposition home or self-care (01) | DRG 446 ==
LOC: ANHED 14:09 → ANH3MEDSUR 14:25
PROVIDERS: Internal Medicine Nephrology; Student in an Organized Health Care Education/Training Program; Urology; Admitting Provider General Practice; Emergency Provider Physician Assistant; PCP Family Medicine Adolescent Medicine; Visit Provider Nurse Practitioner Family
PROC: 0TC78ZZ Extirpation of Matter from Left Ureter, Via Natural or Artificial Opening Endoscopic (ICD-10-PCS; CPT 52352; principal; 2024-11-14 13:30)
DX: N13.6 Pyonephrosis (principal); N17.9 Acute kidney failure, unspecified; I10 Essential (primary) hypertension; E87.5 Hyperkalemia; E83.42 Hypomagnesemia; E78.5 Hyperlipidemia, unspecified; K21.9 Gastro-esophageal reflux disease without esophagitis; E87.21 Acute metabolic acidosis; M54.2 Cervicalgia; Z90.49 Acquired absence of other specified parts of digestive tract
CPT/HCPCS: 36415; 74018; 74176; 74420; 78707; 80048; 80053; 81001; 82306; 82365; 82550; 82570; 82948; 83735; 83835; 83970; 84100; 84156; 84300; 84540; 84550; 85025; 85610; 85730; 85999; 86850; 86900; 86901; 87040; 87086; 88300; 96361; 96365; 96366; 96375; 99285; A9270; A9562; C1758; C1769; C2617; G0378; G0379; J0360; J0696; J1100; J2003; J2250; J2270; J2405; J2704; J3010; J3475; J7030; J7120; Q9966

== ENCOUNTER 2024-11-30 14:48 | Outpatient (CLI) | payer OTHER, SELFPAY ==
--- OUTSIDE RECORDS SUMMARY | 2024-11-30 14:52 | XMS_ITS | Encounter Summary ---
Author Organization [facility] Address [facility] [place] [address] Care Team Providers Care Military Technology Specialist Name Role Phone Dm Mcmahon MD Primary Care Provider [phone] Encounter Details Date Type Department Care Team (Late st Contact Info) Description 02/21/2018 Abstract [facility] CONVERSION [id number] [place] [address] , Generic ConversionMD Social History Tobacco Use [...] on filedocumented in this encounter Care Teams Military Technology Specialist Relationship Specialty Start Date End Date Dm Mcmahon MD [address] [place] [id number] PCP - General FAMILY PRACTICE 07/10/18 documented as of this encounter
--- OUTSIDE RECORDS SUMMARY | 2024-11-30 14:52 | XMS_ITS | Clinical Summary ---
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 Encounters Date Type Department Care Team Description 11/28/2024 11:20 AM CDT Office Visit [facility] Surgery [address] [place] [address] Ugo Ye MD Nephrolithiasis 11/28/2024 10:00 AM CDT - 11/28/2024 11:59 PM CDT Hospital Encounter [facility] Ultrasound [address] [place] [address] Kidney stone Discharge Disposition: Discharge to home or self care 11/05/2024 Orders Only [facility] Surgery [address] [place] [address] gUo Ye MD Kidney stone on left side (Primary Dx) 11/05/2024 Telephone [facility] Surgery [address] [place] [address] Estela Beaver 10/30/2024 Orders Only [facility] Surgery [address] [place] [address] Ugo Ye MD Nephrolithiasis (Primary Dx) 10/30/2024 Results Follow-Up [facility] Surgery [address] [place] [address] Ugo Ye MD 10/26/2024 Telephone [facility] Surgery [address] [place] [address] Alyx Baker 10/25/2024 Results Follow-Up [facility] Surgeon [address] [place] [address] Ugo Ye MD 10/15/2024 Telephone [facility] Surgery [address] [place] [address] Alyx Baker 10/15/2024 Orders Only [facility] Surgery [address] [place] [address] Dm Mcmahon MD Nephrolithiasis (Primary Dx) 10/15/2024 Telephone [facility] Surgery [facility] [place] [address] Estela Beaver 10/15/2024 Orders Only [facility] Surgery [address] [place] [address] Ugo Ye MD Kidney stone (Primary Dx) 10/15/2024 Orders Only [facility] Physicians [facility] Surgery [address] [place] [address] Ugo Ye MD Kidney stone (Primary Dx) 10/12/2024 12:56 PM CDT Anesthesia Event [facility] OR [address] [place] [address] Marine Cunningham MD Scott, Tracy, MD 10/12/2024 12:27 PM CDT - 10/12/2024 1:57 PM CDT Surgery [facility] OR [address] [place] [address] Ugo Ye MD RIGHT URETEROSCOPY WITH HOLMIUM LASER LITHOTRIPSY, STONE BASKETING, CYSTOSCOPY,BILATERAL RETROGRADE PYELOGRAM,RIGHT STENT PLACEMENT 10/12/2024 11:44 AM CDT - 10/12/2024 5:10 PM CDT Hospital Encounter [facility] OR [address] [place] [address] Ugo Ye MD Nephrolithiasis (Primary Dx) Discharge Disposition: Discharge to home or self care 10/05/2024 Results Follow-Up [facility] Medical Group Neurology Hospitalists [address] [address] Ugo Ye MD 10/03/2024 12:30 PM CDT Lab [facility] [address] [place] [address] Urinary tract infection without hematuria, site unspecified 10/03/2024 Orders Only [facility] Surgery [address] [place] [address] Ugo Ye MD Urinary tract infection without hematuria, site unspecified (Primary Dx) 09/25/2024 9:49 AM ONLINE MARKETING SPECIALIST - 09/25/2024 11:59 PM ONLINE MARKETING SPECIALIST Hospital Encounter [facility] Radiology [facility] ([facility]) [address] [place] [address] Diagnosis unknown Discharge Disposition: Discharge to home or self care 09/14/2024 3:03 PM ONLINE MARKETING SPECIALIST - 09/14/2024 11:59 PM ONLINE MARKETING SPECIALIST Hospital Encounter [facility] Lab [address] [place] [address] Right kidney stone Discharge Disposition: Discharge to home or self care 09/14/2024 1:51 PM ONLINE MARKETING SPECIALIST - 09/14/2024 11:59 PM ONLINE MARKETING SPECIALIST Hospital Encounter [facility] MOB 1 DIAG IMG [address] [place] [address] Right kidney stone Discharge Disposition: Discharge to home or self care 09/14/2024 1:00 PM ONLINE MARKETING SPECIALIST Office Visit [facility] Surgery [address] [place] [address] Edgardo Hernandez NP Right kidney stone (Primary [...] on file Legal Sex Male 3:19 AM ONLINE MARKETING SPECIALIST Gender Identity Not on file Sexual Orientation [...] CDT Inhaled Oxygen Concentration - - Weight 123.4 kg (272 lb) 11/28/2024 10:30 AM CDT Height 177.8 cm (5' 10 ) 11/28/2024 10:30 AM CDT Body Mass Index 39.03 11/28/2024 10:30 AM CDT Plan of Treatment Health Maintenance Due Date Last Done Comments Colon Cancer Screening-Colonoscopy 1977 Depression Screening 1977 Hepatitis C Screening 1977 Hepatitis B Screening 11/27/1995 Regular Well Visit/Exam 18-64 11/27/1995 DTaP/Tdap/Td Vaccine (2 - Td or Tdap) 04/03/2034 04/03/2024 Covid-19 Vaccine Completed 04/03/2024, 12/2020, 12/03/2020, Additional history exists Influenza Vaccine Completed 04/03/2024, , 03/28/2020, Additional history exists Pneumococcal vaccine <65 Aged Out No longer eligible based on patient's age to complete this topic Medical Devices Implanted Type Area Contact Finger Assembler Device Identifier Shelf Expiration Date Model / Serial / Lot Sta-Peg Bilateral Ankle Bilateral: Ankle [employer] Stent Ureteral Set Double Pigtail Radiopaque Tip Univers[employer] [id number] Polyurethane Hydrophilic Coated [id number] - [id number] Implanted:Qty: 1 on 10/12/2024 by Ugo Ye MD at [facility] Right: Ureter [employer] [id number] 05/25/2027 [id number] / / [id number] Procedures Procedure Name Priority Date/Time Associated Diagnosis Comments LITHOLINK 24HR URINE PANEL Routine 10/24/2024 6:51 AM CDT Kidney stone FL RETRO PYELO (IN OR) IP Routine 10/12/2024 2:03 PM CDT STONE ANALYSIS Routine 10/12/2024 1:39 PM CDT WA AN PROCEDURE PLACEHOLDER Routine 10/12/2024 1:07 PM CDT WA AN ELECTIVE SUPRAGLOTTIC AIRWAY Routine 10/12/2024 1:07 PM CDT URETEROSCOPY STONE MANIPULATION WITH ABLATION LASER 10/12/2024 12:56 PM CDT Kidney stone URINE CULTURE Routine 10/03/2024 1:48 PM CDT Urinary tract infection without hematuria, site unspecified CT BODY OUTSIDE CONSULT Routine 09/25/2024 9:49 AM ONLINE MARKETING SPECIALIST Diagnosis unknown XR KUB Schedule Routine, Read Routine (OP Routine) 09/14/2024 1:59 PM ONLINE MARKETING SPECIALIST Right kidney stone POCT URINALYSIS DIPSTICK Routine 09/14/2024 1:09 PM ONLINE MARKETING SPECIALIST Right kidney stone URINALYSIS, MICROSCOPIC ONLY Routine 09/14/2024 1:09 PM ONLINE MARKETING SPECIALIST Right kidney stone URINALYSIS AND REFLEX TO MICROSCOPIC AND CULTURE Routine 09/14/2024 1:09 PM ONLINE MARKETING SPECIALIST Right kidney stone from Last 3 Months [...] 3:07 AM CDT Performed at: - [facility] [address] [id number] Electronics Tech: Jose Fontana PhD, Phone: [phone] us Yousef Ralf Ye MD LAB URINE ORDERABLES Final Result [facility] - 01 * FL Retro Pyelo (In Or) (10/12/2024 2:03 PM CDT) Narrative SAGE_FRANTZB_MHE - 10/12/2024 2:04 PM CDT The images from this study are not interpreted by Radiology. Please refer to the physician's procedure / OR operative note. Ugo Ye MD IMG FLUOROSCOPY PROC EDURES Final Result Performing Organization Address [facility] de Phone Number [email or web address] * Stone analysis (10/12/2024 1:39 PM CDT) Pathologist [facility] Stone analysis Not Reported [facility] Lab Source, Kid Stone Right Kidney CON LANDRY Interp, Kid stone analysis See Footnote CON [...] developed and its performance characteristics determined by [facility] in a manner consistent with CLIA requirements. This test has not been cleared or approved by the U.S. Food and Drug Administration. Test Performed by: [facility] - [address] [address] Electronics Tech: Joe Sky Ph.D.; CLIA# [id number] Stone (Urine, Clean Catch) 10/12/2024 1:39 PM CDT 10/12/2024 1:59 PM CDT Narrative CON LANDRY - 10/25/2024 12:09 PM CDT Right Kidney Stone for chemical analysis Ugo Ye MD LAB URINE ORDERABLES Final Result Performing Organization Address [facility] Co de Phone Number CON LANDRY [address] [facility] Department [place] [address] [place] ref Lab * WA AN ELECTIVE SUPRAGLOTTIC AIRWAY, WA AN PROCEDURE PLACEHOLDER (10/12/2024 1:07 PM CDT) Narrative Jas Vieira CRNA - 10/12/2024 1:07 PM CDT Jas Vieira CRNA 10/12/2024 2:01 PM Airway Patient location: OR Urgency: elective Indications for airway management: anesthesia Difficult airway: no Staff: Placed by: AUTOMOTIVE ENGINEERING TEACHER: Jas Vieira CRNA Emergent airway documentation: Risks [...] current clinical standards) Comment:Testing performed by : [facility], [address] [place]., [address] Organism (CLINICALLY INSIGNIFICANT GROWTH CON Urine, clean voided 10/03/2024 1:48 PM CDT 10/03/2024 8:08 PM CDT Joanne LANDRY - 10/05/2024 3:08 AM CDT Testing performed by [facility] Microbiology Laboratory ([phone]) us Ugo Ye MD LAB MICROBIOLOGY - G ENERAL ORDERABLES Final Result CON [address] [facility] Department [place] [address] * CT Body Outside Consult (09/25/2024 9:49 AM ONLINE MARKETING SPECIALIST) Anatomical Region Laterality Modality Body N/A Computed Tomogra phy 09/25/2024 10:0 3 AM ONLINE MARKETING SPECIALIST Impressions 09/25/2024 10:03 AM ONLINE MARKETING SPECIALIST 1. A 6 mm obstructive calculus in [...] images may or may not represent the [place] source data set and thus may contain changes that may lower the accuracy of this second-opinion interpretation. Electronically signed by: Dana Dasilva M.D. Narrative 09/25/2024 10:03 AM ONLINE MARKETING SPECIALIST EXAMINATION: RADIOLOGY CONSULTATION ON OUTSIDE IMAGING STUDY [...] images may or may not represent the [place] source data set and thus may contain changes that may lower the accuracy of this second-opinion interpretation. Electronically signed by: Dana Dasilva M.D. us Edgardo Hernandez METAL PLATER IMG CT PROCEDURES Final Resul t * XR KUB (09/14/2024 1:59 PM ONLINE MARKETING SPECIALIST) Anatomical Region Laterality Modality Body, Abdomen N/A Computed Radiogr aphy 09/19/2024 2:39 PM ONLINE MARKETING SPECIALIST Narrative 09/19/2024 2:41 PM ONLINE MARKETING SPECIALIST EXAM DESCRIPTION: XR KUB REASON FOR STUDY: [...] Kilo Cervantes D.O. AP: AP Report ID: [id number] Reading Location: [id number] Procedure Note Kilo Cervantes, DO - 09/19/2024 [...] Kilo Cervantes D.O. AP: AP Report ID: [id number] Reading Location: [place] [address] us Edgardo Hernandez METAL PLATER IMG XR PROCEDURES Final Resul t * (ABNORMAL) Urinalysis reflex to microscopic and culture Urine (09/14/2024 1:09 PM ONLINE MARKETING SPECIALIST) Color, ur Yellow Yellow Comment:Testing performed by : [address] [address] Clarity, ur Clear Clear CON Comment:Testing performed by : [address] [address] Specific gravity, ur 1.018 1.003 - 1.030 CON Comment:Testing performed by : [address] [address] pH, urine 6.0 CON Comment: Interpretive Data U rine pH is affected by diet, medications, systemic acid-base disturbances, and renal tubular function. pH may affect urinary stone formation. For example, urine pH below 6.0 may help reduce the tendency for calcium phosphate stones and pH greater than 6.0 may reduce the tendency for uric acid stone formation. Source: [facility] [employer] Current Interpretive Data was last revised on 2017 Testing performed by: [facility], [address] [place] [address]., [address] Protein, ur ql Negative Negative CON Comment:Testing performed by : [address] [address] Glucose, ur ql Negative Negative CON Comment:Testing performed by : [address], [place]., [address] Ketones, ur Negative Negative CON Comment:Testing performed by : [address], [place]., [address] Bilirubin, ur Negative Negative CON Comment:Testing performed by : [address], [place]., [address] Blood, ur 2+(A) Negative CON Comment:Testing performed by : [address] [address] Urobilinogen, ur 2.0(A) <2.0 mg/dL CON Comment:Testing performed by : [address] [address] Nitrite, ur Negative Negative CON Comment:Testing performed by : [address] [address] Leukocyte esterase, ur Negative Negative CON Comment:Testing performed by : [address] [address] UA reflex comment Reflex to microscopic UA will be performed. CON Comment:Testing performed by : [address] [address] Urine 09/14/2024 1:09 PM ONLINE MARKETING SPECIALIST 09/14/2024 5:02 PM ONLINE MARKETING SPECIALIST us Edgardo Hernandez NP LAB MICROBIOLOGY - GENERAL OR DERABLES Final Result CON LANDRY [address] [facility] Department [place] [address] * (ABNORMAL) Urinalysis, microscopic only (09/14/2024 1:09 PM ONLINE MARKETING SPECIALIST) Pathologist [facility] WBC, ur 0-5 0 - 5 /HPF Comment:Testing performed by : [address] [address] RBC, ur >50(A) 0 - 2 /HPF CON Comment:Testing performed by : [address] [address] Epithelial cells, squamous, ur 11-20(A) 0 - 5 /HPF CON Comment:Testing performed by : [address] [address] Mucous, ur Present(A) CON Comment:Testing performed by : [address] [address] Culture Reflex Comment Reflex conditions for urine culture (WBC >10) not met. CON Comment:Testing performed by : [address] [address] Urine 09/14/2024 1:09 PM ONLINE MARKETING SPECIALIST 09/14/2024 5:02 PM ONLINE MARKETING SPECIALIST us Edgardo Hernandez METAL PLATER LAB URINE ORDERABLES Final Re sult CON [address] [facility] [place] [address] * (ABNORMAL) POCT urinalysis dipstick (09/14/2024 1:09 PM ONLINE MARKETING SPECIALIST) Pathologist [facility] Color, Urine, POC Yellow Clarity, ur, POC Clear Clear Glucose, ur, POC Negative Negative MG/DL Bilirubin, ur, POC 1+(A) Negative, Small, Moderate, Large Ketones, ur, POC Negative Negative Specific [place], POC 1.020 1.003 - 1.030 Blood, ur, POC 3+(A) Negative pH, ur, POC 6.0 5.0 - 8.0 Protein, ur, POC Negative Negative Urobilinogen, urine, POC 0.2 0.2 - 1.0 mg/dL Nitrite, ur, POC Negative Negative Leukocytes, ur, POC Negative Negative Lot Number 0 Urine 09/14/2024 1:09 PM ONLINE MARKETING SPECIALIST Edgardo Hernandez METAL PLATER POINT OF CARE TEST ORDERABLES Final Result from Last 3 Months Insurance [facility] Care Teams Healthcare Educator Relationship Specialty Start Date End Date Dm Mcmahon MD [address] [place] [address] PCP - General Family Medicine 10/08/24
--- OUTSIDE RECORDS SUMMARY | 2024-11-30 14:52 | XMS_ITS | Continuity of Care Document ---
Author Organization [facility] Address [address] [place] [address] [facility] [address] [place] [address] Phone Care Team Providers Care Strategic Account Manager Name Role Phone Daniel Avilez Unavailable Unavailable Procedures Procedure Date Eye Exam, New Patient Advance Directives Directive Yes / No Effective Date File Name No Information Encounters Encounter Description Practice Location Reason(s) For Visit Diagnoses Date Provider Providers Copied on Encounter [facility], [address], [place], [place], [id number], [place] tel:[phone] [facility] No Information 4-200 9 Fatmata Daniel. [address] [facility] [address], [place], [address], [place]. tel:[phone] Family History Family Member Type Diagnosis Age [...]
--- OUTSIDE RECORDS SUMMARY | 2024-11-30 14:52 | XMS_ITS | Encounter Summary ---
Author Organization [facility] Healthcare Address [address] [place] [address] Care Team Providers Care Psychiatric Clinical Nurse Specialist Name Role Phone No, Physician Primary Care Provider [phone] Dm Mcmahon MD Primary Care Prov ider Encounter Details Date Type Department Care Team (Late st Contact Info) Description 10/05/2024 Results Follow-Up [facility] Medical Group Neurology Hospitalists [facility] [address] [place] [address] Ugo Ye MD [address] [facility] [place] [address] Social History Tobacco Use Types Packs/Day Years [...] on file Legal Sex 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 Never 10/08/2024 9:49 AM Chrissy Murillo RN Q2: How many drinks containi ng alcohol do you have on a typical day when you are drinking? 1 or 2 10/08/2024 9:49 AM Do prisca Murillo RN Q3: How often do you have si x or more drinks on one occasion? Never 10/08/2024 9:49 AM Chrissy Murillo RN documented as of this encounter Plan of Treatment Not on file documented as of this encounter Visit Diagnoses Not on filedocumented in this encounter Care Teams Psychiatric Clinical Nurse Specialist Relationship Specialty Start Date End Date No, Physician PCP - General 09/11/24 10/07/24 Dm Mcmahon MD [address] [place] [address] PCP - General Family Medicine 10/08/24 documented as of this encounter
--- OUTSIDE RECORDS SUMMARY | 2024-11-30 14:52 | XMS_ITS | Encounter Summary ---
Author Organization [facility] Address [address] [facility] [address] [place] [address] Phone Care Team Providers Care Teacher Of The Hearing Impaired Name Role Phone Dm Mcmahon MD Primary Care Prov ider Encounter Details Date Type Department Care Team (Late st Contact Info) Description 10/30/2024 Results Follow-Up [facility] Surgery [address] [facility] [address] [place] [address] Ugo Ye MD [address] [facility] [place] [address] Social History Tobacco Use Types Packs/Day Years [...] on file 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
--- OUTSIDE RECORDS SUMMARY | 2024-11-30 14:52 | XMS_ITS | Clinical Summary ---
Author Organization [facility] Address [address] [place] [address] Care Team Providers Care Grievance Manager Name Role Phone Dm Mcmahon MD Primary Care Provider [phone] Allergies Active Allergy Reactions Criticality Noted Date [...] Comments Blood Pressure 150/95 06/29/2023 5:45 PM CYBER SECURITY SYSTEMS ENGINEER Pulse 60 06/29/2023 5:45 PM CYBER SECURITY SYSTEMS ENGINEER Temperature 36 C (96.8 F) 06/29/2023 3:15 PM CYBER SECURITY SYSTEMS ENGINEER Respiratory Rate 18 06/29/2023 3:15 PM CYBER SECURITY SYSTEMS ENGINEER Oxygen Saturation 92% 06/29/2023 5:45 PM CYBER SECURITY SYSTEMS ENGINEER Inhaled Oxygen Concentration - - Weight 115.7 kg (255 lb) 06/29/2023 3:15 PM CYBER SECURITY SYSTEMS ENGINEER Height 177.8 cm (5' 10 ) 06/29/2023 3:15 PM CYBER SECURITY SYSTEMS ENGINEER Body Mass Index 36.59 06/29/2023 3:15 PM CYBER SECURITY SYSTEMS ENGINEER Plan of Treatment Health Maintenance Due Date [...] patient's age to complete this topic Insurance [facility] [id number] Care Teams Grievance Manager Relationship Specialty Start Date End Date Dm Mcmahon MD [address] [address] PCP - General FAMILY PRACTICE 07/10/18
--- OUTSIDE RECORDS SUMMARY | 2024-11-30 14:52 | XMS_ITS | Encounter Summary ---
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
--- OUTSIDE RECORDS SUMMARY | 2024-11-30 14:52 | XMS_ITS | Referral Summary ---
Author Organization [facility] [address] Address [address] [place] [address] Care Team Providers Care Telecine Operator Name Role Phone Dm Mcmahon MD Primary Care Prov ider Encounters Date Type Department Care Team Description 11/28/2024 10:00 AM CDT - 11/28/2024 11:59 PM CDT Hospital Encounter [facility] Ultrasound [address] [place] [address] Kidney stone Discharge Disposition: Discharge to home or self care 11/28/2024 11:20 AM CDT Office Visit [facility] Surgery [address] [place] [address] [address] [place] [address] Ugo Ye MD Nephrolithiasis 11/05/2024 Orders Only [facility] Surgery [address] [place] [address] [address] [place] [address] Ugo Ye MD Kidney stone on left side (Primary Dx) 11/05/2024 Telephone [facility] Surgery [address] [place] [address] Estela Beaver 10/30/2024 Orders Only [facility] Surgery [address] [place] [address] Ugo Ye MD Nephrolithiasis (Primary Dx) 10/30/2024 Results Follow-Up [facility] Surgery [address] [place] [address] Ugo Ye MD 10/26/2024 Telephone [facility] Surgery [address] [place] [address] Alyx Baker 10/25/2024 Results Follow-Up [facility] Surgeon [address] [place] [address] Ugo Ye MD 10/15/2024 Telephone [facility] Surgery [address] [facility] [address] [place] [address] Alyx Baker 10/15/2024 Orders Only [facility] Surgery [address] [facility] [address] [place] [address] Dm Mcmahon MD Nephrolithiasis (Primary Dx) 10/15/2024 Telephone [facility] Surgery [address] [place] [address] Estela Beaver 10/15/2024 Orders Only [facility] Surgery [address] [facility] [address] [place] [address] Ugo Ye MD Kidney stone (Primary Dx) 10/15/2024 Orders Only [facility] Surgery [address] [place] [address] Ugo Ye MD Kidney stone (Primary Dx) 10/12/2024 12:27 PM CDT - 10/12/2024 1:57 PM CDT Surgery [facility] OR [address] [place] [address] Ugo Ye MD RIGHT URETEROSCOPY WITH HOLMIUM LASER LITHOTRIPSY, STONE BASKETING, CYSTOSCOPY,BILATERAL RETROGRADE PYELOGRAM,RIGHT STENT PLACEMENT 10/12/2024 12:56 PM CDT Anesthesia Event [facility] OR [address] [place] [address] Marine Cunningham MD Scott, Tracy, MD 10/12/2024 11:44 AM CDT - 10/12/2024 5:10 PM CDT Hospital Encounter [facility] OR [address] [place] [address] Ugo Ye MD Nephrolithiasis (Primary Dx) Discharge Disposition: Discharge to home or self care 10/05/2024 Results Follow-Up [facility] [address] [address] Ugo Ye MD 10/03/2024 12:30 PM CDT Lab [facility] Building [address] [place] [address] Urinary tract infection without hematuria, site unspecified 10/03/2024 Orders Only [facility] Surgery [address] [facility] [address] [place] [address] Ugo Ye MD Urinary tract infection without hematuria, site unspecified (Primary Dx) 09/25/2024 9:49 AM CHROMIUM PLATER - 09/25/2024 11:59 PM CHROMIUM PLATER Hospital Encounter [facility]) [address] [place] [address] Diagnosis unknown Discharge Disposition: Discharge to home or self care 09/14/2024 3:03 PM CHROMIUM PLATER - 09/14/2024 11:59 PM CHROMIUM PLATER Hospital Encounter [facility] Lab [address] [place] [address] Right kidney stone Discharge Disposition: Discharge to home or self care 09/14/2024 1:51 PM CHROMIUM PLATER - 09/14/2024 11:59 PM CHROMIUM PLATER Hospital Encounter [facility] MOB 1 DIAG IMG [address] [place] [address] Right kidney stone Discharge Disposition: Discharge to home or self care 09/14/2024 1:00 PM CHROMIUM PLATER Office Visit [facility] Surgery [address] [facility] [address] [place] [phone] Edgardo Hernandez, LEASING SALES CONSULTANT Right kidney stone (Primary Dx) from Last 3 Months Allergies Active Allergy Reactions Criticality Noted Date Comments Pollen Extracts Other (See comments) Reaction: OTHER REACTION, Miconazole Hjnqsas-Krjeyc-Lvax Rash Medium 10/08/2024 Venom-Wasp Swelling Medium 10/08/2024 [...] on file Legal Sex Male 3:19 AM CHROMIUM PLATER Gender Identity Not on file Sexual Orientation [...] 11/28/2024 10:30 AM CDT Plan of Treatment Not on file Medical Devices Implanted Type Area [employer]iconductor Dies Loader Device Identifier Shelf Expiration Date Model / Serial / Lot Sta-Peg Bilateral Ankle Bilateral: Ankle [employer] Stent Ureteral Set Double Pigtail Radiopaque Tip [employer] [id number] Polyurethane Hydrophilic Coated [id number] - [id number] Implanted:Qty: 1 on 10/12/2024 by Ugo Ye MD at [facility] Right: Ureter [employer] [id number] 05/25/2027 [id number] / / [id number] Procedures Procedure Name Priority Date/Time Associated Diagnosis Comments LITHOLINK 24HR URINE PANEL Routine 10/24/2024 6:51 AM CDT Kidney stone FL RETRO PYELO (IN OR) IP Routine 10/12/2024 2:03 PM CDT STONE ANALYSIS Routine 10/12/2024 1:39 PM CDT VT AN PROCEDURE PLACEHOLDER Routine 10/12/2024 1:07 PM CDT VT AN ELECTIVE SUPRAGLOTTIC AIRWAY Routine 10/12/2024 1:07 PM CDT URETEROSCOPY STONE MANIPULATION WITH ABLATION LASER 10/12/2024 12:56 PM CDT Kidney stone URINE CULTURE Routine 10/03/2024 1:48 PM CDT Urinary tract infection without hematuria, site unspecified CT BODY OUTSIDE CONSULT Routine 09/25/2024 9:49 AM CHROMIUM PLATER Diagnosis unknown XR KUB Schedule Routine, Read Routine (OP Routine) 09/14/2024 1:59 PM CHROMIUM PLATER Right kidney stone POCT URINALYSIS DIPSTICK Routine 09/14/2024 1:09 PM CHROMIUM PLATER Right kidney stone URINALYSIS, MICROSCOPIC ONLY Routine 09/14/2024 1:09 PM CHROMIUM PLATER Right kidney stone URINALYSIS AND REFLEX TO MICROSCOPIC AND CULTURE Routine 09/14/2024 1:09 PM CHROMIUM PLATER Right kidney stone from Last 3 Months [...] - 10/30/2024 3:07 AM CDT Performed at: [address] [id number] Marker Shipments: Jose Fontana PhD, Phone: [phone] us Yousef Ralf Ye MD LAB URINE ORDERABLES Final Result [facility] * FL Retro Pyelo (In Or) (10/12/2024 2:03 PM CDT) Narrative [id number] - 10/12/2024 2:04 PM CDT The images from this study are not interpreted by Radiology. Please refer to the physician's procedure / OR operative note. us Ugo Ye MD IMG FLUOROSCOPY PROC EDURES Final Result Performing Organization Address [facility] Co de Phone Number [email or web address] * Stone analysis (10/12/2024 1:39 PM CDT) Pathologist [facility] Stone analysis Not Reported [facility] Source, Kid Stone Right Kidney CON [...] its performance characteristics determined by [facility] in a manner consistent with CLIA requirements. This test has not been cleared or approved by the U.S. Food and Drug Administration. Test Performed by: [facility] - [facility] [address] [place] [address] Marker Shipments: Joe Sky Ph.D.; CLIA# [id number] Stone (Urine, Clean Catch) 10/12/2024 1:39 PM CDT 10/12/2024 1:59 PM CDT Narrative CON - 10/25/2024 12:09 PM CDT Right Kidney Stone for chemical analysis Ugo Ye MD LAB URINE ORDERABLES Final Result CON [address] [place] [address] Department [place] [address] [facility] * VT AN ELECTIVE SUPRAGLOTTIC AIRWAY, VT AN PROCEDURE PLACEHOLDER (10/12/2024 1:07 PM CDT) Narrative Jas Vieira CRNA - 10/12/2024 1:07 PM CDT Jas Vieira CRNA 10/12/2024 2:01 PM Airway Patient location: OR Urgency: elective Indications for airway management: anesthesia Difficult airway: no Staff: Placed by: BAKER HEAD: Jas Vieira CRNA Emergent airway documentation: Risks [...] current clinical standards) Comment:Testing performed by : [facility], [address] [facility], [place]., [address] Organism (CLINICALLY INSIGNIFICANT GROWTH CON LANDRY Urine, clean voided 10/03/2024 1:48 PM CDT 10/03/2024 8:08 PM CDT Narrative CON FRANTZ - 10/05/2024 3:08 AM CDT Testing performed by [facility] Microbiology Laboratory ([phone]) us Yousef Ralf Ye MD LAB MICROBIOLOGY - G ENERAL ORDERABLES Final Result CON [address] [facility] Department [place] [address] * CT Body Outside Consult (09/25/2024 9:49 AM CHROMIUM PLATER) Anatomical Region Laterality Modality Body N/A Computed Tomogra phy 09/25/2024 10:0 3 AM CHROMIUM PLATER Impressions 09/25/2024 10:03 AM CHROMIUM PLATER 1. A 6 mm obstructive calculus in [...] images may or may not represent the [place] source data set and thus may contain changes that may lower the accuracy of this second-opinion interpretation. Electronically signed by: Dana Dasilva M.D. Narrative 09/25/2024 10:03 AM CHROMIUM PLATER EXAMINATION: RADIOLOGY CONSULTATION ON OUTSIDE IMAGING STUDY STUDY INITIALLY PERFORMED: 09/05/2024 at [facility]. TYPE OF STUDY: Multiple CT [...] IMAGING STUDY STUDY INITIALLY PERFORMED: 09/05/2024 at [facility]. TYPE OF STUDY: Multiple CT [...] images may or may not represent the [place] source data set and thus may contain changes that may lower the accuracy of this second-opinion interpretation. Electronically signed by: Dana Dasilva M.D. us Edgardo Hernandez NP IMG CT PROCEDURES Final Resul t * XR KUB (09/14/2024 1:59 PM CHROMIUM PLATER) Anatomical Region Laterality Modality Body, Abdomen N/A Computed Radiogr aphy 09/19/2024 2:39 PM CHROMIUM PLATER Narrative 09/19/2024 2:41 PM CHROMIUM PLATER EXAM DESCRIPTION: XR KUB REASON FOR STUDY: [...] Kilo Cervantes D.O. AP: AP Report ID: [id number] Reading Location: [id number] Procedure Note CervantesAyo yenpit, DO - 09/19/2024 EXAM DESCRIPTION: XR KUB [...] Kilo Cervantes D.O. AP: AP Report ID: [id number] Reading Location: [id number] us Edgardo Hernandez LEASING SALES CONSULTANT IMG XR PROCEDURES Final Resul t * (ABNORMAL) Urinalysis reflex to microscopic and culture Urine (09/14/2024 1:09 PM CHROMIUM PLATER) Color, ur Yellow Yellow Comment:Testing performed by : [address] [address] Clarity, ur Clear Clear CON Comment:Testing performed by : [address] [address] Specific gravity, ur 1.018 1.003 - 1.030 CON Comment:Testing performed by : [address] [address] pH, urine 6.0 CON Comment: Interpretive Data U rine pH is affected by diet, medications, systemic acid-base disturbances, and renal tubular function. pH may affect urinary stone formation. For example, urine pH below 6.0 may help reduce the tendency for calcium phosphate stones and pH greater than 6.0 may reduce the tendency for uric acid stone formation. Source: [facility] Preggers Current Interpretive Data was last revised on 2017 Testing performed by: [address] [address] Protein, ur ql Negative Negative CON Comment:Testing performed by : [address] [address] Glucose, ur ql Negative Negative CNO Comment:Testing performed by : [address] [address] Ketones, ur Negative Negative CON Comment:Testing performed by : [address] [address] Bilirubin, ur Negative Negative CON Comment:Testing performed by : [address] [address] Blood, ur 2+(A) Negative CON Comment:Testing performed by : [address] [address] Urobilinogen, ur 2.0(A) <2.0 mg/dL CON Comment:Testing performed by : [address] [place]., [address] Nitrite, ur Negative Negative CON Comment:Testing performed by : [address] [address] Leukocyte esterase, ur Negative Negative CON Comment:Testing performed by : [address] [address] UA reflex comment Reflex to microscopic UA will be performed. CON Comment:Testing performed by : [address] [address] Urine 09/14/2024 1:09 PM CHROMIUM PLATER 09/14/2024 5:02 PM CHROMIUM PLATER Edgardo Hernandez NP LAB MICROBIOLOGY - GENERAL OR DERABLES Final Result CON LANDRY [facility] Department [place] [address] * (ABNORMAL) Urinalysis, microscopic only (09/14/2024 1:09 PM CHROMIUM PLATER) WBC, ur 0-5 0 - 5 /HPF Comment:Testing performed by : [address] [address] RBC, ur >50(A) 0 - 2 /HPF CON Comment:Testing performed by : [address] [address] Epithelial cells, squamous, ur 11-20(A) 0 - 5 /HPF CON Comment:Testing performed by : [address] [address] Mucous, ur Present(A) CON Comment:Testing performed by : [address] [address] Culture Reflex Comment Reflex conditions for urine culture (WBC >10) not met. CON Comment:Testing performed by : [address] [address] Urine 09/14/2024 1:09 PM CHROMIUM PLATER 09/14/2024 5:02 PM CHROMIUM PLATER us Edgardo Hernandez LEASING SALES CONSULTANT LAB URINE ORDERABLES Final Re sult CON [address] [facility] Department [place] [address] * (ABNORMAL) POCT urinalysis dipstick (09/14/2024 1:09 PM CHROMIUM PLATER) Color, Urine, POC Yellow Clarity, ur, POC Clear Clear Glucose, ur, POC Negative Negative MG/DL Bilirubin, ur, POC 1+(A) Negative, Small, Moderate, Large Ketones, ur, POC Negative Negative Specific [place], POC 1.020 1.003 - 1.030 Blood, ur, POC 3+(A) Negative pH, ur, POC 6.0 5.0 - 8.0 Protein, ur, POC Negative Negative Urobilinogen, urine, POC 0.2 0.2 - 1.0 mg/dL Nitrite, ur, POC Negative Negative Leukocytes, ur, POC Negative Negative Lot Number 0 Urine 09/14/2024 1:09 PM CHROMIUM PLATER Edgardo Hernandez LEASING SALES CONSULTANT POINT OF CARE TEST ORDERABLES Final Result from Last 3 Months Insurance [facility] Care Teams Telecine Operator Relationship Specialty Start Date End Date Dm Mcmahon MD [address] [place] [address] PCP - General Family Medicine 10/08/24
--- OUTSIDE RECORDS SUMMARY | 2024-11-30 14:52 | XMS_ITS | Encounter Summary ---
Author Organization [facility] Healthcare Address [address] [place] [address] Care Team Providers Care Router Setter Name Role Phone Dm Mcmahon MD Primary Care Prov ider Reason for Referral * Diagnostic Imaging (Routine) - Closed Specialty Diagnoses / Procedures Referred By Anisa rutherford Referred To Contact Diagnoses Kidney stone Procedures US Kidney Complete Ugo Ye MD [address] [facility] [place] [address] Phone: tel: fax: [facility] (All Locations) Referral ID Status Reason Start Date Expiration Date Visits Re quested Visits Authorized [id number] Closed 10/15/2024 11/14/2025 1 1 Reason for Visit * Diagnostic Imaging (Routine) - Closed Specialty Diagnoses / Procedures Referred By Anisa rutherford Referred To Contact Diagnoses Kidney stone Procedures US Kidney Complete Ugo Ye MD [address] [facility] [place] [address] Phone: tel: fax: 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 Gender Identity Not on file Sexual Orientation Not on file documented as of this encounter Medications at Time of Discharge acetaminophen (TYLENOL) 500 mg tabletIndication s:Pain Take 2 tablets (1,000 mg total) by mouth daily before breakfast And prn clotrimazole 1 % cream Apply 1 Application topically 2 (two) times a day To feet DULoxetine DR (CYMBALTA) 60 mg capsule Take 1 capsule (60 mg total) by mouth every evening flaxseed oiL 1,000 mg capsule Take 1 capsule (1,000 mg total) by mouth 2 (two) times a day fluoride, sodium, 1.1 % paste Apply 1 inch to teeth daily gabapentin (NEURONTIN) 300 mg capsuleIndicatio ns:Neuropathic Pain Take 1 capsule (300 mg total) by mouth 2 (two) times a day HYDROcodone-acet aminophen (NORCO) 5-325 mg per tabletIndication s:Pain Take 1 tablet by mouth every 8 (eight) hours as needed for pain 10 tablet 10/12/2024 lisinopriL (PRINIVIL,ZESTRI L) 10 mg tabletIndication s:hypertension Take 1 tablet (10 mg total) by mouth daily omeprazole (PriLOSEC) 40 mg capsule Take 1 capsule (40 mg total) by mouth 2 (two) times a day propranoloL (INDERAL) 80 mg tabletIndication s:Migraine Prevention Take 1 tablet (80 mg total) by mouth 2 (two) times a day rimegepant sulfate (NURTEC ODT ORAL) Take 75 mg by mouth every other day sulindac (CLINORIL) 200 mg tabletIndication s:cartilage problems Take 1 tablet (200 mg total) by mouth 2 (two) times a day Pt instructed to stop starting now SUMAtriptan (IMITREX) 100 mg tabletIndication s:Migraine Take 1 tablet (100 mg total) by mouth once as needed for migraine tamsulosin (FLOMAX) 0.4 mg extended release capsule Take 1 capsule (0.4 mg total) by mouth daily 90 capsule 09/14/2024 topiramate (TOPAMAX) 100 mg tablet Take 1 tablet (100 mg total) by mouth 2 (two) times a day documented as of this encounter Discharge Disposition Disposition Code Departure Means Destination Discharge to home or self care documented in this encounter Plan of Treatment Pending Results Name Type Priority Associated Diagnoses Date /Time US Kidney Complete Imaging Schedule Rout ine, Read Routine (OP Routine) Kidney stone 11/28/2024 10:18 AM CDT Scheduled Orders Name Type Priority Associated Diagnoses Orde r Schedule US Kidney Complete Imaging Schedule Rout ine, Read Routine (OP Routine) Kidney stone Once for 1 Occurrences starting 11/28/2024 until 11/28/2024 documented as of this encounter Visit Diagnoses Diagnosis Kidney stone Calculus of kidney documented in this encounter Care Teams Router Setter Relationship Specialty Start Date End Date Dm Mcmahon MD [address] [place] [address] PCP - General Family Medicine 10/08/24 documented as of this encounter
[2024-11-30 15:12] LABS: Basophils Absolute Auto 0.1 K/mm3 (0.0-0.1); Basophils Percent Auto 1.1 % (0.2-1.2); Eosinophils Absolute Auto 0.4 K/mm3 (0-0.3); Eosinophils Percent Auto 5.5 % (0-4.4); Hematocrit 39.7 % (42.0-52.0); Hemoglobin 12.9 g/dL (14.0-18.0); Immature Granulocyte Absolute 0.05 K/mm3 (0.00-0.031); Immature Granulocyte Percent A 0.6 % (0-0.5); Lymphocytes Absolute Auto 2.32 K/mm3 (0.9-3.2); Lymphocytes Percent Auto 29.1 % (18.3-44.2); Mean Corpuscular HGB Conc 32.5 g/dl (32-36); Mean Corpuscular Hemoglobin 29.1 pg (26-34); Mean Corpuscular Volume 89.6 fl (80-100); Mean Platelet Volume 9.8 fl (7.4-10.4); Monocytes Absolute Auto 0.7 K/mm3 (0.1-0.6); Monocytes Percent Auto 8.2 % (2.6-8.5); Neutrophils Absolute Auto 4.4 K/mm3 (1.3-6.7); Neutrophils Percent Auto 55.5 % (45.5-73.1); Platelet Count Result 204 k/mm3 (150-375); Red Blood Count 4.43 M/mm3 (4.6-6.20); Red Cell Distribution Width 13.1 % (11.5-14.5)
[2024-11-30 15:20] LABS: Alanine Aminotransferase 33 U/L (6-50); Albumin Level 4.6 g/dL (3.5-5.1); Alkaline Phosphatase 113 U/L (38-126); Anion Gap 8 mmol/L (4-12); Aspartate Amino Transferase 32 U/L (17-59); Bilirubin,Total 0.5 mg/dL (0.2-1.3); Blood Urea Nitrogen 20 mg/dL (9-20); Calcium 9.3 mg/dL (8.4-10.2); Carbon Dioxide 23 mmol/L (22-30); Chloride 108 mmol/L (98-107); Cholesterol 303 mg/dL (0-200); Estimated Glomerular Filt Rate 48; Glucose 98 mg/dL (65-110); HDL Direct 41 mg/dL; Potassium 4.1 mmol/L (3.4-5.0); Sodium 139 mmol/L (137-145); Triglycerides 230 mg/dL (<150)
[2024-11-30 15:31] LABS: LDL Cholesterol Direct 159 mg/dL
[2024-11-30 15:32] LABS: Parathyroid Intact 46.2 pg/mL (14.5-75.2)
[2024-11-30 15:44] LABS: Free T4 Free Thyroxine 1.04 ng/dL (0.78-2.19)
[2024-12-02 04:54] LABS: Protein, Total 6.8 g/dL (6.1-8.1)
[2024-12-02 07:43] LABS: Creatinine, Random Urine 102 mg/dL (20-320); Total Prot/Creat ratio mg/mg 0.049 (0.025-0.148); Total Protein/Creatinine Ratio 49 mg/g creat (25-148)
[2024-12-03 14:17] LABS: Ionized Calcium 5.1 mg/dL (4.7-5.5)
[2024-12-03 19:44] LABS: Albumin 4.4 g/dL (3.8-4.8); Alpha 1 Globulin 0.2 g/dL (0.2-0.3); Alpha 2 Globulin 0.6 g/dL (0.5-0.9); Beta 1 Globulin 0.4 g/dL (0.4-0.6); Gamma Globulin 0.8 g/dL (0.8-1.7)
== END 2024-11-30 14:49 | disposition home or self-care (01) ==
LOC: ANHLAB 14:50
PROVIDERS: PCP Family Medicine Adolescent Medicine; Visit Provider Nurse Practitioner Family
DX: R16.0 Hepatomegaly, not elsewhere classified (principal); I10 Essential (primary) hypertension; N17.9 Acute kidney failure, unspecified; I70.0 Atherosclerosis of aorta; E66.01 Morbid (severe) obesity due to excess calories; Z68.41 Body mass index [BMI] 40.0-44.9, adult; K21.9 Gastro-esophageal reflux disease without esophagitis; N20.0 Calculus of kidney; G43.909 Migraine, unspecified, not intractable, without status migrainosus; Z78.9 Other specified health status
CPT/HCPCS: 36415; 80053; 80061; 82330; 82570; 83970; 84155; 84156; 84165; 84166; 84439; 84443; 84481; 85025

== ENCOUNTER 2024-12-25 09:35 | Outpatient (CLI) | payer OTHER, SELFPAY ==
--- NOTE | ~2024-12-25 | US_ITS ---
Limited Abdominal Sonogram: Real-time sonographic imaging of the right upper quadrant was performed. Clinical History: Hepatomegaly Findings: The liver appears normal with no evidence of mass lesion or bile duct dilatation. Main por cezar vein demonstrates normal direction of flow. The gallbladder is absent, compatible prior cholecyst ectomy. The common bile duct measures 4 mm. The visualized pancreas, aorta, and IVC are unremarkable . Impression: No significant abnormality seen. Reviewed, dictated and finalized at location M. Impression: No significant abnormality seen.
--- OUTSIDE RECORDS SUMMARY | 2024-12-25 09:54 | XMS_ITS | Encounter Summary ---
Author Organization [facility] Address [address] [facility] [address] [place] [address] Phone Care Team Providers Care Wood Boatbuilder Apprentice Name Role Phone Dm Mcmahon MD Primary Care Prov ider Encounter Details Date Type Department Care Team (Late st Contact Info) Description 10/30/2024 Results Follow-Up 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
--- OUTSIDE RECORDS SUMMARY | 2024-12-25 09:54 | XMS_ITS | Encounter Summary ---
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
--- OUTSIDE RECORDS SUMMARY | 2024-12-25 09:54 | XMS_ITS | Referral Summary ---
Author Organization [facility] [address] Address [address] [place] [address] Care Team Providers Care Accounts Payable Representative Name Role Phone Dm Mcmahon MD Primary Care Prov ider Encounters Date Type Department Care Team Description 12/03/2024 Results Follow-Up [facility] Orthopedics and Sports Medicine [address] [place] [phone] Ugo Ye MD US Kidney Complete 11/28/2024 10:00 AM CDT - 11/28/2024 11:59 PM CDT Hospital Encounter [facility] Ultrasound [address] [place] [address] Kidney stone Discharge Disposition: Discharge to home or self care 11/28/2024 11:20 AM CDT Office Visit [facility] Surgery [address] [facility] [address] [facility] [address] [place] [phone] Ugo Ye MD Nephrolithiasis 11/05/2024 Orders Only [facility] Surgery [address] [place] [phone] Ugo Ye MD Kidney stone on left side (Primary Dx) 11/05/2024 Telephone [facility] Surgery [facility] [place] [address] Estela Beaver 10/30/2024 Orders Only [facility] Surgery [address] [place] [phone] Ugo Ye MD Nephrolithiasis (Primary Dx) 10/30/2024 Results Follow-Up [facility] Surgery [address] [place] [phone] Ugo Ye MD Litholink 24Hr Urine Panel 10/26/2024 Telephone [facility] Surgery [address] [facility] [place] [phone] Alyx Baker 10/25/2024 Results Follow-Up [facility] Surgeon [address] [place] [address] Ugo Ye MD Stone analysis 10/15/2024 Telephone [facility] Surgery [address] [place] [phone] Alyx Baker 10/15/2024 Orders Only [facility] Surgery [address] [place] [phone] Dm Mcmahon MD Nephrolithiasis (Primary Dx) 10/15/2024 Telephone [facility] Surgery [facility] [place] [address] Estela Beaver 10/15/2024 Orders Only [facility] Surgery [address] [place] [phone] Ugo Ye MD Kidney stone (Primary Dx) 10/15/2024 Orders Only [facility] Surgery [address] [place] [phone] Ugo Ye MD Kidney stone (Primary Dx) 10/12/2024 12:27 PM CDT - 10/12/2024 1:57 PM CDT Surgery [facility] OR [address] [place] [address] Ugo Ye MD RIGHT URETEROSCOPY WITH HOLMIUM LASER LITHOTRIPSY, STONE BASKETING, CYSTOSCOPY,BILATERAL RETROGRADE PYELOGRAM,RIGHT STENT PLACEMENT 10/12/2024 12:56 PM CDT Anesthesia Event [facility] OR [address] [place] [address] Marine Cunningham MD Scott, Tracy, MD 10/12/2024 11:44 AM CDT - 10/12/2024 5:10 PM CDT Hospital Encounter [facility] OR [address] [place] [address] Ugo Ye MD Nephrolithiasis (Primary Dx) Discharge Disposition: Discharge to home or self care 10/05/2024 Results Follow-Up [facility] Neurology Hospitalists [address] [facility] [address] [place] [address] Uog Ye MD Urine culture Urine, clean voided 10/03/2024 12:30 PM CDT Lab [facility] Medical Office Building 1 Lab [facility] [place] [address] Urinary tract infection without hematuria, site unspecified 10/03/2024 Orders Only [facility] Surgery [address] [facility] [place] [address] Ugo Ye MD Urinary tract infection without hematuria, site unspecified (Primary Dx) 09/25/2024 9:49 AM ENGINEERING DOCUMENTATION SPECIALIST - 09/25/2024 11:59 PM ENGINEERING DOCUMENTATION SPECIALIST Hospital Encounter [facility] [address] [place] [address] Diagnosis unknown Discharge Disposition: Discharge to home or self care from Last 3 Months Allergies Active Allergy Reactions Criticality Noted Date Comments Pollen Extracts Other (See comments) Reaction: OTHER REACTION, Miconazole Gcamduj-Xzttmi-Qbhb Rash Medium 10/08/2024 Venom-Wasp Swelling Medium 10/08/2024 Medications tamsulosin (FLOMAX) 0.4 mg extended release capsule Take 1 capsule (0.4 mg total) by mouth daily 90 capsule 5 Active topiramate (TOPAMAX) 100 mg tablet Take [...] on file Legal Sex Male 3:19 AM ENGINEERING DOCUMENTATION SPECIALIST Gender Identity Not on file Sexual [...] 10:30 AM CDT Height 177.8 cm (5' 10) 11/28/2024 10:30 AM CDT Body Mass Index 39.03 11/28/2024 10:30 AM CDT Plan of Treatment Not on file Medical Devices Implanted Type Area Automotive Vehicle Inspector Device Identifier Shelf Expiration Date Model / Serial / Lot Sta-Peg Bilateral Ankle Bilateral: Ankle [employer] Stent Ureteral Set Double Pigtail Radiopaque Tip Universa [id number] Polyurethane Hydrophilic Coated [id number] - [id number] Implanted:Qty: 1 on 10/12/2024 by Ugo Ye MD at [facility] Right: Ureter [employer] [id number] 05/25/2027 [id number] / / [id number] Procedures Procedure Name Priority Date/Time Associated Diagnosis Comments US KIDNEY COMPLETE Schedule Routine, Read Routine (OP Routine) 11/28/2024 10:18 AM CDT Kidney stone LITHOLINK 24HR URINE PANEL Routine 10/24/2024 6:51 [...] BODY OUTSIDE CONSULT Routine 09/25/2024 9:49 AM ENGINEERING DOCUMENTATION SPECIALIST Diagnosis unknown from Last 3 Months Results * US Kidney Complete (11/28/2024 10:18 AM CDT) Anatomical Region Laterality Modality Kidney N/A Ultrasound 12/02/2024 4:22 PM CDT Narrative 12/02/2024 4:24 PM CDT EXAM DESCRIPTION: US KIDNEY COMPLETE REASON FOR STUDY: kidney stone TECHNIQUE: Ultrasound of the kidneys and urinary bladder was performed with grayscale imaging. COMPARISON: Correlation is made with outside CT performed 09/05/2024 and with pyelogram performed 10/12/2024 FINDINGS: RIGHT KIDNEY: The right kidney measures 11.2 cm in length. There is no hydronephrosis. There is normal cortical thickness and echogenicity. LEFT KIDNEY: The left kidney measures 13.0 cm in length. There is no hydronephrosis. There is a lower pole 4 mm calculus. URINARY BLADDER: There is a stent in the urinary bladder. Both ureteral jets are demonstrated. OTHER: No other additional findings. IMPRESSION: No hydronephrosis. Left nephrolithiasis. Stent in the urinary bladder. The proximal aspect of the stent is not visualized. THIS IS AN ELECTRONICALLY VERIFIED FINAL REPORT 12/02/2024 4:24 PM - Electronically signed by Francisco De Jesus M.D. JR: Report ID: [id number] Reading Location: [id number] Procedure Note Francisco De Jesus MD - 12/02/2024 EXAM DESCRIPTION: US KIDNEY COMPLETE REASON FOR STUDY: kidney stone TECHNIQUE: Ultrasound of the kidneys and urinary bladder was performedwith grayscale imaging. COMPARISON: Correlation is made with outside CT performed 09/05/2024 andwith pyelogram performed 10/12/2024 FINDINGS: RIGHT KIDNEY: The right kidney measures 11.2 cm in length.There is no hydronephrosis. There is normal cortical thickness and echogenicity. LEFT KIDNEY: The left kidney measures 13.0 cm in length. There is no hydronephrosis. There is a lower pole 4 mm calculus. URINARY BLADDER: There is a stent in the urinary bladder. Both ureteral jets are demonstrated. OTHER: No other additional findings. IMPRESSION: No hydronephrosis. Left nephrolithiasis. Stent in the urinary bladder. The proximal aspect of the stent is not visualized. THIS IS AN ELECTRONICALLY VERIFIED FINAL REPORT 12/02/2024 4:24 PM - Electronically signed by Francisco De Jesus M.D., JR: Report ID: [id number] Reading Location: [id number] us Yousef Ralf Ye MD IMG US PROCEDURES Fi nal Result * (ABNORMAL) Litholink 24Hr Urine Panel (10/24/2024 [...] 10/30/2024 3:07 AM CDT Performed at: - [facility] [address] [id number] Equities Trader: Jose Fontana PhD, Phone: [phone] Ugo Ye MD LAB URINE ORDERABLES Final Result Performing Organization Address City/[facility]/ZIP Co de Phone Number [facility] - 01 * FL Retro Pyelo (In Or) (10/12/2024 2:03 PM CDT) Narrative [id number] - 10/12/2024 2:04 PM CDT The images from this study are not interpreted by Radiology. Please refer to the physician's procedure / OR operative note. Ugo Ye MD IMG FLUOROSCOPY PROC EDURES Final Result Performing Organization Address [facility] Co de Phone Number [email or web address] * Stone analysis (10/12/2024 1:39 PM CDT) Stone analysis Not Reported [facility] Lab Source, Kid Stone Right Kidney CON LANDRY Interp, Kid stone analysis See Footnote CON Comment: 90% Calcium phosphate (apatite). 10% Calcium oxalate dihydrate. COMMENT See Footnote CON LANDRY Comment: For stones containing calcium oxalate, calcium phosphate, and/or uric acid, a 24 hr urinary supersaturation test may help detect underlying risk factors for this type of stone formation and provide guidance for a stone prevention strategy. ADDITIONAL INFORMATION This test was developed and its performance characteristics determined by [facility] in a manner consistent with CLIA requirements. This test has not been cleared or approved by the U.S. Food and Drug Administration. Test Performed by: [facility] - [address] [address] Equities Trader: Joe Sky Ph.D.; CLIA# [id number] Stone (Urine, Clean Catch) 10/12/2024 1:39 PM CDT 10/12/2024 1:59 PM CDT Joanne LANDRY - 10/25/2024 12:09 PM CDT Right Kidney Stone for chemical analysis us Ugo Ye MD LAB URINE ORDERABLES Final Result CON [address] [facility] Department [place] [address] [place] ref Lab * VT AN ELECTIVE SUPRAGLOTTIC AIRWAY, VT AN PROCEDURE PLACEHOLDER (10/12/2024 1:07 PM CDT) Jas Velarde CRNA - 10/12/2024 1:07 PM CDT Jas Vieira CRNA 10/12/2024 2:01 PM Airway Patient location: OR Urgency: elective Indications for airway management: anesthesia Difficult airway: no Staff: Placed by: NUTRITIONAL CHEMIST: Jas Vieira CRNA Emergent airway documentation: Risks [...] clinical standards) Comment:Testing performed by : [facility], [address] [facility], [place]., [address] Organism (CLINICALLY INSIGNIFICANT GROWTH CON LANDRY Urine, clean voided 10/03/2024 1:48 PM CDT 10/03/2024 8:08 PM CDT Narrative CON LANDRY - 10/05/2024 3:08 AM CDT Testing performed by [facility] Microbiology Laboratory ([phone]) us Ugo Ye MD LAB MICROBIOLOGY - G ENERAL ORDERABLES Final Result CON [address] [facility] Department [place] [address] * CT Body Outside Consult (09/25/2024 9:49 AM ENGINEERING DOCUMENTATION SPECIALIST) Anatomical Region Laterality Modality Body N/A Computed Tomogra phy 09/25/2024 10:0 3 AM ENGINEERING DOCUMENTATION SPECIALIST Impressions 09/25/2024 10:03 AM ENGINEERING DOCUMENTATION SPECIALIST 1. A 6 mm obstructive calculus [...] images may or may not represent the nightmute source data set and thus may contain changes that may lower the accuracy of this second-opinion interpretation. Electronically signed by: Dana Dasilva M.D. Narrative 09/25/2024 10:03 AM ENGINEERING DOCUMENTATION SPECIALIST EXAMINATION: RADIOLOGY CONSULTATION ON OUTSIDE IMAGING STUDY STUDY INITIALLY PERFORMED: 09/05/2024 at [facility]. TYPE OF STUDY: Multiple CT [...] STUDY STUDY INITIALLY PERFORMED: 09/05/2024 at [facility]. TYPE OF STUDY: Multiple CT [...] images may or may not represent the nightmute source data set and thus may contain changes that may lower the accuracy of this second-opinion interpretation. Electronically signed by: Dana Dasilva M.D. Edgardo Hernandez PERSONAL CARE WORKER IMG CT PROCEDURES Final Resul t from Last 3 Months Insurance [facility] Care Teams Accounts Payable Representative Relationship Specialty Start Date End Date Dm Mcmahon MD [address] [place] [address] PCP - General Family Medicine 10/08/24
--- OUTSIDE RECORDS SUMMARY | 2024-12-25 09:54 | XMS_ITS | Continuity of Care Document ---
Author Organization [facility] Address [address] [place] [address] [facility] [address] [place] [address] Phone Care Team Providers Care Board Certified Arts Therapist Name Role Phone Daniel Avilze Unavailable Unavailable Procedures Procedure Date Eye Exam, New Patient Advance Directives Directive Yes / No Effective Date File Name No Information Encounters Encounter Description Practice Location Reason(s) For Visit Diagnoses Date Provider Providers Copied on Encounter [facility], [address], [place], [place], [id number], [place] tel:[phone] [facility] No Information 4-200 9 Fatmata Daniel. [address] [facility] [address], [place], [address], [place]. tel:[phone] Family History Family Member Type Diagnosis Age [...]
--- OUTSIDE RECORDS SUMMARY | 2024-12-25 09:54 | XMS_ITS | Clinical Summary ---
Author Organization [facility] [address] Address [address] [place] [address] Care Team Providers Care Roll Out Manager Name Role Phone Dm Mcmahon MD Primary Care Prov ider Allergies Active Allergy Reactions Criticality Noted Date Comments Pollen Extracts Other (See comments) Reaction: OTHER REACTION, Miconazole Cnhfxra-Fmfmss-Gjzq Rash Medium 10/08/2024 Venom-Wasp Swelling Medium 10/08/2024 [...] Department Care Team Description 12/03/2024 Results Follow-Up [facility] Orthopedics and Sports Medicine [address] [place] [address] [address] [place] [address] Uog Ye MD US Kidney Complete 11/28/2024 11:20 AM CDT Office Visit [facility] Surgery [address] [place] [address] [address] [place] [address] Ugo Ye MD Nephrolithiasis 11/28/2024 10:00 AM CDT - 11/28/2024 11:[address] [facility] Ultrasound [address] [place] [address] Kidney stone Discharge Disposition: Discharge to home or self care 11/05/2024 Orders Only [facility] Surgery [address] [facility] [address] [place] [address] Ugo Ye MD Kidney stone on left side (Primary Dx) 11/05/2024 Telephone [facility] Surgery [address] [place] [address] Estela Beaver 10/30/2024 Orders Only [facility] Surgery [address] [place] [address] [address] [place] [address] Ugo Ye MD Nephrolithiasis (Primary Dx) 10/30/2024 Results Follow-Up [facility] Surgery [address] [place] [address] [address] [place] [address] Ugo Ye MD Litholink 24Hr Urine Panel 10/26/2024 Telephone [facility] Surgery [address] [place] [address] [address] [place] [address] Alyx Baker 10/25/2024 Results Follow-Up [facility] Surgeon 1 [place] [address] Ugo Ye MD Stone analysis 10/15/2024 Telephone [facility] Surgery [facility] [address] [place] [address] Alyx Baker 10/15/2024 Orders Only [facility] Surgery [address] [place] [address] [address] [place] [phone] Dm Mcmahon MD Nephrolithiasis (Primary Dx) 10/15/2024 Telephone [facility] Surgery [address] [place] [address] Estela Beaver 10/15/2024 Orders Only [facility] Surgery [address] [place] [address] [address] [place] [address] Ugo Ye MD Kidney stone (Primary Dx) 10/15/2024 Orders Only [facility] Surgery [address] [place] [address] [address] [place] [address] Ugo Ye MD Kidney stone (Primary Dx) 10/12/2024 12:56 PM CDT Anesthesia Event [facility] OR [address] [place] [address] Marine Cunningham MD Scott, Tracy, MD 10/12/2024 12:27 PM CDT - 10/12/2024 1:57 PM CDT Surgery [facility] OR [address] [place] [address] Ugo Ye MD RIGHT URETEROSCOPY WITH HOLMIUM LASER LITHOTRIPSY, STONE BASKETING, CYSTOSCOPY,BILATERAL RETROGRADE PYELOGRAM,RIGHT STENT PLACEMENT 10/12/2024 11:44 AM CDT - 10/12/2024 5:10 PM CDT Hospital Encounter [facility] OR [address] [place] [address] Ugo Ye MD Nephrolithiasis (Primary Dx) Discharge Disposition: Discharge to home or self care 10/05/2024 Results Follow-Up [facility] Neurology Hospitalists [address] [address] Ugo Ye MD Urine culture Urine, clean voided 10/03/2024 12:30 PM CDT Lab [facility] Medical Office Building [address] [place] [address] Urinary tract infection without hematuria, site unspecified 10/03/2024 Orders Only [facility] Surgery [address] [place] [address] [address] [place] [address] Ugo Ye MD Urinary tract infection without hematuria, site unspecified (Primary Dx) 09/25/2024 9:49 AM EXTRACT MIXER - 09/25/2024 11:59 PM EXTRACT MIXER Hospital Encounter [facility] [address] [place] [address] Diagnosis unknown Discharge Disposition: Discharge to home or self care from Last 3 Months Surgical History Surgery [...] on file Legal Sex Male 3:19 AM EXTRACT MIXER Gender Identity Not on file Sexual Orientation [...] this topic Medical Devices Implanted Type Area First Line Production Supervisor Device Identifier Shelf Expiration Date Model / Serial / Lot Sta-Peg Bilateral Ankle Bilateral: Ankle [employer] Stent Ureteral Set Double Pigtail Radiopaque Tip Universa [id number] Polyurethane Hydrophilic Coated [id number] - [id number] Implanted:Qty: 1 on 10/12/2024 by Ugo Ye MD at [facility] Right: Ureter [employer] [id number] 05/25/2027 [id number] / / [id number] Procedures Procedure Name Priority Date/Time Associated Diagnosis Comments US KIDNEY COMPLETE Schedule Routine, Read Routine (OP Routine) 11/28/2024 10:18 AM CDT Kidney stone LITHOLINK 24HR URINE PANEL Routine 10/24/2024 6:51 AM CDT Kidney stone FL RETRO PYELO (IN OR) IP Routine 10/12/2024 2:03 PM CDT STONE ANALYSIS Routine 10/12/2024 1:39 PM CDT MI AN PROCEDURE PLACEHOLDER Routine 10/12/2024 1:07 PM CDT MI AN ELECTIVE SUPRAGLOTTIC AIRWAY Routine 10/12/2024 1:07 PM CDT URETEROSCOPY STONE MANIPULATION WITH ABLATION LASER 10/12/2024 12:56 PM CDT Kidney stone URINE CULTURE Routine 10/03/2024 1:48 PM CDT Urinary tract infection without hematuria, site unspecified CT BODY OUTSIDE CONSULT Routine 09/25/2024 9:49 AM EXTRACT MIXER Diagnosis unknown from Last 3 Months Results [...] Francisco De Jesus M.D. JR: Report ID: [id number] Reading Location: [id number] Procedure Note Francisco De Jesus MD - [...] Francisco De Jesus M.D. JR: Report ID: [id number] Reading Location: [place] [address] us Yousef Ralf Ye MD IMG US [...] 10/30/2024 3:07 AM CDT Performed at: - [facility] [id number] Bevel Polisher: Jose Fontana PhD, Phone: [phone] us Yousef Ralf Ye MD LAB URINE ORDERABLES Final Result [facility] - 01 * FL Retro Pyelo (In Or) (10/12/2024 2:03 PM CDT) Narrative RAD_[email or web address] - 10/12/2024 2:04 PM CDT The images from this study are not interpreted by Radiology. Please refer to the physician's procedure / OR operative note. us Ugo Ye MD IMG FLUOROSCOPY PROC EDURES Final Result Performing Organization Address [facility]/ZIP Co de Phone Number [email or web address] * Stone analysis (10/12/2024 1:39 PM CDT) Stone analysis Not Reported [facility] Lab Source, Kid Stone Right Kidney [...] developed and its performance characteristics determined by [facility] in a manner consistent with CLIA requirements. This test has not been cleared or approved by the U.S. Food and Drug Administration. Test Performed by: [facility] [place] [address] [place] [address] Bevel Polisher: Joe Sky Ph.D.; CLIA# [id number] Stone (Urine, Clean Catch) 10/12/2024 1:39 PM CDT 10/12/2024 1:59 PM CDT Joanne LANDRY - 10/25/2024 12:09 PM CDT Right Kidney Stone for chemical analysis us Ugo Ye MD LAB URINE ORDERABLES Final Result Performing Organization Address [facility]/ZIP Co de Phone Number CON LANDRY [address] [facility] Department [place] [address] [facility] Lab * MI AN ELECTIVE SUPRAGLOTTIC AIRWAY, MI AN PROCEDURE PLACEHOLDER (10/12/2024 1:07 PM CDT) Narrative Jas Vieira CRNA - 10/12/2024 1:07 PM CDT Jas Vieira CRNA 10/12/2024 2:01 PM Airway Patient location: OR Urgency: elective Indications for airway management: anesthesia Difficult airway: no Staff: Placed by: PLASTERER MAINTENANCE: Jas Vieira CRNA Emergent airway documentation: Risks [...] current clinical standards) Comment:Testing performed by : [facility], [address] [place]., [address] Organism (CLINICALLY INSIGN[facility]ANT [facility] Urine, clean voided 10/03/2024 1:48 PM CDT 10/03/2024 8:08 PM CDT Narrative CON - 10/05/2024 3:08 AM CDT Testing performed by [facility] Microbiology Laboratory ([phone]) us Ugo Ye MD LAB MICROBIOLOGY - G ENERAL ORDERABLES Final Result [facility] [address] [facility] Department [place] [address] * CT Body Outside Consult (09/25/2024 9:49 AM EXTRACT MIXER) Anatomical Region Laterality Modality Body N/A Computed Tomogra phy 09/25/2024 10:0 3 AM EXTRACT MIXER Impressions 09/25/2024 10:03 AM EXTRACT MIXER 1. A 6 mm obstructive calculus in [...] images may or may not represent the moapa source data set and thus may contain changes that may lower the accuracy of this second-opinion interpretation. Electronically signed by: Dana Dasilva M.D. Narrative 09/25/2024 10:03 AM EXTRACT MIXER EXAMINATION: RADIOLOGY CONSULTATION ON OUTSIDE IMAGING STUDY STUDY INITIALLY PERFORMED: 09/05/2024 at [facility]. TYPE OF STUDY: Multiple CT [...] IMAGING STUDY STUDY INITIALLY PERFORMED: 09/05/2024 at [facility]. TYPE OF STUDY: Multiple CT [...] images may or may not represent the moapa source data set and thus may contain changes that may lower the accuracy of this second-opinion interpretation. Electronically signed by: Dana Dasilva M.D. Edgardo Hernandez EMPLOYEE RELATIONS SPECIALIST IMG CT PROCEDURES Final Resul t from Last 3 Months Insurance [employer] Care Teams Roll Out Manager Relationship Specialty Start Date End Date Dm Mcmahon MD [address] [place] [phone] PCP - General Family Medicine 10/08/24
--- OUTSIDE RECORDS SUMMARY | 2024-12-25 09:54 | XMS_ITS | Encounter Summary ---
Author Organization [facility] Healthcare Address [address] [facility] [place] [address] Care Team Providers Care Manager Construction Name Role Phone Dm Mcmahon MD Primary Care Prov ider Encounter Details Date Type Department Care Team (Late st Contact Info) Description 12/03/2024 Results Follow-Up [facility] Medical Group Orthopedics and Sports Medicine [facility] [address] [address] Ugo Ye MD [address] [facility] [place] [address] US Kidney Complete Social History Tobacco Use Types Packs/Day Years [...] on file Legal Sex Male 3:19 AM BROILER MANAGER Gender Identity Not on file Sexual Orientation Not on file documented as of this encounter Plan of Treatment Not on file documented as of this encounter Visit Diagnoses Not on filedocumented in this encounter Care Teams Manager Construction Relationship Specialty Start Date End Date Dm Mcmahon MD [address] [place] [address] PCP - General Family Medicine 10/08/24 documented as of this encounter
== END 2024-12-25 09:36 | disposition home or self-care (01) ==
PROVIDERS: PCP Family Medicine Adolescent Medicine; Visit Provider Nurse Practitioner Family
DX: R16.0 Hepatomegaly, not elsewhere classified (principal)
CPT/HCPCS: 76705

== ENCOUNTER 2025-01-09 12:25 | Outpatient (CLI) | payer OTHER, SELFPAY ==
[2025-01-09 13:12] LABS: Basophils Absolute Auto 0.1 K/mm3 (0.0-0.1); Basophils Percent Auto 0.9 % (0.2-1.2); Eosinophils Absolute Auto 0.4 K/mm3 (0-0.3); Eosinophils Percent Auto 3.6 % (0-4.4); Hematocrit 41.7 % (42.0-52.0); Hemoglobin 13.6 g/dL (14.0-18.0); Immature Granulocyte Absolute 0.05 K/mm3 (0.00-0.031); Immature Granulocyte Percent A 0.5 % (0-0.5); Lymphocytes Absolute Auto 3.78 K/mm3 (0.9-3.2); Lymphocytes Percent Auto 35.9 % (18.3-44.2); Mean Corpuscular HGB Conc 32.6 g/dl (32-36); Mean Corpuscular Hemoglobin 29.4 pg (26-34); Mean Corpuscular Volume 90.1 fl (80-100); Mean Platelet Volume 9.7 fl (7.4-10.4); Monocytes Absolute Auto 0.9 K/mm3 (0.1-0.6); Monocytes Percent Auto 8.8 % (2.6-8.5); Neutrophils Absolute Auto 5.3 K/mm3 (1.3-6.7); Neutrophils Percent Auto 50.3 % (45.5-73.1); Platelet Count Result 215 k/mm3 (150-375); Red Blood Count 4.63 M/mm3 (4.6-6.20); Red Cell Distribution Width 14.1 % (11.5-14.5); White Blood Count 10.5 K/mm3 (4.5-10.0)
[2025-01-09 13:25] LABS: Alanine Aminotransferase 35 U/L (6-50); Albumin Level 4.4 g/dL (3.5-5.1); Albumin Level 4.5 g/dL (3.5-5.1); Alkaline Phosphatase 76 U/L (38-126); Anion Gap 10 mmol/L (4-12); Anion Gap 8 mmol/L (4-12); Aspartate Amino Transferase 34 U/L (17-59); Bilirubin,Total 0.6 mg/dL (0.2-1.3); Blood Urea Nitrogen 17 mg/dL (9-20); Calcium 9.4 mg/dL (8.4-10.2); Calcium 9.7 mg/dL (8.4-10.2); Carbon Dioxide 22 mmol/L (22-30); Carbon Dioxide 23 mmol/L (22-30); Chloride 110 mmol/L (98-107); Estimated Glomerular Filt Rate 52; Estimated Glomerular Filt Rate 53; Glucose 81 mg/dL (65-110); Glucose 83 mg/dL (65-110); Phosphorus 2.6 mg/dL (2.5-4.5); Potassium 3.7 mmol/L (3.4-5.0); Potassium 3.8 mmol/L (3.4-5.0); Sodium 141 mmol/L (137-145); Sodium 142 mmol/L (137-145); Total Protein 7.7 g/dL (6.3-8.2)
--- OUTSIDE RECORDS SUMMARY | 2025-01-09 13:52 | XMS_ITS | Encounter Summary ---
Author Organization [facility] Healthcare Address [address] [facility] [place] [address] Care Team Providers Care Supervisor Beehive Kiln Name Role Phone Dm Mcmahon MD Primary Care Prov ider Encounter Details Date Type Department Care Team (Late st Contact Info) Description 12/03/2024 Results Follow-Up [facility] Medical Group Orthopedics and Sports Medicine [facility] [address] [address] Ugo Ye MD [address] [facility] [place] [address] US Kidney Complete Social History Tobacco Use [...] on file Legal Sex Male 3:19 AM RETORT PRE COOKER Gender Identity Not on file Sexual Orientation Not on file documented as of this encounter Plan of Treatment Not on file documented as of this encounter Visit Diagnoses Not on filedocumented in this encounter Care Teams Supervisor Beehive Kiln Relationship Specialty Start Date End Date Dm Mcmahon MD [address] [place] [address] PCP - General Family Medicine 10/08/24 documented as of this encounter
--- OUTSIDE RECORDS SUMMARY | 2025-01-09 13:52 | XMS_ITS | Referral Summary ---
Author Organization [facility] [address] Address [address] [place] [address] Care Team Providers Care Food Service Kitchen Supervisor Name Role Phone Dm Mcmahon MD Primary Care Prov ider Encounters Date Type Department Care Team Description 01/09/2025 9:20 AM CDT Office Visit [facility] Surgery [address] [place] [address] [address] [place] [address] Ugo Ye MD Nephrolithiasis (Primary Dx) 12/03/2024 Results Follow-Up [facility] Medical Group Orthopedics and Sports Medicine [address] [place] [phone] Ugo Ye MD US Kidney Complete 11/28/2024 10:00 AM CDT - 11/28/2024 11:59 PM CDT Hospital Encounter [facility] Ultrasound [address] [place] [address] Kidney stone Discharge Disposition: Discharge to home or self care 11/28/2024 11:20 AM CDT Office Visit [facility] Surgery [address] [place] [address] [address] [place] [address] Ugo Ye MD Nephrolithiasis 11/05/2024 Orders Only [facility] Surgery [address] [place] [address] Ugo Ye MD Kidney stone on left side (Primary Dx) 11/05/[address] [facility] Surgery [facility] [place] [address] Estela Beaver 10/30/2024 Orders Only [facility] Surgery [address] [place] [phone] Ugo Ye MD Nephrolithiasis (Primary Dx) 10/30/2024 Results Follow-Up [facility] Surgery [address] [facility] [address] [place] [address] Ugo Ye MD Litholink 24Hr Urine Panel 10/26/2024 Telephone [facility] Surgery [address] [facility] [address] [place] [address] Alyx Baker 10/25/2024 Results Follow-Up [facility] Surgeon [address] [place] [address] Ugo Ye MD Stone analysis 10/15/2024 Telephone [facility] Surgery [address] [facility] [address] [place] [phone] Alyx Baker 10/15/2024 Orders Only [facility] Surgery [address] [place] [address] [address] [place] [phone] Dm Mcmahon MD Nephrolithiasis (Primary Dx) 10/15/[address] [facility] Surgery [facility] [place] [address] Estela Beaver 10/15/2024 Orders Only [facility] Surgery [address] [place] [address] [address] [place] [phone] Ugo Ye MD Kidney stone (Primary Dx) 10/15/2024 Orders Only [facility] Surgery [facility] [facility] [address] [place] [phone] Ugo eY MD Kidney stone (Primary Dx) 10/12/2024 12:27 PM CDT - 10/12/2024 1:57 PM CDT Surgery [facility] OR [address] [place] [address] Ugo Ye MD RIGHT URETEROSCOPY WITH HOLMIUM LASER LITHOTRIPSY, STONE BASKETING, CYSTOSCOPY,BILATERAL RETROGRADE PYELOGRAM,RIGHT STENT PLACEMENT 10/12/2024 12:56 PM CDT Anesthesia Event [facility] OR [address] [place] [address] Marine Cunningham MD Scott, Tracy, MD 10/12/2024 11:44 AM CDT - 10/12/2024 5:10 PM CDT Hospital Encounter [facility] OR [address] [place] [address] Ugo Ye MD Nephrolithiasis (Primary Dx) Discharge Disposition: Discharge to home or self care from Last 3 Months Allergies Active Allergy Reactions Criticality Noted Date Comments Pollen Extracts Other (See comments) Reaction: OTHER REACTION, Miconazole Riexhbp-Kluwfj-Bkiy Rash Medium 10/08/2024 Venom-Wasp Swelling Medium 10/08/2024 Medications tamsulosin (FLOMAX) 0.4 mg extended release capsule Take 1 capsule (0.4 mg total) by mouth daily 90 capsule Active topiramate (TOPAMAX) 100 mg tablet Take [...] on file 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 Gender Identity Not on file Sexual Orientation [...] on file Medical Devices Implanted Type Area Tripe Washer Device Identifier Shelf Expiration Date Model / Serial / Lot Sta-Peg Bilateral Ankle Bilateral: Ankle [employer] Stent Ureteral Set Double Pigtail Radiopaque Tip [employer] [id number] Polyurethane Hydrophilic Coated [id number] - [id number] Implanted:Qty: 1 on 10/12/2024 by Ugo Ye MD at [facility] Right: Ureter [employer] [id number] 05/25/2027 [id number] / / [id number] Procedures Procedure Name Priority Date/Time Associated Diagnosis Comments POCT URINALYSIS DIPSTICK Routine 01/09/2025 11:09 AM CDT Nephrolithiasis US KIDNEY COMPLETE Schedule Routine, Read Routine (OP Routine) 11/28/2024 10:18 AM CDT Kidney stone LITHOLINK 24HR URINE PANEL Routine 10/24/2024 6:51 AM CDT Kidney stone FL RETRO PYELO (IN OR) IP Routine 10/12/2024 2:03 PM CDT STONE ANALYSIS Routine 10/12/2024 1:39 PM CDT [place] AN PROCEDURE PLACEHOLDER Routine 10/12/2024 1:07 PM CDT [place] AN ELECTIVE SUPRAGLOTTIC AIRWAY Routine 10/12/2024 1:07 PM CDT URETEROSCOPY STONE MANIPULATION WITH ABLATION LASER 10/12/2024 12:56 PM CDT Kidney stone from Last 3 Months Results * POCT urinalysis dipstick (01/09/2025 11:09 AM CDT) Color, Urine, POC Yellow Clarity, ur, POC Clear Clear Glucose, ur, POC Negative Negative Bilirubin, ur, POC Negative Negative Ketones, ur, POC Negative Negative Specific [place], POC 1.010 1.003 - 1.030 Blood, ur, POC Negative Negative pH, ur, POC 6.5 5.0 - 8.0 Protein, ur, POC Negative Negative Urobilinogen, urine, POC 0.2 0.2 - 1.0 mg/dL Nitrite, ur, POC Negative Negative Leukocytes, ur, POC Negative Negative Lot Number 0 Urine 01/09/2025 11:0 9 AM CDT Ugo Ye MD POINT OF CARE TEST O RDERABLES Final Result * US Kidney Complete (11/28/2024 10:18 AM [...] Francisco De Jesus M.D., JR: Report ID: [id number] Reading Location: [id number] Procedure Note Francisco De Jesus MD - [...] Francisco De Jesus M.D., JR: Report ID: [id number] Reading Location: [id number] us Yousef Ralf Ye MD IMG US [...] - 10/30/2024 3:07 AM CDT Performed at: [address] [id number] Transportation Security Officer: Jose Fontana PhD, Phone: [phone] Ugo Ye MD LAB URINE ORDERABLES Final Result Performing Organization Address City/[facility]/ZIP Co de Phone Number [facility]CO [facility] - 01 * [place] Retro Pyelo (In Or) (10/12/2024 2:03 PM CDT) Narrative [id number] - 10/12/2024 2:04 PM CDT The images from this study are not interpreted by Radiology. Please refer to the physician's procedure / OR operative note. Ugo Ye MD IMG FLUOROSCOPY PROC EDURES Final Result Performing Organization Address [facility] Co de Phone Number [id number] * Stone analysis (10/12/2024 1:39 PM CDT) Stone analysis Not Reported [facility] Source, Kid Stone Right Kidney [...] developed and its performance characteristics determined by [facility] in a manner consistent with CLIA requirements. This test has not been cleared or approved by the U.S. Food and Drug Administration. Test Performed by: [facility] [address] [place] [address] Transportation Security Officer: Joe Sky Ph.D.; CLIA# [id number] Stone (Urine, Clean Catch) 10/12/2024 1:39 PM CDT 10/12/2024 1:59 PM CDT Joanne ANDUJAR - 10/25/2024 12:09 PM CDT Right Kidney Stone for chemical analysis Ugo Ye MD LAB URINE ORDERABLES Final Result CON [address] [facility] Department [place] [address] [facility] * [place] AN ELECTIVE SUPRAGLOTTIC AIRWAY, [place] AN PROCEDURE PLACEHOLDER (10/12/2024 1:07 PM CDT) Jas Velarde CRNA - 10/12/2024 1:07 PM CDT Jas Vieira CRNA 10/12/2024 2:01 PM Airway Patient location: OR Urgency: elective Indications for airway management: anesthesia Difficult airway: no Staff: Placed by: PACKER AND CARRY OUT: Jas Vieira CRNA Emergent airway documentation: Risks [...] MD ANESTHESIA ORDERABLES Edited Result - Final from Last 3 Months Insurance [facility] Care Teams Food Service Kitchen Supervisor Relationship Specialty Start Date End Date Dm Mcmahon MD [address] [place] [address] PCP - General Family Medicine 10/08/24
--- OUTSIDE RECORDS SUMMARY | 2025-01-09 13:52 | XMS_ITS | Clinical Summary ---
Author Organization [facility] [address] Address [address] [place] [address] Care Team Providers Care Fish Conservationist Name Role Phone Dm Mcmahon MD Primary Care Prov ider Allergies Active Allergy Reactions Criticality Noted Date Comments Pollen Extracts Other (See comments) Reaction: OTHER REACTION, Miconazole Viesikv-Uhehcw-Nxuq Rash Medium 10/08/2024 Venom-Wasp Swelling Medium 10/08/2024 [...] Description 01/09/2025 9:20 AM CDT Office Visit [facility] Surgery [address] [place] [address] [address] [place] [address] Ugo Ye MD Nephrolithiasis (Primary Dx) 12/03/2024 Results Follow-Up [facility] Medical Group Orthopedics and Sports Medicine [address] [place] [address] [address] [place] [address] Ugo Ye MD US Kidney Complete 11/28/2024 11:20 AM CDT Office Visit [facility] Surgery [address] [facility] [address] [place] [address] Ugo Ye MD Nephrolithiasis 11/28/2024 10:00 AM CDT - 11/28/2024 11:[address] [facility] Ultrasound [address] [place] [address] Kidney stone Discharge Disposition: Discharge to home or self care 11/05/[address] [facility] Surgery [address] [place] [address] [address] [place] [address] Ugo Ye MD Kidney stone on left side (Primary Dx) 11/05/2024 Telephone [facility] Surgery [address] [place] [address] Estela Beaver 10/30/[address] [facility] Surgery [address] [place] [address] [address] [place] [address] Ugo Ye MD Nephrolithiasis (Primary Dx) 10/30/2024 Results Follow-Up [facility] Surgery [address] [place] [address] [address] [place] [address] Ugo Ye MD Litholink 24Hr Urine Panel 10/26/[address] [facility] Surgery [address] [place] [address] [address] [place] [address] Alyx aBker 10/25/2024 Results Follow-Up [facility] Surgeon [address] [place] [address] Ugo Ye MD Stone analysis 10/15/[address] [facility] Surgery [address] [place] [address] [address] [place] [address] Alyx Baker 10/15/[address] [facility] Surgery [address] [place] [address] [address] [place] [address] Dm Mcmahon MD Nephrolithiasis (Primary Dx) 10/15/2024 Telephone [facility] Surgery [facility] [place] [address] Estela Beaver 10/15/[address] [facility] Surgery [address] [place] [address] Ugo Ye MD Kidney stone (Primary Dx) 10/15/[address] [facility] Surgery [address] [place] [address] Ugo Ye MD Kidney stone (Primary Dx) 10/12/2024 12:56 PM CDT Anesthesia Event [facility] OR [address] [place] [address] Marine Cunningham MD Scott, Tracy, MD 10/12/2024 12:27 PM CDT - 10/12/2024 1:57 PM CDT Surgery [facility] OR [address] [place] [address] Ugo Ye MD RIGHT URETEROSCOPY WITH HOLMIUM LASER LITHOTRIPSY, STONE BASKETING, CYSTOSCOPY,BILATERAL RETROGRADE PYELOGRAM,RIGHT STENT PLACEMENT 10/12/2024 11:44 AM CDT - 10/12/2024 5:10 PM CDT Hospital Encounter [facility] OR [address] [place] [address] Ugo Ye MD Nephrolithiasis (Primary Dx) Discharge [...] on file 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 Gender Identity Not on file Sexual Orientation [...] this topic Medical Devices Implanted Type Area Hide Grader Device Identifier Shelf Expiration Date Model / Serial / Lot Sta-Peg Bilateral Ankle Bilateral: Ankle [employer] Stent Ureteral Set Double Pigtail Radiopaque Tip Univers[employer] [id number] Polyurethane Hydrophilic Coated [id number] - [id number] Implanted:Qty: 1 on 10/12/2024 by Ugo Ye MD at [facility] Right: Ureter [employer] [id number] 05/25/2027 [id number] / / [id number] Procedures Procedure Name Priority Date/Time Associated Diagnosis [...] Negative Ketones, ur, POC Negative Negative Specific [place], POC 1.010 1.003 - 1.030 Blood, ur, POC Negative Negative pH, ur, POC 6.5 5.0 - 8.0 Protein, ur, POC Negative Negative Urobilinogen, urine, POC 0.2 0.2 - 1.0 mg/dL Nitrite, ur, POC Negative Negative Leukocytes, ur, POC Negative Negative Lot Number 0 Urine 01/09/2025 11:0 9 AM CDT Ugo Ralf Ye MD POINT OF CARE TEST O [...] Francisco De Jesus M.D. JR: Report ID: [id number] Reading Location: [id number] Procedure Note Francisco De Jesus MD - 05/11/2025 EXAM DESCRIPTION: US KIDNEY COMPLETE REASON FOR [...] Francisco De Jesus M.D. JR: Report ID: [id number] Reading Location: [place] [address] us Yousef Ralf Ye MD IMG US [...] - 10/30/2024 3:07 AM CDT Performed at: [facility] Lab[address] [id number] Junior Legal Secretary: Jose Fontana PhD, Phone: [phone] us Yousef Ralf Ye MD LAB URINE ORDERABLES Final Result [facility] - 01 * [place] Retro Pyelo (In Or) (10/12/2024 2:03 PM CDT) Narrative [id number] - 10/12/2024 2:04 PM CDT The images from this study are not interpreted by Radiology. Please refer to the physician's procedure / OR operative note. Uog Ye MD IMG FLUOROSCOPY PROC EDURES Final Result Performing Organization Address [facility] Co de Phone Number [email or web address] * Stone analysis (10/12/2024 1:39 PM CDT) Stone analysis Not Reported [facility] Lab Source, Kid Stone Right Kidney [...] its performance characteristics determined by [facility] in a manner consistent with CLIA requirements. This test has not been cleared or approved by the U.S. Food and Drug Administration. Test Performed by: [facility] [place] [address] Junior Legal Secretary: Joe Sky Ph.D.; CLIA# [id number] Stone (Urine, Clean Catch) 10/12/2024 1:39 PM CDT 10/12/2024 1:59 PM CDT Joanne LANDRY - 10/25/2024 12:09 PM CDT Right Kidney Stone for chemical analysis us Ugo Ye MD LAB URINE ORDERABLES Final Result Performing Organization Address [facility]/ZIP Co de Phone Number CON LANDRY [address] [facility] Department [place] [address] [facility] Lab * [place] AN ELECTIVE SUPRAGLOTTIC AIRWAY, [place] AN PROCEDURE PLACEHOLDER (10/12/2024 1:07 PM CDT) Jas Velarde CRNA - 10/12/2024 1:07 PM CDT Jas Vieira CRNA 10/12/2024 2:01 PM Airway Patient location: OR Urgency: elective Indications for airway management: anesthesia Difficult airway: no Staff: Placed by: DIRECTOR BUSINESS DEVELOPMENT: Jas Vieira CRNA Emergent airway documentation: Risks [...] - Final from Last 3 Months Insurance [facility] Care Teams Fish Conservationist Relationship Specialty Start Date End Date Dm Mcmahon MD [address] [place] [address] PCP - General Family Medicine 10/08/24
--- OUTSIDE RECORDS SUMMARY | 2025-01-09 13:52 | XMS_ITS | Clinical Summary ---
Author Organization [facility] Address [address] [place] [address] Care Team Providers Care Precinct Police Lieutenant Name Role Phone Dm Mcmahon MD Primary Care Provider [phone] Allergies Active Allergy Reactions Criticality Noted Date [...] Comments Blood Pressure 150/95 06/29/2023 5:45 PM HEEL COVERER Pulse 60 06/29/2023 5:45 PM HEEL COVERER Temperature 36 C (96.8 F) 06/29/2023 3:15 PM HEEL COVERER Respiratory Rate 18 06/29/2023 3:15 PM HEEL COVERER Oxygen Saturation 92% 06/29/2023 5:45 PM HEEL COVERER Inhaled Oxygen Concentration - - Weight 115.7 kg (255 lb) 06/29/2023 3:15 PM HEEL COVERER Height 177.8 cm (5' 10) 06/29/2023 3:15 PM HEEL COVERER Body Mass Index 36.59 06/29/2023 3:15 PM HEEL COVERER Plan of Treatment Health Maintenance Due Date [...] patient's age to complete this topic Insurance [facility] [phone] Care Teams Precinct Police Lieutenant Relationship Specialty Start Date End Date Dm Mcmahon MD [address] [address] PCP - General FAMILY PRACTICE 07/10/18
--- OUTSIDE RECORDS SUMMARY | 2025-01-09 13:52 | XMS_ITS | Encounter Summary ---
Author Organization [facility] Address [address] [facility] [address] [place] [address] Phone Care Team Providers Care Septic Tank Cleaner Name Role Phone Dm Mcmahon MD Primary Care Prov ider Reason for Visit * Reason Comments Follow-up Encounter Details Date Type Department Care Team (Latest Contact Info) Description 01/09/2025 9:20 AM CDT Office Visit [facility] Surgery [facility] [address] [place] [phone] Ugo Ye MD [address] [facility] [place] [address] Nephrolithiasis (Primary Dx) Social History Tobacco Use Types Packs/Day Years [...] on file 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 10% Calcium oxalat - US 11/28/2024: No Hydronephrosis - Had Mag3 11/19/2024: Atrophic right kidney 28%. Left kidney 72% with no obstruction. - Litholink : Increase uric acid: Has to cut down animal protein to less than 80 gm/day - Has to cut down salt intake to less than one teaspoon/day - Should decrease Wt - Increase Fluid intake to urinate 2500 ml/24 hours. Mainly Water and citric fluids (Lemonade and orange Juice) - Litholink FU september, - FU one year Diagnostic tests were reviewed and questions answered. Diagnosis, care plan and treatment options were discussed. The Patient, family, and/or caregiver verbalizes understanding of instructions and plan of care. documented in this encounter Progress Notes * Ugo Ye MD - 01/09/2025 9:20 AM CDT Urology Male Office Visit Assessment/Plan: 01/09/2025 FU S/P Rt URS, LL, Stent 10/12/2024 - Stone analysis: 90% Calcium phosphate (apatite). 10% Calcium oxalat - US 11/28/2024: No Hydronephrosis - Had Mag3 11/19/2024: Atrophic right kidney 28%. Left kidney 72% with no obstruction. - Litholink 04/02./2025: Increase uric acid: Has to cut down animal protein to less than 80 gm/day - Has to cut down salt intake to less than one teaspoon/day - Should decrease Wt - Increase Fluid intake to urinate 2500 ml/24 hours. Mainly Water and citric fluids (Lemonade and orange Juice) - Litholink FU september, - FU one year Diagnostic tests were reviewed and questions answered. Diagnosis, care plan and treatment options were discussed. The Patient, family, and/or caregiver verbalizes understanding of instructions and plan of care. 11/28/2024 FU hx of Rt URS, LL, Stent 10/12/2024 Stent was removed - Recent admission to [facility] for [facility] and left obstructing stone on 11/13/2024, s/p Left URS, LL, Stent. Stents should go out tomorrow at [facility], however his insurance does not cover urology there. Discussed with the patient and he elected to take the stent out here today. - Office cysto stent removal done today - Had Mag3 11/19/2024: Atrophic right kidney 28%. Left kidney 72% with no obstruction. - Cr 11/20/2024: 1.79. He will check it again this Tuesday. - US Kidneys today: report pending - Labs: personally reviewed - Imaging: personally reviewed - FU 6 Weeks Diagnostic tests were reviewed and questions answered. Diagnosis, care plan and treatment options were discussed. The Patient, family, and/or caregiver verbalizes understanding of instructions and plan of care. No follow-ups on file. Chief Complaint: Miguel A Carr Jr. is a 49 y.o. male who presents with Chief Complaint Patient presents with Follow-up HPI: Miguel A Carr Jr. is a 49 y.o. male presents with hx of nephrolithiasis Dysuria: No Hematuria: No Daytime Frequency: 5 times Urgency: No Empty: yes Force of Stream: good Nocturia: 2 Erectile Dysfunction: acceptable REVIEW OF SYSTEMS: Medications/Allergies Reviewed and updated All systems were reviewed and are negative except those listed above in HPI, and/or ROS. Past Medical History: Diagnosis Date Chronic kidney disease stones Chronic pain disorder cartilage disorder GERD (gastroesophageal reflux disease) Headache chronic migranes Hypertension Motion sickness reading in car Obesity Past Surgical History: Procedure Laterality Date CHOLECYSTECTOMY 2016 after herb developed pancreatitis, in hospital 9 days after surgery COLONOSCOPY 2022 FOOT SURGERY 1988 pegs in ankles for flat foot HERNIA REPAIR 2012 and 2016, laparoscopic and open GENITOURINARY EXAMINATION: (For a comprehensive exam, do every bullet in each bolded organ system and one bullet in each unbold system) Vitals There were no vitals taken for this visit. There were no vitals filed for this visit. GENERAL: Normal appearance. Patient is sitting in the exam room comfortably. GENITOURINARY: No costovertebral angle tenderness bilaterally. . Scrotum no lesions or rashes. Testicles bilateral normal size, no masses, no discharge, normal location. Urethral Meatus: normal, Penis: No masses, no deformities. LABS No results found for: PSA, BMP, CBCAUTODIFF, CMP documented in this encounter Miscellaneous Notes * Addendum Note - Hillary Hansen RMA - 01/09/2025 9:20 AM CDTAddended by: HILLARY HANSEN on: 01/09/2025 11:10 AM Modules accepted: Orders documented in this encounter Plan of Treatment Not on file documented as of this encounter Procedures Procedure Name Priority Date/Time Associated Diagnosis Comments POCT URINALYSIS DIPSTICK Routine 01/09/2025 11:09 AM CDT Nephrolithiasis documented in this encounter Results * POCT urinalysis dipstick (01/09/2025 11:09 AM CDT) Color, Urine, POC Yellow Clarity, ur, POC Clear Clear Glucose, ur, POC Negative Negative Bilirubin, ur, POC Negative Negative Ketones, ur, POC Negative Negative Specific [place], POC 1.010 1.003 - 1.030 Blood, ur, POC Negative Negative pH, ur, POC 6.5 5.0 - 8.0 Protein, ur, POC Negative Negative Urobilinogen, urine, POC 0.2 0.2 - 1.0 mg/dL Nitrite, ur, POC Negative Negative Leukocytes, ur, POC Negative Negative Lot Number 0 Urine 01/09/2025 11:0 9 AM CDT us Yousef Ralf Ye MD POINT OF CARE TEST O RDERABLES Final Result documented in this encounter Visit Diagnoses Diagnosis Nephrolithiasis- Primary Calculus of kidney documented in this encounter Care Teams Septic Tank Cleaner Relationship Specialty Start Date End Date Dm Mcmahon MD [address] [place] [address] PCP - General Family Medicine 10/08/24 documented as of this encounter
--- OUTSIDE RECORDS SUMMARY | 2025-01-09 13:52 | XMS_ITS | Continuity of Care Document ---
Author Organization [facility] Address [address] [place] [address] [facility] [address] [place] [address] Phone Care Team Providers Care Training Mgr Name Role Phone Daniel Avilez Unavailable Unavailable Procedures Procedure Date Eye Exam, New Patient Advance Directives Directive Yes / No Effective Date File Name No Information Encounters Encounter Description Practice Location Reason(s) For Visit Diagnoses Date Provider Providers Copied on Encounter [facility], [address], [place], [place], [id number], [place] tel:[phone] [facility] No Information 4-[address] Fatmata Daniel. [address] [facility] [address], [place], [address], [place]. tel:[phone] Family History Family Member Type Diagnosis Age [...]
--- OUTSIDE RECORDS SUMMARY | 2025-01-09 13:52 | XMS_ITS | Encounter Summary ---
Author Organization [facility] Address [facility] [place] [address] Care Team Providers Care Faculty Administrator Name Role Phone Dm Mcmahon MD Primary Care Provider [phone]- [phone] Encounter Details Date Type Department Care Team (Late st Contact Info) Description 02/21/[address] [facility] CONVERSION [address] [place] [address] , Generic ConversionMD Social History Tobacco Use [...] on filedocumented in this encounter Care Teams Faculty Administrator Relationship Specialty Start Date End Date Dm Mcmahon MD [address] [place] [address] PCP - General FAMILY PRACTICE 07/10/18 documented as of this encounter
== END 2025-01-09 12:26 | disposition home or self-care (01) ==
LOC: ANHLAB 12:27
PROVIDERS: PCP Family Medicine Adolescent Medicine; Referring Provider Nurse Practitioner Family; Visit Provider Internal Medicine Nephrology
DX: E55.9 Vitamin D deficiency, unspecified (principal); I10 Essential (primary) hypertension; I70.0 Atherosclerosis of aorta; E66.01 Morbid (severe) obesity due to excess calories; Z68.41 Body mass index [BMI] 40.0-44.9, adult; K21.9 Gastro-esophageal reflux disease without esophagitis; N20.0 Calculus of kidney; G43.909 Migraine, unspecified, not intractable, without status migrainosus; Z78.9 Other specified health status; Z09 Encounter for follow-up examination after completed treatment for conditions other than malignant neoplasm; N17.9 Acute kidney failure, unspecified
CPT/HCPCS: 36415; 80053; 80069; 82306; 85025

== ENCOUNTER 2025-02-20 11:46 | Outpatient (CLI) | payer OTHER, SELFPAY ==
--- OUTSIDE RECORDS SUMMARY | 2025-02-20 11:59 | XMS_ITS | Clinical Summary ---
Author Organization [facility] Address [address] [place] [address] Care Team Providers Care Registration Scheduling Specialist Name Role Phone Dm Mcmahon MD Primary Care Provider +1- [phone] Allergies Active Allergy Reactions Criticality Noted Date [...] Comments Blood Pressure 150/95 06/29/2023 5:45 PM CIVIL STRUCTURAL DESIGNER Pulse 60 06/29/2023 5:45 PM CIVIL STRUCTURAL DESIGNER Temperature 36 C (96.8 F) 06/29/2023 3:15 PM CIVIL STRUCTURAL DESIGNER Respiratory Rate 18 06/29/2023 3:15 PM CIVIL STRUCTURAL DESIGNER Oxygen Saturation 92% 06/29/2023 5:45 PM CIVIL STRUCTURAL DESIGNER Inhaled Oxygen Concentration - - Weight 115.7 kg (255 lb) 06/29/2023 3:15 PM CIVIL STRUCTURAL DESIGNER Height 177.8 cm (5' 10) 06/29/2023 3:15 PM CIVIL STRUCTURAL DESIGNER Body Mass Index 36.59 06/29/2023 3:15 PM CIVIL STRUCTURAL DESIGNER Plan of Treatment Health Maintenance Due Date [...] patient's age to complete this topic Insurance [facility] [id number] Care Teams Registration Scheduling Specialist Relationship Specialty Start Date End Date Dm Mcmahon MD [address] [address] PCP - General FAMILY PRACTICE 07/10/18
--- OUTSIDE RECORDS SUMMARY | 2025-02-20 11:59 | XMS_ITS | Continuity of Care Document ---
Author Organization [facility] Address [address] [place] [address] [facility] [address] [place] [address] Phone Care Team Providers Care C Iron Worker Name Role Phone Daniel Avilez Unavailable Unavailable Procedures Procedure Date Eye Exam, New Patient Advance Directives Directive Yes / No Effective Date File Name No Information Encounters Encounter Description Practice Location Reason(s) For Visit Diagnoses Date Provider Providers Copied on Encounter [facility], [address], [place], [place], [id number], [place] tel:[phone] [facility] No Information 4-[address] Fatmata Daniel. [address] [facility] [address], [place], [address], [place]. tel:[phone] Family History Family Member Type Diagnosis Age At Onset No Information Payers Payer name Insurance type Covered constitution party ID Authoriza tion(s) No Information Social [...]
--- OUTSIDE RECORDS SUMMARY | 2025-02-20 11:59 | XMS_ITS | Encounter Summary ---
Author Organization [facility] Address [facility] [place] [address] Care Team Providers Care Sheetmetal Patternmaker Name Role Phone Dm Mcmahon MD Primary Care Provider +1- [phone] Encounter Details Date Type Department Care Team (Late st Contact Info) Description 02/21/2018 Abstract [facility] CONVERSION [address] [place] [address] , Generic ConversionMD Social History Tobacco Use [...] on filedocumented in this encounter Care Teams Sheetmetal Patternmaker Relationship Specialty Start Date End Date Dm Mcmahon MD [address] [place] [address] PCP - General FAMILY PRACTICE 07/10/18 documented as of this encounter
--- OUTSIDE RECORDS SUMMARY | 2025-02-20 11:59 | XMS_ITS | Clinical Summary ---
Author Organization [facility] [address] Address [address] [place] [address] Care Team Providers Care Store Sales Manager Name Role Phone Dm Mcmahon MD Primary Care Prov ider Allergies Active Allergy Reactions Criticality Noted Date Comments Pollen Extracts Other (See comments) Reaction: OTHER REACTION, Miconazole Nrgprhz-Mtbefb-Wvob Rash Medium 10/08/2024 Venom-Wasp Swelling Medium 10/08/2024 [...] Description 01/09/2025 9:20 AM CDT Office Visit [facility] Surgery [address] [place] [address] [address] [place] [address] Ugo Ye MD Nephrolithiasis (Primary Dx) 12/03/2024 Results Follow-Up [facility] Orthopedics and Sports Medicine [address] [place] [address] [address] [place] [address] Ugo Ye MD US Kidney Complete 11/28/2024 11:20 AM CDT Office Visit [facility] Surgery [address] [facility] [address] [place] [address] Ugo Ye MD Nephrolithiasis 11/28/2024 10:00 AM CDT - 11/28/2024 11:59 PM CDT Hospital Encounter 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 Gender Identity Not on file Sexual Orientation [...] Screening 11/27/1995 Regular Well Visit/Exam 18-64 11/27/1995 Influenza Vaccine (#1) 2025 , 08/04/2023, 03/28/2020, Additional history exists DTaP/Tdap/Td Vaccine (2 - Td or Tdap) 04/03/2034 04/03/2024 Covid-19 Vaccine Completed 04/03/2024, 12/2020, 12/03/2020, Additional history exists Pneumococcal vaccine <65 Aged Out No longer eligible based on patient's age to complete this topic Medical Devices Implanted Type Area Subsurface Augmentee Operator Device Identifier Shelf Expiration Date Model / Serial / Lot Sta-Peg Bilateral Ankle Bilateral: Ankle [employer] Stent Ureteral Set Double Pigtail Radiopaque Tip Universa [id number] Polyurethane Hydrophilic Coated [id number] - [id number] Implanted:Qty: 1 on 10/12/2024 by Ugo Ye MD at [facility] Right: Ureter [employer] [id number] 05/25/2027 [id number] / / [id number] Procedures Procedure Name Priority Date/Time Associated Diagnosis Comments POCT URINALYSIS DIPSTICK Routine 01/09/2025 11:09 AM CDT Nephrolithiasis US KIDNEY COMPLETE Schedule Routine, Read Routine (OP Routine) 11/28/2024 10:18 AM CDT Kidney stone from Last 3 Months Results * POCT urinalysis dipstick (01/09/2025 11:09 AM CDT) Color, Urine, POC Yellow Clarity, ur, POC Clear Clear Glucose, ur, POC Negative Negative Bilirubin, ur, POC Negative Negative Ketones, ur, POC Negative Negative Specific [place], POC 1.010 1.003 - 1.030 Blood, ur, POC Negative Negative pH, ur, POC 6.5 5.0 - 8.0 Protein, ur, POC Negative Negative Urobilinogen, urine, POC 0.2 0.2 - 1.0 mg/dL Nitrite, ur, POC Negative Negative Leukocytes, ur, POC Negative Negative Lot Number 0 Urine 01/09/2025 11:0 9 AM CDT Elvisf Ralf Ye MD POINT OF CARE TEST [...] Francisco De Jesus M.D. JR: Report ID: [id number] Reading Location: [id number] Procedure Note Francisco De Jesus MD - [...] Francisco De Jesus M.D. JR: Report ID: [id number] Reading Location: [id number] us Yousef Rlaf Ye MD IMG US PROCEDURES Fi nal Result from Last 3 Months Insurance [facility] Care Teams Store Sales Manager Relationship Specialty Start Date End Date Dm Mcmahon MD [address] [place] [address] PCP - General Family Medicine 10/08/24
--- OUTSIDE RECORDS SUMMARY | 2025-02-20 11:59 | XMS_ITS | Referral Summary ---
Author Organization [facility] [address] Address [address] [place] [address] Care Team Providers Care Feed Adviser Name Role Phone Dm Mcmahon MD Primary Care Prov ider Encounters Date Type Department Care Team Description 01/09/2025 9:20 AM CDT Office Visit [facility] Surgery [address] [place] [address] [address] [place] [address] Ugo Ye MD Nephrolithiasis (Primary Dx) 12/03/2024 Results Follow-Up [facility] Orthopedics and Sports Medicine [address] [place] [phone] Ugo Ye MD US Kidney Complete 11/28/2024 10:00 AM CDT - 11/28/2024 11:59 PM CDT Hospital Encounter 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 Gender Identity Not on file Sexual Orientation [...] on file Medical Devices Implanted Type Area Adult Literacy Teacher Device Identifier Shelf Expiration Date Model / Serial / Lot Sta-Peg Bilateral Ankle Bilateral: Ankle [employer] Stent Ureteral Set Double Pigtail Radiopaque Tip Universa [id number] Polyurethane Hydrophilic Coated [id number] - [id number] Implanted:Qty: 1 on 10/12/2024 by Ugo Ye MD at [facility] Right: Ureter [employer] [id number] 05/25/2027 [id number] / / [id number] Procedures Procedure Name Priority Date/Time Associated Diagnosis [...] Negative Ketones, ur, POC Negative Negative Specific [place], POC 1.010 1.003 - 1.030 Blood, ur, [...] Francisco De Jesus M.D., JR: Report ID: [id number] Reading Location: [place] [address] Procedure Note Francisco De Jesus MD - [...] Francisco De Jesus M.D. JR: Report ID: [id number] Reading Location: [id number] us Yousef Ralf Ye MD IMG US PROCEDURES Fi nal Result from Last 3 Months Insurance [facility] Care Teams Feed Adviser Relationship Specialty Start Date End Date Dm Mcmahon MD [address] [place] [address] PCP - General Family Medicine 10/08/24
[2025-02-20 12:42] LABS: Albumin Level 4.3 g/dL (3.5-5.1); Anion Gap 8 mmol/L (4-12); Blood Urea Nitrogen 14 mg/dL (9-20); Calcium 9.0 mg/dL (8.4-10.2); Carbon Dioxide 24 mmol/L (22-30); Chloride 107 mmol/L (98-107); Estimated Glomerular Filt Rate 52; Glucose 95 mg/dL (65-110); Potassium 3.9 mmol/L (3.4-5.0); Sodium 139 mmol/L (137-145)
== END 2025-02-20 11:47 | disposition home or self-care (01) ==
PROVIDERS: PCP Family Medicine Adolescent Medicine; Visit Provider Internal Medicine Nephrology
DX: N17.9 Acute kidney failure, unspecified (principal)
CPT/HCPCS: 36415; 80069

== ENCOUNTER 2025-04-09 11:32 | Outpatient (CLI) | payer OTHER, SELFPAY ==
--- OUTSIDE RECORDS SUMMARY | 2009-06-27 04:45 | XMS_ITS | Continuity of Care Document ---
Author Organization [facility] Address [address] [place] [address] [facility] [address] [place] [address] Phone Care Team Providers Care Ride Mechanic Name Role Phone Daniel Avilez Unavailable Unavailable Procedures Procedure Date Eye Exam, New Patient Advance Directives Directive Yes / No Effective Date File Name No Information Encounters Encounter Description Practice Location Reason(s) For Visit Diagnoses Date Provider Providers Copied on Encounter [facility], [address], [place], [place], [id number], [place] tel:[phone] [facility] No Information 4-200 9 Fatmata Daniel. [address] [facility] [address], [place], [address], [place]. tel:[phone] Family History Family Member Type Diagnosis Age At Onset No Information Payers Payer name Insurance type Covered alliance party ID Authoriza tion(s) No Information Social History Type Description Quantity Date Captured Comments Sex Male Smoking Status No Information Chief Complaint And Reason For Visit No Information Reason For Referral Reason For Referral No Information History Of Present Illness Encounter Date Complaint History Of Prese nt Illness No Information Functional Status Date Functional Assessmen t No Information Instructions Date Instruction Additional Infor mation No Information Assessments Type Assessment Date No Information Patient Care Teams Name Effective Dates (start - stop) Status Members No Information
--- NOTE | ~2025-04-09 | XR_ITS ---
EXAMINATION: XR hip RT 2V w AP pelvis, 04/09/2025 11:45 CDT HISTORY: M16.0 - Bilateral primary osteoarthritis of hip COMPARISON: No comparisons available. Findings: No acute fracture or malalignment. No significant degenerative changes. Soft tissues unremarkable. Impression: No acute fracture or malalignment. Reviewed, dictated and finalized at location A. Impression: No acute fracture or malalignment.
--- OUTSIDE RECORDS SUMMARY | 2025-04-09 13:35 | XMS_ITS | Clinical Summary ---
Author Organization [facility] Address [address] [place] [address] Care Team Providers Care Imaging Tech Name Role Phone Dm Mcmahon MD Primary Care Provider +1- [phone] Allergies Active Allergy Reactions Criticality Noted Date [...] Comments Blood Pressure 150/95 06/29/2023 5:45 PM ELECTRICIAN UNDERGROUND Pulse 60 06/29/2023 5:45 PM ELECTRICIAN UNDERGROUND Temperature 36 C (96.8 F) 06/29/2023 3:15 PM ELECTRICIAN UNDERGROUND Respiratory Rate 18 06/29/2023 3:15 PM ELECTRICIAN UNDERGROUND Oxygen Saturation 92% 06/29/2023 5:45 PM ELECTRICIAN UNDERGROUND Inhaled Oxygen Concentration - - Weight 115.7 kg (255 lb) 06/29/2023 3:15 PM ELECTRICIAN UNDERGROUND Height 177.8 cm (5' 10) 06/29/2023 3:15 PM ELECTRICIAN UNDERGROUND Body Mass Index 36.59 06/29/2023 3:15 PM ELECTRICIAN UNDERGROUND Plan of Treatment Health Maintenance Due Date Last Done Comments Colorectal Cancer Screening Colonoscopy (10 Years) 1977 Annual Physical 1980 Hepatitis C 11/27/1995 DTaP, Tdap and Td Vaccines ( 1 - Tdap) 1996 Hepatitis B Vaccines (1 of 3 - 19+ 3-dose series) 1996 COVID-19 Vaccine (4 - 2024-2 6 season) 2025 06/29/2021, 12/03/2020, 11/05/2020 Meningococcal B Vaccine Aged [...] age to complete this topic Insurance [facility] [id number] Care Teams Imaging Tech Relationship Specialty Start Date End Date Dm Mcmahon MD [address] [address] PCP - General FAMILY PRACTICE 07/10/18
--- OUTSIDE RECORDS SUMMARY | 2025-04-09 13:35 | XMS_ITS | Encounter Summary ---
Author Organization [facility] Address [facility] [place] [address] Care Team Providers Care Lineman Apprentice Name Role Phone Dm Mcmahon MD Primary Care Provider +1- [phone] Encounter Details Date Type Department Care Team (Late st Contact Info) Description 02/21/2018 Abstract [facility] CONVERSION [address] [place] [address] , Generic ConversionMD Social History Tobacco Use [...] on filedocumented in this encounter Care Teams Lineman Apprentice Relationship Specialty Start Date End Date Dm Mcmahon MD [address] [place] [address] PCP - General FAMILY PRACTICE 07/10/18 documented as of this encounter
--- OUTSIDE RECORDS SUMMARY | 2025-04-09 13:35 | XMS_ITS | Clinical Summary ---
Author Organization 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 Dm Mcmahon MD Primary Care Prov ider Allergies Active Allergy Reactions Criticality Noted Date Comments Pollen Extracts Other (See comments) Reaction: OTHER REACTION, Miconazole Isbqldm-Yvfqjm-Iycc Rash Medium 10/08/2024 Terbinafine Rash,Unknown Medium 09/03/2014 Rash Venom-Wasp Swelling Medium 10/08/2024 Medications tamsulosin (FLOMAX) 0.4 mg extended release capsule Take 1 capsule (0.4 mg total) by mouth daily 90 capsule 09/14/19 25 Active topiramate (TOPAMAX) 100 mg tablet Take 1 tablet (100 mg total) by mouth 2 (two) times a day Activ e rimegepant sulfate (NURTEC ODT ORAL) Take 75 mg by mouth every other day Active propranoloL (INDERAL) 80 mg tabletIndicatio ns:Migraine Prevention Take 1 tablet (80 mg total) by mouth 2 (two) times a day Activ e lisinopriL (PRINIVIL,ZESTR IL) 10 mg tabletIndicatio ns:hypertension [...] by mouth 2 (two) times a day Activ e acetaminophen (TYLENOL) 500 mg tabletIndicatio ns:Pain Take [...] by mouth 2 (two) times a day Activ e SUMAtriptan (IMITREX) 100 mg tabletIndicatio ns:Migraine Take 1 tablet (100 mg total) by mouth once as needed for migraine Active clotrimazole 1 % cream Apply 1 Application topically 2 (two) times a day To feet Activ e fluoride, sodium, 1.1 % paste Apply 1 inch to teeth daily Active oxyBUTYnin (DITROPAN) 5 mg tablet Take 1 tablet (5 mg total) by mouth 3 (three) times a day for 3 days 9 tablet 10/13/19 25 Active HYDROcodone-vikas taminophen (NORCO) 5-325 mg per tabletIndicatio ns:Pain Take 1 tablet by mouth every 8 (eight) hours as needed for pain 10 tablet 10/13/19 25 Active amLODIPine (NORVASC) 5 mg tablet 11/18/19 25 Active spironolactone (ALDACTONE) 25 mg tablet Take 1 tablet (25 mg total) by mouth 2 (two) times a day 60 tablet 2 02/23/20 25 025 Active insulin syringe-needle U-100 1 mL 29 gauge syringe Use to inject 1-4 times daily as directed 100 each 11 02/23/20 25 Active syringe, disposable, (BD Luer-Jonh Syringe) 1 mL syringe Use to inject hormone as directed 4 each 3 02/23/20 25 Active needle, disp, 18 G 18 gauge x 1 /2 needle Use to draw up hormone 5 each 3 02/23/20 25 Active safety needles (BD SafetyGlide Needle) 25 gauge x 1 needle Use to inject hormone intramuscularly 5 each 3 02/23/20 25 Active estradioL (ESTRACE) 2 mg tablet Take 1 tablet (2 mg total) by mouth daily 30 tablet 02/29/20 026 Active Active Problems Problem Noted Date Diagnosed Date 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 patient confirms a marked incongruence between the experienced/expressed gender and gender of at least 6 mo in duration, as manifested by at least two of the followin. A marked incongruence between one s experienced/expressed gender and primary and/or secondary sex characteristics (or in young adolescents, the anticipated secondary sex characteristics) 2. A strong desire to be rid of one s primary and/or secondary sex characteristics because of a marked incongruence with one s experienced/expressed gender' 3. A strong desire for the primary and/or secondary sex characteristics of the other gender 4. A strong desire to be of the other gender (or some alternative gender different from one s designated gender) 5. A strong desire to be treated as the other gender (or some alternative gender different from one s designated gender) 6. A strong conviction that one has the typical feelings and reactions of the other gender (or some alternative gender different from one s designated gender) We discussed anticipated effects of therapy and anticipated time frame Effect Onset Maximum Redistribution of body fat 3-6 mo 2-3 y Decrease in muscle mass and strength 3-6 mo 1-2 y Softening of skin/decreased oiliness 3-6 mo Unknown Decreased sexual desire 1-3 mo 3-6 mo Decreased spontaneous erections 1-3 mo 3-6 mo Male sexual dysfunction Variable Variable Breast growth 3-6 mo 2-3 y Decreased testicular volume 3-6 mo 2-3 y Decreased sperm production Unknown >3 y Decreased terminal hair growth 6-12 mo >3 ya Scalp hair Variable --b Voice changes None --c We discussed potential risks of therapy including: thromboembolic disease, breast cancer, macroprolactinoma, coronary artery disease, cerebrovascular disease, cholelithiasis, hypertriglyceridemia. We discussed options for fertility preservation. She is not interested in fertility preservation at this time. We discussed the necessity of using reliable contraception if intercourse with cis gender females to prevent . She has good insight and understanding of risks/benefits of gender reaffirming therapy. Based on my assessment, she is a good candidate for estradiol. Latest labs: No results found for: FSH, LH, ESTRADIOL No results found for: TESTOSTERONE, TESTOSTFREE No results found for: PROLACTIN No results found for: NA, K, CREATININE No results found for: CHOL, TRIG, HDL, LDLCALC No results found for: LDLDIRECT Plan: 1) Hormone therapy Start estradiol 2 mg IM q week Start spironolactone 25 mg PO BID Add micronized oral progesterone 100 mg PO q day (at 6-month adria) Counseled on the importance of consistent hormone adherence 2) Labs - check estradiol, testosterone (baseline and q 3 months x 1 year, then q 6 months) Target estradiol level: 100-200 pg/mL Target testosterone level: < 50 ng/dl 3) Prolactin, renal function panel, and lipid profile (at baseline and annually) 4) Cancer screening - breast and prostate Nephrolithiasis 10/03/2024 Migraine with aura 07/20/2010 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 Encounters Date Type Department Care Team Description 02/28/2025 Orders Only [facility] Endocrinology Metabolism and Lipid [address] [facility] [address] [place] [address] [place] [address] Jimmy Chavez MD PhD 02/26/2025 Telephone [facility] Endocrinology Metabolism and Lipid [address] [facility] Advanced [facility] 5th [place] [address] [place] [address] Binta Valdez RMA Prior Auth (SHANKAR ESTRADIOL PLEASE) 02/25/2025 Telephone [facility] Endocrinology Metabolism and Lipid [address] [facility] 5th [place] [address] [place] [address] Binta Valdez RMA Prior Auth (SHANKAR SPIRONOLACTONE PLEASE) 02/22/2025 2:15 PM CDT Lab [facility] Advanced [facility] [address] [place] [address] Other specified health status 02/22/2025 1:00 PM CDT Office Visit [facility] Medicine Endocrinology Metabolism and Lipid [address] [facility] 5th [place] [address] [place] [address] Other specified health status (Primary Dx); Gender dysphoria 01/09/2025 9:20 AM CDT Office Visit [facility] Medicine [facility] [address] [facility] [address] [place] [id number] Ugo Ye MD Nephrolithiasis (Primary Dx) from Last 3 Months Surgical [...] Packs/Day Years Used Date Smoking Tobacco: Never Tobacco Cessation:Counseling Given: Not Answered AUDIT-C Answer Date Recorded Q1: How often [...] on file 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 Gender Identity Not on file Sexual Orientation Not on file Obstetrics History Last Filed Vital Signs Vital Sign Reading Time Taken Comments Blood Pressure 126/85 02/22/2025 12:51 PM CDT Pulse 68 02/22/2025 12:51 PM CDT Temperature 37.2 C (99 F) 02/22/2025 12:51 PM CDT Respiratory Rate 18 10/12/2024 4:20 PM CDT Oxygen Saturation 97% 10/12/2024 4:20 PM CDT Inhaled Oxygen Concentration - - Weight 127 kg (280 lb) 02/22/2025 12:51 PM CDT Height 177.8 cm (5' 10) 02/22/2025 12:51 PM CDT Body Mass Index 40.18 02/22/2025 12:51 PM CDT Plan of Treatment Health Maintenance Due [...] this topic Medical Devices Implanted Type Area Airline Pilot/First Officer Device Identifier Shelf Expiration Date Model / Serial / Lot Sta-Peg Bilateral Ankle Bilateral: Ankle [employer] Stent Ureteral Set Double Pigtail Radiopaque Tip [employer] [id number] Polyurethane Hydrophilic Coated [id number] - [id number] Implanted:Qty: 1 on 10/12/2024 by Ugo Ye MD at [facility] Right: Ureter [employer] [id number] 05/25/2027 [id number] / / [id number] Procedures Procedure Name Priority Date/Time Associated Diagnosis Comments EGFR Routine 02/22/2025 1:35 PM CDT Other specified health status DIFFERENTIAL AUTO Routine 02/22/2025 1:3 5 PM CDT Other specified health status TOTAL TESTOSTERONE Routine 02/22/2025 1: 35 PM CDT Other specified health status ESTRADIOL Routine 02/22/2025 1:35 PM CDT Other specified health status CBC WITH AUTO DIFFERENTIAL Routine 02/22/2025 1:35 PM CDT Other specified health status COMPREHENSIVE METABOLIC PANEL Routine 02/22/2025 1:35 PM CDT Other specified health status LIPID PANEL Routine 02/22/2025 1:35 PM CDT Other specified health status POCT URINALYSIS DIPSTICK Routine 01/09/2025 11:09 AM CDT Nephrolithiasis from Last 3 Months Results * eGFR (02/22/2025 1:35 PM CDT) eGFR 61 >=60 mL/min/1. 73 m2 Comment: Interpretive Data Reference Interval Normal >/= 90 mL/min/1.73m2 Mildly decreased* 60 - 89 mL/min/1.73m2 Mildly to moderately decreased 45 - 59 mL/min/1.73m2 Moderately to severely decreased 30 - 44 mL/min/1.73m2 Severely decreased 15 - 29 mL/min/1.73m2 Kidney Failure < 15 mL/min/1.73m2 *Relative to young adult level Estimated glomerular filtration rate is determined by the 2020 CKD-EPI equation recommended by the National Kidney Foundation (A Unifying Approach to GFR Estimation: Recommendations of the NKF-ASK Task Force on Reassessing the Inclusion of Race in Diagnosing Kidney Disease, JASN 2020). The CKD-EPI equation should not be used for patients with unstable renal function and has not been validated in children and those over 70. Current interpretive data was last reviewed 2021. Blood 02/22/2025 1:35 PM CDT 02/22/2025 1:59 PM CDT us Jimmy Chavez MD PhD LAB BLOOD ORDERABLES Fin al Result [facility] [place] [address] * (ABNORMAL) Differential, auto (02/22/2025 1:35 PM CDT) Neutrophil abs 4.62 1.50 - 6.50 K/cumm Imm gran abs 0.04 0.00 - 0.10 K/cumm [facility] Lymphocyte abs 3.13 0.80 - 3.30 K/cumm [facility] Monocyte abs 0.83(H) 0.20 - 0.80 K/cumm [facility] Eosinophil abs 0.28 0.00 - 0.50 K/cumm [facility] Basophil abs 0.08 0.00 - 0.10 K/cumm [facility] Neutrophil pct 51.5 % [facility] Comment: Interpretive Data Percent cell count reference ranges are not reported, since discordance with absolute values may lead to misinterpretation of CBC data. Current Interpretive Data was last revised on 2017. Imm gran pct 0.4 % [facility] Comment: Interpretive Data Percent cell count reference ranges are not reported, since discordance with absolute values may lead to misinterpretation of CBC data. Current Interpretive Data was last revised on 2017. Lymphocyte pct 34.9 % [facility] Comment: Interpretive Data Percent cell count reference ranges are not reported, since discordance with absolute values may lead to misinterpretation of CBC data. Current Interpretive Data was last revised on 2017. Monocyte pct 9.2 % [facility] Comment: Interpretive Data Percent cell count reference ranges are not reported, since discordance with absolute values may lead to misinterpretation of CBC data. Current Interpretive Data was last revised on 2017. Eosinophil pct 3.1 % [facility] Comment: Interpretive Data Percent cell count reference ranges are not reported, since discordance with absolute values may lead to misinterpretation of CBC data. Current Interpretive Data was last revised on 2017. Basophil pct 0.9 % [facility] Comment: Interpretive Data Percent cell count reference ranges are not reported, since discordance with absolute values may lead to misinterpretation of CBC data. Current Interpretive Data was last revised on 2017. Blood 02/22/2025 1:35 PM CDT 02/22/2025 1:59 PM CDT Jimmy Chavez MD PhD LAB BLOOD ORDERABLES Fin al Result Performing Organization Address City/[facility] de Phone Number [facility] [place] [address] * CBC with auto differential (02/22/2025 1:35 PM CDT) [facility] WBC 8.98 3.80 - 9.90 K/cumm Hgb 14.7 13.0 - 17.5 g/dL [facility] Hct 43.6 38.9 - 50.3 % [facility] Plt 217 150 - 400 K/cumm [facility] MPV 9.5 9.1 - 12.3 fL [facility] RBC 4.93 4.30 - 5.80 M/cumm [facility] MCV 88.4 81.3 - 96.4 fL [facility] MCH 29.8 27.1 - 33.3 pg [facility] MCHC 33.7 32.3 - 35.7 g/dL [facility] RDW CV 13.8 11.1 - 14.9 % [facility] RDW SD 44.7 35.7 - 48.1 fL [facility] NRBC abs 0.00 0.00 - 0.01 K/cumm [facility] Blood 02/22/2025 1:35 PM CDT 02/22/2025 1:59 PM CDT Jimmy Chavez MD PhD LAB BLOOD ORDERABLES Fin al Result Performing Organization Address [facility] Co de Phone Number [facility] Department [place] [address] * Estradiol (02/22/2025 1:35 PM CDT) [facility] Estradiol 17.3 pg/mL Comment: Interpretive Data Males: 11 43 pg/mL Females: Premenopausal: 31 533 pg/mL Postmenopausal: < 50 pg/mL Patients treated with Fluvestrant (Faslodex) should be tested using an alternate assay such as LC-MS due to potential for cross-reactivity. Estradiol varies widely throughout the menstrual cycle. Current interpretive data was last revised 2024. Blood 02/22/2025 1:35 PM CDT 02/22/2025 1:59 PM CDT Jimmy Chavez MD PhD LAB BLOOD ORDERABLES Fin al Result Performing Organization Address City/[facility] Co de Phone Number [facility] Department [place] [address] * Total testosterone (02/22/2025 1:35 PM CDT) Testosterone 271.0 249.0 - 836.0 ng/dL Blood 02/22/2025 1:35 PM CDT 02/22/2025 1:59 PM CDT Jimmy Chavez MD PhD LAB BLOOD ORDERABLES Fin al Result Performing Organization Address [facility] de Phone Number [facility] [place] [address] * (ABNORMAL) Lipid panel (02/22/2025 1:35 PM CDT) Cholesterol 251(H) 30 - 199 mg/dL Comment: Interpretive Data Ages < or = 19 years Acceptable: <170 mg/dL Borderline high: 170-199 mg/dL High: >or= 200 mg/dL Ages > or = 20 years Desirable: <200 mg/dL Borderline high: 200-239 mg/dL High: >or= 240 mg/dL Literature References: 1. Expert Panel on Integrated Guidelines for Cardiovascular Health and Risk Reduction in Children and Adolescents. Pediatrics 2011;128:S213 2. NCEP Expert Panel. Circulation 2004;110:227 Current Interpretive Data was last revised on 2018. Triglycerides 162(H) <=149 mg/dL [facility] Comment: Interpretive Data Ages < or = 9 years Acceptable: <75 mg/dL Borderline high: 75-99 mg/dL High: >or= 100 mg/dL Ages 10 to 20 years Acceptable: <90 mg/dL Borderline high: 90-129 mg/dL High: >or= 130 mg/dL Ages > or = 20 years Desirable: <150 mg/dL Borderline high: 150-199 mg/dL High: 200-499 mg/dL Very high: >or= 499 mg/dL Literature References: 1. Expert Panel on Integrated Guidelines for Cardiovascular Health and Risk Reduction in Children and Adolescents. Pediatrics 2011;128:S213 2. NCEP Expert Panel. Circulation 2004;110:227 Current Interpretive Data was last revised on 2018. HDL 39(L) >=40 mg/dL [facility] Comment: Interpretive Data Ages < or = 19 years Acceptable: >45 mg/dL Borderline low: 40-45 mg/dL Low: <40 mg/dL Ages > or = 20 years Desirable: >or= 60 mg/dL Low: <40 mg/dL Literature References: 1. Expert Panel on Integrated Guidelines for Cardiovascular Health and Risk Reduction in Children and Adolescents. Pediatrics 2011;128:S213 2. NCEP Expert Panel. Circulation 2004;110:227 Current Interpretive Data was last revised on 2018. LDL, calculated 182(H) <=129 mg/dL [facility] Comment: Interpretive Data Ages < or = 19 years Acceptable: <110 mg/dL Borderline high: 110-129 mg/dL High: >or= 130 mg/dL Ages > or = 20 years Optimal: <100 mg/dL Near optimal: 100-129 mg/dL Borderline high: 130-159 mg/dL High: >160 mg/dL Calculated using the Jerson LDL-C estimating equation. This equation was implemented on 2024. Prior to this date LDL-C was estimated using the Friedewald equation. Literature References: 1. Expert Panel on Integrated Guidelines for Cardiovascular Health and Risk Reduction in Children and Adolescents. Pediatrics 2011;128:S213 2. NCEP Expert Panel. Circulation 2004;110:227 3. Jerson Anderson al. FABRIZIO Cardiol. 2019November 22;5(5):540-548. doi: 10.1001/jamacardio.2020.0013 Current Interpretive Data was last revised on 2024. Non-HDL Cholesterol 212 mg/dL [facility] Comment: Interpretive Data Ages < or = 19 years Acceptable: <120 mg/dL Borderline high: 120-144 mg/dL High: >145 mg/dL Ages > or = 20 years When triglycerides are >200 mg/dL, Non-HDL cholesterol is a secondary target of therapy with treatment goals that are 30 mg/dL greater than the LDL cholesterol target. Literature References: 1. Expert Panel on Integrated Guidelines for Cardiovascular Health and Risk Reduction in Children and Adolescents. Pediatrics 2011;128:S213 2. NCEP Expert Panel. Circulation 2004;110:227 Current Interpretive Data was last revised on 2018. Chol/HDL ratio 6 [facility] Blood 02/22/2025 1:35 PM CDT 02/22/2025 1:59 PM CDT Narrative [facility] - 02/22/2025 2:37 PM CDT These lab test should be done fasting. This means do not eat or drink for at least 12 hours prior to getting your blood drawn. Jimmy Chavez MD PhD LAB BLOOD ORDERABLES Fin al Result [facility] [place] [address] * (ABNORMAL) Comprehensive metabolic panel (02/22/2025 1:35 PM CDT) Sodium 143 135 - 145 mmol/L Potassium, pl 4.2 3.3 - 4.9 mmol/L [facility] Chloride 109 97 - 110 mmol/L [facility] CO2 26 22 - 32 mmol/L [facility] Anion gap 8 2 - 15 mmol/L [facility] BUN 13 6 - 25 mg/dL [facility] Creatinine 1.42(H) 0.80 - 1.30 mg/dL [facility] Glucose 97 70 - 199 mg/dL [facility] Comment: Interpretive Data Fasting glucose >/= 126 mg/dl is diagnostic for diabetes. Fasting is defined as no caloric intake for at least 8 hours. Fasting glucose between 100 mg/dl to 125 mg/dl is diagnostic of prediabetes. In a patient with classic symptoms of hyperglycemia or hyperglycemic crisis, a random glucose >/= 200 mg/dl is diagnostic for diabetes. In the absence of unequivocal hyperglycemia, results should be confirmed by repeat testing. The classification and Diagnosis of Diabetes Diabetes Care 2021; 46: S19-S40. Current interpretive data was last revised 2022. Calcium 9.0 8.5 - 10.3 mg/dL [facility] Bilirubin, total 0.4 0.1 - 1.2 mg/dL [facility] Protein, pl 7.5 6.5 - 8.5 g/dL [facility] Albumin 4.5 3.5 - 5.0 g/dL [facility] Alk phos 101 40 - 130 Units/L [facility] ALT 35 7 - 55 Units/L [facility] AST 25 10 - 50 Units/L [facility] Blood 02/22/2025 1:35 PM CDT 02/22/2025 1:59 PM CDT us Jimmy Chavez MD PhD LAB BLOOD ORDERABLES Fin al Result [facility] [place] [address] * POCT urinalysis dipstick (01/09/2025 11:09 AM CDT) Color, Urine, POC Yellow Clarity, ur, POC Clear Clear Glucose, ur, POC Negative Negative Bilirubin, ur, POC Negative Negative Ketones, ur, POC Negative Negative Specific [place], POC 1.010 1.003 - 1.030 Blood, ur, POC Negative Negative pH, ur, POC 6.5 5.0 - 8.0 Protein, ur, POC Negative Negative Urobilinogen, urine, POC 0.2 0.2 - 1.0 mg/dL Nitrite, ur, POC Negative Negative Leukocytes, ur, POC Negative Negative Lot Number 0 Urine 01/09/2025 11:0 9 AM CDT us Ugo Ye MD POINT OF CARE TEST O RDERABLES Final Result from Last 3 Months Insurance [facility] 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
== END 2025-04-09 11:33 | disposition home or self-care (01) ==
PROVIDERS: PCP Family Medicine Adolescent Medicine; Visit Provider Orthopaedic Surgery
DX: M16.0 Bilateral primary osteoarthritis of hip (principal)
CPT/HCPCS: 73502

== ENCOUNTER 2025-07-01 09:30 | Outpatient (RCR) | payer OTHER, SELFPAY ==
--- NOTE | 2025-05-02 12:27 | PTOPEVAL1 ---
Assessment and note entered by Tino Almonte, PT Evaluation Information Assessment Status Evaluation Diagnosis M47.816- Lumbar Spondylosis ICD-10 Condition Codes (PT) Pain in right hip M25.551 Onset October 2024 Subjective Information Patient reports that e was identified to have arthritis in the spine but cannot take NSAIDs due to Kidney issues. Reports that pain is in both sides of his low ack and in his right hip. He ordered a cane but does not have it yet. Pain is worst with standing. He can typically stand for about 10 minutes at the most before he has to sit. Needs back support in his chairs. He gets deep aching in the tailbone since his hospitalization in October. Reported Pain Level Pain Score 6: Self Report Assessment PT Clinical Summary Patient presents with signs and symptoms consistent with hip impingement and stenotic type back pain. Poor hip mobility noted and pain with abdominal stabilization this date. Patient will benefit form skilled therapy to promote hip disassociation and functional mobility to reduce pain and improve functional improvement. Hip mobility appears to be crucial at this point. Plan of Care PT Services Indicated Yes Treatment Frequency and 2x/week for 8 visits Duration These treatments will address the objective and functional deficits as defined above. The patient will be advanced safely and appropriately in order for the patient to progress towards his/her prior level of function. Additional exercises will be introduced and as well as a comprehensive home exercise program upon discharge, if needed, ?to ensure carryover of functional gains achieved in the clinic. This treatment plan has been reviewed and agreement upon by the patient.
--- NOTE | 2025-05-14 09:27 | OPREHPOC ---
Outpatient Therapy Plan of Care This is a Multidisciplinary Plan of Care that may contain components documented by all disciplines (PT, OT, and ST.) PT Problem 1 PT Problem #1 Knowledge Deficit PT Goal 1 Goal / Goal Update [place] with HEP Target Visit 4 PT Goal 2 Goal / Goal Update Report no pain in low back greater than 2/1 with ambulation greater than 5 minutes Target Visit 8 PT Problem 2 PT Problem #2 Impaired Range of Motion PT Goal 1 Goal / Goal Update 1. Improve roxanne hip abduction t 35+ degrees roxanne to improve roxanne hip mobility and reduce impingement 2. Improve roxanne HS 90/90 ROM to -30 degrees or better for reduced posterior chain pull Target Visit 8 PT Problem 3 PT Problem #3 Impaired Gait PT Goal 1 Goal / Goal Update Ambulate with even stride bilaterally and absence of compensated Trendelenburg Target Visit 8 PT Problem 4 PT Problem #4 Impaired Strength PT Goal 1 Goal / Goal Update 1. Improve roxanne hip abduction strength to 4/5 to improve lateral stability of hips during squatting and functional activity 2. Demonstrate ability to perform proper squat of 10# without increased back pain Target Visit 8
--- NOTE | 2025-05-21 11:07 | PCPTNOTE ---
Pt cancelled scheduled physical therapy appointment this date due to having a migraine.
--- NOTE | 2025-06-11 16:51 | PTOPPROG ---
Assessment and note entered by Kiya Sherwood, PT Evaluation Information Assessment Status Progress Diagnosis M47.816- Lumbar Spondylosis ICD-10 Condition Codes (PT) Pain in right hip M25.551 Onset October 2024 Subjective Information Pt currently using a tri-base single point cane. Reports that his back has not been happy this morning. Getting out of bed couldn't bend at all Feels that the hip is improving, range is improving, better able to go up stairs, pain is improving Back is not improving yet. When standing still is when the back is worst, moving and walking is not as bad as long as is not a long period of time. Reports standing in place is 5-7 minutes, can push himself to 15 minutes but then on the verge of collapsing but thinks can walk about half a mile. Sitting in softer chairs with good lumbar support feels better than firm chair Perceived improvement 40-45% overall. Assessment PT Clinical Summary Pt has attended therapy for 8 visits for his right hip and low back pain. Reports seeing improvement in right hip the most with mobility, being able to go up steps easier. Pt shows significant improvement in his hip strength bilat, shows mild improvement in right hip range in internal and external rotation. Flexion in hip is still limited . He also shows today right hip elevation and left shoulder elevation which may correlate to leg length discrepancy causing uneven forces on the lumbar spine. Also demonstrates increased lumbar lordosis at rest and excessive lumbar extension suggestive of poor stability and core strength. Pt would benefit from continued therapy with emphasis on hip mobilization techniques, lumbar decompression and stabilization techniques, and education/encouragement in problem solving functional activities to reduce strain and injury on lumbar spine and hips. Plan of Care Interventions Electrical Stimulation,Gait Training,Hot Pack/Cold Pack,Manual Therapy,Mechanical Traction,Neuro Re- education,Patient/Caregiver Education,Therapeutic Activities,Therapeutic Exercise,Ultrasound,Other Other Interventions taping, bracing PT Services Indicated Yes Treatment Frequency and 2x weekly x 10 visits Duration These treatments will address the objective and functional deficits as defined above. The patient will be advanced safely and appropriately in order for the patient to progress towards his/her prior level of function. Additional exercises will be introduced and as well as a comprehensive home exercise program upon discharge, if needed, ?to ensure carryover of functional gains achieved in the clinic. This treatment plan has been reviewed and agreement upon by the patient.
--- NOTE | 2025-06-11 16:51 | OPREHPOC ---
Outpatient Therapy Plan of Care This is a Multidisciplinary Plan of Care that may contain components documented by all disciplines (PT, OT, and ST.) PT Problem 1 PT Problem #1 Knowledge Deficit PT Goal 1 Goal / Goal Update [place] with HEP Target Visit 4 Progress Met PT Goal 2 Goal / Goal Update Report no pain in low back greater than 2/10 with ambulation greater than 5 minutes Target Visit 8 Progress Met PT Problem 2 PT Problem #2 Impaired Range of Motion PT Goal 1 Goal / Goal Update 1. Improve roxanne hip abduction t 35+ degrees roxanne to improve roxanne hip mobility and reduce impingement - progressed 2. Improve roxanne HS 90/90 ROM to -30 degrees or better for reduced posterior chain pull - unchanged Target Visit 8 PT Problem 3 PT Problem #3 Impaired Gait PT Goal 1 Goal / Goal Update Ambulate with even stride bilaterally and absence of compensated Trendelenburg (with AD) Target Visit 8 Progress Met PT Goal 2 Goal / Goal Update Pt will demonstrate appropriate gait pattern for 2 min walk test without AD to return to PLOF Target Visit 18 PT Problem 4 PT Problem #4 Impaired Strength PT Goal 1 Goal / Goal Update 1. Improve rox[place] hip abduction strength to 4/5 to improve lateral stability of hips during squatting and functional activity - 4+/5 2. Demonstrate ability to perform proper squat of 10# without increased back pain - untested Target Visit 8 PT Goal 2 Goal / Goal Update Pt will demonstrate appropriate core strength and stability with standing postures and functional activities Target Visit 18 PT Problem 5 PT Problem #5 Impaired Range of Motion PT Goal 1 Goal / Goal Update Pt will demonstrate hip flexion ROM of 110 or greater to offload strain on lumbar spine and improve hip joint motion Target Visit 18
--- NOTE | 2025-07-01 11:18 | PTOPDC ---
Assessment and note entered by Kiya Sherwood, PT Evaluation Information Assessment Status Discharge Diagnosis M47.816- Lumbar Spondylosis ICD-10 Condition Codes (PT) Pain in right hip M25.551 Onset October 2024 Subjective Information Pt reports going up the stairs to his sister to take her food to her. States she is basically bed ridden, but sometimes she will come downstairs. States is difficult because is so narrow and trying to go up with cane and carrying an object or at night is very difficult. Pt reports RLE distraction felt fine while was being stretched was fine but after had pain beyond belief and didn't stop hurting until yesterday (3 days). LLE did fine with distraction . Reports RLE was front section shooting through to the back. Standing for lengths of time and being in one position too long increases pain. Pt reports as cleaning and doing dishes took about 30 min and didn't take any breaks. Reports right hip can move more but the pain level doesn't change. doesn't like supporting me. Reported Pain Level Pain Score 2,0: Self Report Assessment PT Clinical Summary Pt has attended therapy consistently for 13 visits , reports feels more flexible and mobile but the pain has not changed. Testing shows increased strength, increased flexibility, and increased hip ROM to offload lumbar spine, but pt continues to have high levels of pain often with activities and interventions. Pt has been encouraged multiple times to assess tasks and work smart not hard but often has other reasons for performing tasks as he does. Pt appears to have met max benefit for physical therapy at this time and thus is being referred back to ortho as well as discussing neurosurgery as optional additional referral. Thus patient is being discharged for max benefit being met with therapy. Plan of Care PT Services Indicated No
== END 2025-07-01 11:32 | disposition home or self-care (01) ==
LOC: ANHHIPT 09:30
PROVIDERS: PCP Family Medicine Adolescent Medicine; Visit Provider Orthopaedic Surgery
DX: M47.816 Spondylosis without myelopathy or radiculopathy, lumbar region (principal)
CPT/HCPCS: 97012; 97014; 97110; 97112; 97116; 97140; 97161; 97530; 97750; G0283